=== PATIENT | male | born 1950 | race Caucasian/White ===

== ENCOUNTER 2021-10-17 12:18 | Inpatient (IN) | payer MEDICARE, OTHER ==
[~2021-10-17] VITALS: Ht 177.8 cm; Wt 70.8 kg
--- NOTE | 2021-10-17 12:35 | NUR ---
IV LINE ESTABLISHED BLOOD DRAWN AND SENT TO LAB.
--- NOTE | 2021-10-17 12:48 | NUR ---
MOVE SHEET SUBMITTED AND CALLED FOR TELE BED.
[2021-10-17] MEDS ORDERED: methylPREDNISolone SOD SUCC 125 MG/2ML VIAL ONE ×2 (12:50→22:44)
[2021-10-17 12:55] LABS: BASOPHILS # (AUTO) 0.1 K/uL (0.0-0.2); BASOPHILS % (AUTO) 0.4 % (0.0-2.0); HEMATOCRIT 38 % (39-51); HEMOGLOBIN 11.9 g/dL (13.5-17.5); LYMPHOCYTES # (AUTO) 2.3 K/uL (0.8-4.8); LYMPHOCYTES % (AUTO) 7.4 % (20.0-44.0); MEAN CORPUSCULAR HGB CONC 31 g/dl (31.0-36.0); MEAN CORPUSCULAR VOLUME 84 fL (80-96); MONOCYTES # (AUTO) 1.7 K/uL (0.1-1.30); MONOCYTES % (AUTO) 5.5 % (2.0-12.0); NEUTROPHILS # (AUTO) 26.5 K/uL (1.8-8.9); NEUTROPHILS % (AUTO) 86.7 % (43.0-81.0); PLATELET COUNT (AUTO) 186 K/uL (150-450); RED BLOOD CELL COUNT(AUTO) 4.53 MIL/uL (4.5-6.0)
[2021-10-17] MEDS ORDERED: DEXAMETHASONE SOD PHOSPHATE 6 MG in IV D5W 50 ML IV ONE (13:00)
[2021-10-17] MEDS ORDERED: methylPREDNISolone SOD SUCC 125 MG/2ML VIAL IV ONE (13:00)
[2021-10-17] MEDS ORDERED: PIPERACILLIN /TAZOBACTAM 3.375 G in IV D5W 50 ML IV ONE (13:00)
[2021-10-17 13:01] LABS: WHITE BLOOD COUNT (AUTO) 30.6 K/uL (4.3-11.0)
[2021-10-17] MEDS ORDERED: ACETAMINOPHEN 650 MG/SUPP.RECT RC ONE ×2 (13:21→13:30)
[2021-10-17 13:24] LABS: BILIRUBIN,URINE NEGATIVE (NEGATIVE); COLOR,URINE YELLOW (YELLOW); LEUKOCYTE ESTERASE ,URINE LARGE (NEGATIVE); NITRITE, URINE NEGATIVE (NEGATIVE); PROTEIN,URINE 100 mg/dl (NEGATIVE); UGLUCOSE NEGATIVE (NEGATIVE); UROBILINOGEN,URINE 0.2 EU/dL (0.2)
[2021-10-17] MEDS ORDERED: IV NS 0.9% 1,000 ML BAG IV ONE (13:30)
[2021-10-17 13:34] LABS: BAND % (MANUAL) 2 % (0.0-5.0); LYMPHOCYTES % (MANUAL) 10 % (16-48); MONOCYTES % (MANUAL) 4 % (0-11.0); MYELOCYTES % 2 % (0-0); NEUTROPHILS % (MANUAL) 82 (42-76)
[2021-10-17 13:36] LABS: CALCIUM, SERUM 9.2 mg/dL (8.5-10.1); CARBON DIOXIDE 33 mmol/L (21-32); CHLORIDE 114 mmol/L (98-107); CREATININE 1.2 mg/dL (0.6-1.3); GLUCOSE 177 mg/dL (74-106); SODIUM SERUM 155 mmol/L (136-145); UREA NITROGEN, BLOOD 55 mg/dL (7-18)
[2021-10-17 13:49] LABS: ALANINE AMINOTRANSFERASE 60 U/L (12-78); ALKALINE PHOSPHATASE 185 U/L (46-116); ASPARTATE AMINOTRANSFERASE 38 U/L (15-37); BILIRUBIN,DIRECT 0.1 mg/dL (0.0-0.2); BILIRUBIN,TOTAL 0.4 mg/dL (0.2-1.0); TOTAL PROTEIN, SERUM 7.7 g/dL (6.4-8.2)
[2021-10-17 13:56] LABS: BACTERIA,URINE Many /HPF (None Seen); RBC,URINE TOO NUMEROUS TO COUN /HPF (0-2); SQUAMOUS EPITHELIAL CELL,UR Moderate /HPF (None Seen); WBC,URINE 21-50 /HPF (0-3)
--- NOTE | 2021-10-17 14:05 | NUR ---
[facility] CALLED STRAINER MILL OPERATOR PAGED.
[2021-10-17] MEDS ORDERED: ONDANSETRON HCL/PF 4 MG/2 ML VIAL IVP PRN (19:30)
[2021-10-17] MEDS ORDERED: Z GUARD REMEDY 4 OZ OINT TP PRN (19:30)
[2021-10-17] MEDS: IPRATROPIUM NEB FS 0.5 MG/2.5 ML AMPUL.NEB NEB SCH ×2 (19:30→23:30)
[2021-10-17] MEDS ORDERED: CEFEPIME 2 GM in IV D5W 100 ML IV SCH (19:30)
[2021-10-17] MEDS ORDERED: ENOXAPARIN SODIUM 40 MG/0.4 ML DISP.SYRIN SQ SCH (19:30)
[2021-10-17] MEDS ORDERED: ACETAMINOPHEN 325 MG TABLET PO PRN (19:30)
[2021-10-17] MEDS ORDERED: MORPHINE SULFATE INJ 2 MG/ML DISP.SYRIN IV PRN (19:30)
[2021-10-17] MEDS ORDERED: IV D5W 1,000 ML IV PRN (19:30)
[2021-10-17] MEDS: ALBUTEROL FS 2.5 MG/3 ML VIAL.NEB NEB SCH ×2 (19:30→23:30)
[2021-10-17] MEDS ORDERED: ALBUTEROL FS 2.5 MG/0.5 ML VIAL.NEB ONE ×3 (19:41→22:56)
[2021-10-17] MEDS ORDERED: IPRATROPIUM NEB FS 0.5 MG/2.5 ML AMPUL.NEB ONE ×3 (19:41→22:56)
[2021-10-17] MEDS ORDERED: ENOXAPARIN SODIUM 40 MG/0.4 ML DISP.SYRIN SQ ONE (19:42)
[2021-10-17] MEDS ORDERED: CEFEPIME 1 GM VIAL ONE (19:42)
[2021-10-17] MEDS ORDERED: PROPOFOL 100 ML ONE (20:14)
[2021-10-17] MEDS ORDERED: ETOMIDATE 2 MG/ML VIAL IV ONE (20:30)
[2021-10-17] MEDS ORDERED: SUCCINYLCHOLINE CHLORIDE 20 MG/ML VIAL IV ONE (20:30)
--- NOTE | 2021-10-17 20:34 | NUR ---
PT GOT INTUBATED AT 2033.
--- NOTE | 2021-10-17 20:36 | NUR ---
DR. SHERON GIMENEZ AND RT AT PT'S BEDSIDE DR. GIMENEZ VERBAL ORDERS FOR: ETOMINDATE 20MG 2034 SUCCINATED 100MG 2034 VSS: ETT 8.0. 23 AT THE LIP VS 140/87 SPO2 100% HR 94 RR 17
[2021-10-17] MEDS: PROPOFOL 100 ML IV PRN ×4 (20:45→21:00)
--- NOTE | 2021-10-17 20:45 | NUR ---
PT TOLERATING VENT SETTINGS WELL AT 97%: AC 18 TV 500 FIO2 80% PEEP 0.0
[2021-10-17 20:46] LABS: ABG BASE EXCESS 4.6 mmol/L; ABG PCO2 47.7 mmHg (35.0-45.0); ABG PH 7.416 (7.350-7.450); ABG PO2 95.7 mmHg (75.0-100.0); COHb 0.3 % (0.5-1.5); MetHb 0.2 % (0.0-1.5); SITE, ABG Right Radial; VENT MODE, BG NON REBREATHER
[2021-10-17] MEDS: methylPREDNISolone SOD SUCC 125 MG/2ML VIAL IV SCH (21:00)
--- NOTE | 2021-10-17 21:39 | NUR ---
DR SHERON GIMENEZ AT BED SIDE FOR CENTRAL LINE INSERTION
--- NOTE | 2021-10-17 21:40 | NUR ---
R EJ TRIPLE LUMEN #18G S/L; PATENT AND INTACT
[2021-10-18] VITALS (58 sets, daily range): BP systolic 86–129; BP diastolic 41–82
[2021-10-18] MEDS ORDERED: PROPOFOL 100 ML ONE (02:09)
[2021-10-18 02:29] LABS: ABG BASE EXCESS 6.9 mmol/L; ABG PCO2 45.1 mmHg (35.0-45.0); ABG PH 7.462 (7.350-7.450); ABG PO2 108.9 mmHg (75.0-100.0); COHb 0.3 % (0.5-1.5); MetHb 0.1 % (0.0-1.5); O2Hb 97.7 % (94.0-97.0); SITE, ABG Right Radial; VENT MODE, BG AC 18 500 100% +0
[2021-10-18] MEDS ORDERED: ALBUTEROL FS 2.5 MG/0.5 ML VIAL.NEB ONE (03:34)
[2021-10-18] MEDS ORDERED: IPRATROPIUM NEB FS 0.5 MG/2.5 ML AMPUL.NEB ONE (03:35)
[2021-10-18] MEDS: ALBUTEROL FS 2.5 MG/3 ML VIAL.NEB NEB SCH ×6 (03:48→23:30)
[2021-10-18] MEDS: IPRATROPIUM NEB FS 0.5 MG/2.5 ML AMPUL.NEB NEB SCH ×6 (03:48→23:30)
--- NOTE | 2021-10-18 04:28 | NUR ---
PT TOLERATING VENT SETTINGS, PROPROFOL @ 20MCG/KG/ML , D5W @100ML/HR WELL. VSS.
[2021-10-18 05:13] LABS: BASOPHILS % (AUTO) 0.1 % (0.0-2.0); HEMATOCRIT 36 % (39-51); HEMOGLOBIN 11.1 g/dL (13.5-17.5); LYMPHOCYTES # (AUTO) 1.4 K/uL (0.8-4.8); MEAN CORPUSCULAR HGB CONC 31 g/dl (31.0-36.0); MEAN CORPUSCULAR VOLUME 85 fL (80-96); MONOCYTES # (AUTO) 0.7 K/uL (0.1-1.30); MONOCYTES % (AUTO) 3.4 % (2.0-12.0); NEUTROPHILS # (AUTO) 18.5 K/uL (1.8-8.9); NEUTROPHILS % (AUTO) 89.5 % (43.0-81.0); PLATELET COUNT (AUTO) 201 K/uL (150-450); RED BLOOD CELL COUNT(AUTO) 4.22 MIL/uL (4.5-6.0); WHITE BLOOD COUNT (AUTO) 20.7 K/uL (4.3-11.0)
[2021-10-18 05:40] LABS: ALANINE AMINOTRANSFERASE 46 U/L (12-78); ALKALINE PHOSPHATASE 157 U/L (46-116); ASPARTATE AMINOTRANSFERASE 17 U/L (15-37); BILIRUBIN,TOTAL 0.4 mg/dL (0.2-1.0); CALCIUM, SERUM 8.5 mg/dL (8.5-10.1); CARBON DIOXIDE 31 mmol/L (21-32); CHLORIDE 114 mmol/L (98-107); CREATININE 1.3 mg/dL (0.6-1.3); GLUCOSE 245 mg/dL (74-106); IRON, SERUM 47 ug/dl (50-175); MAGNESIUM 3.5 mg/dL (1.8-2.4); PHOSPHORUS 4.7 mg/dL (2.5-4.9); POTASSIUM 4.4 mmol/L (3.5-5.1); SODIUM SERUM 155 mmol/L (136-145); TOTAL IRON BINDING CAPACITY 235 ug/dl (250-450); TOTAL PROTEIN, SERUM 7.5 g/dL (6.4-8.2); UREA NITROGEN, BLOOD 53 mg/dL (7-18)
--- NOTE | 2021-10-18 05:43 | NUR ---
PT ASSIGNED TO ICU 261; PER RN SUP TRANSFER PT AFTER CHANGE OF SHIFT.
[2021-10-18 05:56] LABS: CHOLESTEROL 85 mg/dL (<200); HDL CHOLESTEROL 12 mg/dL (40-60); LDL 44 mg/dL (0-99); THYROID STIMULATING HORMONE 0.182 uIU/mL (0.358-3.74); TRIGLYCERIDES 262 mg/dL (30-150)
[2021-10-18] MEDS ORDERED: methylPREDNISolone SOD SUCC 125 MG/2ML VIAL ONE (06:05)
[2021-10-18] MEDS: methylPREDNISolone SOD SUCC 125 MG/2ML VIAL IV SCH ×3 (06:09→20:48)
--- NOTE | 2021-10-18 06:19 | NUR ---
REPORT GIVEN TO CARINE HOMICIDE DETECTIVE FOR SARA
--- NOTE | 2021-10-18 06:23 | NUR ---
URINE OUTPUT: 750ML DARK DIANNE VIA F/C
--- NOTE | 2021-10-18 06:56 | NUR ---
LAB RUNNING COVID ANTIGEN TEST; RESULT STILL PENDING
[2021-10-18] MEDS ORDERED: PANTOPRAZOLE 40 MG TABLET.DR PO SCH (07:30)
--- NOTE | 2021-10-18 07:50 | NUR ---
RN NOTES RECEIVED PT FROM ER , INTUBATED AND SEDATED, ON DIPRIVAN AT 20 MCG/KG/MIN, D5W AT 100CC/HR RUNNING , PT TOLERATING VENT SETTING WELL, ON TELE A.FIB HR IN 60'S, MUELLER DRAINING TO GRAVITY, GT AND NGT CLAMPED, R IJ TLC AND R AC IV SITES, CLEAN ,DRY AND INTACT, SR UP x3, CALL LIGHT WITHIN EASY REACH, BED LOCKED AND IN LOWEST POSITION, CONTINUE TO MONITOR .
[2021-10-18] MEDS ORDERED: ETOMIDATE 2 MG/ML VIAL IV ONE (08:24)
[2021-10-18] MEDS: CEFEPIME 2 GM in IV D5W 100 ML IV SCH ×2 (08:54→20:48)
[2021-10-18] MEDS ORDERED: ONDANSETRON HCL/PF 4 MG/2 ML VIAL IVP PRN (10:30)
[2021-10-18] MEDS ORDERED: MORPHINE SULFATE INJ 2 MG/ML DISP.SYRIN IV PRN (10:30)
[2021-10-18] MEDS: IV D5W 1,000 ML IV PRN ×2 (10:30→23:07)
[2021-10-18] MEDS ORDERED: Z GUARD REMEDY 4 OZ OINT TP PRN (10:30)
[2021-10-18] MEDS: VANCOMYCIN 1.25 GM in IV D5W 250 ML IV SCH (12:16)
[2021-10-18] MEDS: PROPOFOL 100 ML IV PRN ×2 (14:28→21:27)
--- NOTE | 2021-10-18 15:50 | NUR ---
RN NOTES DR GIMENEZ NOTIFIED REGARDING BLOOD CULTURE RESULTS ( GRAM STAIN POSITIVE COCCI IN CLUSTERS)
--- NOTE | 2021-10-18 18:00 | NUR ---
RN NOTES PT REMAINS INTUBATED AND SEDATED ON DIPRIVAN AT 20MCG/KG/MIN, D5W AT 100CC/HR ERVIN DAVENPORT DRANING TO GRAVITY, NO SIGNFICANT CHANGES NOTED ON THIS SHIFT , WILL ENDORSE TO LITHOPONE MILL WORKER NURSE FOR CONTINUITY OF CARE .
--- NOTE | 2021-10-18 19:25 | NUR ---
RN NOTE PT RECEIVED IN BED, SEDATED. PT IS TRACH/VENT WITH SETTINGS AT AC:18, TV:500, FIO2:60%. TOLERATING SETTINGS WELL WITH OXYGEN SATURATION >95%. PT ON GRID MAKER SHOWING A-FIB, A-FLUTTER, AND NSR. MUELLER CATH NOTED DRAINING YELLOW COLORED URINE. PT CURRENTLY NPO. IV ACCESS NOTED ON RIGHT IJ AND RIGHT AC. PROPOFOL RUNNING AT 20 MCG/KG/MIN. ALL SAFETY MEASURES IMPLEMENTED. BED ALARM ON. BED LOCKED AND IN LOWEST POSITION. HOB ELEVATED. SIDE RAILS UP. WILL CONTINUE TO MONITOR AND ASSESS FOR ANY CHANGES DURING SHIFT.
--- NOTE | 2021-10-18 19:51 | NUR ---
RT NOTE TX NOT GIVEN DUE TO PENDING PCR RESULTS. NO RESPIRATORY DISTRESS NOTED.
[2021-10-18] MEDS: ENOXAPARIN SODIUM 40 MG/0.4 ML DISP.SYRIN SQ SCH (20:47)
[2021-10-19] VITALS (75 sets, daily range): BP systolic 91–133; BP diastolic 51–90
[2021-10-19] MEDS: IPRATROPIUM NEB FS 0.5 MG/2.5 ML AMPUL.NEB NEB SCH ×6 (03:30→23:30)
[2021-10-19] MEDS: ALBUTEROL FS 2.5 MG/3 ML VIAL.NEB NEB SCH ×6 (03:30→23:30)
[2021-10-19 04:24] LABS: HEMATOCRIT 31 % (39-51); HEMOGLOBIN 9.7 g/dL (13.5-17.5); LYMPHOCYTES # (AUTO) 0.9 K/uL (0.8-4.8); LYMPHOCYTES % (AUTO) 5.1 % (20.0-44.0); MEAN CORPUSCULAR HGB CONC 31 g/dl (31.0-36.0); MEAN CORPUSCULAR VOLUME 84 fL (80-96); MONOCYTES # (AUTO) 0.5 K/uL (0.1-1.30); MONOCYTES % (AUTO) 2.6 % (2.0-12.0); NEUTROPHILS # (AUTO) 16.2 K/uL (1.8-8.9); NEUTROPHILS % (AUTO) 92.3 % (43.0-81.0); PLATELET COUNT (AUTO) 192 K/uL (150-450); RED BLOOD CELL COUNT(AUTO) 3.72 MIL/uL (4.5-6.0); WHITE BLOOD COUNT (AUTO) 17.5 K/uL (4.3-11.0)
[2021-10-19 04:43] LABS: CALCIUM, SERUM 8.3 mg/dL (8.5-10.1); CARBON DIOXIDE 32 mmol/L (21-32); CHLORIDE 109 mmol/L (98-107); GLUCOSE 253 mg/dL (74-106); PHOSPHORUS 4.3 mg/dL (2.5-4.9); POTASSIUM 3.8 mmol/L (3.5-5.1); SODIUM SERUM 146 mmol/L (136-145); UREA NITROGEN, BLOOD 55 mg/dL (7-18)
[2021-10-19] MEDS: methylPREDNISolone SOD SUCC 125 MG/2ML VIAL IV SCH ×3 (04:52→20:15)
[2021-10-19] MEDS: PROPOFOL 100 ML IV PRN ×2 (06:05→17:43)
--- NOTE | 2021-10-19 06:30 | NUR ---
RN NOTE NO CHANGES IN PT CONDITION DURING SHIFT. PT IS TRACH/VENT WITH SETTINGS AT AC:18, TV:500, FIO2 NOW AT 40%. TOLERATING SETTINGS WELL WITH OXYGEN SATURATION >95%. PT ON CREDIT CONTROL ADMINISTRATOR FLUCTUATING BETWEEN A-FIB, A-FLUTTER, NSR AND SB. PT CURRENTLY NPO. IV ACCESS NOTED ON RIGHT IJ AND RIGHT AC. PROPOFOL RUNNING AT 25 MCG/KG/MIN. ALL SAFETY MEASURES IMPLEMENTED. BED ALARM ON. BED LOCKED AND IN LOWEST POSITION. HOB ELEVATED. SIDE RAILS UP. WILL ENDORSE TO MORNING SHIFT RN FOR SARA.
--- NOTE | 2021-10-19 07:30 | NUR ---
CUPOLA TAPPER OPENING NOTES Patient received on vent with setting of ac 18, tv of 500 fi02 of 40 and peep of 0. Patient is sedated on propofol at 20 mcg and d5w at 100 cc/hour. Patient is npo and noted with g tube and ogtube. HOB kept elevated. Will continue to monitor. Stevens cath intact and hanging to gravity. Per report patient was leaking urine around stevens insertion site. Bed is in lowest and locked position.
--- NOTE | 2021-10-19 08:36 | NUR ---
Patient switched to SIMV mode, tolerating well. 02 of 94%
--- NOTE | 2021-10-19 08:50 | NUR ---
WOUND CARE CONSULT: REVIEWED CHART, NURSING DOCUMENTATION AND PHOTOS WHICH INDICATE SACRAL PRESSURE ULCER, PRESENT ON ADMISSION. DR LO NOTIFIED OF SURGICAL CONSULT. RECOMMENDATIONS MADE FOR SKIN PROTECTION. DISCUSSED WITH NURSING STAFF. PT IS CURRENTLY INTUBATED BUT MAY BE EXTUBATED SOON. MD IN AGREEMENT WITH PLAN OF CARE.
[2021-10-19] MEDS: VANCOMYCIN 1.25 GM in IV D5W 250 ML IV SCH (12:03)
[2021-10-19] MEDS: PANTOPRAZOLE 40 MG TABLET.DR PO SCH (12:03)
[2021-10-19] MEDS: CEFEPIME 2 GM in IV D5W 100 ML IV SCH ×2 (12:03→20:15)
[2021-10-19] MEDS: IV D5W 1,000 ML IV PRN ×2 (12:08→19:00)
[2021-10-19] MEDS: THERAHONEY GEL 1.5 OZ TUBE TP SCH (15:00)
[2021-10-19] MEDS ORDERED: GLUCERNA 1.2 1,000 ML BOTTLE NG PRN (16:30)
--- NOTE | 2021-10-19 17:15 | NUR ---
RT PATIENT PLACED BACK ON AC MODE FOR SOB. RN NOTIFIED Addendum: 10/19/21 at 1715 by KAYA DUONG RT Amended: Links added.
[2021-10-19] MEDS: GLUCERNA 1.2 1,000 ML BOTTLE NG PRN (17:44)
--- NOTE | 2021-10-19 19:05 | NUR ---
CIRCUS TRAIN SUPERVISOR CLOSING NOTES Patient on vent with setting of ac 18, tv of 500 fi02 of 40 and peep of 5. Patient is sedated on propofol at 15 mcg and d5w at 100 cc/hour. Patient is npo and noted with g tube with glucerna running at 20 cc/hour and ogtube clamped. HOB kept elevated. Will continue to monitor. Kowalski cath intact and hanging to gravity with out put of 300 cc. Bed is in lowest and locked position.
--- NOTE | 2021-10-19 19:20 | NUR ---
RECEIVED PATIENT IN BED, SEDATED PATIENT IS TRACH/VENT, TOLERATING CURRENT SETTINGS WELL. NO SOB OR ANY ACUTE DISTRESS NOTED AT THE TIME. ON HOT PLATE PLYWOOD PRESS OPERATOR CURRENTLY SHOWING SINUS ALBERTO 50'S-60'S. MUELLER CATH NOTED DRAINING YELLOW COLORED URINE. G-TUBE INTACT RUNNING GLUCERNA AT 20 CC/HR, RESIDUAL NOTED AT 0CC. IV ACCESS NOTED ON RIGHTIJ 3L CATH AND RAC#20 IV FLUSHED, PATENT, AND INTACT WITH NO SIGNS OF INFILTRATION. HAVE BILATERAL WRIST SOFT RESTRAINTS FOR SELF EXTUBATION PRECAUTION ALL SAFETY MEASURES IMPLEMENTED. BED ALARM ON. BED LOCKED AND IN LOWEST POSITION. HOB ELEVATED. SIDE RAILS UP. WILL CONTINUE TO MONITOR PATIENT ACCORDINGLY.
[2021-10-19] MEDS ORDERED: DEXTROSE 50%-WATER 50 ML DISP.SYRIN IV PRN (19:30)
--- NOTE | 2021-10-19 20:02 | NUR ---
RT NOTE TX NOT GIVEN DUE TO PENDING PCR RESULTS. NO RESPIRATORY DISTRESS NOTED. RN CARINE NOTIFIED.
[2021-10-19] MEDS: ENOXAPARIN SODIUM 40 MG/0.4 ML DISP.SYRIN SQ SCH (20:15)
[2021-10-19] MEDS: BLOOD SUGAR DIAGNOSTIC 1 EACH STRIP IN SCH (23:13)
[2021-10-19] MEDS: INSULIN REGULAR, HUMAN 100 UNIT/ML 3 ML VIAL SQ PRN (23:15)
[2021-10-20] VITALS (35 sets, daily range): BP systolic 102–122; BP diastolic 47–84
[2021-10-20] MEDS: PROPOFOL 100 ML IV PRN (02:34)
[2021-10-20] MEDS: ALBUTEROL FS 2.5 MG/3 ML VIAL.NEB NEB SCH ×7 (03:30→23:22)
[2021-10-20] MEDS: IPRATROPIUM NEB FS 0.5 MG/2.5 ML AMPUL.NEB NEB SCH ×7 (03:30→23:22)
[2021-10-20 04:06] LABS: ABG BASE EXCESS 4.7 mmol/L; ABG OXYGEN SATURATION 95.2 % (92.0-98.5); ABG PCO2 42.7 mmHg (35.0-45.0); ABG PH 7.452 (7.350-7.450); ABG PO2 77.8 mmHg (75.0-100.0); COHb 0.3 % (0.5-1.5); MetHb 0.2 % (0.0-1.5); O2Hb 94.7 % (94.0-97.0); SITE, ABG Right Radial
[2021-10-20 04:06] LABS: ABG BASE EXCESS 3.1 mmol/L; ABG OXYGEN SATURATION 93.2 % (92.0-98.5); ABG PCO2 40.4 mmHg (35.0-45.0); ABG PH 7.448 (7.350-7.450); ABG PO2 68.2 mmHg (75.0-100.0); AaDO2 170.5 mmHg; COHb 0.3 % (0.5-1.5); O2Hb 92.9 % (94.0-97.0); SITE, ABG Right Radial
[2021-10-20 05:01] LABS: BASOPHILS % (AUTO) 0.2 % (0.0-2.0); HEMATOCRIT 31 % (39-51); HEMOGLOBIN 10.1 g/dL (13.5-17.5); LYMPHOCYTES # (AUTO) 0.6 K/uL (0.8-4.8); LYMPHOCYTES % (AUTO) 3.8 % (20.0-44.0); MEAN CORPUSCULAR HGB CONC 32 g/dl (31.0-36.0); MEAN CORPUSCULAR VOLUME 83 fL (80-96); MONOCYTES # (AUTO) 0.3 K/uL (0.1-1.30); NEUTROPHILS # (AUTO) 15.5 K/uL (1.8-8.9); PLATELET COUNT (AUTO) 206 K/uL (150-450); RED BLOOD CELL COUNT(AUTO) 3.79 MIL/uL (4.5-6.0); WHITE BLOOD COUNT (AUTO) 16.4 K/uL (4.3-11.0)
[2021-10-20 05:04] LABS: CALCIUM, SERUM 8.4 mg/dL (8.5-10.1); CARBON DIOXIDE 29 mmol/L (21-32); CHLORIDE 105 mmol/L (98-107); CREATININE 0.9 mg/dL (0.6-1.3); GLUCOSE 207 mg/dL (74-106); MAGNESIUM 2.8 mg/dL (1.8-2.4); PHOSPHORUS 4.1 mg/dL (2.5-4.9); POTASSIUM 3.6 mmol/L (3.5-5.1); SODIUM SERUM 141 mmol/L (136-145); UREA NITROGEN, BLOOD 50 mg/dL (7-18)
[2021-10-20] MEDS ORDERED: SENN-18 PO (05:14)
[2021-10-20] MEDS ORDERED: RISP3TAB61 GT (05:14)
[2021-10-20] MEDS ORDERED: AMIO200T5 GT (05:14)
[2021-10-20] MEDS ORDERED: CALC1TAB30 GT (05:14)
[2021-10-20] MEDS ORDERED: APIX5TAB GT (05:14)
[2021-10-20] MEDS ORDERED: DOCU100T2 GT (05:14)
[2021-10-20] MEDS ORDERED: NA P133E RC (05:14)
[2021-10-20] MEDS ORDERED: ASCO500T10 GT (05:14)
[2021-10-20] MEDS ORDERED: IPRA12.9 INH (05:14)
[2021-10-20] MEDS ORDERED: POLY17PO4 GT (05:14)
[2021-10-20] MEDS ORDERED: MULT-754 GT (05:14)
[2021-10-20] MEDS ORDERED: INSU100V42 (05:14)
[2021-10-20] MEDS ORDERED: ATOR10TA GT (05:14)
[2021-10-20] MEDS ORDERED: ALBU6.7H9 INH (05:14)
[2021-10-20] MEDS ORDERED: TRAM50TA2 PO (05:14)
[2021-10-20] MEDS ORDERED: MAGN400T8 GT (05:14)
[2021-10-20] MEDS: BLOOD SUGAR DIAGNOSTIC 1 EACH STRIP IN SCH ×4 (05:34→23:21)
[2021-10-20] MEDS: methylPREDNISolone SOD SUCC 125 MG/2ML VIAL IV SCH ×3 (05:34→21:00)
[2021-10-20] MEDS: INSULIN REGULAR, HUMAN 100 UNIT/ML 3 ML VIAL SQ PRN ×4 (05:35→23:23)
--- NOTE | 2021-10-20 06:43 | NUR ---
PT ON BED STILL ORALLY INTUBATED AND SEDATED ON VENT SETTING ORDERED FIO2 40% PEEP 0 SPO2 96-98% NO SOB NOTED,SINUS ALBERTO ON MONITOR NO SIGNIFICANT CHANGES ON CONDITION NOTED ALL NEEDS MET, WOUND TREATMENT WAS DONE STILL ON BILATERAL WRIST SOFT RESTRAINT FOR SELF EXTUBATION PRECAUTION, BED ON LOWEST POSITION AND LOCKED SIDE RAILS UP X2 WILL CONT TO MONITOR
[2021-10-20] MEDS: IV D5W 1,000 ML IV PRN (06:52)
[2021-10-20] MEDS: PANTOPRAZOLE 40 MG TABLET.DR PO SCH (07:38)
--- NOTE | 2021-10-20 08:40 | NUR ---
RN NOTES MD ORDER TO TITRATE PROPOFEL FROM 20 DECREASE BY 5 EVERY 5 MIN AND TO MONITOR THE (MAP) GOAL IS TO MAINTAIN (MAP) AT 65 AND ABOVE, DECREASED TO 15 AND MAP IS AT 83 AT THIS TIME, WILL CONTINUE TO DECREASE AND MONITOR MAP AND B/P CLOSELY DURING TITRATION TIMES.
--- NOTE | 2021-10-20 08:43 | NUR ---
RN NOTES DECREASED PROPOFEL BY MINUS 5 NOW AT 10 , MAP IS BEING MAINTAINED AT 83 AT THIS TIME, B/P 107/ 62, RR 20, PULSE 65, OXYGEN AT 95%, RESTRAINTS ARE APPLIED AND INTACT, SKIN IS CHECKED NO S/S OF IRRITATION NO REDNESS NOTED, BED LOW WHEELS LOCKED CALL LIGHT IN REACH, MONITORING CLOSELY DURING TITRATION OF THE PROPOFEL LEVELS AT THIS TIME.
--- NOTE | 2021-10-20 08:45 | NUR ---
ICU/RN BERTIN STOP ORDERED.SEDATION VACATION PROVIDED.PT PLACED AT SIMV MODE.CONTINUE MONITORING.
--- NOTE | 2021-10-20 08:58 | NUR ---
RN NOTES DECREASED PROPOFEL BY 5 FROM 10 NOW 5, VS TAKEN B/P 98/61 , RR - 18, OXYGEN 93%, MAP = 78, PULSE 63, WILL CONTINUE TO MONITOR, G-TUBE INTACT, ALL IV SITES CLEAN PATENT INTACT NO INFILTRATION NOTED AND NO IRRITATION NOTED AT SITES.
--- NOTE | 2021-10-20 09:08 | NUR ---
RN NOTES PT PROPOFEL TITRATED DOWN TO ZERO AMOUNT MAP IS AT 78, VS - B/P 98/61, RR 18, OXYGEN 92%, PULSE AT 66, RESTRAINTS INTACT, G-TUBE IN TACT PATENT, IV J FLUSHING WELL PATENT INTACT, WILL CONTINUE TO MONITOR PT CLOSELY AT THIS TIME. BED LOW WHEELS LOCKED CALL LIGHT IN REACH.
--- NOTE | 2021-10-20 09:15 | NUR ---
pt. is awake but unable to follow commands placed on weaning trial per dr. domingo with parameters below as order: CPAP 5 PS 14 FIO2 40% Addendum: 10/20/21 at 0922 by YADIRA WEBER RT Amended: Links added.
[2021-10-20] MEDS: THERAHONEY GEL 1.5 OZ TUBE TP SCH (09:43)
[2021-10-20] MEDS: MEROPENEM 1 G in IV NS 0.9% 100 ML IV SCH ×2 (10:20→21:00)
--- NOTE | 2021-10-20 10:29 | NUR ---
ICU/RN TRIGLYCERIDE LEVEL IS 262 ON 10/18/21. DR DUNN AWARE.WILL REPEAT LEVEL ON 10/21/21.
[2021-10-20 10:54] LABS: ABG BASE EXCESS 3.5 mmol/L; ABG PCO2 40.8 mmHg (35.0-45.0); ABG PH 7.451 (7.350-7.450); ABG PO2 85.2 mmHg (75.0-100.0); AaDO2 153.1 mmHg; COHb 0.3 % (0.5-1.5); MetHb 0.1 % (0.0-1.5); O2Hb 95.6 % (94.0-97.0); SITE, ABG Right Radial; VENT MODE, BG PS 14
[2021-10-20] MEDS: VANCOMYCIN 1.25 GM in IV D5W 250 ML IV SCH (11:16)
[2021-10-20] MEDS: IV LR 1000 ML 1,000 ML IV SCH (15:10)
--- NOTE | 2021-10-20 19:15 | NUR ---
RECEIVED PATIENT IN BED, WITH EYES OPEN, ABLE TO FOLLOW SIMPLE COMMAND SUCH SQUISHING HANDS PATIENT IS TRACH/VENT, TOLERATING CURRENT SETTINGS WELL. NO SOB OR ANY ACUTE DISTRESS NOTED AT THE TIME. ON WEIGHT CALLER CURRENTLY SHOWING SB WITH HR OF 50-60 BPM. MUELLER CATH NOTED DRAINING YELLOW COLORED URINE. G-TUBE INTACT with ongoing GLUCERNA AT 40 CC/HR, RESIDUAL NOTED AT 5CC. RIJ 3L LINE ACCESS NOTED AND RAC#20FLUSHED, PATENT, AND INTACT WITH NO SIGNS OF INFILTRATION.WITH ONGOING LR @ 100ML/HR .HAVE BILATERAL WRIST SOFT RESTRAINS FOR SELF EXTUBATION PRECAUTION ALL SAFETY MEASURES IMPLEMENTED. BED ALARM ON. BED LOCKED AND IN LOWEST POSITION. HOB ELEVATED. SIDE RAILS UP. WILL CONTINUE TO MONITOR PATIENT ACCORDINGLY.
--- NOTE | 2021-10-20 19:16 | NUR ---
RN NOTES PATIENT TOLERATING BEING TITRATED OFF OF PROPOFEL MEDICATION AT THIS TIME, THE MAP HAS BEEN MAINTAINED AT 65 OR HIGHER DURING AM SHIFT, B/P READINGS STABLE AND WITHIN BASE LINE RANGE, PT MADE COMFORTABLE REPOSITIONED, F/C CARE PROVIDED DRAINED AND CLEANED, NO OTHER SIGNIFICANT CHANGES NOTED DURING SHIFT OTHER THAN MEDICATION CHANGE, WRIST RESTRAINTS INTACT SKIN CHECKED NO IRRITATION NOTED, BED LOW WHEELS LOCKED CALL LIGHT IN REACH.
[2021-10-20] MEDS: ENOXAPARIN SODIUM 40 MG/0.4 ML DISP.SYRIN SQ SCH (21:00)
[2021-10-20] MEDS: IV NS 0.9% 250 ML IV PRN (21:17)
[2021-10-21] VITALS (31 sets, daily range): BP systolic 91–131; BP diastolic 45–81
[2021-10-21] MEDS: IV LR 1000 ML 1,000 ML IV SCH ×3 (02:10→22:31)
[2021-10-21] MEDS: IPRATROPIUM NEB FS 0.5 MG/2.5 ML AMPUL.NEB NEB SCH ×6 (03:30→23:30)
[2021-10-21] MEDS: ALBUTEROL FS 2.5 MG/3 ML VIAL.NEB NEB SCH ×6 (03:30→23:30)
[2021-10-21] MEDS: methylPREDNISolone SOD SUCC 125 MG/2ML VIAL IV SCH ×2 (04:14→20:44)
[2021-10-21 04:25] LABS: HEMATOCRIT 32 % (39-51); HEMOGLOBIN 10.2 g/dL (13.5-17.5); LYMPHOCYTES # (AUTO) 0.4 K/uL (0.8-4.8); LYMPHOCYTES % (AUTO) 2.1 % (20.0-44.0); MEAN CORPUSCULAR HGB CONC 32 g/dl (31.0-36.0); MEAN CORPUSCULAR VOLUME 83 fL (80-96); MONOCYTES # (AUTO) 0.3 K/uL (0.1-1.30); MONOCYTES % (AUTO) 1.7 % (2.0-12.0); NEUTROPHILS # (AUTO) 19.9 K/uL (1.8-8.9); NEUTROPHILS % (AUTO) 96.2 % (43.0-81.0); PLATELET COUNT (AUTO) 229 K/uL (150-450); WHITE BLOOD COUNT (AUTO) 20.7 K/uL (4.3-11.0)
[2021-10-21 04:53] LABS: CALCIUM, SERUM 7.7 mg/dL (8.5-10.1); CARBON DIOXIDE 30 mmol/L (21-32); CHLORIDE 104 mmol/L (98-107); CREATININE 0.8 mg/dL (0.6-1.3); GLUCOSE 226 mg/dL (74-106); MAGNESIUM 2.2 mg/dL (1.8-2.4); PHOSPHORUS 3.9 mg/dL (2.5-4.9); POTASSIUM 3.8 mmol/L (3.5-5.1); SODIUM SERUM 139 mmol/L (136-145); UREA NITROGEN, BLOOD 39 mg/dL (7-18)
[2021-10-21] MEDS ORDERED: VANCOMYCIN 1 GM in IV D5W 250 ML IV SCH (05:00)
[2021-10-21 05:08] LABS: TRIGLYCERIDES 208 mg/dL (30-150)
[2021-10-21] MEDS: MEROPENEM 1 G in IV NS 0.9% 100 ML IV SCH ×3 (05:24→20:42)
[2021-10-21] MEDS: BLOOD SUGAR DIAGNOSTIC 1 EACH STRIP IN SCH ×4 (05:36→23:40)
[2021-10-21] MEDS: INSULIN REGULAR, HUMAN 100 UNIT/ML 3 ML VIAL SQ PRN ×3 (05:39→23:41)
--- NOTE | 2021-10-21 06:52 | NUR ---
PT ON BED STILL ORALLY INTUBATED SLEEPING EASY TO WAKE UP ON VENT SETTING ORDERED CPAP FIO2 40% PEEP 0 SPO2 96-98% NO SOB NOTED,SINUS ALBERTO ON MONITOR NO SIGNIFICANT CHANGES ON CONDITION NOTED ALL NEEDS MET, WOUND TREATMENT WAS DONE STILL ON BILATERAL WRIST SOFT RESTRAINT FOR SELF EXTUBATION PRECAUTION, BED ON LOWEST POSITION AND LOCKED SIDE RAILS UP X2 WILL CONT TO MONITOR
[2021-10-21] MEDS: PANTOPRAZOLE 40 MG TABLET.DR PO SCH (09:16)
[2021-10-21] MEDS: THERAHONEY GEL 1.5 OZ TUBE TP SCH (09:17)
[2021-10-21] MEDS: GLUCERNA 1.2 1,000 ML BOTTLE NG PRN (12:56)
[2021-10-21] MEDS: VANCOMYCIN 1 GM in IV D5W 250 ML IV SCH (17:00)
--- NOTE | 2021-10-21 19:00 | NUR ---
RN CLOSING NOTES PT GRUNTS WHEN I TOUCH ABDOMEN. NODS THAT THERE IS PAIN. PT STATES IT STARTED TODAY. AUSCULTATED ALL SIDES ACTIVE BOWELS. TYLENOL GIVEN AT 1900. IF PAIN PERSIST PLEASE NOTIFY PROVIDER. SCANT BOWEL MOVEMENT. RIJ 100CC LR. PER LAB PT (+) GRAM COCCI.
[2021-10-21] MEDS: ACETAMINOPHEN 325 MG TABLET PO PRN (19:07)
[2021-10-21] MEDS: ENOXAPARIN SODIUM 40 MG/0.4 ML DISP.SYRIN SQ SCH (20:45)
[2021-10-22] VITALS (28 sets, daily range): BP systolic 91–148; BP diastolic 59–86
[2021-10-22] MEDS: IPRATROPIUM NEB FS 0.5 MG/2.5 ML AMPUL.NEB NEB SCH ×6 (03:30→23:29)
[2021-10-22] MEDS: ALBUTEROL FS 2.5 MG/3 ML VIAL.NEB NEB SCH ×6 (03:30→23:29)
[2021-10-22 04:29] LABS: HEMATOCRIT 33 % (39-51); HEMOGLOBIN 10.6 g/dL (13.5-17.5); LYMPHOCYTES # (AUTO) 0.5 K/uL (0.8-4.8); LYMPHOCYTES % (AUTO) 2.5 % (20.0-44.0); MEAN CORPUSCULAR HGB CONC 32 g/dl (31.0-36.0); MEAN CORPUSCULAR VOLUME 82 fL (80-96); MONOCYTES # (AUTO) 0.2 K/uL (0.1-1.30); MONOCYTES % (AUTO) 1.2 % (2.0-12.0); NEUTROPHILS # (AUTO) 19.6 K/uL (1.8-8.9); NEUTROPHILS % (AUTO) 96.3 % (43.0-81.0); PLATELET COUNT (AUTO) 257 K/uL (150-450); RED BLOOD CELL COUNT(AUTO) 3.96 MIL/uL (4.5-6.0); WHITE BLOOD COUNT (AUTO) 20.3 K/uL (4.3-11.0)
[2021-10-22 04:43] LABS: CALCIUM, SERUM 7.6 mg/dL (8.5-10.1); CARBON DIOXIDE 30 mmol/L (21-32); CHLORIDE 106 mmol/L (98-107); CREATININE 0.7 mg/dL (0.6-1.3); GLUCOSE 209 mg/dL (74-106); PHOSPHORUS 3.1 mg/dL (2.5-4.9); POTASSIUM 3.6 mmol/L (3.5-5.1); SODIUM SERUM 142 mmol/L (136-145); UREA NITROGEN, BLOOD 31 mg/dL (7-18)
[2021-10-22] MEDS: VANCOMYCIN 1 GM in IV D5W 250 ML IV SCH ×2 (04:47→16:40)
[2021-10-22] MEDS: MEROPENEM 1 G in IV NS 0.9% 100 ML IV SCH ×3 (04:47→20:40)
[2021-10-22] MEDS: IV NS 0.9% 250 ML IV PRN (05:27)
[2021-10-22] MEDS: IV LR 1000 ML 1,000 ML IV SCH ×2 (05:27→15:55)
[2021-10-22] MEDS: GLUCERNA 1.2 1,000 ML BOTTLE NG PRN (05:28)
[2021-10-22] MEDS: BLOOD SUGAR DIAGNOSTIC 1 EACH STRIP IN SCH ×4 (06:05→23:31)
[2021-10-22] MEDS: INSULIN REGULAR, HUMAN 100 UNIT/ML 3 ML VIAL SQ PRN ×3 (06:06→18:19)
--- NOTE | 2021-10-22 07:33 | NUR ---
RN OPENING NOTE RECEIVED PATIENT IN BED, OPENS EYES TO NAME. ON CPAP WITH ETT 04/26 TV 500 FIO2 40% ND PEEP 5. MANGLE ROLL OPERATOR READING A FIB /[address] WITH NO RESIDUAL RUNNING GLUCERNA 20MLS/HR. IV ACCESS NOTED ON RAC 20g RUNNING LR AT 100MLS/HR. RESTRAINTS IN PLACED RENEWED AT 2100. SAFETY MEASURES IN PLACE. BED LOCKED IN THE LOWEST POSITION 2 SIDE RAILS UP , CALL LIGHT WITHIN REACH BED ALARM ACTIVATED.
[2021-10-22] MEDS ORDERED: DC PROPOFOL WHEN EXTUBATED XX PRN (08:00)
[2021-10-22] MEDS: PANTOPRAZOLE 40 MG TABLET.DR PO SCH (08:04)
[2021-10-22] MEDS: methylPREDNISolone SOD SUCC 125 MG/2ML VIAL IV SCH ×2 (08:04→20:40)
[2021-10-22] MEDS: THERAHONEY GEL 1.5 OZ TUBE TP SCH (08:30)
--- NOTE | 2021-10-22 08:30 | NUR ---
RN NOTE PER DR. DUNN, REMOVE RIGHT JUGULAR ACCESS ND INITIATE A PERIPHERAL LINE. MIDLINE ORDERED.
--- NOTE | 2021-10-22 10:00 | NUR ---
pt extubated placed on low flow oxygen. zero distress at this time.
--- NOTE | 2021-10-22 10:12 | NUR ---
RN NOTE PATIENT EXPRESSED ABDOMINAL PAIN, NOTED TO HAVE SCANT BOWEL MOVEMENT, BOWEL SOUNDS PRESENT ON ALL [address] SEGUNDO, RECEIVED ORDER FOR DOCUSATE SODIUM 100MG/10ML GT Q PM AND KUB. ORDERS PLACED.
--- NOTE | 2021-10-22 11:10 | NUR ---
RN NOTE PATIENT EXTUBATED 1000, NON COMBATIVE. REMOVED RESTRAINTS
--- NOTE | 2021-10-22 11:11 | NUR ---
RN NOTE RIGHT INTERNAL JUGULAR ACCESS REMOVED, HELD PRESSURE FOR 1MIN NO BLEEDING, PLACED DRESSING.
--- NOTE | 2021-10-22 11:18 | NUR ---
RN NOTE FLUSHED PATIENT GTUBE 250ML FREE WATER
--- NOTE | 2021-10-22 17:06 | NUR ---
RN NOTE RECEIVED CALL FROM PHARMACY, VANCOMYCIN DOSAGE WILL BE ADJUSTED FROM 1GM TO 1.25GM ON 10/23 AT 0500. WILL ENDORSE TO NIGHT NURSE.
--- NOTE | 2021-10-22 18:39 | NUR ---
RN CLOSING NOTE RECEIVED PATIENT IN BED, A/O X 2-3. CURRENTLY ON SIMPLE FACE MASK 6LPM WITH O2 SAT OF 98% . G TUBE IN PLACE WITH NO RESIDUAL RUNNING GLUCERNA 20MLS/HR NO RESIDUAL. IV ACCESS NOTED ON RAC 20g RUNNING LR AT 100MLS/HR. MAXIMILIANO MIDLINE IN PLACED. SAFETY MEASURES IN PLACE. BED LOCKED IN THE LOWEST POSITION 2 SIDE RAILS UP , CALL LIGHT WITHIN REACH BED ALARM ACTIVATED. WILL ENDORSE TO NIGHT NURSE FOR SARA.
--- NOTE | 2021-10-22 20:15 | NUR ---
ICU/INSTRUMENT MECHANIC WEAPONS SYSTEM RT SWITCHED THE SIMPLE MASK TO N/C WITH SATURATION AT 96-94%. WILL CONTINUE TO MONITOR THIS PT.
--- NOTE | 2021-10-22 20:35 | NUR ---
ICU/FIELD SALES TRAINER PT WAS REPOSITIONED FOR COMFORT AND CARE, HOWEVER WHILE PT WAS BEING REPOSITIONED PT BEGAN TO COUGH WITH SATURATION FALLING TO MID 80'S. PT WAS DEEP SUCTIONED BY RT AND THE N/C WAS SWITCHED BACK TO SIMPLE MASK. SATURATION IS NOW LOW 90'S
[2021-10-22] MEDS: ENOXAPARIN SODIUM 40 MG/0.4 ML DISP.SYRIN SQ SCH (20:40)
[2021-10-22] MEDS: DOCUSATE SODIUM LIQ 100 MG/10 ML UDC NG SCH (22:53)
--- NOTE | 2021-10-22 23:52 | NUR ---
ICU/FURNITURE STAINER PT WAS GIVEN BREATHING TREATMENT, THEN DEEP SUCTIONED. PT HAS A VERY STRONG COUGH UNABLE TO COUGH OUT WHAT'S IN THE LUNGS. PT DOESN'T APPEAR TO UNDERSTAND COUGH AND BRING OUT TO HELP SATURATION COME UP. PLUS PT HOLDS BREATH WHEN SUCTIONED.
[2021-10-23] VITALS (23 sets, daily range): BP systolic 91–129; BP diastolic 55–77
[2021-10-23] MEDS: ACETAMINOPHEN 325 MG TABLET PO PRN ×2 (01:09→19:12)
--- NOTE | 2021-10-23 01:09 | NUR ---
ICU/PET SITTING PT COMPLAINED OF PAIN, GAVE TYLENOL FOR THIS. WILL MONITOR THIS PT'S PAIN.
[2021-10-23] MEDS: IPRATROPIUM NEB FS 0.5 MG/2.5 ML AMPUL.NEB NEB SCH ×6 (03:10→23:30)
[2021-10-23] MEDS: ALBUTEROL FS 2.5 MG/3 ML VIAL.NEB NEB SCH ×6 (03:11→23:30)
[2021-10-23] MEDS ORDERED: FUROSEMIDE 20 MG/2 ML VIAL IV ONE (04:00)
[2021-10-23] MEDS: MEROPENEM 1 G in IV NS 0.9% 100 ML IV SCH ×3 (04:19→21:48)
[2021-10-23] MEDS: IV LR 1000 ML 1,000 ML IV SCH (04:19)
[2021-10-23] MEDS: VANCOMYCIN 1.25 GM in IV D5W 250 ML IV SCH ×3 (04:19→20:28)
[2021-10-23] MEDS: IV NS 0.9% 250 ML IV PRN (04:20)
[2021-10-23] MEDS: GLUCERNA 1.2 1,000 ML BOTTLE NG PRN (04:20)
[2021-10-23] MEDS ORDERED: MEROPENEM 1 G VIAL IV ONE (04:23)
--- NOTE | 2021-10-23 04:50 | NUR ---
ICU/INDUSTRIAL TRAINER PT SOUNDED CONGESTED, NOTIFED THE DIESEL PILE DRIVER OPERATOR MD WHO THEN ORDERED LASIX 20MG IVP X1 NOW. CHARGE NURSE MADE AWARE OF ORDER AND THEN CARRIED IT OUT. WILL CONTINUE TO MONITOR THIS PT SATURATION AND BLOOD PRESSURE.
[2021-10-23 04:53] LABS: HEMATOCRIT 32 % (39-51); HEMOGLOBIN 10.3 g/dL (13.5-17.5); LYMPHOCYTES # (AUTO) 0.4 K/uL (0.8-4.8); LYMPHOCYTES % (AUTO) 2.2 % (20.0-44.0); MEAN CORPUSCULAR HGB CONC 32 g/dl (31.0-36.0); MEAN CORPUSCULAR VOLUME 83 fL (80-96); MONOCYTES # (AUTO) 0.3 K/uL (0.1-1.30); MONOCYTES % (AUTO) 1.9 % (2.0-12.0); NEUTROPHILS # (AUTO) 17.1 K/uL (1.8-8.9); NEUTROPHILS % (AUTO) 95.9 % (43.0-81.0); PLATELET COUNT (AUTO) 286 K/uL (150-450); RED BLOOD CELL COUNT(AUTO) 3.86 MIL/uL (4.5-6.0); WHITE BLOOD COUNT (AUTO) 17.8 K/uL (4.3-11.0)
[2021-10-23 05:16] LABS: CALCIUM, SERUM 7.8 mg/dL (8.5-10.1); CREATININE 0.8 mg/dL (0.6-1.3); POTASSIUM 3.4 mmol/L (3.5-5.1)
[2021-10-23] MEDS: INSULIN REGULAR, HUMAN 100 UNIT/ML 3 ML VIAL SQ PRN ×4 (05:23→23:59)
[2021-10-23] MEDS: BLOOD SUGAR DIAGNOSTIC 1 EACH STRIP IN SCH ×4 (05:24→23:57)
[2021-10-23] MEDS: MAGNESIUM HYDROXIDE 30 ML UDC PO PRN (06:39)
--- NOTE | 2021-10-23 06:41 | NUR ---
ICU/TILE INSTALLER NO BM FOR 2 WEEKS, GAVE MOM FOR A BM VIA G/TUBE.
--- NOTE | 2021-10-23 07:15 | NUR ---
RN OPENING NOTES RECEIVED PT IN BED, A/O X 1-2. ON SIMPLE FACE MASK @6L WITH O2 SAT OF 99%. NO SOB OR ANY S/S OF ACUTE RESPIRATORY DISTRESS NOTED. GTUBE IN PLACE, POSITIVE PLACEMENT CHECKED. NO RESIDUAL. RUNNING GLUCERNA @20MLS/HR. IV ACCESS ON R AC #20 AND MAXIMILIANO MIDLINE BOTH INTACT, PATENT AND FLUSHED. RUNNING LR @100MLS/HR. MUELLER CATH IN PLACE DRAINING YELLOW COLORED URINE. SAFETY MEASURES IN PLACE. BED LOCKED AND IN LOWEST POSITION WITH SIDE RAILS UP X2. CALL LIGHT WITHIN REACH. BED ALARM ON. WILL CONTINUE TO MONITOR.
[2021-10-23] MEDS: PANTOPRAZOLE 40 MG TABLET.DR PO SCH (08:17)
[2021-10-23] MEDS: methylPREDNISolone SOD SUCC 125 MG/2ML VIAL IV SCH ×2 (08:33→20:28)
[2021-10-23] MEDS: THERAHONEY GEL 1.5 OZ TUBE TP SCH (08:34)
[2021-10-23] MEDS ORDERED: POTASSIUM CHLORIDE 20 MEQ POWDER PACKET GT ONE (09:00)
[2021-10-23] MEDS: IV LR 1000 ML 1,000 ML IV PRN ×2 (13:25→18:30)
[2021-10-23 14:08] LABS: ABG BASE EXCESS 3.3 mmol/L; ABG OXYGEN SATURATION 94.9 % (92.0-98.5); ABG PCO2 39.2 mmHg (35.0-45.0); ABG PO2 76.2 mmHg (75.0-100.0); AaDO2 127.8 mmHg; COHb 0.3 % (0.5-1.5); O2Hb 94.6 % (94.0-97.0); SITE, ABG Right Radial; VENT MODE, BG CA 35%
--- NOTE | 2021-10-23 18:54 | NUR ---
RN NOTES NO SIGNIFICANT CHANGES THROUGHOUT THE SHIFT. ON 15L NON REBREATHER. NO SOB OR S/S OF DISTRESS. DENIES PAIN AT THIS TIME. ALL DUE MEDS GIVEN. NEEDS ATTENDED. KEPT CLEAN AND COMFORTABLE. SAFETY MEASURES IMPLEMENTED. WILL ENDORSE TO NIGHT RN FOR SARA.
--- NOTE | 2021-10-23 19:20 | NUR ---
RN OPENING NOTES RECEIVED PATIENT ON BED, A/O X 1-2, SIMPLE QUESTION, RESPIRATORY EVEN AND UNLABORED NO SOB NOTED, NOT IN DISTRESS. REMAIN AFEBRILE. ON NRB @ 15LPM SATING AT 94%. IV ACCESS ON RIGHT UPPER ARM MID LINE AND RAC #20 IN PLACED PATENT AND FLUSHED WITH NS, RUNNING WITH LR @ 100ML/HR. PATIENT NOTED WITH G TUBE, INTACT, VERIFY PLACEMENT BY AUSCULTATION, FLUSHED WITH WATER, NO RESIDUAL NOTED UPON ASPIRATION, RUNNING WITH GLUCERNA 1.2 @ 30 ML/HR. HEAD OF BED KEPT ELEVATED. PATIENT ON MUELLER CATHETER INTACT, IN PLACED AND DRAINING WELL BY GRAVITY. ALL SAFETY MEASURE PROVIDED, BED IN LOWEST POSITION, LOCKED AND BED ALARM ARMED. CONTINUE TO MONITOR.
--- NOTE | 2021-10-23 19:23 | NUR ---
PT COMPLAINT OF BACK PAIN, 03/13, INFORMED ONCALL HOSPITALIST EMPERATRIZ BANERJEE SHOE STAMPER WITH ORDER FOR NORCO Q6H PRN NTED AND CARRIED OUT
[2021-10-23] MEDS: ENOXAPARIN SODIUM 40 MG/0.4 ML DISP.SYRIN SQ SCH (20:27)
[2021-10-23] MEDS: DOCUSATE SODIUM LIQ 100 MG/10 ML UDC NG SCH (22:26)
[2021-10-24] VITALS (36 sets, daily range): BP systolic 43–118; BP diastolic 28–73
[2021-10-24] MEDS: IPRATROPIUM NEB FS 0.5 MG/2.5 ML AMPUL.NEB NEB SCH ×6 (03:35→23:42)
[2021-10-24] MEDS: ALBUTEROL FS 2.5 MG/3 ML VIAL.NEB NEB SCH ×6 (03:35→23:42)
[2021-10-24] MEDS: MEROPENEM 1 G in IV NS 0.9% 100 ML IV SCH ×3 (04:58→20:46)
[2021-10-24] MEDS: IV LR 1000 ML 1,000 ML IV PRN ×2 (05:05→18:54)
[2021-10-24 05:30] LABS: CALCIUM, SERUM 7.8 mg/dL (8.5-10.1); CREATININE 0.8 mg/dL (0.6-1.3); POTASSIUM 4.1 mmol/L (3.5-5.1)
[2021-10-24] MEDS: INSULIN REGULAR, HUMAN 100 UNIT/ML 3 ML VIAL SQ PRN ×4 (06:18→23:41)
[2021-10-24] MEDS: BLOOD SUGAR DIAGNOSTIC 1 EACH STRIP IN SCH ×4 (06:42→23:40)
--- NOTE | 2021-10-24 07:05 | NUR ---
RN CLOSING NOTES PATIENT REMAIN STABLE THROUGH OUT THE SHIFT, RESPIRATORY EVEN AND UNLABORED NO SOB NOTED, NOT IN DISTRESS. REMAIN AFEBRILE. ON NRB @ 15LPM SATING AT 97%. RUNNING WITH LR @ 100ML/HR. HEAD OF BED KEPT ELEVATED. PATIENT ON MUELLER CATHETER INTACT, IN PLACED AND DRAINING WELL BY GRAVITY. ALL DUE MEDS GIVEN ORDERED. ALL SAFETY MEASURE PROVIDED, BED IN LOWEST POSITION, LOCKED AND BED ALARM ARMED.
--- NOTE | 2021-10-24 08:00 | NUR ---
RN NOTES RECEIVED PATIENT AWAKE A/OX1, NO ACUTE RESPIRATORY DISTRESS. ON BEDSIDE MONITOR SHOWS ATRIAL FIBRILLATION HR-61, CHECKED RESIDUAL NONE, KEEP HOB ELEVATED FOR ASPIRATION PRECAUTION, RUNNING GLUCERNA 1.2 @ 20ML.HR. IV ACCESS ON MAXIMILIANO MIDLINE INFUSING LR@100ML INTACT. SUCTION, MOUTH CARE DONE. ASSIST TURN AND REPOSITION Q 2 HR. CONTINUED MONITORING.
[2021-10-24] MEDS: VANCOMYCIN 1.25 GM in IV D5W 250 ML IV SCH (09:13)
[2021-10-24] MEDS: THERAHONEY GEL 1.5 OZ TUBE TP SCH (09:14)
[2021-10-24] MEDS: PANTOPRAZOLE 40 MG TABLET.DR PO SCH (09:25)
[2021-10-24] MEDS: HYDROCODONE/APAP 10/325MG TABLET GT PRN ×2 (09:25→18:55)
[2021-10-24] MEDS: methylPREDNISolone SOD SUCC 125 MG/2ML VIAL IV SCH ×2 (09:25→20:46)
--- NOTE | 2021-10-24 09:25 | NUR ---
rn notes administered narco 10/328 mg via GT for upper epigastric area pain 12/12 per patient request, bp -108/59, p-62. assist turn nd reposition. due medication administered,, get to order Dr Kan transfer patient to the tele unit. order taken and carried out.
--- NOTE | 2021-10-24 09:47 | NUR ---
rn notes per chest x-ray result patent not transferring tele unit, per Dr Mcclain order.
[2021-10-24] MEDS: ACETYLCYSTEINE 10% SOLN 400 MG/4 ML VIAL NEB SCH ×3 (10:00→23:42)
[2021-10-24] MEDS: GLUCERNA 1.2 1,000 ML BOTTLE NG PRN (13:24)
--- NOTE | 2021-10-24 13:24 | NUR ---
rn notes BS- 161 mg/dl, coverage given infusing Merrem 33.33ml/hr, needs attended and anticipated.
--- NOTE | 2021-10-24 18:55 | NUR ---
RN NOTES ADMINISTERED NARCO PER PATIENT REQUEST FOR GENERALIZED PAIN 02/11. BS-166 MG/DL OVERAGE GIVEN, INFUSING LR @100ML ON LEFT MIDLINE. PATIENT STABLE ON NC 4L, NO ACUTE RESPIRATORY DISTRESS. KEEP HOB ELEVATED FOR ASPIRATION PRECAUTION. FOLET DRAINING VIUA GRAVITY, GTF INTACT. ENDORSED ONCOMING NURSE FOLLOW SARA.
--- NOTE | 2021-10-24 19:38 | NUR ---
RN NOTE PATIENT IN BED, HEAD OF BED ELEVATED. ALERT AND ORIENTED X1, PERIODS OF FORGETFULLNESS. ON O2 4L VIA NASAL CANNULA, O2 SAT 97%. NO S/S OF RESPIRATORY DISTRESS. WITH G-TUBE GLUCERNA 1.2 @ 20ML/HR, NO RESIDUAL NOTED. MUELLER CATH PATENT AND INTACT, DRAINING YELLOW URINE. IV ACCESS ON MAXIMILIANO MIDLINE AND RAC #20 PATENT AND INTACT, INFUSING LR @ 100ML/HR. NO S/S OF INFILTRATION. BED LOCKED AND IN LOWEST POSITION. CALL LIGHT WITHIN REACH. ALL NEEDS ANTICIPATED.
[2021-10-24 20:08] LABS: ABG BASE EXCESS 3.3 mmol/L; ABG PCO2 36.2 mmHg (35.0-45.0); ABG PH 7.486 (7.350-7.450); ABG PO2 69.6 mmHg (75.0-100.0); COHb 0.1 % (0.5-1.5); O2Hb 93.9 % (94.0-97.0); SITE, ABG Left Radial; VENT MODE, BG nasal cannula
[2021-10-24] MEDS: ENOXAPARIN SODIUM 40 MG/0.4 ML DISP.SYRIN SQ SCH (20:54)
[2021-10-24] MEDS: DOCUSATE SODIUM LIQ 100 MG/10 ML UDC NG SCH (21:32)
[2021-10-25] VITALS (38 sets, daily range): BP systolic 98–135; BP diastolic 55–75
[2021-10-25] MEDS: ALBUTEROL FS 2.5 MG/3 ML VIAL.NEB NEB SCH ×7 (03:30→23:45)
[2021-10-25] MEDS: IPRATROPIUM NEB FS 0.5 MG/2.5 ML AMPUL.NEB NEB SCH ×7 (03:30→23:45)
[2021-10-25] MEDS: MEROPENEM 1 G in IV NS 0.9% 100 ML IV SCH ×3 (04:04→21:30)
[2021-10-25] MEDS: IV LR 1000 ML 1,000 ML IV PRN (05:23)
[2021-10-25] MEDS: BLOOD SUGAR DIAGNOSTIC 1 EACH STRIP IN SCH ×4 (05:36→23:21)
[2021-10-25] MEDS: INSULIN REGULAR, HUMAN 100 UNIT/ML 3 ML VIAL SQ PRN ×4 (05:41→23:21)
--- NOTE | 2021-10-25 06:49 | NUR ---
RN NOTE PATIENT RESTING IN BED. ON O2 SWITCHED TO SIMPLE MASK OVERNIGHT DUE TO SATURATION 88% AND PATIENT MOUTH BREATHING. NO S/S OF RESPIRATORY DISTRESS. G-TUBE GLUCERNA 1.2 @ 40ML/HR, NO RESIDUAL NOTED. MUELLER CATH OUTPUT 1100CC. IV ACCESS ON MAXIMILIANO MIDLINE AND RAC #20 PATENT AND INTACT, INFUSING LR @ 100ML/HR. KEPT CLEAN AND DRY. TURNED AND REPOSITIONED. BED LOCKED AND IN LOWEST POSITION. CALL LIGHT WITHIN REACH. WILL ENDORSE TO AM SHIFT.
[2021-10-25] MEDS: ACETYLCYSTEINE 10% SOLN 400 MG/4 ML VIAL NEB SCH ×3 (07:45→23:45)
--- NOTE | 2021-10-25 08:00 | NUR ---
RN NOTES RECEIVED PATIENT ON MASK 8L, PATIENT CONFUSED, TAKE TIMES PATIENT RESPONDING BACK. RT WITH THE PATIENT GIVING BREATHING TREATMENT, O2-88% TO 91% AT THIS TIME ON BEDSIDE MONITOR. RESIDUAL IS 20ML RUNNING GLUCERNA 40ML. DUE MEDICATION ADMINISTERED, PATIENT REFUSING PAIN. KEEP HOB ELEVATED FOR ASPIRATION PRECAUTION. WILL FOLLOW UP.
--- NOTE | 2021-10-25 08:03 | NUR ---
pt. received on simple mask @ 8 lpm o2 flow with 95% spo2 Addendum: 10/25/21 at 0804 by YADIRA WEBER RT Amended: Links added.
[2021-10-25] MEDS: PANTOPRAZOLE 40 MG TABLET.DR PO SCH (08:20)
[2021-10-25] MEDS: VANCOMYCIN 1 GM in IV D5W 250 ML IV SCH ×2 (08:21→20:12)
[2021-10-25] MEDS: methylPREDNISolone SOD SUCC 125 MG/2ML VIAL IV SCH (08:21)
[2021-10-25] MEDS: THERAHONEY GEL 1.5 OZ TUBE TP SCH (08:21)
[2021-10-25 08:42] LABS: BASOPHILS # (AUTO) 0.1 K/uL (0.0-0.2); BASOPHILS % (AUTO) 0.4 % (0.0-2.0); HEMATOCRIT 33 % (39-51); HEMOGLOBIN 10.4 g/dL (13.5-17.5); LYMPHOCYTES # (AUTO) 0.7 K/uL (0.8-4.8); LYMPHOCYTES % (AUTO) 2.9 % (20.0-44.0); MEAN CORPUSCULAR HGB CONC 31 g/dl (31.0-36.0); MEAN CORPUSCULAR VOLUME 84 fL (80-96); MONOCYTES # (AUTO) 1.4 K/uL (0.1-1.30); MONOCYTES % (AUTO) 5.8 % (2.0-12.0); NEUTROPHILS # (AUTO) 22.8 K/uL (1.8-8.9); NEUTROPHILS % (AUTO) 90.9 % (43.0-81.0); PLATELET COUNT (AUTO) 347 K/uL (150-450); WHITE BLOOD COUNT (AUTO) 25.1 K/uL (4.3-11.0)
[2021-10-25 10:24] LABS: CALCIUM, SERUM 8.5 mg/dL (8.5-10.1); CREATININE 0.9 mg/dL (0.6-1.3); MAGNESIUM 1.7 mg/dL (1.8-2.4); PHOSPHORUS 3.4 mg/dL (2.5-4.9); POTASSIUM 4.1 mmol/L (3.5-5.1)
[2021-10-25] MEDS: Magnesium 1GM/D5W 100ML PREMIX 100 ML IV SCH ×2 (12:48→14:06)
--- NOTE | 2021-10-25 13:00 | NUR ---
RN NOTES BS-141 MG/DL COVERAGE GIVEN, INFUSING Mg @100ML, GET NEW ORDER VIA CLINICAL FELLOW TO INCREASE FEEDING THE GOAL IS INCREASE 65ML, ORDER TAKEN AND CARRIED OUT.
[2021-10-25] MEDS: GLUCERNA 1.2 1,000 ML BOTTLE NG PRN (13:23)
[2021-10-25] MEDS: IV NS 0.9% 250 ML IV PRN (16:59)
[2021-10-25] MEDS: HYDROCODONE/APAP 10/325MG TABLET GT PRN (17:02)
--- NOTE | 2021-10-25 17:02 | NUR ---
RN NOTES ADMINISTERED NARCO 10/325 MG VIA GT PER PATIENT REQUEST FOR GENERALIZED PAIN 02/11, [id number] COVERAGE GIVEN, ASSIST TURN AND REPOSTION Q2HR
--- NOTE | 2021-10-25 18:30 | NUR ---
rn notes medication were administered for pain effective, pm care done, patient resting. no acute respiratory distress, bs-169mg/dl, coverage given, assist turn and reposition q2hr. endorsed oncoming nursed follow plan of care.
--- NOTE | 2021-10-25 19:57 | NUR ---
RN NOTE PATIENT IN BED RESTING. AWAKE, ALERT, AND ORIENTED X1. ON O2 8 LPM VIA SIMPLE MASK. O2 SAT WNL. WITH G-TUBE PATENT AND INTACT, ON GLUCERNA 1.2 @ 45ML/HR. NO RESIDUAL NOTED. HEAD OF BED ELEVATED. MUELLER CATH DRAINING URINE VIA GRAVITY. BED LOCKED AND IN LOWEST POSITION. CALL LIGHT WITHIN REACH. ALL NEEDS ANTICIPATED.
[2021-10-25] MEDS: ENOXAPARIN SODIUM 40 MG/0.4 ML DISP.SYRIN SQ SCH (20:14)
[2021-10-25] MEDS: DOCUSATE SODIUM LIQ 100 MG/10 ML UDC NG SCH (21:39)
[2021-10-26] VITALS (37 sets, daily range): BP systolic 65–129; BP diastolic 46–91
[2021-10-26] MEDS: MAGNESIUM HYDROXIDE 30 ML UDC PO PRN (00:28)
[2021-10-26] MEDS: IPRATROPIUM NEB FS 0.5 MG/2.5 ML AMPUL.NEB NEB SCH ×6 (03:35→23:18)
[2021-10-26] MEDS: ALBUTEROL FS 2.5 MG/3 ML VIAL.NEB NEB SCH ×6 (03:36→23:18)
[2021-10-26 03:43] LABS: BASOPHILS # (AUTO) 0.1 K/uL (0.0-0.2); BASOPHILS % (AUTO) 0.3 % (0.0-2.0); HEMATOCRIT 30 % (39-51); HEMOGLOBIN 9.5 g/dL (13.5-17.5); LYMPHOCYTES % (AUTO) 10.5 % (20.0-44.0); MEAN CORPUSCULAR HGB CONC 32 g/dl (31.0-36.0); MEAN CORPUSCULAR VOLUME 83 fL (80-96); MONOCYTES # (AUTO) 1.4 K/uL (0.1-1.30); MONOCYTES % (AUTO) 7.5 % (2.0-12.0); NEUTROPHILS # (AUTO) 15.3 K/uL (1.8-8.9); NEUTROPHILS % (AUTO) 81.7 % (43.0-81.0); PLATELET COUNT (AUTO) 312 K/uL (150-450); RED BLOOD CELL COUNT(AUTO) 3.56 MIL/uL (4.5-6.0); WHITE BLOOD COUNT (AUTO) 18.7 K/uL (4.3-11.0)
[2021-10-26] MEDS: MEROPENEM 1 G in IV NS 0.9% 100 ML IV SCH ×3 (04:08→20:46)
[2021-10-26 04:21] LABS: CALCIUM, SERUM 7.6 mg/dL (8.5-10.1); CARBON DIOXIDE 29 mmol/L (21-32); CHLORIDE 105 mmol/L (98-107); CREATININE 0.5 mg/dL (0.6-1.3); GLUCOSE 101 mg/dL (74-106); MAGNESIUM 2.3 mg/dL (1.8-2.4); POTASSIUM 3.4 mmol/L (3.5-5.1); SODIUM SERUM 137 mmol/L (136-145); UREA NITROGEN, BLOOD 19 mg/dL (7-18)
[2021-10-26] MEDS: BLOOD SUGAR DIAGNOSTIC 1 EACH STRIP IN SCH ×3 (05:10→17:32)
[2021-10-26] MEDS: INSULIN REGULAR, HUMAN 100 UNIT/ML 3 ML VIAL SQ PRN ×3 (05:10→17:32)
--- NOTE | 2021-10-26 07:00 | NUR ---
RN NOTE PATIENT IN BED RESTING. ON O2 8 LPM VIA SIMPLE MASK. O2 SAT WNL. WITH G-TUBE PATENT AND INTACT, ON GLUCERNA 1.2 @ 45ML/HR. NO RESIDUAL NOTED. HEAD OF BED ELEVATED. MUELLER CATH OUTPUT 630CC YELLOW URINE. TURNED AND REPOSITIONED. BED LOCKED AND IN LOWEST POSITION. CALL LIGHT WITHIN REACH. ENDORSED TO AM SHIFT.
--- NOTE | 2021-10-26 07:05 | NUR ---
RN NOTE RECIVED PT ON BED, AWAKE, ALERT, AND ORIENTED X1. ON O2 8 LPM VIA SIMPLE MASK. O2 SAT WNL. WITH G-TUBE PATENT AND INTACT, ON GLUCERNA 1.2 @ 45ML/HR. NO RESIDUAL NOTED. HEAD OF BED ELEVATED. MUELLER CATH DRAINING URINE VIA GRAVITY. BED LOCKED AND IN LOWEST POSITION. SR UP x3, BED LOCKED AND IN LOWEST POSITION, CALL LIGHT WITHIN REACH. CONTINUE TO MONITOR.
[2021-10-26] MEDS: ACETYLCYSTEINE 10% SOLN 400 MG/4 ML VIAL NEB SCH ×3 (07:42→23:18)
[2021-10-26] MEDS: PANTOPRAZOLE 40 MG TABLET.DR PO SCH (08:10)
[2021-10-26] MEDS: methylPREDNISolone SOD SUCC 125 MG/2ML VIAL IV SCH (08:11)
[2021-10-26] MEDS: THERAHONEY GEL 1.5 OZ TUBE TP SCH (08:12)
[2021-10-26 08:20] LABS: BASOPHILS # (AUTO) 0.1 K/uL (0.0-0.2); BASOPHILS % (AUTO) 0.7 % (0.0-2.0); EOSINOPHILS % (AUTO) 0.2 % (0.0-6.0); HEMATOCRIT 34 % (39-51); HEMOGLOBIN 10.8 g/dL (13.5-17.5); LYMPHOCYTES # (AUTO) 2.5 K/uL (0.8-4.8); LYMPHOCYTES % (AUTO) 14.5 % (20.0-44.0); MEAN CORPUSCULAR HGB CONC 31 g/dl (31.0-36.0); MEAN CORPUSCULAR VOLUME 84 fL (80-96); MONOCYTES # (AUTO) 1.5 K/uL (0.1-1.30); NEUTROPHILS % (AUTO) 75.6 % (43.0-81.0); PLATELET COUNT (AUTO) 349 K/uL (150-450); RED BLOOD CELL COUNT(AUTO) 4.09 MIL/uL (4.5-6.0); WHITE BLOOD COUNT (AUTO) 17.1 K/uL (4.3-11.0)
[2021-10-26] MEDS ORDERED: POTASSIUM CHLORIDE 20 MEQ TAB.PRT.SR PO SCH (09:30)
[2021-10-26] MEDS ORDERED: POTASSIUM CHLORIDE 20 MEQ POWDER PACKET GT ONE (10:00)
[2021-10-26] MEDS: VANCOMYCIN 1 GM in IV D5W 250 ML IV SCH ×2 (10:48→21:47)
[2021-10-26] MEDS: GLUCERNA 1.2 1,000 ML BOTTLE NG PRN (13:40)
--- NOTE | 2021-10-26 14:00 | NUR ---
RN NOTES PT UNABLE TO COUGH UP SECRETION , NT SUCTIONING DONE, LARGE AMOUNT OF THICK SECRETION NOTED, HOB ELEVATED, CONTINUE TO MONITOR ,
--- NOTE | 2021-10-26 18:00 | NUR ---
RN NOTES PT REMAINS ON 6L O2 N/C , NT SUCTIONING DONE PRN , PT IS UNBALE TO CLEAR HIS AIR WAY , WILL ENDORSE TO PROSTHODONTIST NURSE FOR CONTINUITY OF CARE .
--- NOTE | 2021-10-26 20:37 | NUR ---
manager icu.initial assessment. received the pt rest in bed. awake, alert, follow commands. lunchroom monitor showing nsr.oxygen 6l via nasal cannula. sat 98%. no acute distress noted. iv rt upper arm mid line. tko running. fc patent. urine draining. hob elevated gt feeding tolerated well. will continue to monitor vitals.
[2021-10-26] MEDS: ENOXAPARIN SODIUM 40 MG/0.4 ML DISP.SYRIN SQ SCH (20:47)
[2021-10-26] MEDS: DOCUSATE SODIUM LIQ 100 MG/10 ML UDC NG SCH (21:58)
[2021-10-27] VITALS (29 sets, daily range): BP systolic 100–133; BP diastolic 43–93
--- NOTE | 2021-10-27 00:15 | NUR ---
Pt placed on simple mask 6L due to SpO2 desaturation to 86% on nasal cannula 6L due to pt mouth breathing when asleep.
[2021-10-27] MEDS: IV NS 0.9% 250 ML IV PRN (00:38)
[2021-10-27] MEDS: BLOOD SUGAR DIAGNOSTIC 1 EACH STRIP IN SCH ×4 (00:44→17:29)
[2021-10-27] MEDS: ALBUTEROL FS 2.5 MG/3 ML VIAL.NEB NEB SCH ×6 (03:45→23:25)
[2021-10-27] MEDS: IPRATROPIUM NEB FS 0.5 MG/2.5 ML AMPUL.NEB NEB SCH ×6 (03:45→23:25)
[2021-10-27 04:38] LABS: CALCIUM, SERUM 7.8 mg/dL (8.5-10.1); CARBON DIOXIDE 29 mmol/L (21-32); CHLORIDE 103 mmol/L (98-107); GLUCOSE 147 mg/dL (74-106); POTASSIUM 4.1 mmol/L (3.5-5.1); SODIUM SERUM 136 mmol/L (136-145); UREA NITROGEN, BLOOD 23 mg/dL (7-18)
[2021-10-27] MEDS: MEROPENEM 1 G in IV NS 0.9% 100 ML IV SCH ×3 (04:43→21:44)
--- NOTE | 2021-10-27 06:09 | NUR ---
TOXICS PROGRAM OFFICER. AM CARE GIVEN. REMAINING SAME OXYGEN SIMPLE MASK 6L TOLERATED WELL. SAT 97%. NO ACUTE DISTRESS NOTED. MEDICARE COMPLIANCE AUDITOR SHOWING NSR, IVF TKO RUNNING. HOB ELEVATED. GT FEEDING TOLERATED WELL. FC PATENT, URINE DRAINING, TURN AND REPOSITION Q2H. WILL CONTINUE TO MONITOR VITALS.
[2021-10-27] MEDS: PANTOPRAZOLE 40 MG TABLET.DR PO SCH (08:31)
[2021-10-27] MEDS: methylPREDNISolone SOD SUCC 125 MG/2ML VIAL IV SCH (08:32)
[2021-10-27] MEDS: VANCOMYCIN 1 GM in IV D5W 250 ML IV SCH ×2 (08:32→20:16)
[2021-10-27] MEDS: THERAHONEY GEL 1.5 OZ TUBE TP SCH (08:33)
[2021-10-27] MEDS: ACETYLCYSTEINE 10% SOLN 400 MG/4 ML VIAL NEB SCH ×3 (09:04→23:25)
[2021-10-27] MEDS: ENOXAPARIN SODIUM 40 MG/0.4 ML DISP.SYRIN SQ SCH (20:16)
[2021-10-27] MEDS: DOCUSATE SODIUM LIQ 100 MG/10 ML UDC NG SCH (21:47)
[2021-10-28] VITALS (36 sets, daily range): BP systolic 100–129; BP diastolic 55–78
[2021-10-28] MEDS: BLOOD SUGAR DIAGNOSTIC 1 EACH STRIP IN SCH ×4 (00:39→17:48)
[2021-10-28] MEDS: IPRATROPIUM NEB FS 0.5 MG/2.5 ML AMPUL.NEB NEB SCH ×6 (04:22→23:38)
[2021-10-28 04:23] LABS: BASOPHILS % (AUTO) 0.2 % (0.0-2.0); HEMATOCRIT 33 % (39-51); HEMOGLOBIN 10.5 g/dL (13.5-17.5); LYMPHOCYTES # (AUTO) 1.8 K/uL (0.8-4.8); LYMPHOCYTES % (AUTO) 16.2 % (20.0-44.0); MEAN CORPUSCULAR HGB CONC 32 g/dl (31.0-36.0); MEAN CORPUSCULAR VOLUME 84 fL (80-96); MONOCYTES # (AUTO) 1.2 K/uL (0.1-1.30); MONOCYTES % (AUTO) 10.9 % (2.0-12.0); NEUTROPHILS # (AUTO) 7.9 K/uL (1.8-8.9); NEUTROPHILS % (AUTO) 71.7 % (43.0-81.0); PLATELET COUNT (AUTO) 313 K/uL (150-450); RED BLOOD CELL COUNT(AUTO) 3.94 MIL/uL (4.5-6.0)
[2021-10-28] MEDS: ALBUTEROL FS 2.5 MG/3 ML VIAL.NEB NEB SCH ×6 (04:23→23:38)
[2021-10-28 04:39] LABS: CARBON DIOXIDE 32 mmol/L (21-32); CHLORIDE 104 mmol/L (98-107); CREATININE 0.6 mg/dL (0.6-1.3); GLUCOSE 95 mg/dL (74-106); POTASSIUM 3.8 mmol/L (3.5-5.1); SODIUM SERUM 141 mmol/L (136-145); UREA NITROGEN, BLOOD 12 mg/dL (7-18)
[2021-10-28] MEDS: MEROPENEM 1 G in IV NS 0.9% 100 ML IV SCH ×3 (05:57→21:23)
--- NOTE | 2021-10-28 07:05 | NUR ---
RN NOTE RECEIVED PT ON BED, AWAKE, ALERT, AND ORIENTED X1. ON O2 8 LPM VIA SIMPLE MASK. O2 SAT WNL. PT IS UNABLE TO CLEAR HIS OWN AIRWAY, CONTINUE NT SUCTIONING NEEDED, G-TUBE PATENT AND INTACT, ON GLUCERNA 1.2 @ 65ML/HR. NO RESIDUAL NOTED. HEAD OF BED ELEVATED. MUELLER CATH DRAINING URINE VIA GRAVITY. BED LOCKED AND IN LOWEST POSITION. SR UP x3, BED LOCKED AND IN LOWEST POSITION, CALL LIGHT WITHIN EASY REACH. CONTINUE TO MONITOR.
[2021-10-28] MEDS: ACETYLCYSTEINE 10% SOLN 400 MG/4 ML VIAL NEB SCH ×4 (07:46→23:38)
[2021-10-28] MEDS: methylPREDNISolone SOD SUCC 125 MG/2ML VIAL IV SCH (08:27)
[2021-10-28] MEDS: PANTOPRAZOLE 40 MG TABLET.DR PO SCH (08:27)
[2021-10-28] MEDS: THERAHONEY GEL 1.5 OZ TUBE TP SCH (08:28)
[2021-10-28] MEDS: VANCOMYCIN 1 GM in IV D5W 250 ML IV SCH ×2 (08:31→20:01)
--- NOTE | 2021-10-28 11:00 | NUR ---
RN NOTES NT SUCTIONING DONE, MODERATED AMOUNT OF THICK SECRETION NOTED, PT UNABLE TO CLEAR HIS AIRWAY .
[2021-10-28] MEDS: INSULIN REGULAR, HUMAN 100 UNIT/ML 3 ML VIAL SQ PRN ×2 (11:22→17:48)
[2021-10-28] MEDS: GLUCERNA 1.2 1,000 ML BOTTLE NG PRN (11:26)
--- NOTE | 2021-10-28 14:00 | NUR ---
RN NOTES CALL MAKE TO ,SHEA ROUSE ( PT'S FRIEND) REGARDING BRONCHOSCOPY CONSENT . SHEA STATED THAT HE DOES NOT MAKE MEDICAL DECISION FOR PT. HE STATED THAT HE WILL CONTACT PT'S SISTER THAT LIVES IN [place] AND WILL GIVE US PHONE CONSENT IF PT'S SISTER AGREES TO HAVE BRONCHOSCOPY DONE.
--- NOTE | 2021-10-28 18:16 | NUR ---
RN NOTES PT REMAINS ON 8 L FACE MASK , NT SUCTIONING DONE PRN , PT IS UNABLE TO CLEAR HIS AIR WAY , WILL ENDORSE TO PASSENGER CONDUCTOR NURSE FOR CONTINUITY OF CARE .
[2021-10-28] MEDS: ENOXAPARIN SODIUM 40 MG/0.4 ML DISP.SYRIN SQ SCH (20:01)
[2021-10-28] MEDS: DOCUSATE SODIUM LIQ 100 MG/10 ML UDC NG SCH (21:30)
[2021-10-29] VITALS (29 sets, daily range): BP systolic 94–125; BP diastolic 46–84
--- NOTE | 2021-10-29 | NUR ---
ICU/RN: PT NPO FOR PROCEDURE.
[2021-10-29] MEDS: BLOOD SUGAR DIAGNOSTIC 1 EACH STRIP IN SCH ×4 (00:10→18:02)
[2021-10-29] MEDS: ALBUTEROL FS 2.5 MG/3 ML VIAL.NEB NEB SCH ×5 (03:19→20:08)
[2021-10-29] MEDS: IPRATROPIUM NEB FS 0.5 MG/2.5 ML AMPUL.NEB NEB SCH ×5 (03:19→20:08)
[2021-10-29 04:17] LABS: BASOPHILS % (AUTO) 0.3 % (0.0-2.0); EOSINOPHILS % (AUTO) 0.5 % (0.0-6.0); HEMATOCRIT 33 % (39-51); HEMOGLOBIN 10.3 g/dL (13.5-17.5); LYMPHOCYTES # (AUTO) 1.8 K/uL (0.8-4.8); LYMPHOCYTES % (AUTO) 14.7 % (20.0-44.0); MEAN CORPUSCULAR HGB CONC 31 g/dl (31.0-36.0); MEAN CORPUSCULAR VOLUME 85 fL (80-96); MONOCYTES # (AUTO) 1.5 K/uL (0.1-1.30); MONOCYTES % (AUTO) 12.2 % (2.0-12.0); NEUTROPHILS # (AUTO) 8.7 K/uL (1.8-8.9); NEUTROPHILS % (AUTO) 72.3 % (43.0-81.0); PLATELET COUNT (AUTO) 288 K/uL (150-450); RED BLOOD CELL COUNT(AUTO) 3.86 MIL/uL (4.5-6.0); WHITE BLOOD COUNT (AUTO) 12.1 K/uL (4.3-11.0)
[2021-10-29 04:29] LABS: CALCIUM, SERUM 7.9 mg/dL (8.5-10.1); CARBON DIOXIDE 35 mmol/L (21-32); CHLORIDE 101 mmol/L (98-107); CREATININE 0.6 mg/dL (0.6-1.3); GLUCOSE 91 mg/dL (74-106); POTASSIUM 3.5 mmol/L (3.5-5.1); SODIUM SERUM 137 mmol/L (136-145); UREA NITROGEN, BLOOD 17 mg/dL (7-18)
[2021-10-29] MEDS: MEROPENEM 1 G in IV NS 0.9% 100 ML IV SCH ×3 (05:40→20:00)
--- NOTE | 2021-10-29 07:30 | NUR ---
RN MORNING NOTE PT OBSERVED IN BED WITH HOB SEMI FOWLERS. PT IS ON 8L O2 VIA SIMPLE MASK SAT 97% TOLERATING WELL WITH NO SIGNS OF DISTRESS OR LABORED BREATHING. PT IS A/OX1. GT IS IN PLACE WITH POSITIVE PLACEMENT AND NPO AT THIS TIME FOR POSSIBLE BRONCH. FC IS IN PLACE DRAINING URINE BY GRAVITY. IV ACESS R UA MIDLINE. BED IS LOCKED IN LOWEST POSITION X2 GUARD RAILS AND ALL HOSPITAL SAFETY MEASURES ARE IN PLACE. WILL CONTINUE TO MONITOR THIS SHIFT.
[2021-10-29] MEDS: PANTOPRAZOLE 40 MG TABLET.DR PO SCH (07:48)
[2021-10-29] MEDS: ACETYLCYSTEINE 10% SOLN 400 MG/4 ML VIAL NEB SCH ×2 (07:55→15:43)
[2021-10-29] MEDS: methylPREDNISolone SOD SUCC 125 MG/2ML VIAL IV SCH (09:25)
[2021-10-29] MEDS: ACETAMINOPHEN 325 MG TABLET PO PRN (09:25)
[2021-10-29] MEDS: THERAHONEY GEL 1.5 OZ TUBE TP SCH (09:26)
--- NOTE | 2021-10-29 09:43 | NUR ---
RN NOTE REPORT GIVEN TO BIENVENIDO MAN.
[2021-10-29] MEDS: VANCOMYCIN 0.75 GM in IV D5W 250 ML IV SCH ×2 (10:21→23:24)
[2021-10-29] MEDS: GLUCERNA 1.2 1,000 ML BOTTLE NG PRN (10:37)
[2021-10-29] MEDS: INSULIN REGULAR, HUMAN 100 UNIT/ML 3 ML VIAL SQ PRN ×2 (12:27→18:03)
--- NOTE | 2021-10-29 19:03 | NUR ---
RN NOTES NO SIGNIFICANT CHANGES DURING THE SHIFT. NO SOB OR ANY S/S OF DISTRESS. ALL DUE MEDS GIVEN. NEEDS ATTENDED. KEPT CLEAN AND COMFORTABLE. SAFETY MEASURES IN PLACE. WILL ENDORSE TO NIGHT RN FOR SARA.
--- NOTE | 2021-10-29 20:00 | NUR ---
ICU NOTES Received patient awake verbally responsive follows simple commands.No acute distress with O2 8L Simple Mask O2 saturation 100%.SR 70's.Normotensive. GT feeding in progress with HOB elevated. Small residual noted.FC to gravity.Turned and repositioned to comfort .off loading pressure points. Continue monitoring.
[2021-10-29] MEDS: ENOXAPARIN SODIUM 40 MG/0.4 ML DISP.SYRIN SQ SCH (20:01)
[2021-10-29] MEDS: DOCUSATE SODIUM LIQ 100 MG/10 ML UDC NG SCH (21:25)
[2021-10-30] VITALS (30 sets, daily range): BP systolic 93–123; BP diastolic 50–69
[2021-10-30] MEDS: BLOOD SUGAR DIAGNOSTIC 1 EACH STRIP IN SCH ×5 (00:01→23:36)
[2021-10-30] MEDS: ALBUTEROL FS 2.5 MG/3 ML VIAL.NEB NEB SCH ×7 (00:02→23:43)
[2021-10-30] MEDS: IPRATROPIUM NEB FS 0.5 MG/2.5 ML AMPUL.NEB NEB SCH ×7 (00:02→23:43)
[2021-10-30] MEDS: ACETYLCYSTEINE 10% SOLN 400 MG/4 ML VIAL NEB SCH ×4 (00:02→23:43)
[2021-10-30] MEDS: IV NS 0.9% 250 ML IV PRN (04:03)
[2021-10-30 04:51] LABS: BASOPHILS # (AUTO) 0.1 K/uL (0.0-0.2); BASOPHILS % (AUTO) 0.6 % (0.0-2.0); EOSINOPHILS % (AUTO) 0.5 % (0.0-6.0); HEMATOCRIT 31 % (39-51); LYMPHOCYTES # (AUTO) 1.7 K/uL (0.8-4.8); LYMPHOCYTES % (AUTO) 13.6 % (20.0-44.0); MEAN CORPUSCULAR HGB CONC 32 g/dl (31.0-36.0); MEAN CORPUSCULAR VOLUME 84 fL (80-96); MONOCYTES # (AUTO) 1.5 K/uL (0.1-1.30); MONOCYTES % (AUTO) 11.7 % (2.0-12.0); NEUTROPHILS # (AUTO) 9.5 K/uL (1.8-8.9); NEUTROPHILS % (AUTO) 73.6 % (43.0-81.0); PLATELET COUNT (AUTO) 275 K/uL (150-450); RED BLOOD CELL COUNT(AUTO) 3.71 MIL/uL (4.5-6.0); WHITE BLOOD COUNT (AUTO) 12.8 K/uL (4.3-11.0)
[2021-10-30 04:54] LABS: CALCIUM, SERUM 7.8 mg/dL (8.5-10.1); CARBON DIOXIDE 34 mmol/L (21-32); CHLORIDE 102 mmol/L (98-107); CREATININE 0.5 mg/dL (0.6-1.3); GLUCOSE 108 mg/dL (74-106); MAGNESIUM 2.2 mg/dL (1.8-2.4); PHOSPHORUS 2.9 mg/dL (2.5-4.9); SODIUM SERUM 137 mmol/L (136-145); UREA NITROGEN, BLOOD 18 mg/dL (7-18)
[2021-10-30] MEDS: MEROPENEM 1 G in IV NS 0.9% 100 ML IV SCH ×3 (05:02→20:22)
[2021-10-30] MEDS: INSULIN REGULAR, HUMAN 100 UNIT/ML 3 ML VIAL SQ PRN ×4 (05:49→23:36)
[2021-10-30] MEDS: GLUCERNA 1.2 1,000 ML BOTTLE NG PRN ×2 (05:54→23:29)
--- NOTE | 2021-10-30 06:36 | NUR ---
ICU NOTES Patient resting in no acute distress.Vital signs remain stable.Denies pain or any discomfort. SR 70's.Tolerating GT feeding.Adequate urine output.No BM noted.Turned and repositioned q2 hrs.AM care done.Kept safe and comfortable.Blood sugar monitored covered wit S/S.No significant change noted during the shift.
--- NOTE | 2021-10-30 07:15 | NUR ---
RN OPENING NOTES RECEIVED PT IN BED. ON 8L O2 VIA SIMPLE MASK. NO SOB OR ANY S/S OF DISTRESS NOTED. O2 SAT @97%. GT CHECKED FOR POSITIVE PLACEMENT. NO RESIDUAL. GLUCERNA @65ML/HR. MUELLER CATH IN PLACE DRAINING URINE BY GRAVITY. IV ACCESS ON MAXIMILIANO MIDLINE INTACT, PATENT AND FLUSHED. SAFETY MEASURES IN PLACE. BED LOCKED AND IN LOWEST POSITION WITH SIDE RAILS UP X2. WILL CONTINUE TO MONITOR.
[2021-10-30] MEDS: PANTOPRAZOLE 40 MG TABLET.DR PO SCH (07:43)
[2021-10-30] MEDS: MAGNESIUM HYDROXIDE 30 ML UDC PO PRN (08:31)
[2021-10-30] MEDS: THERAHONEY GEL 1.5 OZ TUBE TP SCH (08:31)
[2021-10-30] MEDS: methylPREDNISolone SOD SUCC 125 MG/2ML VIAL IV SCH (08:31)
[2021-10-30] MEDS: ACETAMINOPHEN 325 MG TABLET PO PRN (08:43)
[2021-10-30] MEDS: VANCOMYCIN 0.75 GM in IV D5W 250 ML IV SCH ×2 (10:00→21:47)
[2021-10-30] MEDS: ENOXAPARIN SODIUM 40 MG/0.4 ML DISP.SYRIN SQ SCH (20:22)
[2021-10-30] MEDS: DOCUSATE SODIUM LIQ 100 MG/10 ML UDC NG SCH (21:47)
--- NOTE | 2021-10-30 21:47 | NUR ---
SCHEDULED VANCO NOT GIVEN DUE TO VANCO TROUGH LEVEL OF 25 CHARGE NURSE MADE AWARE
[2021-10-31] VITALS (40 sets, daily range): BP systolic 99–132; BP diastolic 49–75
[2021-10-31] MEDS: IPRATROPIUM NEB FS 0.5 MG/2.5 ML AMPUL.NEB NEB SCH ×6 (03:02→23:08)
[2021-10-31] MEDS: ALBUTEROL FS 2.5 MG/3 ML VIAL.NEB NEB SCH ×6 (03:02→23:08)
[2021-10-31] MEDS: MEROPENEM 1 G in IV NS 0.9% 100 ML IV SCH ×3 (04:12→21:21)
[2021-10-31 05:10] LABS: BASOPHILS % (AUTO) 0.3 % (0.0-2.0); EOSINOPHILS % (AUTO) 0.6 % (0.0-6.0); HEMATOCRIT 29 % (39-51); HEMOGLOBIN 9.5 g/dL (13.5-17.5); LYMPHOCYTES # (AUTO) 2.4 K/uL (0.8-4.8); LYMPHOCYTES % (AUTO) 18.5 % (20.0-44.0); MEAN CORPUSCULAR HGB CONC 32 g/dl (31.0-36.0); MEAN CORPUSCULAR VOLUME 84 fL (80-96); MONOCYTES # (AUTO) 1.6 K/uL (0.1-1.30); MONOCYTES % (AUTO) 12.9 % (2.0-12.0); NEUTROPHILS # (AUTO) 8.6 K/uL (1.8-8.9); NEUTROPHILS % (AUTO) 67.7 % (43.0-81.0); PLATELET COUNT (AUTO) 244 K/uL (150-450); RED BLOOD CELL COUNT(AUTO) 3.47 MIL/uL (4.5-6.0); WHITE BLOOD COUNT (AUTO) 12.7 K/uL (4.3-11.0)
[2021-10-31 05:14] LABS: CALCIUM, SERUM 7.7 mg/dL (8.5-10.1); CARBON DIOXIDE 32 mmol/L (21-32); CHLORIDE 103 mmol/L (98-107); CREATININE 0.5 mg/dL (0.6-1.3); GLUCOSE 105 mg/dL (74-106); MAGNESIUM 2.2 mg/dL (1.8-2.4); PHOSPHORUS 2.6 mg/dL (2.5-4.9); SODIUM SERUM 138 mmol/L (136-145); UREA NITROGEN, BLOOD 17 mg/dL (7-18)
[2021-10-31] MEDS: BLOOD SUGAR DIAGNOSTIC 1 EACH STRIP IN SCH ×4 (06:24→23:58)
[2021-10-31] MEDS: INSULIN REGULAR, HUMAN 100 UNIT/ML 3 ML VIAL SQ PRN ×4 (06:25→23:58)
--- NOTE | 2021-10-31 06:26 | NUR ---
PT ON BED ASLEEP EASY TO WAKE UP ON SIMPLE MASK 8L SPO2 97-98% NO RESPIRATORY DISTRESS NOTED, VANESSA MONITOR READS SINUS RHYTHM 80'S NO SIGNIFICANT CHANGES ON CONDITION NOTED, ALL NEEDS ATTENDED, WOUND TREATMENT DONE, BED ON LOWEST POSITION AND LOCKED SIDERAILS UP X2 CALL LIGHT WITHIN REACH WILL CONT TO MONITOR
[2021-10-31] MEDS: PANTOPRAZOLE 40 MG TABLET.DR PO SCH (08:05)
[2021-10-31] MEDS: methylPREDNISolone SOD SUCC 125 MG/2ML VIAL IV SCH (08:06)
[2021-10-31] MEDS: THERAHONEY GEL 1.5 OZ TUBE TP SCH (08:31)
[2021-10-31] MEDS: ACETYLCYSTEINE 10% SOLN 400 MG/4 ML VIAL NEB SCH ×3 (08:47→23:08)
[2021-10-31] MEDS: VANCOMYCIN 0.75 GM in IV D5W 250 ML IV SCH ×2 (09:31→12:46)
--- NOTE | 2021-10-31 09:32 | NUR ---
RN NOTES VANCO TROUGH PN 10/30 IS 25. HELD VANCO DOSE NOTIFIED PHARMACY.
--- NOTE | 2021-10-31 12:43 | NUR ---
RN NOTES HOLDING MERREM IV TO START 1300 VANCO. WILL CONTINUE MERREM IV POST VANCO.
--- NOTE | 2021-10-31 19:15 | NUR ---
RECEIVED PT ON BED, AWAKE, ALERT, AND ORIENTED X2. ON O2 8 LPM VIA SIMPLE MASK. O2 SAT WNL. PRODUCTIVE COUGH NOTED IS UNABLE TO CLEAR HIS OWN AIRWAY, CONTINUE NT SUCTIONING NEEDED, TELE MONITOR READS SINUS RHYTHM 70'S G-TUBE PATENT AND INTACT, ON GLUCERNA 1.2 @ 65ML/HR. NO RESIDUAL NOTED.MAXIMILIANO ML ON PLACE PATENT AND FLUSHED HEAD OF BED ELEVATED. MUELLER CATH DRAINING URINE VIA GRAVITY. BED LOCKED AND IN LOWEST POSITION. SR UP x3, BED LOCKED AND IN LOWEST POSITION, CALL LIGHT WITHIN EASY REACH. WILL CONTINUE TO MONITOR.
--- NOTE | 2021-10-31 19:19 | NUR ---
RN CLOSING NOTES PT IS RESTING IN BED, A/O X 1-2. NO S/S OF DISTRESS OR C/O PAIN AT THIS TIME. PT ON 8L SIMPLE MASK AND SATING BETWEEN 95-100%. IV ACCESS AT MAXIMILIANO MIDLINE, FLUSHING WELL AND PATENT. ALL SAFETY MEASURES IN PLACE, BED IN LOWEST LOCKED POSITION, SR UP X3, CALL LIGHT WITHIN REACH. WILL ENDORSE TO POST CLOSER NURSE FOR SARA.
[2021-10-31] MEDS: ENOXAPARIN SODIUM 40 MG/0.4 ML DISP.SYRIN SQ SCH (21:21)
[2021-10-31] MEDS: DOCUSATE SODIUM LIQ 100 MG/10 ML UDC NG SCH (21:21)
[2021-11-01] VITALS (44 sets, daily range): BP systolic 93–125; BP diastolic 47–79
[2021-11-01] MEDS: ALBUTEROL FS 2.5 MG/3 ML VIAL.NEB NEB SCH ×6 (03:25→23:34)
[2021-11-01] MEDS: IPRATROPIUM NEB FS 0.5 MG/2.5 ML AMPUL.NEB NEB SCH ×6 (03:25→23:34)
[2021-11-01] MEDS: IV NS 0.9% 250 ML IV PRN (04:08)
[2021-11-01] MEDS: MEROPENEM 1 G in IV NS 0.9% 100 ML IV SCH ×2 (04:33→12:01)
[2021-11-01 04:55] LABS: BASOPHILS # (AUTO) 0.2 K/uL (0.0-0.2); BASOPHILS % (AUTO) 1.3 % (0.0-2.0); EOSINOPHILS % (AUTO) 0.5 % (0.0-6.0); HEMATOCRIT 30 % (39-51); HEMOGLOBIN 9.7 g/dL (13.5-17.5); LYMPHOCYTES # (AUTO) 2.2 K/uL (0.8-4.8); LYMPHOCYTES % (AUTO) 18.1 % (20.0-44.0); MEAN CORPUSCULAR HGB CONC 32 g/dl (31.0-36.0); MEAN CORPUSCULAR VOLUME 84 fL (80-96); MONOCYTES # (AUTO) 1.5 K/uL (0.1-1.30); MONOCYTES % (AUTO) 12.3 % (2.0-12.0); NEUTROPHILS # (AUTO) 8.3 K/uL (1.8-8.9); NEUTROPHILS % (AUTO) 67.8 % (43.0-81.0); PLATELET COUNT (AUTO) 239 K/uL (150-450); WHITE BLOOD COUNT (AUTO) 12.3 K/uL (4.3-11.0)
[2021-11-01 05:24] LABS: CALCIUM, SERUM 7.9 mg/dL (8.5-10.1); CARBON DIOXIDE 33 mmol/L (21-32); CHLORIDE 100 mmol/L (98-107); CREATININE 0.5 mg/dL (0.6-1.3); GLUCOSE 106 mg/dL (74-106); MAGNESIUM 2.2 mg/dL (1.8-2.4); PHOSPHORUS 2.9 mg/dL (2.5-4.9); POTASSIUM 3.8 mmol/L (3.5-5.1); SODIUM SERUM 135 mmol/L (136-145); UREA NITROGEN, BLOOD 17 mg/dL (7-18)
[2021-11-01] MEDS: INSULIN REGULAR, HUMAN 100 UNIT/ML 3 ML VIAL SQ PRN ×4 (05:49→23:59)
[2021-11-01] MEDS: BLOOD SUGAR DIAGNOSTIC 1 EACH STRIP IN SCH ×4 (05:49→23:58)
[2021-11-01] MEDS: VANCOMYCIN 0.75 GM in IV D5W 250 ML IV SCH (06:41)
--- NOTE | 2021-11-01 07:24 | NUR ---
PT ON BED ASLEEP EASY TO WAKE UP ON SIMPLE MASK 8L SPO2 97-98% NO RESPIRATORY DISTRESS NOTED, VANESSA MONITOR READS SINUS RHYTHM 70'S NO SIGNIFICANT CHANGES ON CONDITION NOTED, ALL NEEDS ATTENDED, WOUND TREATMENT DONE, BED ON LOWEST POSITION AND LOCKED SIDE RAILS UP X2 CALL LIGHT WITHIN REACH WILL CONT TO MONITOR
--- NOTE | 2021-11-01 08:00 | NUR ---
RN NOTES RECEIVED PATIENT IN THE BED ON SIMPLE MASK 8L ON BEDSIDE MONITOR SHOWS O2-98%, HR-90, PATIENT A/O X1/2, NO ACUTE RESPIRATORY DISTRESS, VS STABLE, RECHECKED RESIDUAL IS 0, RUNNING GLUCERNA @65 ML/HR, DUE MEDICATION ADMINISTERED VIA GT FLASHED WITH 120 HO2, MAXIMILIANO MIDLINE INTACT INFUSING TKO. KEEP HOB ELEVATED FOR ASPIRATION PRECAUTION, ASSIST TURN AND REPOSTION. RT WITH THE PATIENT FOR BREATHING TREATMENT. CALL LIGHT WITHIN TO REACH, WILL FOLLOW UP.
[2021-11-01] MEDS: PANTOPRAZOLE 40 MG TABLET.DR PO SCH (08:03)
[2021-11-01] MEDS: methylPREDNISolone SOD SUCC 125 MG/2ML VIAL IV SCH (08:03)
[2021-11-01] MEDS: THERAHONEY GEL 1.5 OZ TUBE TP SCH (08:04)
[2021-11-01] MEDS: ACETYLCYSTEINE 10% SOLN 400 MG/4 ML VIAL NEB SCH ×3 (08:21→23:34)
[2021-11-01] MEDS: GLUCERNA 1.2 1,000 ML BOTTLE NG PRN (12:10)
[2021-11-01] MEDS: MAG HYDROX/AL HYDROX/SIMETH 30 ML UDC PO PRN (13:24)
--- NOTE | 2021-11-01 13:24 | NUR ---
RN NOTES ADMINISTERED MAALOX 15 ML VIA GT FOR STOMACHACHE PER PATIENT REQUEST.
[2021-11-01] MEDS ORDERED: IV LR 1000 ML 1,000 ML IV ONE (16:30)
--- NOTE | 2021-11-01 16:46 | NUR ---
rn notes bs-177mg/dl coverage given, infusing LR @75 ml/hr will monitoring.
--- NOTE | 2021-11-01 19:30 | NUR ---
RN NOTE PATIENT ALERT AND ORIENTED X1-2, ABLE TO MAKE SIMPLE NEEDS KNOWN. ON SIMPLE MASK @ 8LPM. O2 SAT WNL. NO S/S OF RESPIRATORY DISTRESS. DENIES ANY PAIN AT THIS TIME. WITH G-TUBE, PATENT AND INTACT, NO RESIDUAL NOTED. MUELLER CATH DRAINING URINE VIA GRAVITY. IV ACCESS ON MAXIMILIANO MIDLINE INFUSING LR @ 75ML/HR NO INFILTRATION NOTED. BED LOCKED AND IN LOWEST POSITION. CALL LIGHT WITHIN REACH. ALL NEEDS ANTICIPATED.
[2021-11-01] MEDS: ENOXAPARIN SODIUM 40 MG/0.4 ML DISP.SYRIN SQ SCH (21:24)
[2021-11-01] MEDS: DOCUSATE SODIUM LIQ 100 MG/10 ML UDC NG SCH (21:24)
[2021-11-02] VITALS (28 sets, daily range): BP systolic 97–126; BP diastolic 53–73
[2021-11-02] MEDS: ACETAMINOPHEN 325 MG TABLET PO PRN ×2 (01:16→11:01)
--- NOTE | 2021-11-02 01:16 | NUR ---
RN NOTE PATIENT COMPLAINED OF MILD PAIN ON LEFT FOOT AND REQUESTED FOR TYLENOL. ADMINISTERED TYLENOL ORDERED AT THIS TIME.
[2021-11-02] MEDS: ALBUTEROL FS 2.5 MG/3 ML VIAL.NEB NEB SCH ×6 (03:58→23:19)
[2021-11-02] MEDS: IPRATROPIUM NEB FS 0.5 MG/2.5 ML AMPUL.NEB NEB SCH ×6 (03:58→23:19)
[2021-11-02 04:47] LABS: BASOPHILS % (AUTO) 0.2 % (0.0-2.0); EOSINOPHILS % (AUTO) 0.2 % (0.0-6.0); HEMATOCRIT 30 % (39-51); HEMOGLOBIN 9.5 g/dL (13.5-17.5); LYMPHOCYTES % (AUTO) 17.4 % (20.0-44.0); MEAN CORPUSCULAR HGB CONC 32 g/dl (31.0-36.0); MEAN CORPUSCULAR VOLUME 84 fL (80-96); MONOCYTES # (AUTO) 1.2 K/uL (0.1-1.30); NEUTROPHILS # (AUTO) 8.4 K/uL (1.8-8.9); NEUTROPHILS % (AUTO) 72.2 % (43.0-81.0); PLATELET COUNT (AUTO) 233 K/uL (150-450); RED BLOOD CELL COUNT(AUTO) 3.57 MIL/uL (4.5-6.0); WHITE BLOOD COUNT (AUTO) 11.6 K/uL (4.3-11.0)
[2021-11-02 05:08] LABS: CARBON DIOXIDE 35 mmol/L (21-32); CHLORIDE 102 mmol/L (98-107); CREATININE 0.4 mg/dL (0.6-1.3); GLUCOSE 107 mg/dL (74-106); MAGNESIUM 2.3 mg/dL (1.8-2.4); PHOSPHORUS 2.5 mg/dL (2.5-4.9); POTASSIUM 3.6 mmol/L (3.5-5.1); SODIUM SERUM 136 mmol/L (136-145); UREA NITROGEN, BLOOD 17 mg/dL (7-18)
[2021-11-02] MEDS: BLOOD SUGAR DIAGNOSTIC 1 EACH STRIP IN SCH ×3 (05:34→18:04)
[2021-11-02] MEDS: INSULIN REGULAR, HUMAN 100 UNIT/ML 3 ML VIAL SQ PRN ×2 (05:35→18:03)
[2021-11-02] MEDS: ACETYLCYSTEINE 10% SOLN 400 MG/4 ML VIAL NEB SCH ×3 (07:08→23:19)
--- NOTE | 2021-11-02 07:33 | NUR ---
RN NOTE PATIENT ALERT AND ORIENTED X1-2, ON O2 6L VIA NASAL CANNULA, O2 SAT WNL. NO SOB NOTED. MUELLER CATH DRAINING URINE 1100 OUTPUT. IV ACCESS ON MAXIMILIANO MIDLINE PATENT AND INTACT. BED LOCKED AND IN LOWEST POSITION. CALL LIGHT WITHIN REACH. ENDORSE TO AM SHIFT.
[2021-11-02] MEDS: PANTOPRAZOLE 40 MG TABLET.DR PO SCH (09:06)
[2021-11-02] MEDS: methylPREDNISolone SOD SUCC 125 MG/2ML VIAL IV SCH (09:06)
[2021-11-02] MEDS: THERAHONEY GEL 1.5 OZ TUBE TP SCH (09:07)
[2021-11-02 10:04] LABS: ABG BASE EXCESS 5.9 mmol/L; ABG OXYGEN SATURATION 95.3 % (92.0-98.5); ABG PO2 74.9 mmHg (75.0-100.0); AaDO2 199.3 mmHg; COHb 0.3 % (0.5-1.5); MetHb 0.4 % (0.0-1.5); O2Hb 94.6 % (94.0-97.0); SITE, ABG Right Radial; VENT MODE, BG 6LPM SIMPLE MASK
[2021-11-02] MEDS ORDERED: IV LR 1000 ML 1,000 ML IV ONE (14:30)
[2021-11-02] MEDS: ENOXAPARIN SODIUM 40 MG/0.4 ML DISP.SYRIN SQ SCH (21:01)
[2021-11-02] MEDS: DOCUSATE SODIUM LIQ 100 MG/10 ML UDC NG SCH (22:00)
--- NOTE | 2021-11-02 23:16 | NUR ---
agricultural lender colac not given. pt has loose stool
--- NOTE | 2021-11-02 23:46 | NUR ---
auricular detoxification specialistoncology research rn the pt to tele room 110. pt is stable. oxygen 6l via simple mask.sat 98%. no acute distress noted, conveyor monitor showing nsr.
--- NOTE | 2021-11-02 23:50 | NUR ---
RN NOTE PATIENT TRANSFERRED TO ROOM 110. ALERT AND ORIENTED X1-2. ON SIMPLE MASK @ 8LPM, NO S/S OF RESPIRATORY DISTRESS. G-TUBE RUNNING GLUCERNA @ 65ML/HR, NO RESIDUAL NOTED. MAXIMILIANO MIDLINE PATENT AND INTACT. BED LOCKED AND IN LOWEST POSITION. CALL LIGHT WITHIN REACH. ALL NEEDS ANTICIPATED.
[2021-11-03] VITALS: BP 101/51
[2021-11-03] MEDS: BLOOD SUGAR DIAGNOSTIC 1 EACH STRIP IN SCH ×4 (01:02→18:00)
[2021-11-03] MEDS: INSULIN REGULAR, HUMAN 100 UNIT/ML 3 ML VIAL SQ PRN ×3 (01:03→19:10)
[2021-11-03 04:00] VITALS: BP 102/61
[2021-11-03] MEDS: ALBUTEROL FS 2.5 MG/3 ML VIAL.NEB NEB SCH ×6 (04:07→23:40)
[2021-11-03] MEDS: IPRATROPIUM NEB FS 0.5 MG/2.5 ML AMPUL.NEB NEB SCH ×6 (04:07→23:40)
[2021-11-03] MEDS: GLUCERNA 1.2 1,000 ML BOTTLE NG PRN ×2 (04:55→19:02)
[2021-11-03] MEDS: ACETAMINOPHEN 325 MG TABLET PO PRN (04:58)
--- NOTE | 2021-11-03 07:05 | NUR ---
RN NOTE PATIENT RESTING IN BED. ON O2 6L VIA NASAL CANNULA. NO S/S OF RESPIRATORY DISTRESS. G-TUBE RUNNING GLUCERNA @ 65ML/HR, NO RESIDUAL NOTED. MAXIMILIANO MIDLINE PATENT AND INTACT. KEPT CLEAN AND DRY. TURNED AND REPOSITIONED Q2 HRS AND NEEDED. BED LOCKED AND IN LOWEST POSITION. CALL LIGHT WITHIN REACH. WILL ENDORSE TO AM SHIFT.
[2021-11-03 07:35] LABS: CALCIUM, SERUM 8.1 mg/dL (8.5-10.1); CARBON DIOXIDE 31 mmol/L (21-32); CHLORIDE 102 mmol/L (98-107); CREATININE 0.5 mg/dL (0.6-1.3); GLUCOSE 111 mg/dL (74-106); POTASSIUM 3.6 mmol/L (3.5-5.1); SODIUM SERUM 137 mmol/L (136-145); UREA NITROGEN, BLOOD 19 mg/dL (7-18)
--- NOTE | 2021-11-03 07:35 | NUR ---
RN OPENING NOTE RECEIVE REPORT FROM SOFTWARE INTEGRATOR NURSE. PATIENT IN STABLE CONDITION AND RESTING COMFORTABLY. WILL FOLLOW UP AM LABS AND DOCTORS ORDERS. PROPER ISOLATION IN PLACE. BED ON LOWEST POSITION WITH HOB ELEVATED AND 3 SIDE RAIL UP. CALL LIGHT WITHIN REACH. WILL CONTINUE TO MONITOR.
[2021-11-03] MEDS: ACETYLCYSTEINE 10% SOLN 400 MG/4 ML VIAL NEB SCH ×3 (07:42→23:40)
[2021-11-03 08:00] VITALS: BP 103/61
[2021-11-03 08:22] LABS: BASOPHILS % (AUTO) 0.2 % (0.0-2.0); EOSINOPHILS % (AUTO) 0.6 % (0.0-6.0); HEMATOCRIT 31 % (39-51); HEMOGLOBIN 9.8 g/dL (13.5-17.5); LYMPHOCYTES # (AUTO) 1.9 K/uL (0.8-4.8); LYMPHOCYTES % (AUTO) 14.7 % (20.0-44.0); MEAN CORPUSCULAR HGB CONC 32 g/dl (31.0-36.0); MEAN CORPUSCULAR VOLUME 84 fL (80-96); MONOCYTES % (AUTO) 7.5 % (2.0-12.0); PLATELET COUNT (AUTO) 213 K/uL (150-450); RED BLOOD CELL COUNT(AUTO) 3.68 MIL/uL (4.5-6.0)
[2021-11-03] MEDS: PANTOPRAZOLE 40 MG TABLET.DR PO SCH (09:20)
[2021-11-03] MEDS: methylPREDNISolone SOD SUCC 125 MG/2ML VIAL IV SCH (09:21)
[2021-11-03] MEDS: THERAHONEY GEL 1.5 OZ TUBE TP SCH (09:21)
[2021-11-03] MEDS ORDERED: TRAMADOL HCL 50 MG TABLET GT PRN (10:30)
[2021-11-03 12:00] VITALS: BP 103/61
[2021-11-03 16:00] VITALS: BP 105/69
[2021-11-03] MEDS: APIXABAN 5 MG TABLET GT SCH (16:26)
[2021-11-03] MEDS: AMIODARONE HCL 200 MG TABLET GT SCH (16:28)
[2021-11-03] MEDS: IV NS 0.9% 250 ML IV PRN (18:57)
[2021-11-03 20:00] VITALS: BP 106/64
--- NOTE | 2021-11-03 20:10 | NUR ---
RN CLOSING NOTE PATIENT REMAIN IN STABLE CONDITION WITH NO SIGN OF DISTRESS. CONTINUE TO RECEIVE G-TUBE FEEDING WITH GLUCERNA. TOLERATE WELL. ALL MEDS WAS GIVEN. PATIENT WAS TURN AND REPOSITION PER PROTOCOL. PATIENT IS RESTING COMFORTABLY. REPORT WAS GIVEN TO VALIDATION SCIENTIST NURSE.
[2021-11-03] MEDS: DOCUSATE SODIUM LIQ 100 MG/10 ML UDC NG SCH (22:16)
[2021-11-04] VITALS: BP 115/67
[2021-11-04] MEDS: BLOOD SUGAR DIAGNOSTIC 1 EACH STRIP IN SCH ×4 (00:28→17:19)
[2021-11-04] MEDS: INSULIN REGULAR, HUMAN 100 UNIT/ML 3 ML VIAL SQ PRN ×2 (00:31→05:52)
[2021-11-04] MEDS: ALBUTEROL FS 2.5 MG/3 ML VIAL.NEB NEB SCH ×6 (03:43→23:33)
[2021-11-04] MEDS: IPRATROPIUM NEB FS 0.5 MG/2.5 ML AMPUL.NEB NEB SCH ×6 (03:44→23:33)
[2021-11-04 04:00] VITALS: BP 117/66
[2021-11-04] MEDS: HYDROCODONE/APAP 10/325MG TABLET GT PRN ×2 (06:00→12:12)
[2021-11-04 07:09] LABS: BASOPHILS # (AUTO) 0.1 K/uL (0.0-0.2); BASOPHILS % (AUTO) 0.5 % (0.0-2.0); EOSINOPHILS % (AUTO) 0.5 % (0.0-6.0); HEMATOCRIT 31 % (39-51); HEMOGLOBIN 9.9 g/dL (13.5-17.5); LYMPHOCYTES % (AUTO) 14.6 % (20.0-44.0); MEAN CORPUSCULAR HGB CONC 32 g/dl (31.0-36.0); MEAN CORPUSCULAR VOLUME 84 fL (80-96); MONOCYTES # (AUTO) 0.9 K/uL (0.1-1.30); MONOCYTES % (AUTO) 6.4 % (2.0-12.0); NEUTROPHILS # (AUTO) 10.9 K/uL (1.8-8.9); PLATELET COUNT (AUTO) 207 K/uL (150-450); RED BLOOD CELL COUNT(AUTO) 3.68 MIL/uL (4.5-6.0); WHITE BLOOD COUNT (AUTO) 13.9 K/uL (4.3-11.0)
--- NOTE | 2021-11-04 07:34 | NUR ---
RN NOTE RESTING IN BED. A/OX1-2, ANSWERS YES NO QUESTIONS, STATES NAME AND . ON 6L NASAL CANNULA WITH HUMIFIED AIR. NO RESPIRTORY DISTRESS. PRN NORCO GIVEN FOR PAIN IN ABDOMEN. FACIAL GRIMACING WHEN PALPATING. NO BM TODAY. MUELLER CATHETER DRIAING TO GRAVITY URINE IS YELLOW, OUTPUT 600. GTUBE, NO RESIDUAL , RUNNING FEEDING GLUCERNA @65ML. FREE WATER FLUSH 250, SINUS RHYTHM ON THE MONITOR. MAXIMILIANO PATENT AND SLAINE LOCKED. SAFETY ALARM IN PLACE.
[2021-11-04 07:42] LABS: CALCIUM, SERUM 8.4 mg/dL (8.5-10.1); CARBON DIOXIDE 32 mmol/L (21-32); CHLORIDE 102 mmol/L (98-107); CREATININE 0.5 mg/dL (0.6-1.3); GLUCOSE 110 mg/dL (74-106); POTASSIUM 3.8 mmol/L (3.5-5.1); SODIUM SERUM 138 mmol/L (136-145); UREA NITROGEN, BLOOD 24 mg/dL (7-18)
[2021-11-04] MEDS: ACETYLCYSTEINE 10% SOLN 400 MG/4 ML VIAL NEB SCH ×3 (07:54→23:33)
[2021-11-04 08:00] VITALS: BP 122/72
[2021-11-04] MEDS: PANTOPRAZOLE 40 MG TABLET.DR PO SCH (08:13)
[2021-11-04] MEDS: AMIODARONE HCL 200 MG TABLET GT SCH ×2 (09:23→17:22)
[2021-11-04] MEDS: risperiDONE LIQUID 1 MG/ML ML GT SCH (09:23)
[2021-11-04] MEDS: THERAHONEY GEL 1.5 OZ TUBE TP SCH (09:24)
[2021-11-04] MEDS: APIXABAN 5 MG TABLET GT SCH ×2 (09:24→17:23)
--- NOTE | 2021-11-04 09:30 | NUR ---
RN NOTES DUE MEDS GIVEN
[2021-11-04 12:00] VITALS: BP 113/60
[2021-11-04] MEDS ORDERED: SIMETHICONE SUSP 40 MG/0.6 ML BOTTLE GT PRN (12:00)
[2021-11-04] MEDS: MAG HYDROX/AL HYDROX/SIMETH 30 ML UDC PO PRN (12:11)
[2021-11-04] MEDS: GLUCERNA 1.2 1,000 ML BOTTLE NG PRN (12:13)
[2021-11-04 16:00] VITALS: BP 112/60
--- NOTE | 2021-11-04 19:19 | NUR ---
REPAIR OPERATOR CLOSING NOTE: PATIENT ASLEEP, WAKES UP ON NAME AND TOUCH. ON 6L 02 VIA NC HUMIDIFIED AIR; SATURATING @ >95% SP02. NOT IN ANY DISTRESS, RESPIRATION UNLABORED. SR ON MONITOR WITH HR AT 80s,90s NO SIGNS OF PAIN OR DISCOMFORT, MAXIMILIANO MIDLINE FLUSHES WELL, SITE CLEAR, CDI DRESSING. WITH G TUBE, CHECKED FOR PLACEMENT, TUBE FEEDING AT 65ML, WELL TOLERATED. O RESIDUAL. SAFETY MEASURES IMPLEMENTED, BED IN LOWEST POSITION, LOCKED, SIDE RAILS UP, CALL LIGHT WITHIN REACH. PATIENT KEPT CLEAN AND COMFORTABLE. TURNED AND REPOSITIONED Q 2 HOURS. ALL NEEDS MET AT THIS TIME. WILL ENDORSE TO NEXT SHIFT FOR SARA.
[2021-11-04 20:00] VITALS: BP 115/63
--- NOTE | 2021-11-04 20:00 | NUR ---
RN NOTE RECEIVED PTS IN BED AWAKE . A/OX1-2, . ON 6L NASAL CANNULA WITH HUMIFIED AIR. NO SOB NO RESPIRTORY DISTRESS. NOTED NO C/O OF PAIN AT THISTIME MUELLER CATHETER DRIAING TO GRAVITY URINE IS YELLOW, OUTPUT GTUBE, FEEDING GLUCERNA @65ML.TOLERATING WELL FREE WATER FLUSH 250, GIVEN ORDERED ALL DUE MEDS GIVEN NO ASE NOTED ,BED IN LOCKED POSITION SAFETY ALARM INPLACED WILL CONTINUE TO MONITOR PTS.
[2021-11-04] MEDS: DOCUSATE SODIUM LIQ 100 MG/10 ML UDC NG SCH (21:47)
[2021-11-05] VITALS: BP 132/88
[2021-11-05] MEDS: INSULIN REGULAR, HUMAN 100 UNIT/ML 3 ML VIAL SQ PRN ×2 (00:42→06:44)
[2021-11-05] MEDS: BLOOD SUGAR DIAGNOSTIC 1 EACH STRIP IN SCH ×4 (00:47→17:45)
--- NOTE | 2021-11-05 00:55 | NUR ---
radiotelephone technical operator notes blood sugar at 0000hrs is 113 no coverage given per sliding scale will check blood sugar again in am
[2021-11-05] MEDS: IPRATROPIUM NEB FS 0.5 MG/2.5 ML AMPUL.NEB NEB SCH ×5 (03:53→20:22)
[2021-11-05] MEDS: ALBUTEROL FS 2.5 MG/3 ML VIAL.NEB NEB SCH ×5 (03:54→20:22)
[2021-11-05 04:00] VITALS: BP 114/61
[2021-11-05] MEDS: GLUCERNA 1.2 1,000 ML BOTTLE NG PRN (06:36)
--- NOTE | 2021-11-05 07:29 | NUR ---
tele closing rn notes endorse to rn azalia for continuity of care, pts stable no acacia the whole shift,blood sugar at 6am is 120 no insulin coverage given per sliding scale.
--- NOTE | 2021-11-05 07:30 | NUR ---
CONSULTING HR PROFESSIONAL AM NOTE PT IN BED, A/OX1-2, ANSWERS YES NO QUESTIONS, FOLLOWS SIMPLE COMMAND. ON 6L NASAL CANNULA WITH HUMIFIED AIR. O2 SAT AT 97%. NO RESPIRATORY DISTRESS. SR ON HR 72. DENIES PAIN, NO GRIMACINGS. MAXIMILIANO MIDLINE FLUSHES WELL. SITE CLEAR. GTF ONGOING AT 65 ML/HR, CHECKED FOR PLACEMENT, O RESIDUAL. FREE WATER FLUSH 250 ML Q 4 HOURS. SEE NURSING FLOWSHEET FOR SKIN ISSUES. MUELLER CATH IN PLACE. TURN AND REPOSITION Q 2 HOURS. AM CARE AND WOUND TREATMENT IN A WHILE. SAFETY MEASURES IN PLACE. BED LOW/LOCKED. CALL LIGHT WITHIN REACH. WILL CONT TO MONITOR.
[2021-11-05] MEDS: ACETYLCYSTEINE 10% SOLN 400 MG/4 ML VIAL NEB SCH ×2 (07:44→14:40)
[2021-11-05 08:00] VITALS: BP 126/63
[2021-11-05] MEDS: PANTOPRAZOLE 40 MG TABLET.DR PO SCH (08:14)
[2021-11-05] MEDS: AMIODARONE HCL 200 MG TABLET GT SCH ×2 (08:15→17:44)
[2021-11-05] MEDS: risperiDONE LIQUID 1 MG/ML ML GT SCH (08:16)
[2021-11-05] MEDS: APIXABAN 5 MG TABLET GT SCH ×2 (08:16→17:45)
[2021-11-05] MEDS: THERAHONEY GEL 1.5 OZ TUBE TP SCH (08:26)
--- NOTE | 2021-11-05 09:30 | NUR ---
RN NOTES DUE MEDS GIVEN
[2021-11-05 12:00] VITALS: BP 120/74
[2021-11-05 16:00] VITALS: BP 116/70
--- NOTE | 2021-11-05 19:00 | NUR ---
MANAGING JEWELER CLOSING NOTE: PATIENT ASLEEP, WAKES UP ON NAME AND TOUCH. ON 6L 02 VIA NC HUMIDIFIED AIR; SATURATING @ >95% SP02. NOT IN ANY DISTRESS, RESPIRATION UNLABORED. SR ON MONITOR WITH HR AT 80s,90s NO SIGNS OF PAIN OR DISCOMFORT, MAXIMILIANO MIDLINE FLUSHES WELL, SITE CLEAR, CDI DRESSING. WITH G TUBE, CHECKED FOR PLACEMENT, TUBE FEEDING AT 65ML, WELL TOLERATED. O RESIDUAL. MUELLER CATH IN PLACE, URINE OUTPUT 400 ML. SAFETY MEASURES IMPLEMENTED, BED IN LOWEST POSITION, LOCKED, SIDE RAILS UP, CALL LIGHT WITHIN REACH. PATIENT KEPT CLEAN AND COMFORTABLE. TURNED AND REPOSITIONED Q 2 HOURS. ALL NEEDS MET AT THIS TIME. WILL ENDORSE TO NEXT SHIFT FOR SARA.
[2021-11-05 20:00] VITALS: BP 122/72
[2021-11-05] MEDS: DOCUSATE SODIUM LIQ 100 MG/10 ML UDC NG SCH (23:04)
[2021-11-06] VITALS: BP 113/68
[2021-11-06] MEDS: IPRATROPIUM NEB FS 0.5 MG/2.5 ML AMPUL.NEB NEB SCH ×7 (00:01→23:10)
[2021-11-06] MEDS: ALBUTEROL FS 2.5 MG/3 ML VIAL.NEB NEB SCH ×7 (00:01→23:10)
[2021-11-06] MEDS: ACETYLCYSTEINE 10% SOLN 400 MG/4 ML VIAL NEB SCH ×4 (00:01→23:10)
[2021-11-06] MEDS: BLOOD SUGAR DIAGNOSTIC 1 EACH STRIP IN SCH ×4 (00:05→17:44)
[2021-11-06 04:00] VITALS: BP 115/54
--- NOTE | 2021-11-06 04:30 | NUR ---
RN notes Eyes closed,, in bed resting comfortably. No distress noted. Breathing even and unlabored. On 6lpm via nasal cannula tolerating well. Alert to self, noted with slight eye contact. Unble to verbally communicate needs or follows command. No physical manifestation of pain or discomfort. No significant change of condition. Kept clean and dry. Will endorse to next shift for continuity of care.
[2021-11-06] MEDS: INSULIN REGULAR, HUMAN 100 UNIT/ML 3 ML VIAL SQ PRN ×3 (06:35→17:50)
[2021-11-06 07:12] LABS: BASOPHILS % (AUTO) 0.3 % (0.0-2.0); EOSINOPHILS % (AUTO) 1.9 % (0.0-6.0); HEMATOCRIT 35 % (39-51); HEMOGLOBIN 11.3 g/dL (13.5-17.5); LYMPHOCYTES # (AUTO) 1.5 K/uL (0.8-4.8); LYMPHOCYTES % (AUTO) 14.5 % (20.0-44.0); MEAN CORPUSCULAR HGB CONC 32 g/dl (31.0-36.0); MEAN CORPUSCULAR VOLUME 83 fL (80-96); MONOCYTES # (AUTO) 0.6 K/uL (0.1-1.30); MONOCYTES % (AUTO) 5.8 % (2.0-12.0); NEUTROPHILS # (AUTO) 7.8 K/uL (1.8-8.9); NEUTROPHILS % (AUTO) 77.5 % (43.0-81.0); PLATELET COUNT (AUTO) 189 K/uL (150-450); RED BLOOD CELL COUNT(AUTO) 4.22 MIL/uL (4.5-6.0)
--- NOTE | 2021-11-06 07:31 | NUR ---
PRODUCTION ZONE LEADER OPENING NOTES RECEIVED PATIENT ASLEEP, NOT IN ANY FORM OF ACUTE DISTRESS NOTED, ON N 6L 02 VIA NC HUMIDIFIED AIR; SATURATING WELL. RESPIRATION UNLABORED. ST ON MONITOR WITH PVC'S WITH HR AT 100-110. NO SIGNS OF PAIN OR DISCOMFORT, MAXIMILIANO MIDLINE FLUSHES WELL, SITE CLEAR, CDI DRESSING. WITH- G TUBE, CHECKED FOR PLACEMENT, TUBE FEEDING OF GLUCERNA AT 65ML/HR, WELL TOLERATED. NO RESIDUAL. SAFETY MEASURES IN PLACE: BED IN LOWEST POSITION, LOCKED, SIDE RAILS UP, CALL LIGHT WITHIN REACH. WILL CONTINUE TO MONITOR ACCORDINGLY.
[2021-11-06] MEDS: PANTOPRAZOLE 40 MG TABLET.DR PO SCH (07:52)
[2021-11-06 08:00] VITALS: BP 96/59
[2021-11-06] MEDS: THERAHONEY GEL 1.5 OZ TUBE TP SCH (08:02)
[2021-11-06] MEDS: ACETAMINOPHEN 325 MG TABLET PO PRN (08:06)
[2021-11-06] MEDS: risperiDONE LIQUID 1 MG/ML ML GT SCH (08:06)
[2021-11-06] MEDS: AMIODARONE HCL 200 MG TABLET GT SCH ×2 (08:07→16:07)
[2021-11-06] MEDS: APIXABAN 5 MG TABLET GT SCH ×2 (08:08→16:07)
[2021-11-06 08:15] LABS: CALCIUM, SERUM 8.9 mg/dL (8.5-10.1); CREATININE 0.6 mg/dL (0.6-1.3)
[2021-11-06 12:00] VITALS: BP 99/60
[2021-11-06 16:00] VITALS: BP 104/55
--- NOTE | 2021-11-06 18:36 | NUR ---
COMPUTER AIDED DESIGN TECHNICIAN CLOSING NOTES PATIENT IN BED, ASLEEP, NOT IN ANY FORM OF ACUTE DISTRESS NOTED, ON N 6L 02 VIA NC HUMIDIFIED AIR; SATURATING WELL. RESPIRATION UNLABORED. SR-ST ON MONITOR WITH PVC'S WITH HR AT 95-105. NO SIGNS OF PAIN OR DISCOMFORT, MAXIMILIANO MIDLINE FLUSHES WELL, SITE CLEAR, CDI DRESSING. WITH- G TUBE, CHECKED FOR PLACEMENT, ONGOING TUBE FEEDING OF GLUCERNA AT 65ML/HR, WELL TOLERATED. NO RESIDUAL. SAFETY MEASURES IN PLACE: BED IN LOWEST POSITION, LOCKED, SIDE RAILS UP, CALL LIGHT WITHIN REACH. KEPT CLEAN AND DRY. WOUND CARE TX DONE ORDERED. ALL NEEDS ATTENDED AND MET. DUE MEDS GIVEN ORDERED. WILL ENDORSE TO ONCOMING SHIFT FOR SARA.
[2021-11-06 20:00] VITALS: BP 114/74
[2021-11-06] MEDS: DOCUSATE SODIUM LIQ 100 MG/10 ML UDC NG SCH (21:13)
[2021-11-07] VITALS: BP 101/57
--- NOTE | 2021-11-07 | NUR ---
RN NOTES BS 130 MG/DL 2 UNITS OF REGULAR INSULIN GIVEN PER SLIDING SCALE
[2021-11-07] MEDS: ACETAMINOPHEN 325 MG TABLET PO PRN ×3 (00:31→17:15)
[2021-11-07] MEDS: GLUCERNA 1.2 1,000 ML BOTTLE NG PRN ×2 (00:31→17:24)
[2021-11-07] MEDS: BLOOD SUGAR DIAGNOSTIC 1 EACH STRIP IN SCH ×4 (00:57→17:13)
[2021-11-07] MEDS: INSULIN REGULAR, HUMAN 100 UNIT/ML 3 ML VIAL SQ PRN ×4 (00:59→17:14)
[2021-11-07] MEDS: MAG HYDROX/AL HYDROX/SIMETH 30 ML UDC PO PRN (01:00)
[2021-11-07] MEDS: IPRATROPIUM NEB FS 0.5 MG/2.5 ML AMPUL.NEB NEB SCH ×6 (02:55→23:08)
[2021-11-07] MEDS: ALBUTEROL FS 2.5 MG/3 ML VIAL.NEB NEB SCH ×6 (02:55→23:08)
[2021-11-07 04:00] VITALS: BP 107/65
--- NOTE | 2021-11-07 05:18 | NUR ---
RN NOTES BS 150 MG/DL 2 UNITES OF REGULAR INSULIN GIVEN PER SLIDING SCALE
[2021-11-07 06:08] LABS: BASOPHILS # (AUTO) 0.1 K/uL (0.0-0.2); BASOPHILS % (AUTO) 0.7 % (0.0-2.0); EOSINOPHILS % (AUTO) 0.8 % (0.0-6.0); HEMATOCRIT 34 % (39-51); LYMPHOCYTES % (AUTO) 12.1 % (20.0-44.0); MEAN CORPUSCULAR HGB CONC 32 g/dl (31.0-36.0); MEAN CORPUSCULAR VOLUME 83 fL (80-96); MONOCYTES # (AUTO) 0.9 K/uL (0.1-1.30); MONOCYTES % (AUTO) 5.5 % (2.0-12.0); NEUTROPHILS # (AUTO) 13.3 K/uL (1.8-8.9); NEUTROPHILS % (AUTO) 80.9 % (43.0-81.0); PLATELET COUNT (AUTO) 157 K/uL (150-450); RED BLOOD CELL COUNT(AUTO) 4.11 MIL/uL (4.5-6.0); WHITE BLOOD COUNT (AUTO) 16.5 K/uL (4.3-11.0)
--- NOTE | 2021-11-07 07:33 | NUR ---
DRIVER HELPER OPENING NOTE Patient in bed, asleep. A/O x 1. On O2 at 6 LPM with humidifier via NC, breathing evenly and unlabored. No SOB or s/s of distress noted. IV access on MAXIMILIANO midline SL, intact and patent. Kowalski catheter in place draining to a yellow colored urine. G-tube in place running Glucerna 1.2 at 65 ml/hr. On tele monitoring showing SR, HR on the 90's. Safety measures in place: bed in low, locked position; siderails up x 2; call light within reach. Will continue to monitor.
[2021-11-07 07:41] LABS: CREATININE 0.7 mg/dL (0.6-1.3)
[2021-11-07 08:00] VITALS: BP 110/62
[2021-11-07] MEDS: PANTOPRAZOLE 40 MG TABLET.DR PO SCH (08:04)
[2021-11-07] MEDS: AMIODARONE HCL 200 MG TABLET GT SCH ×2 (08:05→16:20)
[2021-11-07] MEDS: risperiDONE LIQUID 1 MG/ML ML GT SCH (08:05)
[2021-11-07] MEDS: THERAHONEY GEL 1.5 OZ TUBE TP SCH (08:06)
[2021-11-07] MEDS: APIXABAN 5 MG TABLET GT SCH ×2 (08:08→16:21)
[2021-11-07] MEDS: ACETYLCYSTEINE 10% SOLN 400 MG/4 ML VIAL NEB SCH ×3 (08:49→23:08)
[2021-11-07] MEDS: HYDROCODONE/APAP 10/325MG TABLET GT PRN ×2 (11:51→21:14)
[2021-11-07 12:04] VITALS: BP 113/52
[2021-11-07 16:00] VITALS: BP 106/62
--- NOTE | 2021-11-07 19:05 | NUR ---
CORPORATE TRAVEL COORDINATOR CLOSING NOTE Patient in bed, asleep. A/O x 1. On O2 at 6 LPM with humidifier via NC, breathing evenly and unlabored. No SOB or s/s of distress noted. IV access on MAXIMILIANO midline SL, intact and patent. Kowalski catheter in place draining to a yellow colored urine wiht an output of 400 cc. G-tube in place running Glucerna 1.2 at 65 ml/hr. On tele monitoring showing Sinus tachycardia, HR 102. Patient kept clean and dry. Wound care done, as ordered. Due meds given. Safety measures maintained: bed in low, locked position; siderails up x 2; call light within reach. Will endorse to manufacturing supervisor 2nd shift nurse for SARA.
--- NOTE | 2021-11-07 19:40 | NUR ---
RN OPENING NOTE RECEIVED CARE OF PATIENT FROM AM NURSE WHILE PATIENT IN BED, A/O X1, OPENS EYES, ABLE TO MOUTH SOME WORDS, NO SIGNS OF DISCOMFORT NOTED. PATIENT ON O2 VIA NC WITH HUMIDIFIER RUNNING AT 6L/MIN, PATIENT BREATHING EVENLY AND UNLABORED, NO SOB NOTED, O2 SAT 96%. IV ACCESS ON MAXIMILIANO MIDLINE, PATENT AND FLUSHING WELL. PATIENT NOTED WITH MUELLER CATHETER DRAINING YELLOW COLORED URINE, NO COMPLICATIONS NOTED. PATIENT WITH GTUBE RUNNING GLUCERNA AT 65ML/HR, NO RESIDUAL NOTED. TELE MONITOR READING NSR WITH HR OF 91. NO SIGNIFICANT FINDINGS UPON INITIAL NURSING ASSESSMENTS. SAFETY MEASURES IN PLACE, BED AT LOWEST POSITION WITH WHEELS LOCKED IN PLACE, SIDE RAILS UP X2, CALL LIGHT WITHIN REACH. WILL CONTINUE TO MONITOR PATIENT.
[2021-11-07 20:00] VITALS: BP 95/57
[2021-11-07] MEDS: DOCUSATE SODIUM LIQ 100 MG/10 ML UDC NG SCH (21:12)
[2021-11-08] VITALS: BP 100/59
[2021-11-08] MEDS: BLOOD SUGAR DIAGNOSTIC 1 EACH STRIP IN SCH ×4 (00:56→17:57)
[2021-11-08 04:00] VITALS: BP 99/50
[2021-11-08] MEDS: ALBUTEROL FS 2.5 MG/3 ML VIAL.NEB NEB SCH ×6 (04:10→23:51)
[2021-11-08] MEDS: IPRATROPIUM NEB FS 0.5 MG/2.5 ML AMPUL.NEB NEB SCH ×6 (04:11→23:50)
--- NOTE | 2021-11-08 05:38 | NUR ---
RN NOTE PATIENT'S GTUBE WAS FOUND TO BE DISLODGED. PATIENT IN NO IMMEDIATE DISTRESS, NO BLEEDING AROUND STOMA. NELI SAL ARTIFICIAL BREEDING TECHNICIAN MADE AWARE. ORDER TO DISCONTINUE TUBE FEEDING AND KEEP PATIENT NPO, D5NS @50CC/HR WILL BE INITIATED. WILL ENDORSE TO AM NURSE.
[2021-11-08] MEDS ORDERED: IV D5/ 0.9% NACL 1,000 ML IV PRN (06:00)
[2021-11-08 06:51] LABS: BASOPHILS # (AUTO) 0.1 K/uL (0.0-0.2); BASOPHILS % (AUTO) 0.9 % (0.0-2.0); EOSINOPHILS % (AUTO) 1.9 % (0.0-6.0); HEMATOCRIT 32 % (39-51); HEMOGLOBIN 10.3 g/dL (13.5-17.5); LYMPHOCYTES # (AUTO) 1.5 K/uL (0.8-4.8); MEAN CORPUSCULAR HGB CONC 32 g/dl (31.0-36.0); MEAN CORPUSCULAR VOLUME 83 fL (80-96); MONOCYTES # (AUTO) 1.2 K/uL (0.1-1.30); NEUTROPHILS # (AUTO) 11.4 K/uL (1.8-8.9); NEUTROPHILS % (AUTO) 79.2 % (43.0-81.0); PLATELET COUNT (AUTO) 146 K/uL (150-450); RED BLOOD CELL COUNT(AUTO) 3.85 MIL/uL (4.5-6.0); WHITE BLOOD COUNT (AUTO) 14.4 K/uL (4.3-11.0)
[2021-11-08 07:27] LABS: CALCIUM, SERUM 8.7 mg/dL (8.5-10.1); CREATININE 0.6 mg/dL (0.6-1.3); POTASSIUM 4.2 mmol/L (3.5-5.1)
[2021-11-08] MEDS: PANTOPRAZOLE 40 MG TABLET.DR PO SCH (07:30)
--- NOTE | 2021-11-08 07:30 | NUR ---
RN OPENING NOTES RECEIVED PATIENT IN BED, A/O X1, OPENS EYES. NO SIGNS OF DISCOMFORT NOTED. PATIENT ON O2 VIA NC WITH HUMIDIFIER RUNNING AT 6L/MIN, BREATHING EVEN AND UNLABORED, NO SOB OR ANY ACUTE DISTRESS NOTED, O2 SAT 96%. ON TELE MONITOR READING NSR WITH HR OF 96. IV ACCESS ON MAXIMILIANO MIDLINE, PATENT AND FLUSHING WELL, INFUSING D5NS @ 50 CC/HR. PATIENT NOTED WITH MUELLER CATHETER DRAINING YELLOW COLORED URINE. GT NOTED DISLODGED, MUELLER CATH IN PLACE TO KEEP SITE OPEN. SCANT BLOOD NOTED ON DRESSING. NO ACTIVE BLEEDING ON SITE NOTED. ALL SAFETY MEASURES IN PLACE, BED AT LOWEST POSITION WITH WHEELS LOCKED IN PLACE, SIDE RAILS UP X2, CALL LIGHT WITHIN REACH. WILL CONTINUE TO MONITOR PATIENT ACCORDINGLY.
[2021-11-08 08:00] VITALS: BP 101/53
[2021-11-08] MEDS: ACETYLCYSTEINE 10% SOLN 400 MG/4 ML VIAL NEB SCH ×3 (08:03→23:51)
[2021-11-08] MEDS: APIXABAN 5 MG TABLET GT SCH ×2 (09:00→17:00)
[2021-11-08] MEDS: AMIODARONE HCL 200 MG TABLET GT SCH ×2 (09:00→17:00)
[2021-11-08] MEDS: risperiDONE LIQUID 1 MG/ML ML GT SCH (09:00)
[2021-11-08] MEDS: THERAHONEY GEL 1.5 OZ TUBE TP SCH (09:32)
--- NOTE | 2021-11-08 09:41 | NUR ---
RN NOTES HELD ALL GT MEDS, GT DISLODGED, DR. SEGUNDO MADE AWARE.
--- NOTE | 2021-11-08 10:00 | NUR ---
RN NOTES UNABLE TO FLUSH WITH 250CC FREE WATER, GT DISLODGED.
[2021-11-08 12:00] VITALS: BP 100/59
[2021-11-08 16:00] VITALS: BP 97/66
--- NOTE | 2021-11-08 17:43 | NUR ---
RN NOTES PATIENT REMAINS WITH GT DISLODGED, PER DR. AGUILAR HE WILL COME TO RE-INSERT GTUBE ON PATIENT TOMORROW. HELD ALL DUE MEDS. WILL CONTINUE TO MONITOR PATIENT.
--- NOTE | 2021-11-08 18:31 | NUR ---
RN CLOSING NOTES PATIENT REMAINS IN STABLE CONDITION THROUGHOUT SHIFT. PATIENT IN BED,AWAKE, A/O X1 PATIENT ON O2 VIA NC WITH HUMIDIFIER RUNNING AT 6L/MIN, BREATHING EVEN AND UNLABORED, NO SOB OR ANY ACUTE DISTRESS NOTED, O2 SAT 97%. WOUND CARE RENDERED ORDERED, TOLERATED WELL. ALL NEEDS ATTENDED. PATIENT NOTED WITH MUELLER CATHETER DRAINING YELLOW COLORED URINE. PATIENT REMAINS NPO, GT REMAINS DISLODGED, MUELLER CATH IN PLACE TO KEEP SITE OPEN. ALL SAFETY MEASURES IN PLACE, BED AT LOWEST POSITION AND LOCKED IN PLACE, SIDE RAILS UP X2, CALL LIGHT WITHIN REACH. WILL ENDORSE TO ONCOMING NURSE FOR CONTINUITY OF CARE.
--- NOTE | 2021-11-08 19:15 | NUR ---
RN OPENING NOTES RECEIVED REPORT AT PATIENT'S BEDSIDE. PATIENT IN NAD AND STABLE AT THIS TIME. RESPONSIVE TO NAME AND VOICE COMMAND. ALERT AND ORIENTED TO PERSON. PATIENT ON O2 VIA NC WITH HUMIDIFIER RUNNING AT 6L/MIN, BREATHING EVEN AND UNLABORED, SPO2 97%. DRESSING TO WOUND CDI. PATIENT NOTED WITH MUELLER CATHETER DRAINING YELLOW COLORED URINE. PATIENT REMAINS NPO, GT REMAINS DISLODGED, MUELLER CATH IN PLACE TO KEEP SITE OPEN. IV ACCESS TO MAXIMILIANO MIDLINE INFUSING NS @ TKO. NO S/SX INFILTRATION, ERYTHEMA. DRESSING TO SITE CDI. ALL SAFETY MEASURES IN PLACE, BED IN LOW/LOCKED POSITION, SIDE RAILS UP X2, HOB ELEVATED TO SEMI-FRANK'S POSITION, CALL LIGHT WITHIN REACH.
[2021-11-08 20:00] VITALS: BP 111/64
[2021-11-08] MEDS: DOCUSATE SODIUM LIQ 100 MG/10 ML UDC NG SCH (21:32)
[2021-11-09] VITALS: BP 102/59
[2021-11-09] MEDS: INSULIN REGULAR, HUMAN 100 UNIT/ML 3 ML VIAL SQ PRN ×2 (00:58→05:00)
[2021-11-09] MEDS: BLOOD SUGAR DIAGNOSTIC 1 EACH STRIP IN SCH ×3 (00:58→11:59)
[2021-11-09] MEDS ORDERED: IV NS 0.9% 1,000 ML IV PRN (02:00)
[2021-11-09] MEDS: ALBUTEROL FS 2.5 MG/3 ML VIAL.NEB NEB SCH ×5 (03:30→14:55)
[2021-11-09] MEDS: IPRATROPIUM NEB FS 0.5 MG/2.5 ML AMPUL.NEB NEB SCH ×5 (03:30→14:55)
[2021-11-09 04:00] VITALS: BP 112/62
--- NOTE | 2021-11-09 06:41 | NUR ---
RN CLOSING NOTES PATIENT LYING IN BED, EYES CLOSED, RR EVEN AND UNLABORED, SNORING. PATIENT IS EASILY AROUSED BY VOCAL STIMULI. ALERT AND ORIENTED TO PERSON. FOLLOWS COMMANDS. PATIENT IN NAD AND STABLE AT THIS TIME. PATIENT ON O2 VIA NC WITH HUMIDIFIER RUNNING AT 6L/MIN, BREATHING EVEN AND UNLABORED, SPO2 96%. DRESSING TO SACRAL WOUND CDI. PATIENT NOTED WITH MUELLER CATHETER DRAINING YELLOW COLORED URINE. PATIENT REMAINS NPO, GT REMAINS DISLODGED, MUELLER CATH IN PLACE TO KEEP SITE OPEN. IV ACCESS TO MAXIMILIANO MIDLINE INFUSING NS @ 50ML/HR. NO S/SX INFILTRATION, ERYTHEMA. DRESSING TO SITE CDI. ALL SAFETY MEASURES IN PLACE, BED IN LOW/LOCKED POSITION, SIDE RAILS UP X2, HOB ELEVATED TO SEMI-FRANK'S POSITION, CALL LIGHT WITHIN REACH.
[2021-11-09 06:42] LABS: BASOPHILS % (AUTO) 0.3 % (0.0-2.0); EOSINOPHILS % (AUTO) 2.6 % (0.0-6.0); HEMATOCRIT 31 % (39-51); HEMOGLOBIN 9.9 g/dL (13.5-17.5); LYMPHOCYTES % (AUTO) 19.3 % (20.0-44.0); MEAN CORPUSCULAR HGB CONC 32 g/dl (31.0-36.0); MEAN CORPUSCULAR VOLUME 84 fL (80-96); MONOCYTES % (AUTO) 9.6 % (2.0-12.0); NEUTROPHILS # (AUTO) 6.9 K/uL (1.8-8.9); NEUTROPHILS % (AUTO) 68.2 % (43.0-81.0); PLATELET COUNT (AUTO) 166 K/uL (150-450); WHITE BLOOD COUNT (AUTO) 10.1 K/uL (4.3-11.0)
[2021-11-09] MEDS: PANTOPRAZOLE 40 MG TABLET.DR PO SCH (06:46)
[2021-11-09 07:15] LABS: CALCIUM, SERUM 8.4 mg/dL (8.5-10.1); CREATININE 0.6 mg/dL (0.6-1.3); POTASSIUM 3.4 mmol/L (3.5-5.1)
--- NOTE | 2021-11-09 07:30 | NUR ---
RN OPENING NOTE PATIENT IN BED SLEEPING. A/0X1 PER SEAT COVERER. FOLLOWS COMMANDS. NO S/SX OF DISTRESS OR SOB. PATIENT ON O2 VIA NC WITH HUMIDIFIER RUNNING AT 6L/MIN, BREATHING EVEN AND UNLABORED, SPO2 96%. PATIENT NOTED WITH MUELLER CATHETER DRAINING YELLOW COLORED URINE. PATIENT REMAINS NPO, GT REMAINS DISLODGED, MUELLER CATH IN PLACE TO KEEP SITE OPEN. IV ACCESS TO MAXIMILIANO MIDLINE INFUSING NS @ 50ML/HR. NO S/SX INFILTRATION, ERYTHEMA. DRESSING TO SITE CDI. ALL SAFETY MEASURES IN PLACE, BED IN LOW/LOCKED POSITION, SIDE RAILS UP X2, HOB ELEVATED TO SEMI-FRANK'S POSITION, CALL LIGHT WITHIN REACH. WILL CONTINUE TO MONITOR.
[2021-11-09] MEDS: ACETYLCYSTEINE 10% SOLN 400 MG/4 ML VIAL NEB SCH ×2 (07:39→14:55)
[2021-11-09 08:00] VITALS: BP 121/67
[2021-11-09] MEDS: THERAHONEY GEL 1.5 OZ TUBE TP SCH (09:01)
[2021-11-09] MEDS ORDERED: ACET1OOV6 NEB (10:01)
--- NOTE | 2021-11-09 10:28 | NUR ---
SOFTWARE QUALITY ASSURANCE ENGINEER NOTE DR AGUILAR AT BEDSIDE, NEW G TUBE PLACED ,KUB WITH GASTROGRAPHY ORDERED WILL F\U
[2021-11-09] MEDS ORDERED: DIATR MEGLU/DIATRIZOATE SODIUM 30 ML BOTTLE (GASTROGRAPHIN) ONE (10:30)
[2021-11-09] MEDS: risperiDONE LIQUID 1 MG/ML ML GT SCH (11:16)
[2021-11-09] MEDS: AMIODARONE HCL 200 MG TABLET GT SCH (11:16)
[2021-11-09] MEDS: POTASSIUM CL. PREMIX PERIPHER. 50 ML IV SCH ×2 (11:17→12:24)
[2021-11-09] MEDS: APIXABAN 5 MG TABLET GT SCH (11:17)
[2021-11-09 12:00] VITALS: BP 107/62
[2021-11-09] MEDS ORDERED: PIPERACILLIN /TAZOBACTAM 3.375 G in IV D5W 50 ML IV SCH (12:00)
--- NOTE | 2021-11-09 15:15 | NUR ---
PER DIEM CLERK NOTE PATIENT STABLE UPON DISCHARGE. A/0X1. FOLLOWS COMMANDS. NO S/SX OF DISTRESS OR SOB. PATIENT ON O2 VIA NC WITH HUMIDIFIER RUNNING AT 3L/MIN, BREATHING EVEN AND UNLABORED, SPO2 97%. PATIENT NOTED WITH MUELLER CATHETER DRAINING YELLOW COLORED URINE. PATIENT HAS INTACT AND PATENT GTUBE RUNNING GLUCERNA 1.2 @65ML/HR. MAXIMILIANO MIDLINE REMAINED IN PLACE FOR SNF. NO S/SX INFILTRATION, ERYTHEMA. PATIENT OK TO BE DISCHARGED TO [facility] PER MD ORDER. REPORT GIVEN TO [facility] COORDINATOR AT [facility]. PATIENT TRANSPORTED VIA AMBULANCE AND ACCOMPANIED BY TWO EMT'S. PATIENT REMAINED STABLE THROUGHOUT DISCHARGE.
== END 2021-11-09 15:35 | DRG 870 ==
LOC: ER 12:20 → TRANSITION 10-18 02:37 → ICU 10-18 05:36 → TELE1 11-02 23:43
PROVIDERS: ADMIT Nurse Practitioner Acute Care; ATTEND Nurse Practitioner Acute Care
PROC: 5A1955Z Respiratory Ventilation, Greater than 96 Consecutive Hours (ICD-10-PCS; principal; 2021-10-17)
PROC: 0BH18EZ Insertion of Endotracheal Airway into Trachea, Via Natural or Artificial Opening Endoscopic (ICD-10-PCS; 2021-10-17)
PROC: 02HV33Z Insertion of Infusion Device into Superior Vena Cava, Percutaneous Approach (ICD-10-PCS; 2021-10-17)
PROC: B548ZZA Ultrasonography of Superior Vena Cava, Guidance (ICD-10-PCS; 2021-10-17)
PROC: 05HB33Z Insertion of Infusion Device into Right Basilic Vein, Percutaneous Approach (ICD-10-PCS; 2021-10-22)
DX: A41.01 Sepsis due to Methicillin susceptible Staphylococcus aureus (principal); L89.153 Pressure ulcer of sacral region, stage 3; J96.01 Acute respiratory failure with hypoxia; G93.41 Metabolic encephalopathy; N17.0 Acute kidney failure with tubular necrosis; J18.9 Pneumonia, unspecified organism; N39.0 Urinary tract infection, site not specified; J44.1 Chronic obstructive pulmonary disease with (acute) exacerbation; J44.0 Chronic obstructive pulmonary disease with (acute) lower respiratory infection; E87.0 Hyperosmolality and hypernatremia; E44.0 Moderate protein-calorie malnutrition; D68.59 Other primary thrombophilia; K94.23 Gastrostomy malfunction; D50.0 Iron deficiency anemia secondary to blood loss (chronic); R74.01 Elevation of levels of liver transaminase levels; E86.0 Dehydration; R13.10 Dysphagia, unspecified; R00.1 Bradycardia, unspecified; Z90.81 Acquired absence of spleen; N20.0 Calculus of kidney; I48.91 Unspecified atrial fibrillation; B95.2 Enterococcus as the cause of diseases classified elsewhere; B96.4 Proteus (mirabilis) (morganii) as the cause of diseases classified elsewhere; Z20.822 Contact with and (suspected) exposure to COVID-19; Y83.8 Other surgical procedures as the cause of abnormal reaction of the patient, or of later complication, without mention of misadventure at the time of the procedure; Y92.230 Patient room in hospital as the place of occurrence of the external cause
CPT/HCPCS: 31720; 36415; 36600; 71045-TC; 74018; 80048-TC; 80053-TC; 80061-TC; 80076-TC; 80202-TC; 81001; 82803-TC; 82962-TC; 83540-TC; 83605-TC; 83735-TC; 83880; 84100-TC; 84443-TC; 84478-TC; 84484-TC; 85025-TC; 85730-TC; 87040-TC; 87070-TC; 87081-TC; 87086-TC; 87186-TC; 92526; 92611-TC; 93307-TC; 94003-TC; 94640-TC; 94668-TC; 94760-TC; 94799-TC; A4624; A6253; A6403; G0378; J0330; J0692; J1100; J1650; J1815; J1940; J2185; J2405; J2543; J2930; J3370; J3475; J3480; J3490; J7030; J7042; J7050; J7060; J7070; J7120; Q9963; U0003

== ENCOUNTER 2021-11-18 06:40 | Inpatient (IN) | payer MEDICARE, OTHER ==
[2021-11-18] VITALS (29 sets, daily range): BP systolic 86–143; BP diastolic 21–102
[~2021-11-18] VITALS: Ht 177.8 cm; Wt 66.2 kg
[~2021-11-18 06:40] MED LIST: ACET1OOV6 NEB; ALBU6.7H9 INH; AMIO200T5 GT; APIX5TAB GT; ASCO500T10 GT; ATOR10TA GT; CALC1TAB30 GT; DOCU100T2 GT; INSU100V42 SQ; IPRA12.9 INH; MAGN400T8 GT; MULT-754 GT; NA P133E RC; POLY17PO4 GT; RISP3TAB61 GT; SENN-18 GT; TRAM50TA2 GT
[2021-11-18] MEDS ORDERED: ACETAMINOPHEN 650 MG/SUPP.RECT RC ONE (06:46)
--- NOTE | 2021-11-18 06:52 | NUR ---
NAWAF FROM [facility] TO ER BED 5. AWAKE ALERT BUT CONFUSED. BROUGHT IN FOR SHORTNESS OF BREATHING W/ HYPOXIA NOTED O2 SAT @ 81% ON RA. FEVER OF 101.9 NOTED RECTALLY AND TACHYCARDIC AT 114. PT ALSO NOTED WITH DARK URINE AND WITH MUELLER CATH USE. WAS AT [facility] BEDSIDE FOR EVAL. ORDERS RECEIVED, NOTED AND CARRIED OUT. PT HAVE A PICC LINE ON HIS MAXIMILIANO. PT PLACED ON VIA NONREBREATHER.
--- NOTE | 2021-11-18 06:53 | NUR ---
ADMINISTERED TYLENOL SUPPOSITORY 650MG VERBAL ORDER. URINE COLLECTED AND SENT TO LAB. F/C INSERTED GIZZARD PEELER; DRAINING BROWN URINE. MAXIMILIANO PICCLINE #18G; PATENT AND INTACT. GTUBE INTACT.
[2021-11-18] MEDS ORDERED: VANCOMYCIN 1 GM VIAL ONE (06:59)
--- NOTE | 2021-11-18 06:59 | NUR ---
RT AT PT'S BEDSIDE FOR ABG
[2021-11-18] MEDS ORDERED: VANCOMYCIN 1 GM in IV D5W 250 ML IV ONE (07:00)
[2021-11-18] MEDS ORDERED: CEFEPIME 1 GM in IV D5W 50 ML IV ONE (07:00)
[2021-11-18] MEDS ORDERED: IV LR 1000 ML 1,000 ML BAG IV ONE (07:00)
[2021-11-18] MEDS ORDERED: CEFEPIME 1 GM VIAL ONE (07:01)
[2021-11-18 07:13] LABS: ABG BASE EXCESS 5.4 mmol/L; ABG PCO2 44.7 mmHg (35.0-45.0); ABG PH 7.447 (7.350-7.450); ABG PO2 98.7 mmHg (75.0-100.0); COHb 0.3 % (0.5-1.5); MetHb 0.3 % (0.0-1.5); O2Hb 96.5 % (94.0-97.0); SITE, ABG Left Radial; VENT MODE, BG NRB 15 LPM 100%
--- NOTE | 2021-11-18 07:16 | NUR ---
COVID ANTIGEN SWAB COLLECTED AND SENT TO LAB
[2021-11-18 07:18] LABS: BASOPHILS # (AUTO) 0.1 K/uL (0.0-0.2); BASOPHILS % (AUTO) 0.3 % (0.0-2.0); EOSINOPHILS % (AUTO) 0.5 % (0.0-6.0); HEMATOCRIT 39 % (39-51); HEMOGLOBIN 11.7 g/dL (13.5-17.5); LYMPHOCYTES # (AUTO) 3.5 K/uL (0.8-4.8); MEAN CORPUSCULAR HGB CONC 30 g/dl (31.0-36.0); MEAN CORPUSCULAR VOLUME 86 fL (80-96); MONOCYTES # (AUTO) 1.3 K/uL (0.1-1.30); MONOCYTES % (AUTO) 7.3 % (2.0-12.0); NEUTROPHILS # (AUTO) 12.6 K/uL (1.8-8.9); NEUTROPHILS % (AUTO) 71.9 % (43.0-81.0); PLATELET COUNT (AUTO) 330 K/uL (150-450); RED BLOOD CELL COUNT(AUTO) 4.54 MIL/uL (4.5-6.0); WHITE BLOOD COUNT (AUTO) 17.5 K/uL (4.3-11.0)
--- NOTE | 2021-11-18 07:20 | NUR ---
NEWS AGENT AT BEDSIDE
--- NOTE | 2021-11-18 07:33 | NUR ---
ENDORSED SARA TO ELIAS STU RN. PT TOLERATING NRB 15LPM AT 98%.
--- NOTE | 2021-11-18 07:35 | NUR ---
RECEIVED REPORT FROM BIENVENIDO MARTINS FOR SARA. PT IS AAOX0, ON NON RB AT 15 LPM, V/S STABLE, KEPT RESTED AND COMFORTABLE. WILL CONTINUE TO MONITOR.
[2021-11-18 07:44] LABS: CALCIUM, SERUM 8.6 mg/dL (8.5-10.1); CARBON DIOXIDE 35 mmol/L (21-32); CHLORIDE 120 mmol/L (98-107); GLUCOSE 188 mg/dL (74-106); POTASSIUM 3.5 mmol/L (3.5-5.1); UREA NITROGEN, BLOOD 31 mg/dL (7-18)
[2021-11-18 07:56] LABS: SODIUM SERUM 161 mmol/L (136-145)
[2021-11-18 07:57] LABS: ALANINE AMINOTRANSFERASE 35 U/L (12-78); ALBUMIN 2.3 g/dL (3.4-5.0); ALKALINE PHOSPHATASE 114 U/L (46-116); ASPARTATE AMINOTRANSFERASE 28 U/L (15-37); BILIRUBIN,DIRECT 0.1 mg/dL (0.0-0.2); BILIRUBIN,TOTAL 0.2 mg/dL (0.2-1.0); TOTAL PROTEIN, SERUM 7.2 g/dL (6.4-8.2)
[2021-11-18] MEDS ORDERED: POLY17PO4 GT (08:03)
[2021-11-18] MEDS ORDERED: BALS5OIN TP (08:03)
[2021-11-18] MEDS ORDERED: ACET-868 GT (08:03)
[2021-11-18] MEDS ORDERED: BISA10SU11 RC (08:03)
[2021-11-18] MEDS ORDERED: ZINC50TA69 GT (08:03)
[2021-11-18] MEDS ORDERED: FAMO20TA8 GT (08:03)
[2021-11-18] MEDS ORDERED: AMIN30LI2 GT (08:03)
[2021-11-18] MEDS ORDERED: MAGN400O6 GT (08:03)
[2021-11-18] MEDS ORDERED: ERGO500093 GT (08:03)
[2021-11-18] MEDS ORDERED: RISP0.2515 GT (08:03)
[2021-11-18] MEDS ORDERED: MULT-447 GT (08:03)
[2021-11-18] MEDS ORDERED: ACET-2605 GT (08:03)
[2021-11-18] MEDS ORDERED: LACT-96 GT (08:03)
[2021-11-18 08:07] LABS: BILIRUBIN,URINE SMALL (NEGATIVE); COLOR,URINE BROWN (YELLOW); LEUKOCYTE ESTERASE ,URINE LARGE (NEGATIVE); NITRITE, URINE POSITIVE (NEGATIVE); PROTEIN,URINE 100 mg/dl (NEGATIVE); UGLUCOSE NEGATIVE (NEGATIVE)
[2021-11-18 08:15] LABS: PH,URINE >9.0 (5.0-8.0)
--- NOTE | 2021-11-18 08:25 | NUR ---
[facility] CALLED PROCUREMENT SERVICES MANAGER PAGED.
--- NOTE | 2021-11-18 08:43 | NUR ---
REPORT GIVEN TO BIENVENIDO VALLEJO FOR SARA.
--- NOTE | 2021-11-18 09:00 | NUR ---
RN NOTES RECEIVED PT FROM ER IN ROOM 255, PT IS DRAWZY, DOES NOT FOLLOW COMMAND , KNOWS HIS NAME, ON NONREBREATHER MASK, O2 SAT IN LOW 90'S , T=100.0 AXILLARY, PT HAS REDUCTIVE COUGH , DEEP ORAL AND NT SUCTIONING DONE, PT HAS THICK YELLOWISH SECRETION , ON TELE A.FIB , HR IN 100'S, MUELLER DRAINING TO GRAVITY, R UPPER ARM MIDLINE SITE CLEAN, DRY AND INTACT, MIDLINE DRESSING CHANGED, SACRAL WOUND NOTED , WOUND CONSULT ORDERED, SR UP x3 CALL LIGHT WITHIN EASY REACH, BED LOCKED AND IN LOWEST POSITION, CONTINUE TO MONITOR.
[2021-11-18 09:06] LABS: RBC,URINE TOO NUMEROUS TO COUN /HPF (0-2)
[2021-11-18 09:08] LABS: BACTERIA,URINE Few /HPF (None Seen); SQUAMOUS EPITHELIAL CELL,UR None Seen /HPF (None Seen); TRIPLE PHOSPHATE CRYSTAL,UR Many /HPF (None Seen)
[2021-11-18] MEDS ORDERED: ONDANSETRON HCL/PF 4 MG/2 ML VIAL IVP PRN (09:30)
[2021-11-18] MEDS ORDERED: Z GUARD REMEDY 4 OZ OINT TP PRN (09:30)
[2021-11-18] MEDS: ENOXAPARIN SODIUM 40 MG/0.4 ML DISP.SYRIN SQ SCH (09:50)
[2021-11-18] MEDS: IV 1/2NS 1000 ML 1,000 ML IV PRN (09:51)
[2021-11-18] MEDS ORDERED: ACETYLCYSTEINE 10% SOLN 400 MG/4 ML VIAL NEB SCH (10:00)
[2021-11-18] MEDS ORDERED: ALBUTEROL HALF STRENGTH 1.25 MG/3 ML VIAL.NEB NEB SCH ×2 (10:00→11:00)
[2021-11-18] MEDS: IPRATROPIUM NEB FS 0.5 MG/2.5 ML AMPUL.NEB NEB SCH ×4 (11:26→23:25)
[2021-11-18] MEDS: ACETYLCYSTEINE 10% SOLN 400 MG/4 ML VIAL NEB SCH ×3 (11:27→23:25)
[2021-11-18] MEDS ORDERED: PIPERACILLIN /TAZOBACTAM 4.5 G in IV D5W 50 ML IV SCH (12:00)
--- NOTE | 2021-11-18 13:00 | NUR ---
RN NOTES LEFT A MESSAGE FOR SNF REGARDING IMMUNIZATION STATUS , NO RETURN CALL YET .
[2021-11-18] MEDS: ACETAMINOPHEN 325 MG TABLET PO PRN (14:06)
[2021-11-18] MEDS ORDERED: VANCOMYCIN POST DIALYSIS 500MG IV PRN ×2 (14:30)
[2021-11-18] MEDS: ALBUTEROL HALF STRENGTH 1.25 MG/3 ML VIAL.NEB NEB SCH ×3 (15:20→23:25)
--- NOTE | 2021-11-18 18:26 | NUR ---
RN NOTES T=98.6 AXILLARY , O2 SAT WNL ON NONREBREATHING MASK , WILL ENDORSE TO FOLDING MACHINE SETTER NURSE FOR CONTINUITY OF CARE .
--- NOTE | 2021-11-18 20:11 | NUR ---
RN NOTE RECEIVED PT ON NONREBREATHER, SATING 100%. NOW CHANGED TO SIMPLE MASK AT 8L BY RT. PT TOLERATING. PT ON NPO, WITH GT INTACT AND PATENT. PT WITH MAXIMILIANO PICC 1/2 NS RUNNING AT 75ML/HR NO SIGNS OF INFILTRATION NOTED. MUELLER IN PLACE DRAINING DARK YELLOW CLOUDY URINE. WILL CONTINUE TO MONITOR.
--- NOTE | 2021-11-18 20:35 | NUR ---
RN NOTE MRSA SWAB DONE. CALLED LAB FOR [employer]
[2021-11-18] MEDS ORDERED: PIPERACILLIN /TAZOBACTAM 2.25 G in IV D5W 50 ML IV SCH (21:00)
[2021-11-18] MEDS ORDERED: MEROPENEM 1 G in IV NS 0.9% 100 ML IV SCH ×4 (22:00)
[2021-11-18] MEDS ORDERED: MEROPENEM 1 G VIAL IV ONE (22:38)
[2021-11-18] MEDS: LINEZOLID 600 MG TABLET PO SCH (22:42)
[2021-11-19] VITALS (48 sets, daily range): BP systolic 91–124; BP diastolic 31–102
[2021-11-19] MEDS: IV 1/2NS 1000 ML 1,000 ML IV PRN ×2 (01:08→18:46)
[2021-11-19] MEDS: IPRATROPIUM NEB FS 0.5 MG/2.5 ML AMPUL.NEB NEB SCH ×6 (03:22→23:28)
[2021-11-19] MEDS: ALBUTEROL HALF STRENGTH 1.25 MG/3 ML VIAL.NEB NEB SCH ×6 (03:23→23:28)
--- NOTE | 2021-11-19 04:10 | NUR ---
RN NOTE O2 SAT AT 88-89% O2 TITRATED TO 10L VIA SIMPLE MASK. NO SIGNS OF DISTRESS. O2 SAT NOW AT 94 % ON 10L. WILL CONTINUE TO MONITOR.
[2021-11-19 04:33] LABS: BASOPHILS # (AUTO) 0.1 K/uL (0.0-0.2); BASOPHILS % (AUTO) 0.4 % (0.0-2.0); EOSINOPHILS % (AUTO) 0.4 % (0.0-6.0); HEMATOCRIT 33 % (39-51); HEMOGLOBIN 10.1 g/dL (13.5-17.5); LYMPHOCYTES # (AUTO) 3.4 K/uL (0.8-4.8); LYMPHOCYTES % (AUTO) 17.9 % (20.0-44.0); MEAN CORPUSCULAR HGB CONC 30 g/dl (31.0-36.0); MEAN CORPUSCULAR VOLUME 86 fL (80-96); MONOCYTES # (AUTO) 1.2 K/uL (0.1-1.30); MONOCYTES % (AUTO) 6.4 % (2.0-12.0); NEUTROPHILS # (AUTO) 14.4 K/uL (1.8-8.9); NEUTROPHILS % (AUTO) 74.9 % (43.0-81.0); PLATELET COUNT (AUTO) 267 K/uL (150-450); RED BLOOD CELL COUNT(AUTO) 3.87 MIL/uL (4.5-6.0); WHITE BLOOD COUNT (AUTO) 19.2 K/uL (4.3-11.0)
--- NOTE | 2021-11-19 06:52 | NUR ---
RN NOTE PT CONTINUE ON 10L O2 VIA SIMPLE MASK. NO S/SX OF DISTRESS. O2 SAT AT 95%. PT REMAIN LETHARGIC WITH EPISODE OF ALERTNESS, CAN FOLLOW SOME COMMANDS. PT REMAIN NPO. NO S/SX OF HYPO/HYPERGLYCEMIA. FSBS 105. CONTINUE ON IVFLUIDS 1/2 NS AT 75ML/HR, INFUSING WELL. MUELLER DRAINING DIANNE URINE. AFEBRILE. WOUND TX DONE, TURNED AND REPOSITIONED. AWAITING FOR WOUND CONSULT. WILL ENDORSE TO NEXT SHIFT NURSE FOR SARA
--- NOTE | 2021-11-19 07:03 | NUR ---
WOUND CARE CONSULT: REVIEWED CHART, NURSING DOCUMENTATION AND PHOTOS WHICH INDICATE SOME REDNESS AT G TUBE SITE, SACRAL STAGE 4 PRESSURE ULCER AND RT HIP DEEP TISSUE INJURY, ALL PRESENT ON ADMISSION. RECOMMENDATIONS MADE FOR SKIN PROTECTION. DISCUSSED WITH NURSING STAFF. FIRST STEP LOW AIRLOSS MATTRESS IS ON ORDER. SURGICAL CONSULT TO BE MADE TO DR LO THIS AMSimon NOLASCO IN AGREEMENT WITH PLAN OF CARE.
[2021-11-19] MEDS: MEROPENEM 1 G in IV NS 0.9% 100 ML IV SCH ×3 (07:46→20:00)
[2021-11-19] MEDS: ACETYLCYSTEINE 10% SOLN 400 MG/4 ML VIAL NEB SCH ×3 (07:46→23:28)
[2021-11-19 07:53] LABS: CARBON DIOXIDE 32 mmol/L (21-32)
[2021-11-19 07:54] LABS: CHLORIDE 118 mmol/L (98-107); POTASSIUM 3.9 mmol/L (3.5-5.1)
[2021-11-19 07:55] LABS: ALKALINE PHOSPHATASE 84 U/L (46-116); BILIRUBIN,TOTAL 0.4 mg/dL (0.2-1.0); CALCIUM, SERUM 8.2 mg/dL (8.5-10.1); GLUCOSE 126 mg/dL (74-106); PHOSPHORUS 3.8 mg/dL (2.5-4.9); UREA NITROGEN, BLOOD 34 mg/dL (7-18)
[2021-11-19 07:56] LABS: ALANINE AMINOTRANSFERASE 25 U/L (12-78); ALBUMIN 1.8 g/dL (3.4-5.0); ASPARTATE AMINOTRANSFERASE 22 U/L (15-37); MAGNESIUM 2.9 mg/dL (1.8-2.4); TOTAL PROTEIN, SERUM 6.3 g/dL (6.4-8.2)
[2021-11-19 07:57] LABS: SODIUM SERUM 161 mmol/L (136-145)
--- NOTE | 2021-11-19 08:00 | NUR ---
RN NOTES RECEIVED PATIENT ON SIMPLE MASK 10L,O2-98% ON BEDSIDE MONITOR. PATIENT AWAKE, AFIB HR-91. PATIENT GETTING BREATHING TREATMENT FROM RT. NO ACUTE RESPIRATORY DISTRESS. PATIENT NPO, DUE MEDICATION ADMINISTERED VIA GT INTACT, POOR OUTPUT FROM MUELLER . ASSIST TURN AND REPOSTION Q 2 HR, WILL FOLLOW UP.
[2021-11-19] MEDS: LINEZOLID 600 MG TABLET PO SCH ×2 (09:49→20:30)
[2021-11-19] MEDS: ENOXAPARIN SODIUM 40 MG/0.4 ML DISP.SYRIN SQ SCH (09:50)
[2021-11-19 10:36] LABS: CHOLESTEROL 94 mg/dL (<200); HDL CHOLESTEROL 29 mg/dL (40-60); LDL 41 mg/dL (0-99); TRIGLYCERIDES 130 mg/dL (30-150)
[2021-11-19] MEDS: ACETAMINOPHEN 325 MG TABLET PO PRN (13:40)
--- NOTE | 2021-11-19 13:40 | NUR ---
rn notes administered Tylenol 650mg via GT for pain 01/11per patient request, flashed 300ml of free water per order q4 hr will follow up.
--- NOTE | 2021-11-19 14:10 | NUR ---
rn notes patient desaturating at this time 68% to 82%, notified Dr Kan, and get TO order stat ABG, and HF ,order taken and carried out, RT aware of it and with the patient. will monitoring.
--- NOTE | 2021-11-19 16:30 | NUR ---
rn notes patient hypoxic at this time o2-64%, ABG result sanded to the Dr Narda whyte, get TO order BIPAP order taken and carried out. RT with the patient.
--- NOTE | 2021-11-19 16:40 | NUR ---
RN NOTES O2 SAT IN HIGH 60'S, ABG DONE, DR DUNN NOTIFED REGARDING ABG RESULTS . ORDER RECEIVED TO PLACE PT ON BIPAP. CONTINUE TO MONITOR.
[2021-11-19] MEDS ORDERED: PROPOFOL 100 ML IV PRN (17:00)
[2021-11-19 17:36] LABS: ABG BASE EXCESS 9.8 mmol/L; ABG OXYGEN SATURATION 63.8 % (92.0-98.5); ABG PH 7.469 (7.350-7.450); COHb 0.3 % (0.5-1.5); MetHb 0.2 % (0.0-1.5); O2Hb 63.5 % (94.0-97.0); SITE, ABG Left Brachial; VENT MODE, BG HHF + NRB 100%
[2021-11-19 18:02] LABS: CREATININE 0.8 mg/dL (0.6-1.3); POTASSIUM 3.2 mmol/L (3.5-5.1)
--- NOTE | 2021-11-19 18:30 | NUR ---
rn notes PATIENT ON BIPAP AT THIS TIME O2-90% , FIO2 -IS 100%. GET ORDER TO START JEVITY 1.2 @20ML/HR GOAL IS 65ML, WITH STRICT ASPIRATION PRECAUTION . CALLED AND LEFT MASSAGE DIETARY FOR BRING FEEDING UP. MUELLER DRAINING LIGHT YELLOW OUTPUT. ASSIST TURN AND REPOSTION Q 2 HR. ENDORSED ONCOMING NURSE SARA.
[2021-11-19 20:04] LABS: ABG BASE EXCESS 5.5 mmol/L; ABG PCO2 50.2 mmHg (35.0-45.0); ABG PO2 154.7 mmHg (75.0-100.0); AaDO2 508.1 mmHg; COHb 0.1 % (0.5-1.5); MetHb 0.2 % (0.0-1.5); O2Hb 98.7 % (94.0-97.0); SITE, ABG Right Radial
[2021-11-19] MEDS: DAKINS QUARTER STRENGTH (0.125%) 480 ML BOTTLE TOP SCH (23:00)
[2021-11-20] VITALS (34 sets, daily range): BP systolic 90–122; BP diastolic 39–84
[2021-11-20] MEDS: ALBUTEROL HALF STRENGTH 1.25 MG/3 ML VIAL.NEB NEB SCH ×6 (03:37→20:02)
[2021-11-20] MEDS: IPRATROPIUM NEB FS 0.5 MG/2.5 ML AMPUL.NEB NEB SCH ×6 (03:37→20:02)
--- NOTE | 2021-11-20 03:43 | NUR ---
EPAP CHANGED TO 8, FIO2 TO 50%. RN NOTIFIED. O2 SAT 100%.
[2021-11-20] MEDS: MEROPENEM 1 G in IV NS 0.9% 100 ML IV SCH ×3 (03:55→20:00)
--- NOTE | 2021-11-20 05:46 | NUR ---
fiO2 titrated to 45%, O2 sat 100%.
--- NOTE | 2021-11-20 07:30 | NUR ---
RN OPENING NOTE PT OBSERVED IN BED WITH HOB SEMI FOWLERS. PT IS ON BIPAP WITH ALL PRESCRIBED SETTINGS AT THIS TIME TOLERATING WELL WITH NO SIGNS OF DISTRESS OR LABORED BREATHING SAT 98%. PT REPORTED TO BE LETHARGIC AND ABLE TO NOD HEAD TO ANSWER SIMPLE QUESTIONS YES AND NO. GTUBE IS IN PLACE WITH POSITIVE PLACEMENT. FC IS IN PLACE DRAINING URINE BY GRAVITY. IV ACCESS R UA ML INFUSING WITH 1/2 NS @75ML/HR. BED IS LOCKED IN LOWEST POSITION X2 GUARD RAILS UP AND ALL HOSPITAL SAFETY PRECAUTIONS ARE IN PLACE. WILL CONTINUE TO MONITOR THIS SHIFT.
[2021-11-20] MEDS: ACETYLCYSTEINE 10% SOLN 400 MG/4 ML VIAL NEB SCH ×3 (07:35→16:08)
[2021-11-20] MEDS: IV 1/2NS 1000 ML 1,000 ML IV PRN ×2 (08:45→22:25)
[2021-11-20] MEDS: LINEZOLID 600 MG TABLET PO SCH ×2 (08:55→20:00)
[2021-11-20] MEDS: JEVITY 1.2 CAL 1,000 ML BOTTLE GT PRN (08:55)
[2021-11-20] MEDS: DAKINS QUARTER STRENGTH (0.125%) 480 ML BOTTLE TOP SCH (08:56)
[2021-11-20] MEDS: ACETAMINOPHEN 325 MG TABLET PO PRN (09:49)
[2021-11-20 10:20] LABS: BASOPHILS # (AUTO) 0.1 K/uL (0.0-0.2); BASOPHILS % (AUTO) 0.6 % (0.0-2.0); EOSINOPHILS % (AUTO) 0.6 % (0.0-6.0); HEMATOCRIT 28 % (39-51); HEMOGLOBIN 8.8 g/dL (13.5-17.5); LYMPHOCYTES # (AUTO) 2.8 K/uL (0.8-4.8); LYMPHOCYTES % (AUTO) 20.8 % (20.0-44.0); MEAN CORPUSCULAR HGB CONC 31 g/dl (31.0-36.0); MEAN CORPUSCULAR VOLUME 85 fL (80-96); MONOCYTES # (AUTO) 0.8 K/uL (0.1-1.30); MONOCYTES % (AUTO) 5.7 % (2.0-12.0); NEUTROPHILS # (AUTO) 9.7 K/uL (1.8-8.9); NEUTROPHILS % (AUTO) 72.3 % (43.0-81.0); PLATELET COUNT (AUTO) 249 K/uL (150-450); RED BLOOD CELL COUNT(AUTO) 3.31 MIL/uL (4.5-6.0); WHITE BLOOD COUNT (AUTO) 13.4 K/uL (4.3-11.0)
[2021-11-20] MEDS: ENOXAPARIN SODIUM 40 MG/0.4 ML DISP.SYRIN SQ SCH (10:29)
[2021-11-20 10:35] LABS: CALCIUM, SERUM 7.7 mg/dL (8.5-10.1); CREATININE 0.7 mg/dL (0.6-1.3); POTASSIUM 3.2 mmol/L (3.5-5.1)
[2021-11-20] MEDS ORDERED: POTASSIUM CHLORIDE 20 MEQ POWDER PACKET GT ONE (13:00)
[2021-11-20] MEDS ORDERED: IV NS 0.9% 250 ML IV PRN (14:00)
--- NOTE | 2021-11-20 19:43 | NUR ---
RN CLOSING NOTE PT IS IN BED WITH HOB SEMI FOWLERS. PT IS ON BIPAP WITH ALL PRESCRIBED SETTINGS AT THIS TIME TOLERATING WELL WITH NO SIGNS OF DISTRESS OR LABORED BREATHING SAT 96%. PT CONTINUES TO BE LETHARGIC AND ABLE TO NOD HEAD TO ANSWER SIMPLE QUESTIONS YES AND NO. GTUBE IS IN PLACE WITH POSITIVE PLACEMENT INFUSING WITH JEVITY 1.2 @30ML/HR >[address] FC IS IN PLACE DRAINING URINE BY GRAVITY. IV ACCESS R UA ML INFUSING WITH 1/2 NS @75ML/HR. BED IS LOCKED IN LOWEST POSITION X2 GUARD RAILS UP AND ALL HOSPITAL SAFETY PRECAUTIONS ARE IN PLACE. WILL ENDORSE TO GEAR TOOTH LAPPING MACHINE OPERATOR NURSE FOR SARA.
[2021-11-21] VITALS (24 sets, daily range): BP systolic 103–140; BP diastolic 49–98
[2021-11-21] MEDS: ACETYLCYSTEINE 10% SOLN 400 MG/4 ML VIAL NEB SCH ×4 (00:07→23:07)
[2021-11-21] MEDS: IPRATROPIUM NEB FS 0.5 MG/2.5 ML AMPUL.NEB NEB SCH ×7 (00:07→23:07)
[2021-11-21] MEDS: ALBUTEROL HALF STRENGTH 1.25 MG/3 ML VIAL.NEB NEB SCH ×7 (00:07→23:07)
[2021-11-21] MEDS: ACETAMINOPHEN 325 MG TABLET PO PRN (03:35)
[2021-11-21] MEDS: MEROPENEM 1 G in IV NS 0.9% 100 ML IV SCH ×3 (04:00→20:00)
--- NOTE | 2021-11-21 07:30 | NUR ---
RN NOTES PT FOUND SEMI FOWLERS DISPLAYING NO S/S OF DISTRESS, FLACC = 0 AND BIPAP FORMING GOOD SEAL, NO RESPIRATORY DISTRESS NOTED. R UA MIDLINE IS PATIENT AND INTACT. MUELLER CATH BELOW PATIENT DRAINING BY GRAVITY. 15 ML RESIDUAL MEASURED PEG. VSS, RN WILL MONITOR AND TREAT THROUGHOUT SHIFT. SAFETY MEASURES IN PLACE, BED LOCKED AND IN LOWEST POSITION, SIDE RAILS UPX2, CALL LIGHT WITHIN REACH, BED ALARM ARMED.
[2021-11-21] MEDS: LINEZOLID 600 MG TABLET PO SCH ×2 (09:01→20:09)
[2021-11-21] MEDS: ENOXAPARIN SODIUM 40 MG/0.4 ML DISP.SYRIN SQ SCH (09:02)
[2021-11-21] MEDS: DAKINS QUARTER STRENGTH (0.125%) 480 ML BOTTLE TOP SCH (09:02)
[2021-11-21] MEDS: JEVITY 1.2 CAL 1,000 ML BOTTLE GT PRN (09:06)
[2021-11-21 09:42] LABS: ALBUMIN 1.6 g/dL (3.4-5.0); BILIRUBIN,TOTAL 0.2 mg/dL (0.2-1.0); CALCIUM, SERUM 7.2 mg/dL (8.5-10.1); CREATININE 0.6 mg/dL (0.6-1.3); POTASSIUM 3.5 mmol/L (3.5-5.1); TOTAL PROTEIN, SERUM 5.6 g/dL (6.4-8.2)
[2021-11-21] MEDS ORDERED: MICAFUNGIN SODIUM 100 MG in IV NS 0.9% 100 ML IV SCH (10:00)
[2021-11-21] MEDS: MICAFUNGIN SODIUM 100 MG in IV NS 0.9% 100 ML IV SCH (10:15)
[2021-11-21 10:49] LABS: ABG BASE EXCESS 5.9 mmol/L; ABG OXYGEN SATURATION 94.3 % (92.0-98.5); ABG PCO2 42.1 mmHg (35.0-45.0); ABG PH 7.472 (7.350-7.450); ABG PO2 70.5 mmHg (75.0-100.0); AaDO2 93.9 mmHg; COHb 0.3 % (0.5-1.5); MetHb 0.2 % (0.0-1.5); O2Hb 93.8 % (94.0-97.0); SITE, ABG Right Radial; VENT MODE, BG VENTI MASK 30%
[2021-11-21] MEDS: IV 1/2NS 1000 ML 1,000 ML IV PRN (13:56)
--- NOTE | 2021-11-21 19:00 | NUR ---
RN NOTES PT FOUND SUPINE DISPLAYING NO S/S OF DISTRESS, FLACC = 0 AND BREATHING IS EVEN AND UNLABORED ON VENTURI MASK 6L 30%. TUBE FEEDING TURNED OFF BECAUSE PT REQUESTED SPECIFICALLY TO LAY SUPINE, COPY SUPERVISOR RN INFORMED OF THIS CHANGE. R UA MIDLINE IS PATIENT AND INTACT. MUELLER CATH BELOW PATIENT DRAINING BY GRAVITY. SBAR AND REPORT GIVEN TO COPY SUPERVISOR RN, ALL QUESTIONS ANSWERED. SAFETY MEASURES IN PLACE, BED LOCKED AND IN LOWEST POSITION, SIDE RAILS UPX2, CALL LIGHT WITHIN REACH, BED ALARM ARMED. PT ENDORSED IN STABLE CONDITION FOR SARA.
[2021-11-22] VITALS (20 sets, daily range): BP systolic 94–145; BP diastolic 52–80
[2021-11-22] MEDS: IPRATROPIUM NEB FS 0.5 MG/2.5 ML AMPUL.NEB NEB SCH ×6 (03:30→23:34)
[2021-11-22] MEDS: ALBUTEROL HALF STRENGTH 1.25 MG/3 ML VIAL.NEB NEB SCH ×6 (03:30→23:34)
[2021-11-22] MEDS: MEROPENEM 1 G in IV NS 0.9% 100 ML IV SCH ×3 (04:00→20:59)
--- NOTE | 2021-11-22 07:30 | NUR ---
RN NOTES PT FOUND SEMI FOWLERS DISPLAYING NO S/S OF DISTRESS, FLACC = 0 AND BREATHING IS EVEN AND UNLABORED. R UA MIDLINE IS PATIENT AND INTACT. MUELLER CATH BELOW PATIENT DRAINING BY GRAVITY. 15 ML RESIDUAL MEASURED PEG. VSS, RN WILL MONITOR AND TREAT THROUGHOUT SHIFT. SAFETY MEASURES IN PLACE, BED LOCKED AND IN LOWEST POSITION, SIDE RAILS UPX2, CALL LIGHT WITHIN REACH, BED ALARM ARMED.
[2021-11-22] MEDS: ACETYLCYSTEINE 10% SOLN 400 MG/4 ML VIAL NEB SCH ×3 (07:41→23:34)
--- NOTE | 2021-11-22 07:45 | NUR ---
PT. IS AWAKE AND FOLLOW COMMANDS CHANGED OXYGEN SET UP FROM VENTI MASK TO NASAL CANNULA @ 2 LPM O2 FLOW. VITAL SIGNS: SPO2 98% RR 16 - 18 BPM HR 63BPM NO INCREASE WORK OF BREATHING NOTED. Addendum: 11/22/21 at 0747 by YADIRA WEBER RT Amended: Links added.
[2021-11-22] MEDS: JEVITY 1.2 CAL 1,000 ML BOTTLE GT PRN (09:20)
[2021-11-22] MEDS: LINEZOLID 600 MG TABLET PO SCH ×2 (09:20→20:59)
[2021-11-22] MEDS: ENOXAPARIN SODIUM 40 MG/0.4 ML DISP.SYRIN SQ SCH (09:21)
[2021-11-22] MEDS: MICAFUNGIN SODIUM 100 MG in IV NS 0.9% 100 ML IV SCH (09:21)
[2021-11-22] MEDS: DAKINS QUARTER STRENGTH (0.125%) 480 ML BOTTLE TOP SCH (09:21)
[2021-11-22] MEDS: IV 1/2NS 1000 ML 1,000 ML IV PRN (09:27)
[2021-11-22] MEDS: ACETAMINOPHEN 325 MG TABLET PO PRN (09:46)
[2021-11-22 12:45] LABS: BASOPHILS # (AUTO) 0.1 K/uL (0.0-0.2); BASOPHILS % (AUTO) 0.6 % (0.0-2.0); EOSINOPHILS % (AUTO) 0.8 % (0.0-6.0); HEMATOCRIT 31 % (39-51); HEMOGLOBIN 9.7 g/dL (13.5-17.5); LYMPHOCYTES # (AUTO) 5.1 K/uL (0.8-4.8); MEAN CORPUSCULAR HGB CONC 31 g/dl (31.0-36.0); MEAN CORPUSCULAR VOLUME 83 fL (80-96); MONOCYTES # (AUTO) 0.9 K/uL (0.1-1.30); MONOCYTES % (AUTO) 7.5 % (2.0-12.0); NEUTROPHILS # (AUTO) 5.7 K/uL (1.8-8.9); NEUTROPHILS % (AUTO) 48.1 % (43.0-81.0); PLATELET COUNT (AUTO) 277 K/uL (150-450); RED BLOOD CELL COUNT(AUTO) 3.79 MIL/uL (4.5-6.0); WHITE BLOOD COUNT (AUTO) 11.8 K/uL (4.3-11.0)
--- NOTE | 2021-11-22 18:10 | NUR ---
TRANSFER NOTE RN GAVE BED SIDE REPORT TO BIENVENIDO HANLEY, ALL QUESTIONS ANSWERED. PT TRANSPORTED VIA HOSPITAL BED ON PORTABLE BEDSIDE MONITOR AND PORTABLE O2 NC 2L. PT ENDORSED NO PAIN AND IS BREATHING EVEN AND UNLABORED. BELONGINGS REVIEWED AND RX BROUGHT. VS WERE STABLE THROUGHOUT TRANSPORT NO COMPLICATIONS. PT ENDORSED IN STABLE CONDITION FOR SARA.
--- NOTE | 2021-11-22 19:15 | NUR ---
received in bed HOB elevated d/t aspiration precautions GT feeding on going stevens noted IV infusing right upper arm eyes open
--- NOTE | 2021-11-22 22:19 | NUR ---
RECEIVED REPORT AT APPROXIMATELY 2200 FROM BIENVENIDO ROMERO. PT STABLE. WILL CONTINUE TO MONITOR.
[2021-11-22] MEDS ORDERED: SILVER NITRATE APPLICATOR 1 EA BOX TP SCH (22:30)
[2021-11-22] MEDS ORDERED: LIDOCAINE 1%-EPI 1:100,000 50 ML VIAL IJ ONE (22:30)
[2021-11-23] VITALS: BP 99/55
[2021-11-23] MEDS: IV 1/2NS 1000 ML 1,000 ML IV PRN ×2 (00:08→16:35)
[2021-11-23 04:00] VITALS: BP 125/66
[2021-11-23] MEDS: IPRATROPIUM NEB FS 0.5 MG/2.5 ML AMPUL.NEB NEB SCH ×6 (04:26→23:18)
[2021-11-23] MEDS: ALBUTEROL HALF STRENGTH 1.25 MG/3 ML VIAL.NEB NEB SCH ×6 (04:26→23:18)
[2021-11-23] MEDS: JEVITY 1.2 CAL 1,000 ML BOTTLE GT PRN (04:53)
[2021-11-23] MEDS: MEROPENEM 1 G in IV NS 0.9% 100 ML IV SCH ×3 (05:04→21:01)
--- NOTE | 2021-11-23 06:52 | NUR ---
RN CLOSING NOTES PT IN BED, ASLEEP, AWAKENS TO VERBAL STIMULI. AOx3-4 WITH PERIODS OF CONFUSION. ON 2LPM VIA NASAL CANNULA AND TOLERATING WELL. NO SOB NOTED. NO S/SX OF RESPIRATORY DISTRESS NOTED. IV ACCESS IN RFA #22 RUNNING NS @ 75 ML/HR. ALL NEEDS MET. PT KEPT CLEAN AND DRY. SAFETY PRECAUTIONS IN PLACE: BED IN LOWEST, LOCKED POSITION, SIDERAILS UPx2, AND BRAKES ON. TABLE AND CALL LIGHT WITHIN REACH. WILL ENDORSE TO ONCOMING SHIFT FOR SARA.
[2021-11-23 07:27] LABS: BASOPHILS % (AUTO) 0.2 % (0.0-2.0); EOSINOPHILS % (AUTO) 1.4 % (0.0-6.0); HEMATOCRIT 33 % (39-51); HEMOGLOBIN 10.2 g/dL (13.5-17.5); LYMPHOCYTES # (AUTO) 3.3 K/uL (0.8-4.8); LYMPHOCYTES % (AUTO) 32.6 % (20.0-44.0); MEAN CORPUSCULAR HGB CONC 31 g/dl (31.0-36.0); MEAN CORPUSCULAR VOLUME 84 fL (80-96); MONOCYTES # (AUTO) 0.9 K/uL (0.1-1.30); MONOCYTES % (AUTO) 8.5 % (2.0-12.0); NEUTROPHILS # (AUTO) 5.8 K/uL (1.8-8.9); NEUTROPHILS % (AUTO) 57.3 % (43.0-81.0); PLATELET COUNT (AUTO) 266 K/uL (150-450); WHITE BLOOD COUNT (AUTO) 10.2 K/uL (4.3-11.0)
[2021-11-23 07:35] LABS: CALCIUM, SERUM 8.3 mg/dL (8.5-10.1); CARBON DIOXIDE 27 mmol/L (21-32); CHLORIDE 109 mmol/L (98-107); CREATININE 0.5 mg/dL (0.6-1.3); GLUCOSE 122 mg/dL (74-106); SODIUM SERUM 145 mmol/L (136-145); UREA NITROGEN, BLOOD 9 mg/dL (7-18)
--- NOTE | 2021-11-23 07:50 | NUR ---
RN OPENING NOTE PATIENT IN BED RESTING AWAKE, A/OX3, NO S/S OF PAIN NOTED AT THIS TIME. ON 2L OXYGEN VIA NC, NO DISTRESS OR SHORTNESS OF BREATH NOTED. IV ACCESS MAXIMILIANO MIDLINE. PATIENT WITH EXTERNAL SUPERIOR COURT JUSTICE WITH CURRENT READING OF SR., NO CARDIAC DISTRESS NOTED. FALL AND SAFETY MEASURES IN PLACE, BED ALARM ON. BED IN LOW AND LOCK POSITION, CALL LIGHT AND TABLE WITHIN EASY REACH, SIDE RAILS UP X2. WILL CONTINUE TO MONITOR.
--- NOTE | 2021-11-23 07:50 | NUR ---
WOUND CARE CONSULT: PT SEEN FOR INTACT PURPLE/MAROON DISCOLORATION TO NASAL BRIDGE. PT IS NOW ON NASAL CANNULA. RECOMMENDATIONS MADE FOR SKIN PROTECTION AND DISCUSSED WITH NURSING STAFF [facility] CURRENTLY ON CASE. IN AGREEMENT WITH PLAN OF CARE. Addendum: 11/23/21 at 0751 by MARINA FARLEY WNDNU Amended: Links added. Addendum: 11/23/21 at 1029 by MARINA FARLEY WNDNU DISCUSSED ABOVE WITH RESPIRATORY THERAPIST.
[2021-11-23 08:00] VITALS: BP 109/62
[2021-11-23] MEDS: ACETYLCYSTEINE 10% SOLN 400 MG/4 ML VIAL NEB SCH ×3 (08:29→23:20)
[2021-11-23] MEDS: ENOXAPARIN SODIUM 40 MG/0.4 ML DISP.SYRIN SQ SCH (10:23)
[2021-11-23] MEDS: DAKINS QUARTER STRENGTH (0.125%) 480 ML BOTTLE TOP SCH (10:24)
[2021-11-23] MEDS: POTASSIUM CHLORIDE 20 MEQ POWDER PACKET GT SCH ×3 (10:24→13:51)
[2021-11-23] MEDS: LINEZOLID 600 MG TABLET PO SCH ×2 (10:24→21:01)
[2021-11-23] MEDS: MICAFUNGIN SODIUM 100 MG in IV NS 0.9% 100 ML IV SCH (10:34)
[2021-11-23 12:00] VITALS: BP 107/73
[2021-11-23] MEDS ORDERED: LIDOCAINE 1%-EPI 1:100,000 50 ML VIAL IJ ONE (12:00)
[2021-11-23] MEDS ORDERED: SILVER NITRATE APPLICATOR 1 EA BOX TP ONE (12:00)
[2021-11-23 15:49] LABS: EOSINOPHILS % (MANUAL) 2 % (0-4); LYMPHOCYTES % (MANUAL) 35 % (16-48); METAMYELOCYTES % 1 % (0-0); MONOCYTES % (MANUAL) 13 % (0-11.0); MYELOCYTES % 1 % (0-0); NEUTROPHILS % (MANUAL) 48 (42-76)
[2021-11-23 16:00] VITALS: BP 116/69
--- NOTE | 2021-11-23 18:58 | NUR ---
RN CLOSING NOTE PATIENT IN BED RESTING AWAKE, A/OX3, NO S/S OF PAIN NOTED AT THIS TIME. ON 2L OXYGEN VIA NC, NO DISTRESS OR SHORTNESS OF BREATH NOTED. IV ACCESS MAXIMILIANO MIDLINE, IV 1/2 NS @ 75ML/HR. PATIENT WITH EXTERNAL SAMPLE DYE MIXER WITH CURRENT READING OF SR. AND HR OF 84. NO CARDIAC DISTRESS NOTED. SCHEDULE MEDS ADMINISTERED. PATIENT WAS TURNED AND REPOSITIONED PER PROTOCOL. FALL AND SAFETY MEASURES IN PLACE, BED ALARM ON. BED IN LOW AND LOCK POSITION, CALL LIGHT AND TABLE WITHIN EASY REACH, SIDE RAILS UP X2. WILL ENDORSE TO IT SERVICE MANAGER..
--- NOTE | 2021-11-23 19:30 | NUR ---
TELE/RN OPENING NOTE RECEIVED PATIENT RESTING IN BED. AWAKE, ALERT AND ORIENTED X 3. ABLE TO MAKE NEEDS KNOWN. DENIES PAIN AT THIS TIME. CONTINUES ON O2 2L VIA NC WITH NO S/SX OF RESPIRATORY DISTRESS. IV ACCESS TO RIGHT UPPER ARM MIDLINE #18G INTACT AND PATENT. CONTINUES ON IVF 1/2 NS @ 75ML/HR. CONTINUES ON IV ABX. CONTINUES ON TF JEVITY 1.2 @ 65ML/HR. NO RESIDUAL NOTED AT THIS TIME. MUELLER CATHETER IN PLACE DRAINING CLEAR, YELLOW URINE TO GRAVITY. CONTINUES ON TELE MONITOR WITH CURRENT READING SR. CALL LIGHT WITHIN REACH. ASPIRATION, FALL AND SAFETY PRECAUTIONS MAINTAINED. WILL CONTINUE TO MONITOR.
[2021-11-23 20:00] VITALS: BP 121/68
[2021-11-23] MEDS: ACETAMINOPHEN 325 MG TABLET PO PRN (21:11)
--- NOTE | 2021-11-23 21:15 | NUR ---
TELE/RN NOTE PATIENT WITH C/O MILD PAIN TO LLE. REQUESTING TYLENOL. ADMINISTERED PRN TYLENOL VIA GT PER MD ORDER.
[2021-11-24] VITALS: BP 102/64
[2021-11-24 04:00] VITALS: BP 127/63
[2021-11-24] MEDS: ALBUTEROL HALF STRENGTH 1.25 MG/3 ML VIAL.NEB NEB SCH ×6 (04:07→23:57)
[2021-11-24] MEDS: IPRATROPIUM NEB FS 0.5 MG/2.5 ML AMPUL.NEB NEB SCH ×6 (04:07→23:57)
[2021-11-24] MEDS: MEROPENEM 1 G in IV NS 0.9% 100 ML IV SCH ×3 (05:13→21:24)
[2021-11-24] MEDS: JEVITY 1.2 CAL 1,000 ML BOTTLE GT PRN (06:13)
--- NOTE | 2021-11-24 06:35 | NUR ---
TELE/RN CLOSING NOTE PATIENT CURRENTLY SLEEPING IN BED. ALERT AND ORIENTED X 3. ABLE TO MAKE NEEDS KNOWN. DENIES PAIN AT THIS TIME. CONTINUES ON O2 2L VIA NC WITH NO S/SX OF RESPIRATORY DISTRESS. IV ACCESS TO RIGHT UPPER ARM MIDLINE #18G INTACT AND PATENT. CONTINUES ON IVF 1/2 NS @ 75ML/HR. CONTINUES ON IV ABX. CONTINUES ON TF JEVITY 1.2 @ 65ML/HR. NO RESIDUAL NOTED AT THIS TIME. MUELLER CATHETER IN PLACE DRAINING CLEAR, YELLOW URINE TO GRAVITY. CONTINUES ON TELE MONITOR WITH CURRENT READING SR WITH ARRHYTHMIA HR 75 . CALL LIGHT WITHIN REACH. ASPIRATION, FALL AND SAFETY PRECAUTIONS MAINTAINED. WILL ENDORSE PLAN OF CARE TO ONCOMING SHIFT.
[2021-11-24 07:08] LABS: CALCIUM, SERUM 8.4 mg/dL (8.5-10.1); CREATININE 0.6 mg/dL (0.6-1.3); POTASSIUM 3.7 mmol/L (3.5-5.1)
--- NOTE | 2021-11-24 07:46 | NUR ---
TELE/RN OPENING NOTE PATIENT CURRENTLY SLEEPING IN BED. NOS/SX OF PAIN AT THIS TIME. ON O2 2L VIA NC WITH NO S/SX OF RESPIRATORY DISTRESS. ON TELE MONITOR WITH CURRENT READING SR WITH ARRHYTHMIA HR 84. IV ACCESS TO RIGHT UPPER ARM MIDLINE #18G INTACT AND PATENT. ON IVF 1/2 NS @ 75ML/HR. G-TUBE IN PLACE WITH JEVITY 1.2 RUNNING @ 65ML/HR. MUELLER CATHETER IN PLACE DRAINING CLEAR, YELLOW URINE TO GRAVITY. CALL LIGHT WITHIN REACH. ASPIRATION, FALL AND SAFETY PRECAUTIONS MAINTAINED. WILL CONTINUE TO MONITOR PATIENT.
[2021-11-24] MEDS: ACETYLCYSTEINE 10% SOLN 400 MG/4 ML VIAL NEB SCH ×3 (08:06→23:57)
[2021-11-24] MEDS: LINEZOLID 600 MG TABLET PO SCH ×2 (08:10→21:43)
[2021-11-24] MEDS: DAKINS QUARTER STRENGTH (0.125%) 480 ML BOTTLE TOP SCH (08:12)
[2021-11-24 08:23] VITALS: BP 125/71
[2021-11-24] MEDS: MICAFUNGIN SODIUM 100 MG in IV NS 0.9% 100 ML IV SCH (09:18)
[2021-11-24] MEDS: ENOXAPARIN SODIUM 40 MG/0.4 ML DISP.SYRIN SQ SCH (10:22)
--- NOTE | 2021-11-24 10:48 | NUR ---
PULVERIZER TENDER NOTES PATIENT COMPLAINING OF HEADACHE AND LEG PAIN 4 OUT OF 10; REQUESTING PAIN MEDICATION. PRN TYLENOL 650 MG ADMINISTERED.
[2021-11-24] MEDS: ACETAMINOPHEN 325 MG TABLET PO PRN (10:49)
[2021-11-24 12:13] VITALS: BP 98/63
[2021-11-24 16:11] VITALS: BP 100/65
--- NOTE | 2021-11-24 18:42 | NUR ---
TELE/RN CLOSING NOTE PATIENT CURRENTLY IN BED, RESTING. NO S/SX OF PAIN AT THIS TIME. ON O2 2L VIA NC WITH NO S/SX OF RESPIRATORY DISTRESS. ON TELE MONITOR WITH CURRENT READING SR WITH ARRHYTHMIA HR 89. IV ACCESS TO RIGHT UPPER ARM MIDLINE #18G INTACT AND PATENT. ON IVF 1/ NS @ 75ML/HR. G-TUBE IN PLACE WITH JEVITY 1.2 RUNNING @ 65ML/HR. MUELLER CATHETER IN PLACE DRAINING CLEAR, YELLOW URINE TO GRAVITY. AL NEEDS ATTENDED DURING THE DAY. CALL LIGHT WITHIN REACH. ASPIRATION, FALL AND SAFETY PRECAUTIONS MAINTAINED. WILL ENDORSE TO SOCIAL MEDIA JOB TITLES NURSE FOR SARA.
[2021-11-24 20:00] VITALS: BP 97/66
[2021-11-24] MEDS: IV 1/2NS 1000 ML 1,000 ML IV PRN (21:25)
[2021-11-25] VITALS: BP 105/61
[2021-11-25] MEDS: JEVITY 1.2 CAL 1,000 ML BOTTLE GT PRN (00:46)
[2021-11-25 04:00] VITALS: BP 110/66
[2021-11-25] MEDS: IPRATROPIUM NEB FS 0.5 MG/2.5 ML AMPUL.NEB NEB SCH ×4 (04:47→16:16)
[2021-11-25] MEDS: ALBUTEROL HALF STRENGTH 1.25 MG/3 ML VIAL.NEB NEB SCH ×4 (04:47→16:16)
[2021-11-25] MEDS: MEROPENEM 1 G in IV NS 0.9% 100 ML IV SCH ×2 (05:51→13:05)
--- NOTE | 2021-11-25 07:30 | NUR ---
SAFETY COUNSELOR OPENING NOTES RECEIVED PATIENT ON BED RESTING AND A/OX2-3. ON O2 AT 2LPM VIA NASAL CANNULA TOLERATING WELL. NO SOB NOTED. NOT IN DISTRESS. WITH NO COMPLAINTS OF PAIN OR DISCOMFORT AT THIS TIME. WITH IV ACCESS AT RIGHT UPPER ARM MIDLINE G18 WITH 1/2NS AT 75ML/HR INFUSING WELL. ON TELE MONITOR CURRENTLY READING SINUS RHYTHM AT 80BPM WITH BBB. WITH MUELLER CATHETER IN PLACED DRAINING CLEAR AND YELLOW URINE. SAFETY MEASURES IN PLACED. CALL LIGHT WITHIN REACH. BED ON LOWEST LOCKED POSITION, SIDE RAILS UP X2. WILL CONTINUE TO MONITOR.
--- NOTE | 2021-11-25 07:43 | NUR ---
TICKETING AGENT CLOSING NOTE PATIENT SLEEPING IN BED, ALERT/ORIENTED X 2-3, PT ABLE TO MAKE NEEDS KNOWN. PT STABLE ON 2 LPM OF OXYGEN VIA NASAL CANNULA, NO S/S OF DISTRESS OR SOB NOTED, BREATHING EVEN AND UNLABORED. MAXIMILIANO MIDLINE INTACT AND INFUSING MERREM @ 33.33 ML/HR. PATIENT ON EXTERNAL ASSISTANT TO THE PRESIDENT READING SINUS RHYTHM, HR: 80. NO SIGNIFICANT CHANGES THROUGHOUT SHIFT, PT NEEDS MET, PATIENT TURNED Q2H AND WOUND CARE TREATMENT PERFORMED. MEDICATIONS GIVEN ORDERED. PATIENT ON GTUBE FEEDING RUNNING JEVITY 1.2 @ 65 ML/HR. FOLETY CATH IN PLACE DRAINING YELLOW URINE. SAFETY MEASURES IN PLACE: CALL LIGHT WITHIN REACH, SIDE RAILS UP X 3, BED LOCKED IN LOW POSITION, HOB ELEVATED, BED ALARM ON. ENDORSED TO DAY SHIFT NURSE FOR CONTINUITY OF CARE
[2021-11-25] MEDS: ACETYLCYSTEINE 10% SOLN 400 MG/4 ML VIAL NEB SCH ×2 (07:58→16:16)
[2021-11-25 08:00] VITALS: BP 105/63
[2021-11-25] MEDS: LINEZOLID 600 MG TABLET PO SCH (09:10)
[2021-11-25] MEDS: DAKINS QUARTER STRENGTH (0.125%) 480 ML BOTTLE TOP SCH (09:10)
[2021-11-25] MEDS: ENOXAPARIN SODIUM 40 MG/0.4 ML DISP.SYRIN SQ SCH (09:12)
[2021-11-25] MEDS: MICAFUNGIN SODIUM 100 MG in IV NS 0.9% 100 ML IV SCH (09:14)
[2021-11-25 16:00] VITALS: BP 103/65
--- NOTE | 2021-11-25 17:45 | NUR ---
MANAGEMENT ENGINEER NOTES PATIENT WAS SEEN BY LIGIA JESUS NP AND ORDERED PATIENT FOR DISCHARGE BACK TO [facility]. GIVEN REPORT TO BIENVENIDO KITCHEN. WITH IV LINE AT THE RIGHT UPPER ARM G18 MIDLINE FOR IV ANTIBIOTIC MEDS. WITH MUELLER CATHETER IN PLACED DRAINING CLEAR YELLOW URINE WITH AN OUTPUT OF 350ML. DISCHARGE INSTRUCTIONS AND MEDICATION INSTRUCTION GIVEN TO AMBULANCE PERSONNEL. WOUND CARE DONE. TAKEN PHOTOS OF PATIENT'S WOUND AT THE SACRUM , RIGHT HIP AND ON NOSE BRIDGE AND ATTACHED TO CHART. PATIENT WAS PICKED UP BY AMBULANCE PERSONNEL IN STABLE CONDITION. MD AND CHARGE NURSE ARE AWARE OF THE DISCHARGE.
== END 2021-11-25 17:45 | DRG 853 ==
LOC: ER 06:47 → ICU 08:46 → TELE 11-22 18:22
PROVIDERS: ADMIT Internal Medicine; ATTEND Nurse Practitioner Acute Care
PROC: 0KBP0ZZ Excision of Left Hip Muscle, Open Approach (ICD-10-PCS; principal; 2021-11-23)
PROC: 0KBN0ZZ Excision of Right Hip Muscle, Open Approach (ICD-10-PCS; 2021-11-23)
DX: A41.01 Sepsis due to Methicillin susceptible Staphylococcus aureus (principal); L89.154 Pressure ulcer of sacral region, stage 4; G93.41 Metabolic encephalopathy; J69.0 Pneumonitis due to inhalation of food and vomit; N18.6 End stage renal disease; J96.01 Acute respiratory failure with hypoxia; J96.21 Acute and chronic respiratory failure with hypoxia; E43 Unspecified severe protein-calorie malnutrition; I12.0 Hypertensive chronic kidney disease with stage 5 chronic kidney disease or end stage renal disease; N39.0 Urinary tract infection, site not specified; D68.59 Other primary thrombophilia; I48.20 Chronic atrial fibrillation, unspecified; J98.11 Atelectasis; E87.0 Hyperosmolality and hypernatremia; J44.0 Chronic obstructive pulmonary disease with (acute) lower respiratory infection; B49 Unspecified mycosis; B37.7 Candidal sepsis; Z99.2 Dependence on renal dialysis; E88.09 Other disorders of plasma-protein metabolism, not elsewhere classified; F03.90 Unspecified dementia, unspecified severity, without behavioral disturbance, psychotic disturbance, mood disturbance, and anxiety; F09 Unspecified mental disorder due to known physiological condition; I25.10 Atherosclerotic heart disease of native coronary artery without angina pectoris; I48.0 Paroxysmal atrial fibrillation; E78.5 Hyperlipidemia, unspecified; E86.0 Dehydration; F20.9 Schizophrenia, unspecified; Z79.4 Long term (current) use of insulin; Z87.891 Personal history of nicotine dependence; Z90.81 Acquired absence of spleen; J44.9 Chronic obstructive pulmonary disease, unspecified; Z20.822 Contact with and (suspected) exposure to COVID-19; R65.20 Severe sepsis without septic shock; M62.50 Muscle wasting and atrophy, not elsewhere classified, unspecified site; L89.216 Pressure-induced deep tissue damage of right hip; E11.22 Type 2 diabetes mellitus with diabetic chronic kidney disease; R13.10 Dysphagia, unspecified; Z93.1 Gastrostomy status; Z79.01 Long term (current) use of anticoagulants; Z86.19 Personal history of other infectious and parasitic diseases
CPT/HCPCS: 31720; 36415; 36600; 71045-TC; 80048-TC; 80053-TC; 80061-TC; 80076-TC; 80202-TC; 81001; 82803-TC; 83605-TC; 83735-TC; 83880; 84100-TC; 84484-TC; 85025-TC; 85730-TC; 87040-TC; 87081-TC; 87086-TC; 94660; 94760-TC; 94799-TC; A4217; A6253; A6403; G0378; J0692; J1650; J2185; J2248; J2543; J3370; J3490; J7030; J7050; J7060; J7120; U0003

== ENCOUNTER 2022-07-17 10:58 | Inpatient (IN) | payer MEDICARE, OTHER ==
[~2022-07-17] VITALS: Ht 170.2 cm; Wt 64.9 kg
[~2022-07-17 10:58] MED LIST changes: +ACET-2605 GT; +ACET-868 GT; -ACET1OOV6 NEB; +AMIN30LI2 GT; +BALS5OIN TP; +BISA10SU11 RC; +ERGO500093 GT; +FAMO20TA8 GT; +LACT-96 GT; +MAGN400O6 GT; +MULT-447 GT; -MULT-754 GT; +RISP0.2515 GT; -RISP3TAB61 GT; +ZINC50TA69 GT
--- NOTE | 2022-07-17 11:35 | NUR ---
CALLED [facility] [phone].
--- NOTE | 2022-07-17 11:40 | NUR ---
RT AT BEDSIDE W/ PT
--- NOTE | 2022-07-17 11:50 | NUR ---
TECH AT BEDSIDE FOR EKG
[2022-07-17 11:53] LABS: BASOPHILS # (AUTO) 0.1 K/uL (0.0-0.2); BASOPHILS % (AUTO) 0.5 % (0.0-2.0); EOSINOPHILS % (AUTO) 2.4 % (0.0-6.0); HEMATOCRIT 32 % (39-51); HEMOGLOBIN 9.9 g/dL (13.5-17.5); LYMPHOCYTES # (AUTO) 1.9 K/uL (0.8-4.8); MEAN CORPUSCULAR HGB CONC 31 g/dl (31.0-36.0); MEAN CORPUSCULAR VOLUME 74 fL (80-96); MONOCYTES # (AUTO) 1.7 K/uL (0.1-1.30); MONOCYTES % (AUTO) 9.8 % (2.0-12.0); NEUTROPHILS # (AUTO) 13.1 K/uL (1.8-8.9); NEUTROPHILS % (AUTO) 76.3 % (43.0-81.0); PLATELET COUNT (AUTO) 318 K/uL (150-450); RED BLOOD CELL COUNT(AUTO) 4.32 MIL/uL (4.5-6.0); WHITE BLOOD COUNT (AUTO) 17.2 K/uL (4.3-11.0)
[2022-07-17 12:06] LABS: CALCIUM, SERUM 8.6 mg/dL (8.5-10.1); CREATININE 0.9 mg/dL (0.6-1.3)
[2022-07-17 12:12] LABS: ALBUMIN 2.6 g/dL (3.4-5.0); BILIRUBIN,DIRECT 0.1 mg/dL (0.0-0.2); BILIRUBIN,TOTAL 0.2 mg/dL (0.2-1.0); TOTAL PROTEIN, SERUM 7.8 g/dL (6.4-8.2)
--- NOTE | 2022-07-17 12:19 | NUR ---
VENT SETTINGS: AC-14, FIO2-40%, TV-550, PEEP-5
--- NOTE | 2022-07-17 13:01 | NUR ---
RT RECD PT FROM [facility] WITH SUBCUTANEOUS EMPHYSEMA RESULTING FROM A MONTHLY TRACH CHANGED, RECEIVED WITH [facility] 7 VENTED WITH FOLLOWING SETTING AC 14 550 +5 40% , MD VENT CHANGED TO PEEP 0 WILL CONTINUE TO MONITOR Addendum: 07/17/22 at 1313 by KAYA DUONG RT Amended: Links added.
--- NOTE | 2022-07-17 13:05 | NUR ---
URINE SAMPLE COLLECTED AND SENT TO LAB
--- NOTE | 2022-07-17 13:38 | NUR ---
PT RETURNED FROM CT
[2022-07-17 13:39] LABS: BAND % (MANUAL) 9 % (0.0-5.0); BASOPHILS % (MANUAL) 0 % (0.0-2.0); EOSINOPHILS % (MANUAL) 1 % (0-4); LYMPHOCYTES % (MANUAL) 10 % (16-48); MONOCYTES % (MANUAL) 6 % (0-11.0); NEUTROPHILS % (MANUAL) 76 (42-76)
[2022-07-17] MEDS ORDERED: FERR300L GT (13:40)
[2022-07-17] MEDS ORDERED: HYDR-4209 GT (13:40)
[2022-07-17] MEDS ORDERED: TERA2CAP4 GT (13:40)
[2022-07-17] MEDS ORDERED: HYDR-4303 GT (13:40)
[2022-07-17] MEDS ORDERED: DIGO250T GT (13:40)
[2022-07-17] MEDS ORDERED: PANT40SU2 GT (13:40)
[2022-07-17] MEDS ORDERED: LACT100027 GT (13:40)
[2022-07-17] MEDS ORDERED: IPRA4AER IH ×2 (13:40)
[2022-07-17] MEDS ORDERED: CALC500T13 GT (13:40)
[2022-07-17] MEDS ORDERED: CHLO473M5 MM (13:40)
[2022-07-17] MEDS ORDERED: TOPI50TA GT (13:40)
--- NOTE | 2022-07-17 13:41 | NUR ---
COVID TEST COLLECTED AND SENT
[2022-07-17 13:46] LABS: BILIRUBIN,URINE NEGATIVE (NEGATIVE); COLOR,URINE YELLOW (YELLOW); LEUKOCYTE ESTERASE ,URINE 3+ (NEGATIVE); NITRITE, URINE POSITIVE (NEGATIVE); PROTEIN,URINE TRACE mg/dl (NEGATIVE); UGLUCOSE NEGATIVE (NEGATIVE); UROBILINOGEN,URINE 0.2 EU/dL (0.2)
[2022-07-17 13:49] LABS: BACTERIA,URINE Few /HPF (None Seen); SQUAMOUS EPITHELIAL CELL,UR Moderate /HPF (None Seen)
--- NOTE | 2022-07-17 13:49 | NUR ---
IV ESTABLISHED R AC 20G, CULTURES COLLECTED AT BEDSIDE.
--- NOTE | 2022-07-17 14:21 | NUR ---
LEFT HAND #20 Addendum: 07/17/22 at 1422 by SCOTT CORRECTION: RIGHT HAND #20
--- NOTE | 2022-07-17 14:53 | NUR ---
[facility] [phone] IZZY REQUESTING CLINICALS FAXED TO [phone]
--- NOTE | 2022-07-17 15:30 | NUR ---
FAXED CLINICALS TO [facility] SPOKE WITH BOB.
[2022-07-17] MEDS ORDERED: IV NS 0.9% 1,000 ML BAG IV ONE ×2 (16:30→17:00)
[2022-07-17] MEDS ORDERED: PIPERACILLIN /TAZOBACTAM 3.375 G in IV D5W 50 ML IV ONE (16:30)
--- NOTE | 2022-07-17 17:15 | NUR ---
CALLED [facility] [phone] ANGELINA REQUESTING CLINICALS FAXED TO: [phone]
--- NOTE | 2022-07-17 17:35 | NUR ---
DR GIMENEZ AT BEDSIDE.
--- NOTE | 2022-07-17 17:40 | NUR ---
PIGTAIL CATH AT RIGHT CHEST WALL INSERTED BY DR GIMENEZ AT BEDSIDE; CURRENTLY ATTACHED TO WALL SUCTION, SETTING CURRENTLY AT 20MMHG AT PER DR. GIMENEZ'S ORDER. NO BLEEDING NOTED ON INSERTION SITE, NO LEAK NOTED ON CHEST TUBE EQUIPMENT.
--- NOTE | 2022-07-17 17:48 | NUR ---
MAC CALLED PT BEING DECLINED DUE TO BED CAPACITY PER SIMONE.
--- NOTE | 2022-07-17 18:05 | NUR ---
LEFT WRIST #22 ESTABLISHED
--- NOTE | 2022-07-17 18:07 | NUR ---
MOVE SHEET SUBMITTED.
[2022-07-17] MEDS ORDERED: POLYETHYLENE GLYCOL 3350 17 GM POWD.PACK GT PRN (20:00)
[2022-07-17] MEDS: TERAZOSIN HCL 1 MG CAPSULE GT SCH (22:00)
[2022-07-18] VITALS (18 sets, daily range): BP systolic 104–136; BP diastolic 41–76
[2022-07-18] MEDS ORDERED: ONDANSETRON HCL/PF 4 MG/2 ML VIAL IVP PRN (00:30)
[2022-07-18] MEDS ORDERED: Z GUARD REMEDY 4 OZ OINT TP PRN (00:30)
[2022-07-18] MEDS ORDERED: VANCOMYCIN 1 GM in IV D5W 250ml IV ONE (01:00)
[2022-07-18] MEDS ORDERED: VANCOMYCIN 1 GM VIAL ONE (01:05)
[2022-07-18] MEDS ORDERED: PIPERACILLIN /TAZOBACTAM 3.375 G VIAL IV ONE ×2 (01:05→07:08)
[2022-07-18] MEDS: ZOSYN IVPB 3.375 G in IV D5W 50ml IV SCH ×2 (01:15→06:50)
--- NOTE | 2022-07-18 06:00 | NUR ---
RT NOTE PT RECEIVED TRACH'D VIA [facility] 7 TRACH TUBE. PT BROUGHT IN FROM [facility] FOR SUCUTANEOUS EMPHYSEMA FROM MONTHLY TRACH CHANGE. PT ON [facility] VENT W SETTINGS: AC 14, 550, 100%, +0. TRACH IS SECURE AND PATENT. NO RESP DISTRESS T/O SHIFT.
[2022-07-18 06:56] LABS: CALCIUM, SERUM 8.3 mg/dL (8.5-10.1); CREATININE 0.7 mg/dL (0.6-1.3); POTASSIUM 3.8 mmol/L (3.5-5.1)
--- NOTE | 2022-07-18 08:32 | NUR ---
LEFT WRIST #20 REINSERTED BY ISSUER RN.
[2022-07-18] MEDS: HYDROCODONE/APAP 5/325MG TABLET GT SCH (09:00)
--- NOTE | 2022-07-18 09:09 | NUR ---
DR DUNN AT BEDSIDE
--- NOTE | 2022-07-18 09:20 | NUR ---
PT REPORT GIVEN TO GENEVIEVE MACHINE ASSEMBLER FOR PULLER OVER
[2022-07-18 09:56] LABS: BASOPHILS # (AUTO) 0.1 K/uL (0.0-0.2); BASOPHILS % (AUTO) 0.4 % (0.0-2.0); EOSINOPHILS % (AUTO) 2.6 % (0.0-6.0); HEMATOCRIT 30 % (39-51); HEMOGLOBIN 9.2 g/dL (13.5-17.5); LYMPHOCYTES # (AUTO) 2.8 K/uL (0.8-4.8); LYMPHOCYTES % (AUTO) 18.4 % (20.0-44.0); MEAN CORPUSCULAR HGB CONC 30 g/dl (31.0-36.0); MEAN CORPUSCULAR VOLUME 75 fL (80-96); MONOCYTES # (AUTO) 1.6 K/uL (0.1-1.30); MONOCYTES % (AUTO) 10.7 % (2.0-12.0); NEUTROPHILS # (AUTO) 10.1 K/uL (1.8-8.9); NEUTROPHILS % (AUTO) 67.9 % (43.0-81.0); PLATELET COUNT (AUTO) 278 K/uL (150-450); RED BLOOD CELL COUNT(AUTO) 4.08 MIL/uL (4.5-6.0); WHITE BLOOD COUNT (AUTO) 14.9 K/uL (4.3-11.0)
--- NOTE | 2022-07-18 10:10 | NUR ---
RN NOTES RECEIVED PT FROM ER , TRACH/VENT DEPENDENT, TOLERAING VENT SETTING WELL, TRACH CARE DONE, O2 SAT WNL., ON TELE SR HR IN 60'S , RIGHT UPPER CHEST TUBE INTACT, ATTACHED TO WALL SUCTIONING, PEG TUBE INTACT, MUELLER DRAINING TO GRAVITY, SKIN WOUND PICTURES TAKEN AND PLACED IN THE CHART , WOUND CONSULT ORDERED, IV SITE CDI, LR AT 100C/HR RUNNING , SR UP x3 CALL LIGHT WARTHIN EASY REACH, BED LOCKED AND IN LOWEST POSITION, CONTINUE TO MONITOR.
--- NOTE | 2022-07-18 10:15 | NUR ---
PT TRANSFERRED TO 252 VIA [facility] ACLS PROTOCOL. RT AT BEDSIDE W/ PT. WARM HANDOFF GIVEN TO BIENVENIDO VALLEJO.
--- NOTE | 2022-07-18 11:00 | NUR ---
RN NOTES PT AT REST SLEEPING NARCO HELD AT THIS TIME
[2022-07-18] MEDS: DIGOXIN 0.25 MG TABLET GT SCH (11:21)
[2022-07-18] MEDS: PANTOPRAZOLE 40 MG/PACK PACK GT SCH (11:21)
[2022-07-18] MEDS: FERROUS SULFATE UDC 300 MG/5 ML UDC GT SCH (11:21)
[2022-07-18] MEDS: APIXABAN 5 MG TABLET GT SCH ×2 (11:22→16:43)
[2022-07-18] MEDS: AMIODARONE HCL 200 MG TABLET GT SCH ×2 (11:23→16:40)
[2022-07-18] MEDS ORDERED: PIPERACILLIN /TAZOBACTAM 3.375 G in IV D5W 50 ML IV SCH (12:00)
[2022-07-18] MEDS: PIPERACILLIN /TAZOBACTAM 3.375 G in IV D5W 100 ML IV SCH ×2 (12:09→20:20)
[2022-07-18] MEDS: IV LR 1000 ML 1,000 ML IV PRN ×2 (12:11→22:42)
--- NOTE | 2022-07-18 12:15 | NUR ---
WOUND CARE C ONSULT: PT RESTING AT THIS TIME. ADMISSION PHOTOS INDICATE MULTIPLE WOUNDS INCLUDING SACRAL, RT BUTTOCK AND BILATERAL HEEL PRESSURE ULCER, PRESENT ON ADMISSION. DR LO AND DR CASSIDY CALLED FOR SURGICAL AND DPM CONSULTS. RECOMMENDATIONS MADE FOR SKIN PROTECTION INCLUDING FIRST STEP LOW AIRLOSS MATTRESS. MD IN AGREEMENT WITH PLAN OF CARE.
[2022-07-18] MEDS: VANCOMYCIN HCL 0.75 GM in IV D5W 250 ML IV SCH (12:50)
[2022-07-18] MEDS: TOPIRAMATE 25 MG TABLET GT SCH (13:05)
[2022-07-18] MEDS ORDERED: JEVITY 1.2 CAL 1,000 ML BOTTLE GT PRN (15:00)
--- NOTE | 2022-07-18 17:29 | NUR ---
RN NOTES CHEST TUBE PLACED ON WATER SEAL PER DR GIMENEZ ORDER .
--- NOTE | 2022-07-18 18:00 | NUR ---
RN NOTES PT TRANSFERRED TO ROOM 109 KOLE STATUS, IN STABLE CONDITION PER MD ORDER , REPORT GIVEN TO MARC FARIA FOR CONTINUITY OF CARE .
--- NOTE | 2022-07-18 19:18 | NUR ---
Hand off report given to Suzan FARIA for continuation of care.
--- NOTE | 2022-07-18 19:40 | NUR ---
RN NOTES, Received patient from Wilmar FARIA for continuation of care, patient on calculating machine mechanic ventilator, tolerated settings well, no sob/acute distress noted, patient with right sided pig tail in place connected to water seal, no air leak noted, minimal drainage noted in the chamber, iv site patent and intact, LR infusing at 100ml/hr, patient tolerated well, Kowalski cath in place draining by gravity yellow urine, patency intact, bed locked an din lowest position, hob elevated at all times, will continue to monitor closely.
[2022-07-18] MEDS: TERAZOSIN HCL 1 MG CAPSULE GT SCH (22:21)
[2022-07-19] VITALS: BP 96/63
[2022-07-19] MEDS: VANCOMYCIN HCL 0.75 GM in IV D5W 250 ML IV SCH ×2 (01:49→13:05)
[2022-07-19 04:00] VITALS: BP 159/78
[2022-07-19] MEDS: PIPERACILLIN /TAZOBACTAM 3.375 G in IV D5W 100 ML IV SCH ×3 (04:36→21:25)
[2022-07-19 05:46] LABS: ABG BASE EXCESS -1.5 mmol/L; ABG OXYGEN SATURATION 94.6 % (92.0-98.5); ABG PCO2 49.8 mmHg (35.0-45.0); ABG PH 7.318 (7.350-7.450); ABG PO2 80.1 mmHg (75.0-100.0); AaDO2 147.8 mmHg; COHb 0.1 % (0.5-1.5); MetHb 0.2 % (0.0-1.5); O2Hb 94.3 % (94.0-97.0); SITE, ABG Right Radial
--- NOTE | 2022-07-19 06:25 | NUR ---
End oF Shift, patient in bed a/o to self, cont on power shovel mechanic ventilator, tolerated settings well, no sob/acute distress noted throughout the night, , patient with right sided pig tail in place connected to water seal, no air leak noted, no output noted noted in the chamber all night, continue on IVF/ATB as ordered, otherwise no significant change in condition during the night, bed locked and in lowest position, HOB elevated at all times, will endorse continuity of care to oncoming nurse.
--- NOTE | 2022-07-19 07:00 | NUR ---
RN NOTES RECEIVED PT ON BED, TRACH/VENT DEPENDENT, TOLERAING VENT SETTING WELL, TRACH CARE DONE, O2 SAT WNL., ON TELE SR HR IN 80'S , RIGHT UPPER CHEST TUBE INTACT, TO WATER SEAL , PEG TUBE INTACT, TF AT 35CC/HR RUNNING , MUELLER DRAINING TO GRAVITY, IV SITE CDI, LR AT 100C/HR RUNNING , SR UP x3 CALL LIGHT WARTHIN EASY REACH, BED LOCKED AND IN LOWEST POSITION, CONTINUE TO MONITOR.
[2022-07-19 07:41] LABS: CHOLESTEROL 121 mg/dL (<200); HDL CHOLESTEROL 36 mg/dL (40-60); LDL 67 mg/dL (0-99); TRIGLYCERIDES 139 mg/dL (30-150)
[2022-07-19 07:42] LABS: ALANINE AMINOTRANSFERASE 12 U/L (12-78); ALBUMIN 2.5 g/dL (3.4-5.0); ALKALINE PHOSPHATASE 77 U/L (46-116); ASPARTATE AMINOTRANSFERASE 10 U/L (15-37); BILIRUBIN,TOTAL 0.3 mg/dL (0.2-1.0); CALCIUM, SERUM 8.5 mg/dL (8.5-10.1); CARBON DIOXIDE 25 mmol/L (21-32); CHLORIDE 106 mmol/L (98-107); CREATININE 0.7 mg/dL (0.6-1.3); GLUCOSE 140 mg/dL (74-106); MAGNESIUM 2.2 mg/dL (1.8-2.4); PHOSPHORUS 2.8 mg/dL (2.5-4.9); POTASSIUM 3.6 mmol/L (3.5-5.1); SODIUM SERUM 139 mmol/L (136-145); TOTAL PROTEIN, SERUM 7.7 g/dL (6.4-8.2); UREA NITROGEN, BLOOD 10 mg/dL (7-18)
[2022-07-19 08:00] VITALS: BP 157/79
[2022-07-19] MEDS: FERROUS SULFATE UDC 300 MG/5 ML UDC GT SCH (08:19)
[2022-07-19] MEDS: PANTOPRAZOLE 40 MG/PACK PACK GT SCH (08:19)
[2022-07-19] MEDS: TOPIRAMATE 25 MG TABLET GT SCH (08:20)
[2022-07-19] MEDS: HYDROCODONE/APAP 5/325MG TABLET GT SCH (08:20)
[2022-07-19] MEDS: AMIODARONE HCL 200 MG TABLET GT SCH ×2 (08:21→16:31)
[2022-07-19] MEDS: APIXABAN 5 MG TABLET GT SCH ×2 (08:22→16:34)
[2022-07-19] MEDS: DIGOXIN 0.25 MG TABLET GT SCH (08:22)
[2022-07-19 08:50] LABS: BASOPHILS # (AUTO) 0.1 K/uL (0.0-0.2); BASOPHILS % (AUTO) 0.4 % (0.0-2.0); EOSINOPHILS % (AUTO) 1.4 % (0.0-6.0); HEMATOCRIT 31 % (39-51); HEMOGLOBIN 9.3 g/dL (13.5-17.5); LYMPHOCYTES % (AUTO) 11.1 % (20.0-44.0); MEAN CORPUSCULAR HGB CONC 30 g/dl (31.0-36.0); MEAN CORPUSCULAR VOLUME 75 fL (80-96); MONOCYTES # (AUTO) 1.3 K/uL (0.1-1.30); MONOCYTES % (AUTO) 7.6 % (2.0-12.0); NEUTROPHILS % (AUTO) 79.5 % (43.0-81.0); PLATELET COUNT (AUTO) 310 K/uL (150-450); RED BLOOD CELL COUNT(AUTO) 4.16 MIL/uL (4.5-6.0); WHITE BLOOD COUNT (AUTO) 17.7 K/uL (4.3-11.0)
--- NOTE | 2022-07-19 08:50 | NUR ---
RN NOTES CALL RECEIVED FROM RADIOLOGIST AND DR DUNN REGARDING CHEST X RAY RESULTS. CHEST TUBE PLACED BACK ON 20 CM WATER WALL SUCTIONING PER DR DUNN ORDER .
[2022-07-19] MEDS: IV LR 1000 ML 1,000 ML IV PRN ×2 (09:10→22:16)
[2022-07-19 12:00] VITALS: BP 144/74
--- NOTE | 2022-07-19 14:00 | NUR ---
RN NOTES UNABLE TO REACH PT'S FAMILY TO OBTAIN CONSENT , DR DUNN AND DR BOWERS NOTIFED.
--- NOTE | 2022-07-19 14:03 | NUR ---
UNABLE TO REACH FAMILY ,MD TO CONSENT .
[2022-07-19 16:00] VITALS: BP 147/67
[2022-07-19] MEDS ORDERED: JEVITY 1.2 CAL 1,000 ML BOTTLE GT PRN (16:00)
[2022-07-19] MEDS: PROSOURCE / PROSTAT (PYXIS) 30 ML UDC GT SCH (16:35)
--- NOTE | 2022-07-19 17:00 | NUR ---
RN NOTES SECOND RIGHT SIDED CHEST TUBE INSERTED BY RADIOLOGIST , VSS STABLE .CONTINUE TO MONITOR
--- NOTE | 2022-07-19 18:23 | NUR ---
RN NOTES TWO RIGHT SIDED CHEST TUBE ATTACHED TO WALL SUCTIONING PER DR DUNN ORDER , NO DRAINAGE NOTED ON THIS SHIFT . VSS STABLE , TOLERATING VENT SETTING WELL, O2 SAT WNL, TRACH CARE DONE NEEDED , TOLERAING TF WELL, WILL ENDORSE TO WHEEL BRAIDER NURSE FOR CONTINITUY OF CARE .
--- NOTE | 2022-07-19 19:40 | NUR ---
RN NOTES, Received patient from Tashia FARIA for continuation of care, patient on lawn mower mechanic ventilator, tolerated settings well, no sob/acute distress noted, patient with 2 right sided pig tail in place connected to suction, no drainage noted in the chamber, iv site patent and intact, LR infusing at 100ml/hr, patient tolerated well, Kowalski cath in place draining by gravity yellow urine, patency intact, bed locked an din lowest position, hob elevated at all times, will continue to monitor closely.
[2022-07-19 20:00] VITALS: BP 124/70
[2022-07-19] MEDS ORDERED: SILVER NITRATE APPLICATOR 1 EA BOX TP SCH (20:30)
[2022-07-19] MEDS: TERAZOSIN HCL 1 MG CAPSULE GT SCH (21:27)
[2022-07-19] MEDS: DAKINS QUARTER STRENGTH (0.125%) 480 ML BOTTLE TOP SCH (21:27)
[2022-07-20] VITALS: BP 120/65
[2022-07-20] MEDS: VANCOMYCIN 1 GM in IV D5W 250ml IV SCH ×2 (00:45→12:30)
[2022-07-20 04:00] VITALS: BP 112/76
[2022-07-20] MEDS: PIPERACILLIN /TAZOBACTAM 3.375 G in IV D5W 100 ML IV SCH ×3 (04:40→20:55)
--- NOTE | 2022-07-20 06:49 | NUR ---
RN NOTES, Patient in bed a/o to self, on conduit mechanic ventilator, tolerated settings well, no sob/acute distress noted, no distress noted during the night, continue with 2 right sided pig tail in place connected to suction in place, no drainage noted in the chamber during the night, iv site patent and intact, LR infusing at 100ml/hr, patient tolerated well, Kowalski cath in place draining by gravity yellow urine, patency intact, otherwise no significant change in condition during the night, bed locked an din lowest position, plan for sacral and hip debridement today, hob elevated at all times, will endorse continuity of care to oncoming nurse.
[2022-07-20 07:33] LABS: CALCIUM, SERUM 8.2 mg/dL (8.5-10.1); CARBON DIOXIDE 28 mmol/L (21-32); CHLORIDE 109 mmol/L (98-107); CREATININE 0.7 mg/dL (0.6-1.3); GLUCOSE 117 mg/dL (74-106); POTASSIUM 3.6 mmol/L (3.5-5.1); SODIUM SERUM 141 mmol/L (136-145); UREA NITROGEN, BLOOD 9 mg/dL (7-18)
[2022-07-20 08:00] VITALS: BP 114/63
[2022-07-20] MEDS: IV LR 1000 ML 1,000 ML IV PRN ×2 (09:37→17:26)
[2022-07-20] MEDS: FERROUS SULFATE UDC 300 MG/5 ML UDC GT SCH (10:20)
[2022-07-20] MEDS: PANTOPRAZOLE 40 MG/PACK PACK GT SCH (10:20)
[2022-07-20] MEDS: TOPIRAMATE 25 MG TABLET GT SCH (10:20)
[2022-07-20] MEDS: AMIODARONE HCL 200 MG TABLET GT SCH ×2 (10:22→17:28)
[2022-07-20] MEDS: DIGOXIN 0.25 MG TABLET GT SCH (10:22)
[2022-07-20] MEDS: HYDROCODONE/APAP 5/325MG TABLET GT SCH (10:24)
[2022-07-20] MEDS: APIXABAN 5 MG TABLET GT SCH ×2 (10:25→17:30)
[2022-07-20] MEDS: PROSOURCE / PROSTAT (PYXIS) 30 ML UDC GT SCH ×3 (10:26→17:29)
[2022-07-20] MEDS: DAKINS QUARTER STRENGTH (0.125%) 480 ML BOTTLE TOP SCH (10:27)
[2022-07-20] MEDS: JEVITY 1.2 CAL 1,000 ML BOTTLE GT PRN (11:02)
[2022-07-20 12:00] VITALS: BP 109/52
[2022-07-20 16:00] VITALS: BP 121/56
--- NOTE | 2022-07-20 19:08 | NUR ---
NO SIGNIFICANT CHANGES NOTED AT THIS TIME; PRN AND HOURLY ROUNDING DONE. ENDORSED TO RN-AHMET SERICULTURIST FOR CONTINUITY OF CARE.
[2022-07-20 20:00] VITALS: BP 123/68
[2022-07-20] MEDS: TERAZOSIN HCL 1 MG CAPSULE GT SCH (21:08)
[2022-07-21] VITALS: BP 127/71
[2022-07-21] MEDS: VANCOMYCIN 1 GM in IV D5W 250ml IV SCH ×2 (00:55→13:59)
[2022-07-21 04:00] VITALS: BP 112/59
[2022-07-21] MEDS: PIPERACILLIN /TAZOBACTAM 3.375 G in IV D5W 100 ML IV SCH ×3 (04:49→20:45)
[2022-07-21] MEDS: JEVITY 1.2 CAL 1,000 ML BOTTLE GT PRN (04:59)
[2022-07-21] MEDS: IV LR 1000 ML 1,000 ML IV PRN ×2 (05:14→15:15)
--- NOTE | 2022-07-21 06:28 | NUR ---
RN CLOSING NOTES: PT IN BED, OBTUNDED. ON TRACH TO [facility] VENT SETTING AND PT TOLERATED WELL. O2 SAT 98%. BREATHING EVEN AND UNLABORED. IV ACCESS ON LFA AND RT HAND INTACT AND PATENT. NO S/S OF INFILTRATIONS. RUNNING LR AT 100CC/HR. CONTINUE WITH 2 RIGHT SIDED PIG TAIL CONNECTED TO SUCTION. ONLY 10CC DRAINAGE NOTED. NO FACIAL GRIMACING NOTED. NO ACUTE DISTRESS. GTUBE FEEDING WELL TOLERATED. RUNNING JEVITY 1.2 AT 65CC/HR. MUELLER CATHETER IN PLACE. DRAINING BY GRAVITY. NOTED YELLOWISH/CLEAR URINE. NO SIGNIFICANT CHANGES DURING THIS SHIFT. ALL DUE MEDS GIVEN ORDERED. ALL SAFETY MEASURES IN PLACE. SIDE RAILS UP X3, BED IN LOWEST POSITION AND LOCKED. PLACE CALL LIGHT WITH IN REACH. WILL ENDORSE TO MORNING SHIFT NURSE.
[2022-07-21 07:48] LABS: CALCIUM, SERUM 8.1 mg/dL (8.5-10.1); CARBON DIOXIDE 24 mmol/L (21-32); CHLORIDE 107 mmol/L (98-107); CREATININE 0.9 mg/dL (0.6-1.3); GLUCOSE 132 mg/dL (74-106); POTASSIUM 3.5 mmol/L (3.5-5.1); SODIUM SERUM 141 mmol/L (136-145); UREA NITROGEN, BLOOD 14 mg/dL (7-18)
[2022-07-21 08:00] VITALS: BP 121/56
--- NOTE | 2022-07-21 08:00 | NUR ---
KOLE RN NOTE PT IN BED, OBTUNDED. ON TRACH TO [facility] VENT SETTING AND PT TOLERATED WELL. O2 SAT 99%. B. IV ACCESS ON LFA AND RT HAND INTACT AND PATENT. RUNNING LR AT 100CC/HR. CONTINUE WITH 2 RIGHT SIDED PIG TAIL CONNECTED TO SUCTION. ONLY 10CC DRAINAGE NOTED. NO FACIAL GRIMACING NOTED. NO ACUTE DISTRESS. GTUBE FEEDING WELL TOLERATED. RUNNING JEVITY 1.2 AT 65CC/HR. MUELLER CATHETER IN PLACE. DRAINING BY GRAVITY. NOTED YELLOWISH/CLEAR URINE. CHANGES DURING ON TELE MONITOR HR 66 Addendum: 07/21/22 at 1253 by SUNITA HOOD RN 0800 noted abdomen is distended and abdomen blister noted keep clean dry
[2022-07-21] MEDS: TOPIRAMATE 25 MG TABLET GT SCH (09:06)
[2022-07-21] MEDS: PANTOPRAZOLE 40 MG/PACK PACK GT SCH (09:06)
[2022-07-21] MEDS: AMIODARONE HCL 200 MG TABLET GT SCH ×2 (09:06→17:00)
[2022-07-21] MEDS: HYDROCODONE/APAP 5/325MG TABLET GT SCH (09:06)
[2022-07-21] MEDS: APIXABAN 5 MG TABLET GT SCH ×2 (09:07→17:00)
[2022-07-21] MEDS: PROSOURCE / PROSTAT (PYXIS) 30 ML UDC GT SCH ×3 (09:09→17:02)
[2022-07-21] MEDS: FERROUS SULFATE UDC 300 MG/5 ML UDC GT SCH (09:09)
[2022-07-21] MEDS: DIGOXIN 0.25 MG TABLET GT SCH (09:10)
[2022-07-21] MEDS: DAKINS QUARTER STRENGTH (0.125%) 480 ML BOTTLE TOP SCH (09:10)
--- NOTE | 2022-07-21 09:59 | NUR ---
KOLE RN NOTE MID LINE INSERTED ORDERED LT UPPER ARM , CHEST X RAY DONE
[2022-07-21 12:00] VITALS: BP 114/58
--- NOTE | 2022-07-21 12:30 | NUR ---
KOLE RN NOTE REPORTED TO DR BENEDICT THAT ABDOMEN IS DISTENDED AND WOUND CONSULT ORDERED FOR ABDOMINALE BLISTER
--- NOTE | 2022-07-21 12:55 | NUR ---
KOLE RN NOTE DR MCDANIEL PATTERNMAKER BENCH SURGEON AT BEDSIDE CHECKED CHEST TUBES AWARE THAT NOT DRAINAGE NOTED , STILL OK TO DO CHEST CT , FLUSHED BOTH CHEST TUBES AND UPPER CHEST TUBE SUCTION -30 OTHER THE SECOND STILL -20 WILL F\U ,SMALL AMT OF BUBBLING NOTED ON RT UPPER CHEST TUBE
--- NOTE | 2022-07-21 13:00 | NUR ---
cordell rn note dr red and dr domingo aware chest x ray result
--- NOTE | 2022-07-21 15:00 | NUR ---
KOLE RN NOTE ABLE TO REACH FAMILY TO GET CONSENT FOR WOUND DEBRIDEMENT, SPOKE WITH [facility] STATED THAT SPOKE WITH DR CARDOZO AND HE WILL SIGN TO TOMORROW CONSENT, WILL F\U
--- NOTE | 2022-07-21 15:47 | NUR ---
cordell n note called x3 to radiology about ct scan ,still unable to do still busy with er
[2022-07-21 16:00] VITALS: BP 123/54
--- NOTE | 2022-07-21 16:52 | NUR ---
cordell rn note taken to ct chest as ordered
--- NOTE | 2022-07-21 17:39 | NUR ---
KOLE RN NOTE CALLED TO RADIOLOGY NOTIFIED THAT KUB STILL NOT DONE STSTED THAT WILL CHECK IT OUT
--- NOTE | 2022-07-21 18:51 | NUR ---
KOLE RN NOTE PATIENT IN BED, ALL NEEDS ATTENDED, WITH TRACE TO VENT SETTING ORDERED, ON TELE MONITOR SB-SR ,WITH MUELLER CATH TO GRAVITY WITH YELLOW COLOR URINE NOTED, WITH G TUBE FEEDING ORDERED TOLERATED WELL, NO RESIDUAL NOTED, KEEP HOB ELEVATED AT ALL TIME, LT UPPER ARM MID LINE IN PLACE ON IVF ORDERED, RT HAND HL INTACT AND FLUSHED WELL TUBE,RT SIDE ONE CHEST TUBE TO SUCTION -[id number] AND RT LATERAL -20CM H20 WITH OCCASIONAL BUBBLING NOTED DRESSING INTACT ,BED IN LOWEST AND LOCKED POSITION , CONT WITH SOFT RESTRAIN STILL TRYING TO REMOVE ALL LINES NO DRAINGE NOTED FROM BOTH CHEST TUBES , WILL CONT TO MONITOR
--- NOTE | 2022-07-21 18:51 | NUR ---
KOLE RN NOTE KUB DONE ORDERED
[2022-07-21 20:00] VITALS: BP 128/70
--- NOTE | 2022-07-21 20:00 | NUR ---
KOLE RN OPENING NOTE RECEIVED PTS IN BED, WITH EYE OPEN , [facility] V[facility] SETTING WELL TOLERATED . O2 SAT 99%. ON TELE MONITOR ON SR ON THE MONITOR. IV ACCESS ON LFA AND RT HAND INTACT AND PATENT. RUNNING LR AT 100CC/HR. CONTINUE WITH 2 CHEST TUBE RIGHT SIDED PIG TAIL CONNECTED TO SUCTION. ONLY 10CC DRAINAGE NOTED.PER ENDORSE BY DAY SHIFT . NO FACIAL GRIMACING NOTED. NO ACUTE DISTRESS. GTUBE FEEDING WELL TOLERATED. RUNNING JEVITY 1.2 AT 65CC/HR. MUELLER CATHETER IN PLACE. DRAINING BY GRAVITY. NOTED YELLOWISH/CLEAR URINE.DUE MEDS GIVEN ORDERED NO ADVERSE SIDE EFFECT NOTED .WILL CONTINUE TO MONITOR PTS.
[2022-07-21] MEDS: TERAZOSIN HCL 1 MG CAPSULE GT SCH (21:03)
[2022-07-21] MEDS: ACETAMINOPHEN ES 500 MG TABLET GT PRN (23:07)
[2022-07-22] VITALS: BP 125/73
[2022-07-22] MEDS: VANCOMYCIN 1 GM in IV D5W 250ml IV SCH ×2 (02:00→12:25)
[2022-07-22] MEDS: JEVITY 1.2 CAL 1,000 ML BOTTLE GT PRN (02:40)
[2022-07-22] MEDS: IV LR 1000 ML 1,000 ML IV PRN ×2 (02:40→14:17)
[2022-07-22] MEDS: PIPERACILLIN /TAZOBACTAM 3.375 G in IV D5W 100 ML IV SCH ×3 (04:34→20:25)
[2022-07-22 06:00] VITALS: BP 118/54
--- NOTE | 2022-07-22 07:05 | NUR ---
RN NOTE RECEIVED PT ON BED, WITH EYE OPEN , ON TRACH TO [facility] VENT SETTING WELL TOLERATED . O2 SAT 99%. ON TELE MONITOR ON SB HR IN 50'S , IV ACCESS ON LFA AND RT HAND INTACT AND PATENT. PT HAS 2 CHEST TUBE RIGHT SIDED PIG TAIL CONNECTED TO SUCTION. NO FACIAL GRIMACING NOTED. NO ACUTE DISTRESS. G TUBE FEEDING WELL TOLERATED. RUNNING JEVITY 1.2 AT 65CC/HR. MUELLER CATHETER IN PLACE. DRAINING BY GRAVITY. NOTED YELLOWISH/CLEAR URINE. WILL CONTINUE TO MONITOR .
--- NOTE | 2022-07-22 07:19 | NUR ---
WOUND CARE CONSULT: RECEIVED CONSULT FOR ABDOMINAL BLISTER. PT PRESENTS WITH CHEST TUBE WITH DRY INTACT DRESSING/TRANSPARENT DRESSING TO RT CHEST WHICH EXTENDS TO ABDOMEN. NO DRAINAGE NOTED. PINK AREA NOTED UNDER TRANSPARENT DRESSING. WILL DISCUSS WITH SURGICAL TEAM CURRENTLY ON CASE. ALL SKIN PROTECTION MEASURES IN PLACE. MD IN AGREEMENT WITH PLAN OF CARE.
[2022-07-22 07:30] LABS: CALCIUM, SERUM 7.8 mg/dL (8.5-10.1); CARBON DIOXIDE 28 mmol/L (21-32); CHLORIDE 108 mmol/L (98-107); CREATININE 0.8 mg/dL (0.6-1.3); GLUCOSE 121 mg/dL (74-106); POTASSIUM 3.4 mmol/L (3.5-5.1); SODIUM SERUM 140 mmol/L (136-145); UREA NITROGEN, BLOOD 13 mg/dL (7-18)
--- NOTE | 2022-07-22 07:37 | NUR ---
KOLE RN NOTE PATIENT REMAIN IN BED, VENT SETTING ORDERED, ON TELE MONITOR -SR ,WITH MUELLER CATH TO GRAVITY WITH YELLOW COLOR URINE NOTED, WITH G TUBE FEEDING ORDERED TOLERATED WELL, NO RESIDUAL NOTED, KEEP HOB ELEVATED AT ALL TIME, LT UPPER ARM MID LINE IN PLACE ON IVF ORDERED, RT HAND HL INTACT AND FLUSHED WELL TUBE,RT SIDE ONE CHEST TUBE TO SUCTION -[id number] AND RT LATERAL -20CM H20 WITH OCCASIONAL BUBBLING NOTED DRESSING INTACT ,BED IN LOWEST AND LOCKED POSITION , CONT WITH SOFT RESTRAINT STILL TRYING TO REMOVE ALL LINES DRAINGE NOTED FROM CHEST TUBE #1 15ML CHEST TUBES #2 10 ML, WILL ENDORSE TO RN DAY SHIFT FOR CONTINUITY OF CARE .
[2022-07-22 08:00] VITALS: BP 127/63
[2022-07-22] MEDS: FERROUS SULFATE UDC 300 MG/5 ML UDC GT SCH (08:35)
[2022-07-22] MEDS: TOPIRAMATE 25 MG TABLET GT SCH (08:35)
[2022-07-22] MEDS: PANTOPRAZOLE 40 MG/PACK PACK GT SCH (08:35)
[2022-07-22] MEDS: DIGOXIN 0.25 MG TABLET GT SCH (08:36)
[2022-07-22] MEDS: HYDROCODONE/APAP 5/325MG TABLET GT SCH (08:36)
[2022-07-22] MEDS: APIXABAN 5 MG TABLET GT SCH ×2 (08:38→17:16)
[2022-07-22] MEDS: PROSOURCE / PROSTAT (PYXIS) 30 ML UDC GT SCH ×3 (08:39→17:15)
[2022-07-22] MEDS: AMIODARONE HCL 200 MG TABLET GT SCH ×2 (08:39→17:00)
[2022-07-22] MEDS: DAKINS QUARTER STRENGTH (0.125%) 480 ML BOTTLE TOP SCH (08:40)
--- NOTE | 2022-07-22 10:00 | NUR ---
RN NOTES CT FLUSHED #2 WITH [address] DUNN ORDER .
[2022-07-22 12:00] VITALS: BP 132/81
[2022-07-22] MEDS ORDERED: POTASSIUM CHLORIDE 20 MEQ POWDER PACKET PO ONE (12:00)
--- NOTE | 2022-07-22 15:00 | NUR ---
RN NOTES NO SIGNIFCANT CHANGES NOTED ON THIS SHIFT, REPORT GIVEN TO JOSE FARIA FOR CONTINUITY OF CARE .
--- NOTE | 2022-07-22 15:05 | NUR ---
rn note received report from Tashia FARIA for continuity of care
[2022-07-22 16:00] VITALS: BP 127/64
--- NOTE | 2022-07-22 19:34 | NUR ---
rn closing note pt in bed. pt on trach with mechanical ventilator settings tolerating well. 02 @100%. on tele monitor sinus bridgette. pt has iv access on left arm. iv intact, patent and flushing well. pt has 2 chest tube right sided pig tail connected to sunction.no signs of leakage, dressing intact at this time. no signs of pain or discomfort. gtube intact, patent. no residual volume noted. stevens catheter in place. yellow color draining to gravity. all safety measures in place. bed locked and in lowest position. side rails up x2. endorsed to manager night rn for continuity of care.
[2022-07-22 20:00] VITALS: BP 118/57
--- NOTE | 2022-07-22 20:00 | NUR ---
KOLE RN OPENING NOTE RECEIVED PTS IN BED, AWAKE WITH EYE OPEN , [facility] V[facility] WELL TOLERATED . O2 SAT 99%. ON TELE MONITOR ON SR ON THE MONITOR. IV ACCESS ON LFA AND RT HAND INTACT AND PATENT. RUNNING LR AT 100CC/HR. CONTINUE WITH 2 CHEST TUBE RIGHT SIDED PIG TAIL CONNECTED TO SUCTION. ONLY 10CC DRAINAGE NOTED.PER ENDORSE BY DAY SHIFT . NO FACIAL GRIMACING NOTED. NO ACUTE DISTRESS. GTUBE FEEDING WELL TOLERATED. RUNNING JEVITY 1.2 AT 65CC/HR. MUELLER CATHETER IN PLACE. DRAINING BY GRAVITY. NOTED YELLOWISH/CLEAR URINE.DUE MEDS GIVEN ORDERED NO ADVERSE SIDE EFFECT NOTED .WILL CONTINUE TO MONITOR PTS.
[2022-07-22] MEDS: ACETAMINOPHEN ES 500 MG TABLET GT PRN (20:46)
[2022-07-22] MEDS: TERAZOSIN HCL 1 MG CAPSULE GT SCH (21:09)
[2022-07-23] VITALS: BP 116/69
[2022-07-23] MEDS: VANCOMYCIN 1 GM in IV D5W 250ml IV SCH ×2 (00:38→12:46)
[2022-07-23] MEDS: JEVITY 1.2 CAL 1,000 ML BOTTLE GT PRN (00:44)
[2022-07-23 04:00] VITALS: BP 117/58
[2022-07-23] MEDS: IV LR 1000 ML 1,000 ML IV PRN ×2 (04:01→14:14)
[2022-07-23] MEDS: PIPERACILLIN /TAZOBACTAM 3.375 G in IV D5W 100 ML IV SCH ×3 (04:02→20:11)
--- NOTE | 2022-07-23 05:42 | NUR ---
KOLE RN NOTE PATIENT REMAIN IN BED, VENT SETTING ORDERED, ON TELE MONITOR -SR ,WITH MUELLER CATH TO GRAVITY WITH YELLOW COLOR URINE NOTED, WITH G TUBE FEEDING ORDERED TOLERATED WELL, NO RESIDUAL NOTED, KEEP HOB ELEVATED AT ALL TIME, LT UPPER ARM MID LINE IN PLACE ON IVF ORDERED, RT HAND HL INTACT AND FLUSHED WELL TUBE,RT SIDE ONE CHEST TUBE TO SUCTION -[id number] AND RT LATERAL -20CM H20 WITH OCCASIONAL BUBBLING NOTED DRESSING INTACT ,BED IN LOWEST AND LOCKED POSITION , CONT WITH SOFT RESTRAINT STILL TRYING TO REMOVE ALL LINES DRAINGE NOTED FROM CHEST TUBE #1 10 ML CHEST TUBES #2 0 ML, WILL ENDORSE TO RN DAY SHIFT FOR CONTINUITY OF CARE .
[2022-07-23 07:05] LABS: CALCIUM, SERUM 8.3 mg/dL (8.5-10.1); CREATININE 0.9 mg/dL (0.6-1.3)
--- NOTE | 2022-07-23 07:15 | NUR ---
RN OPENING NOTE RECEIVED PTS IN BED, AWAKE WITH EYE OPEN , ON TRACH TO [facility] VENT SETTING WELL TOLERATED . ON TELE MONITOR ON SR ON THE MONITOR. IV ACCESS ON LFA AND RT HAND INTACT AND PATENT. RUNNING LR AT 100CC/HR. CONTINUE WITH 2 CHEST TUBE RIGHT SIDED PIG TAIL CONNECTED TO SUCTION . NO FACIAL GRIMACING NOTED. NO ACUTE DISTRESS. GTUBE FEEDING WELL TOLERATED. RUNNING JEVITY 1.2 AT 65CC/HR. MUELLER CATHETER IN PLACE. DRAINING BY GRAVITY. NOTED YELLOWISH/CLEAR URINE. SAFETY MEASURES IN PLACE, CALL LIGHT WITHIN REACH, BED LOCKED IN THE LOWEST POSITION.
[2022-07-23 08:00] VITALS: BP 119/69
[2022-07-23 08:30] LABS: BASOPHILS % (AUTO) 0.5 % (0.0-2.0); EOSINOPHILS % (AUTO) 6.1 % (0.0-6.0); HEMATOCRIT 27 % (39-51); LYMPHOCYTES % (AUTO) 20.9 % (20.0-44.0); MEAN CORPUSCULAR HGB CONC 30 g/dl (31.0-36.0); MEAN CORPUSCULAR VOLUME 75 fL (80-96); MONOCYTES % (AUTO) 10.4 % (2.0-12.0); NEUTROPHILS % (AUTO) 62.1 % (43.0-81.0); PLATELET COUNT (AUTO) 306 K/uL (150-450); RED BLOOD CELL COUNT(AUTO) 3.56 MIL/uL (4.5-6.0); WHITE BLOOD COUNT (AUTO) 12.3 K/uL (4.3-11.0)
[2022-07-23 08:31] LABS: BASOPHILS # (AUTO) 0.1 K/uL (0.0-0.2); LYMPHOCYTES # (AUTO) 2.6 K/uL (0.8-4.8); MONOCYTES # (AUTO) 1.3 K/uL (0.1-1.30); NEUTROPHILS # (AUTO) 7.7 K/uL (1.8-8.9)
[2022-07-23] MEDS: PANTOPRAZOLE 40 MG/PACK PACK GT SCH (08:51)
[2022-07-23] MEDS: FERROUS SULFATE UDC 300 MG/5 ML UDC GT SCH (08:51)
[2022-07-23] MEDS: HYDROCODONE/APAP 5/325MG TABLET GT SCH (08:52)
[2022-07-23] MEDS: TOPIRAMATE 25 MG TABLET GT SCH (08:52)
[2022-07-23] MEDS: DAKINS QUARTER STRENGTH (0.125%) 480 ML BOTTLE TOP SCH (08:52)
[2022-07-23] MEDS: APIXABAN 5 MG TABLET GT SCH ×2 (08:53→16:19)
[2022-07-23] MEDS: PROSOURCE / PROSTAT (PYXIS) 30 ML UDC GT SCH ×3 (08:53→16:18)
[2022-07-23] MEDS: AMIODARONE HCL 200 MG TABLET GT SCH ×2 (08:54→16:20)
[2022-07-23] MEDS: DIGOXIN 0.25 MG TABLET GT SCH (08:54)
[2022-07-23 12:00] VITALS: BP 125/65
[2022-07-23 13:28] LABS: EOSINOPHILS % (MANUAL) 5 % (0-4); LYMPHOCYTES % (MANUAL) 19 % (16-48); MONOCYTES % (MANUAL) 4 % (0-11.0); NEUTROPHILS % (MANUAL) 72 (42-76)
[2022-07-23 16:00] VITALS: BP 128/75
--- NOTE | 2022-07-23 18:35 | NUR ---
RN CLOSING NOTE PATIENT REMAIN IN BED, VENT SETTING ORDERED, ON TELE MONITOR -SR ,WITH MUELLER CATH TO GRAVITY WITH YELLOW COLOR URINE NOTED, WITH G TUBE FEEDING ORDERED TOLERATED WELL, NO RESIDUAL NOTED, KEEP HOB ELEVATED AT ALL TIME, LT UPPER ARM MID LINE IN PLACE ON IVF ORDERED, RT HAND HL INTACT AND FLUSHED WELL TUBE,RT SIDE ONE CHEST TUBE TO SUCTION. BED IN LOWEST AND LOCKED POSITION , CONT WITH SOFT RESTRAINT STILL TRYING TO REMOVE ALL LINES . SAFETY MEASURE IN PLACE. WILL ENDORSE TO NIGHT NURSE FOR SARA.
[2022-07-23 20:00] VITALS: BP 135/64
--- NOTE | 2022-07-23 20:00 | NUR ---
KOLE RN OPENING NOTE RECEIVED PTS IN BED, AWAKE WITH EYE OPEN , [facility] . O2 SAT 99%. ON TELE MONITOR ON SR ON THE MONITOR. IV ACCESS ON LFA AND RT HAND INTACT AND PATENT. RUNNING LR AT 100CC/HR. CONTINUE WITH 2 CHEST TUBE RIGHT SIDED PIG TAIL CONNECTED TO SUCTION. ONLY 10CC DRAINAGE NOTED.PER ENDORSE BY DAY SHIFT . NO FACIAL GRIMACING NOTED. NO ACUTE DISTRESS. GTUBE FEEDING WELL TOLERATED. RUNNING JEVITY 1.2 AT 65CC/HR. MUELLER CATHETER IN PLACE. DRAINING BY GRAVITY. NOTED YELLOWISH/CLEAR URINE.DUE MEDS GIVEN ORDERED NO ADVERSE SIDE EFFECT NOTED .WILL CONTINUE TO MONITOR PTS.
[2022-07-23] MEDS: ACETAMINOPHEN ES 500 MG TABLET GT PRN (20:49)
[2022-07-23] MEDS: TERAZOSIN HCL 1 MG CAPSULE GT SCH (21:08)
[2022-07-24] VITALS: BP 126/62
[2022-07-24] MEDS: VANCOMYCIN 1 GM in IV D5W 250ml IV SCH ×2 (01:06→12:14)
[2022-07-24] MEDS: IV LR 1000 ML 1,000 ML IV PRN ×3 (01:12→21:25)
[2022-07-24] MEDS: JEVITY 1.2 CAL 1,000 ML BOTTLE GT PRN ×2 (03:59→21:25)
[2022-07-24 04:00] VITALS: BP 117/62
[2022-07-24] MEDS: PIPERACILLIN /TAZOBACTAM 3.375 G in IV D5W 100 ML IV SCH ×3 (04:12→21:25)
--- NOTE | 2022-07-24 06:48 | NUR ---
KOLE RN NOTE PATIENT REMAIN IN BED, VENT SETTING ORDERED, ON TELE MONITOR -SR WITH G TUBE FEEDING ORDERED TOLERATED WELL, NO RESIDUAL NOTED, KEEP HOB ELEVATED AT ALL TIME, LT UPPER ARM MID LINE IN PLACE ON IVF ORDERED,RT SIDE ONE CHEST TUBE TO SUCTION -[id number] AND RT LATERAL -20CM H20 WITH OCCASIONAL BUBBLING NOTED DRESSING INTACT ,BED IN LOWEST AND LOCKED POSITION , CONT WITH BILATERAL SOFT WRIST RESTRAINT . DRAINGE NOTED FROM CHEST TUBE #1 10 ML CHEST TUBES #2 0 ML, WILL ENDORSE TO RN DAY SHIFT FOR CONTINUITY OF CARE .
--- NOTE | 2022-07-24 07:31 | NUR ---
KOLE RN NOTE PATIENT IN BED,WITH TRACH TO VENT SETTING ORDERED, ON TELE MONITOR -SBHR 58 WITH G TUBE FEEDING ORDERED TOLERATED WELL, NO RESIDUAL NOTED, KEEP HOB ELEVATED AT ALL TIME, LT UPPER ARM MID LINE IN PLACE ON IVF ORDERED,RT SIDE ONE CHEST TUBE TO SUCTION -[id number] AND RT LATERAL -20CM H20 WITH NO BUBBLING NOTED AT THIS TIME, DRESSING INTACT ,BED IN LOWEST AND LOCKED POSITION , CONT TO MONITOR
[2022-07-24] MEDS: FERROUS SULFATE UDC 300 MG/5 ML UDC GT SCH (08:07)
[2022-07-24] MEDS: PANTOPRAZOLE 40 MG/PACK PACK GT SCH (08:07)
[2022-07-24] MEDS: TOPIRAMATE 25 MG TABLET GT SCH (08:07)
[2022-07-24] MEDS: APIXABAN 5 MG TABLET GT SCH ×2 (08:08→16:10)
[2022-07-24] MEDS: DIGOXIN 0.25 MG TABLET GT SCH (08:09)
[2022-07-24] MEDS: AMIODARONE HCL 200 MG TABLET GT SCH ×2 (08:09→16:10)
[2022-07-24] MEDS: PROSOURCE / PROSTAT (PYXIS) 30 ML UDC GT SCH ×3 (08:17→16:10)
[2022-07-24] MEDS: HYDROCODONE/APAP 5/325MG TABLET GT SCH (08:27)
[2022-07-24] MEDS: DAKINS QUARTER STRENGTH (0.125%) 480 ML BOTTLE TOP SCH (08:28)
[2022-07-24 08:32] LABS: CALCIUM, SERUM 8.1 mg/dL (8.5-10.1); CARBON DIOXIDE 23 mmol/L (21-32); CREATININE 0.9 mg/dL (0.6-1.3); GLUCOSE 110 mg/dL (74-106); POTASSIUM 3.8 mmol/L (3.5-5.1); SODIUM SERUM 142 mmol/L (136-145); UREA NITROGEN, BLOOD 14 mg/dL (7-18)
[2022-07-24 08:39] VITALS: BP 120/69
--- NOTE | 2022-07-24 09:08 | NUR ---
cordell r note spoke with dr maravilla notified that hr sb hr 55 held digoxin and amiodarone at this time also reported that on kub result stated do kub today, will f\u
[2022-07-24 12:00] VITALS: BP 118/66
--- NOTE | 2022-07-24 12:00 | NUR ---
KOLE RN note Noted soiled dressing over the superior chest drain(#1). Dressing was changed and anchored well. Also noted no bubbling and swinging over both chest drains will inform doctor for follow-up. Also noted urine on the beddings. Kowalski is in-situ, patency is confirmed. Noted hypospadias. Kowalski is draining well. Sheets are changed with position changed.
--- NOTE | 2022-07-24 12:30 | NUR ---
KOLE RN notes Informed Dr. Elizabeth Pollock about the absence of swinging and bubbling of both chest drains. Reported CXR results. He said to keep observation as they planned to remove the tubes tomorrow. Also he ordered to discontinue suction for both drains. Will follow up and keep monitoring.
--- NOTE | 2022-07-24 12:56 | NUR ---
KOLE RN notes Dr. Pollock called back and ordered discontinuing suction for both chest drains. Done as ordered. Both drains are kept under water seal. SpO2 100% and RR 18/min with FiO2 40%. Patient is not in distress. Will continue to monitor.
--- NOTE | 2022-07-24 14:27 | NUR ---
KOLE RN notes Patient still needs the restraint as he is still confused and disoriented. He tried to remove all lines. Will continue to monitor.
--- NOTE | 2022-07-24 15:28 | NUR ---
cordell rn note called to radiology about kub stated that still busy with er ,will do as soon they can .will f\u
[2022-07-24 16:00] VITALS: BP 105/58
--- NOTE | 2022-07-24 18:18 | NUR ---
KOLE RN NOTE PATIENT IN BED , ALL NEEDS ATTENDED WITH TRACH TO VENT SETTING ORDERED, RT SIDE CHEST 2 C PIGTAIL \CHEST TUBE TO WATER SEAL DRAINAGE, NO DRAINAGE NOTED , WITH TUBE FEEDING ODORED, KEEP HOB ELEVATED AT ALL TIMES, LT UPPER MID LINE IN PLCE AND FLUSHED WELL ON IVF ORDERED WILL CONT TO MONITOR CLOSELY
[2022-07-24 20:00] VITALS: BP_SYST 105; BP_SYST 134; BP_DIAS 58; BP_DIAS 69
[2022-07-24] MEDS: TERAZOSIN HCL 1 MG CAPSULE GT SCH (21:25)
[2022-07-24] MEDS: IV NS 0.9% 250 ML IV PRN (23:00)
[2022-07-25] VITALS: BP 133/74
[2022-07-25] MEDS: VANCOMYCIN 1 GM in IV D5W 250ml IV SCH ×2 (01:25→12:41)
[2022-07-25] MEDS: DAKINS QUARTER STRENGTH (0.125%) 480 ML BOTTLE TOP SCH (03:13)
[2022-07-25 04:00] VITALS: BP 128/77
[2022-07-25] MEDS: PIPERACILLIN /TAZOBACTAM 3.375 G in IV D5W 100 ML IV SCH ×3 (04:00→21:18)
--- NOTE | 2022-07-25 07:13 | NUR ---
KOLE RN notes Received patient in bed, resting and not in distress. Telemetry showed SR with HR 64/min. He is on 40% oxygen via mechanical ventilation, Spo2 100%, RR 20/min. no SOB noted. Skin and circulation is good with restraints use. Call mendoza is placed within reach. Bed is locked and placed in lowest position. All safety measures are implemented. Will continue to monitor.
[2022-07-25 08:00] VITALS: BP 122/68
[2022-07-25] MEDS: TOPIRAMATE 25 MG TABLET GT SCH (08:24)
[2022-07-25] MEDS: FERROUS SULFATE UDC 300 MG/5 ML UDC GT SCH (08:24)
[2022-07-25] MEDS: HYDROCODONE/APAP 5/325MG TABLET GT SCH (08:25)
[2022-07-25] MEDS: PANTOPRAZOLE 40 MG/PACK PACK GT SCH (08:26)
[2022-07-25] MEDS: APIXABAN 5 MG TABLET GT SCH ×2 (08:26→16:41)
[2022-07-25] MEDS: PROSOURCE / PROSTAT (PYXIS) 30 ML UDC GT SCH ×3 (08:27→16:39)
[2022-07-25] MEDS: AMIODARONE HCL 200 MG TABLET GT SCH ×2 (08:46→16:38)
[2022-07-25] MEDS: DIGOXIN 0.25 MG TABLET GT SCH (08:46)
[2022-07-25 09:17] LABS: CALCIUM, SERUM 7.7 mg/dL (8.5-10.1); CREATININE 0.9 mg/dL (0.6-1.3); POTASSIUM 3.8 mmol/L (3.5-5.1)
[2022-07-25] MEDS: IV LR 1000 ML 1,000 ML IV PRN (11:54)
[2022-07-25 12:00] VITALS: BP 105/59
--- NOTE | 2022-07-25 12:38 | NUR ---
Meghan RN notes Vancomycin trough level came back 21. Contacted pharmacy about the high trough level. Pharmacist Mr. Puentes said to withold the dose, done as ordered.
[2022-07-25 16:00] VITALS: BP 118/63
[2022-07-25] MEDS: JEVITY 1.2 CAL 1,000 ML BOTTLE GT PRN (18:16)
--- NOTE | 2022-07-25 18:35 | NUR ---
KOLE RN notes Patient is alert and resting in bed. Telemetry showed SR with HR 59-63/min. SpO2 95-100% with FiO2 0.5 via ventilator(PRVC mode). Suction done with moderate amount of white and thick sputum. Left UA mid-line is dry and intact, with LR running at 75mL/hr. Two chest drains are in-situ, with the upper one(#1) draining 10mL of reddish fluid. Both drains do not have swinging or bubbling. Dressing over abdomen, right hip and sacrum is changed. Call mendoza is placed within reach. Bed is locked and placed in lowest position. All safety measures are implemented. Will endorse PM nurse to continue care and monitoring.
--- NOTE | 2022-07-25 19:45 | NUR ---
KOLE RN OPENING NOTE RECEIVED PT IN BED, AWAKE, NONVERBAL. ON TRACH TO [facility] VENT SETTING WELL TOLERATED . O2 SAT 99%. ON TELE MONITOR ON SR ON THE MONITOR. IV ACCESS ON LFA RUNNING LR AT 100CC/HR. CONTINUE WITH 2 CHEST TUBE RIGHT SIDED PIG TAIL. NO FACIAL GRIMACING NOTED. NO ACUTE DISTRESS. GTUBE FEEDING WELL TOLERATED. RUNNING JEVITY 1.2 AT 65CC/HR. MUELLER CATHETER IN PLACE. DRAINING BY GRAVITY. NOTED YELLOWISH/CLEAR URINE. SAFETY MEASURES PROVIDES; BED IN LOWEST AND LOCKED POSITION, CALL LIGHT WITHIN REACH, WILL CONTINUE TO MONITOR PT THROUGHOUT THE SHIFT.
[2022-07-25 20:00] VITALS: BP 127/76
[2022-07-25] MEDS: VANCOMYCIN HCL 0.75 GM in IV D5W 250 ML IV SCH (20:19)
[2022-07-25] MEDS: TERAZOSIN HCL 1 MG CAPSULE GT SCH (21:19)
[2022-07-26] VITALS: BP 113/68
[2022-07-26] MEDS: IV LR 1000 ML 1,000 ML IV PRN ×2 (01:07→14:07)
[2022-07-26 04:00] VITALS: BP 121/63
[2022-07-26] MEDS: PIPERACILLIN /TAZOBACTAM 3.375 G in IV D5W 100 ML IV SCH ×3 (05:06→21:19)
--- NOTE | 2022-07-26 06:51 | NUR ---
KOLE RN CLOSING NOTE PT REMAINS IN BED SLEEPING BUT EASILY AROUSABLE TO TOUCH AND VOICE, NONVERBAL. [facility] V[facility] WELL TOLERATED. O2 SAT 99%. ON TELE MONITOR ON SB AT 58 ON THE MONITOR. IV ACCESS ON LFA RUNNING LR AT 100CC/HR. CONTINUE WITH 2 CHEST TUBE RIGHT SIDED PIG TAIL. NO FACIAL GRIMACING NOTED. NO ACUTE DISTRESS. GTUBE FEEDING WELL TOLERATED. RUNNING JEVITY 1.2 AT 65CC/HR. MUELLER CATHETER IN PLACE. DRAINING BY GRAVITY. NOTED YELLOWISH/CLEAR URINE.WITH B SOFT WRIST RESTRAINTS IN PLACED, SAFETY MEASURES PROVIDES; BED IN LOWEST AND LOCKED POSITION, CALL LIGHT WITHIN REACH, WILL ENDORSE TO THE AM SHIFT NURSE FOR CONTINUITY OF CARE.
[2022-07-26 07:31] LABS: CALCIUM, SERUM 7.8 mg/dL (8.5-10.1); CARBON DIOXIDE 26 mmol/L (21-32); CHLORIDE 110 mmol/L (98-107); CREATININE 0.8 mg/dL (0.6-1.3); GLUCOSE 111 mg/dL (74-106); POTASSIUM 3.8 mmol/L (3.5-5.1); SODIUM SERUM 142 mmol/L (136-145); UREA NITROGEN, BLOOD 16 mg/dL (7-18)
[2022-07-26 08:00] VITALS: BP 108/47
--- NOTE | 2022-07-26 08:24 | NUR ---
WOUND CARE CONSULT: RECEIVED ANOTHER CONSULT FOR ABDOMINAL AREA BLISTER. DEFER TO PLASTIC SURGERY TEAM CURRENTLY ON CASE. MSG LEFT FOR SURGICAL P.A.
[2022-07-26] MEDS: FERROUS SULFATE UDC 300 MG/5 ML UDC GT SCH (08:47)
[2022-07-26] MEDS: HYDROCODONE/APAP 5/325MG TABLET GT SCH (08:47)
[2022-07-26] MEDS: TOPIRAMATE 25 MG TABLET GT SCH (08:48)
[2022-07-26] MEDS: PANTOPRAZOLE 40 MG/PACK PACK GT SCH (08:48)
[2022-07-26] MEDS: VANCOMYCIN HCL 0.75 GM in IV D5W 250 ML IV SCH ×2 (08:49→20:16)
[2022-07-26] MEDS: AMIODARONE HCL 200 MG TABLET GT SCH ×2 (09:00→17:00)
[2022-07-26] MEDS: DIGOXIN 0.25 MG TABLET GT SCH (09:00)
--- NOTE | 2022-07-26 09:00 | NUR ---
RN NOTE AMIODARONE AND DIGOXIN HELD DUE TO LOW HEART RATE 52
--- NOTE | 2022-07-26 09:00 | NUR ---
RN NOTE VANCOMYCIN THROUGH LEVEL WAS 21 ON 07/25, FOR 07/26 0800 O'CLOCK PHARMACY NOTIFIED AND SHE SAID IT'S OKAY TO GIVE IT.
--- NOTE | 2022-07-26 09:00 | NUR ---
RN NOTE DR. GIMENEZ CALLED FROM ICU AND REQUESTED TO CLAMP THE CHEST TUBE AND GET THE CHEST X-RAY. ALL DOME AND THE CHEST X-RAY RESULT IS PENDING.
[2022-07-26] MEDS: APIXABAN 5 MG TABLET GT SCH ×2 (09:05→17:51)
[2022-07-26] MEDS: PROSOURCE / PROSTAT (PYXIS) 30 ML UDC GT SCH ×3 (09:07→17:46)
[2022-07-26] MEDS: DAKINS QUARTER STRENGTH (0.125%) 480 ML BOTTLE TOP SCH (09:07)
[2022-07-26] MEDS: JEVITY 1.2 CAL 1,000 ML BOTTLE GT PRN (11:31)
[2022-07-26 12:00] VITALS: BP 124/63
--- NOTE | 2022-07-26 13:00 | NUR ---
RN NOTE DR. DUNN NOTIFIED WITH THE CHEST X-RAY RESULT HE ORDERED TO KEEP THE CHEST TUBES CLAMPED AND HAVE THE REMOVAL GENE READY AT BED SIDE FOR TOMORROW.
[2022-07-26 16:00] VITALS: BP 124/63
--- NOTE | 2022-07-26 19:00 | NUR ---
RN CLOSING NOTE PT REMAINS IN BED SLEEPING BUT EASILY AROUSABLE TO TOUCH AND VOICE, NONVERBAL. [facility] WE[facility] TOLERATED. O2 SAT 100%. ON TELE MONITOR ON SB AT 56 ON THE MONITOR. IV ACCESS ON LFA RUNNING LR AT 100CC/HR. CHEST TUBE CLAMPED PER DR. DUNN ORDER WILL BE REMOVE TOMORROW MORNING. NO FACIAL GRIMACING NOTED. NO ACUTE DISTRESS. G TUBE FEEDING WELL TOLERATED. RUNNING JEVITY 1.2 AT 65CC/HR. MUELLER CATHETER IN PLACE. DRAINING BY GRAVITY. NOTED YELLOWISH/CLEAR URINE.WITH B SOFT WRIST RESTRAINTS IN PLACED, SAFETY MEASURES PROVIDES; BED IN LOWEST AND LOCKED POSITION, CALL LIGHT WITHIN REACH, WILL ENDORSE TO THE ACCESS SERVICES REPRESENTATIVE NURSE FOR SARA.
--- NOTE | 2022-07-26 19:15 | NUR ---
RN NOTE PT REMAINS IN BED AWAKE A/O TO SELF, CONT ON [facility] VENTILATOR TOLERATED SETTING WELL WITH 100% O2 SAT LEVEL, NO SOB/ACUTE DISTRESS NOTED, LARGE AMOUNT OF SECRETIONS ACCUMULATED, WILL SUCTION NEEDED, SINUS ALBERTO ON TELE MONITOR HR 50S, ARY MIDLINE PATENT AND INTACT, LR AT 100CC/HR INFUSING WELL, CHEST TUBE CLAMPED PER DR. DUNN WITH PLAN TO REMOVE IT TOMORROW MORNING, G TUBE FEEDING INFUSING WELL AND PT TOLERATED WELL, F/C IN PLACED PATENT AND INTACT, WITH CLEAR CLEAR YELLOW URINE, BILATERAL SOFT RESTRAINTS IN PLACED, NO ABNORMALITY NOTED AT SITE, NO CIRCULATION COMPROMISED, BED LOCKED AND LOWEST POSITION, CALL LIGHT WITHIN REACH, WILL CONT TO MONITOR CLOSELY.
[2022-07-26 20:00] VITALS: BP 125/75
[2022-07-26] MEDS: TERAZOSIN HCL 1 MG CAPSULE GT SCH (21:19)
[2022-07-27] VITALS: BP 103/55
[2022-07-27] MEDS: IV LR 1000 ML 1,000 ML IV PRN ×2 (02:32→16:31)
[2022-07-27 04:00] VITALS: BP 103/55
[2022-07-27] MEDS: PIPERACILLIN /TAZOBACTAM 3.375 G in IV D5W 100 ML IV SCH ×3 (04:25→20:59)
[2022-07-27] MEDS: JEVITY 1.2 CAL 1,000 ML BOTTLE GT PRN (05:30)
--- NOTE | 2022-07-27 05:42 | NUR ---
RT Pt recvd on current vent settings with portex 7 trach patent and secured. Suction done Q2 and PRN. SPO2 >92% maintained. No SOB or respiratory distress noted throughout shift. Trach care done. Vent plugged into red outlet with alarms on and audible. Spare trach and ambu bag at bedside.
--- NOTE | 2022-07-27 06:34 | NUR ---
RN NOTE PT REMAINS IN BED AWAKE A/O TO SELF, CONT ON [facility] VENTILATOR TOLERATED SETTING WELL WITH 100% O2 SAT LEVEL, NO SOB/ACUTE DISTRESS NOTED THROUGHOUT THE NIGHT, LARGE AMOUNT OF SECRETIONS ACCUMULATED, SUCTIONED NEEDED, SINUS ALBERTO ON TELE MONITOR HR 50S, ARY MIDLINE PATENT AND INTACT, LR AT 100CC/HR INFUSING WELL, 2 CHEST TUBE CLAMPED WITH PLAN TO REMOVE IT TODAY,OTHERWISE NO SIGNIFICANT CHANGE IN CONDITION DURING THE NIGHT, BILATERAL SOFT RESTRAINTS IN PLACED, NO ABNORMALITY NOTED AT SITE, NO CIRCULATION COMPROMISED, BED LOCKED AND LOWEST POSITION, CALL LIGHT WITHIN REACH, WILL ENDORSE CONTINUITY OF CARE TO ONCOMING NURSE.
--- NOTE | 2022-07-27 07:35 | NUR ---
RN notes RN notes Received patient in bed, resting without active complaint. Telemetry showed SB 53/min. Spo2 100% with FiO2 50% via ventilator. Left upper arm mid-line is dry and intact with LR running at 100mLl/hr. Call mendoza is placed within reach. Bed is locked and placed in the lowest position. All safety measures are implemented. Will continue care and monitoring.
[2022-07-27 08:00] VITALS: BP 102/64
[2022-07-27] MEDS: FERROUS SULFATE UDC 300 MG/5 ML UDC GT SCH (08:05)
[2022-07-27] MEDS: HYDROCODONE/APAP 5/325MG TABLET GT SCH (08:05)
[2022-07-27] MEDS: TOPIRAMATE 25 MG TABLET GT SCH (08:06)
[2022-07-27] MEDS: PROSOURCE / PROSTAT (PYXIS) 30 ML UDC GT SCH ×3 (08:06→16:39)
[2022-07-27] MEDS: VANCOMYCIN HCL 0.75 GM in IV D5W 250 ML IV SCH ×2 (08:06→20:04)
[2022-07-27] MEDS: APIXABAN 5 MG TABLET GT SCH ×2 (08:09→16:40)
[2022-07-27] MEDS: PANTOPRAZOLE 40 MG/PACK PACK GT SCH (08:10)
[2022-07-27] MEDS: DAKINS QUARTER STRENGTH (0.125%) 480 ML BOTTLE TOP SCH (08:10)
[2022-07-27] MEDS: AMIODARONE HCL 200 MG TABLET GT SCH ×2 (08:20→16:36)
[2022-07-27] MEDS: DIGOXIN 0.25 MG TABLET GT SCH (08:23)
--- NOTE | 2022-07-27 08:30 | NUR ---
RN notes Dr. Kan removed both chest drains and covered both sites with vaseline gauze and pressure dressing. For CXR after 1 hour and close oximetry monitoring.
[2022-07-27 08:32] LABS: CALCIUM, SERUM 8.2 mg/dL (8.5-10.1); CREATININE 0.9 mg/dL (0.6-1.3); POTASSIUM 3.8 mmol/L (3.5-5.1)
--- NOTE | 2022-07-27 09:38 | NUR ---
RN notes SpO2 100% with FiO2 40% via ventilator. Wounds are intact. Await CXR.
[2022-07-27 12:00] VITALS: BP 101/58
[2022-07-27] MEDS: IV NS 0.9% 250 ML IV PRN (14:55)
[2022-07-27 16:00] VITALS: BP 108/48
--- NOTE | 2022-07-27 18:30 | NUR ---
RN notes Patient is resting in bed without active complaint. Telemetry showed SB with HR 58/min. SpO2 100% with FiO2 40% via ventilator(PRVC mode). Left UA mid-line is dry and intact, with LR running at 100mL/hr. Old chest drain wounds are intact. Call mendoza is placed within reach. Bed is placed in the lowest position and locked. All safety measures are implemented. Will endorse PM RN to continue monitoring and care.
[2022-07-27 20:00] VITALS: BP 114/54
--- NOTE | 2022-07-27 20:00 | NUR ---
TD RN NOTE RECEIVED PTS IN BED AWAKE A/O TO SELF,V/S STABLE AFEBRILE . CONT ON [facility] VENTILATOR TOLERATED SETTING WELL WITH 100% O2 SAT LEVEL, NO SOB/ACUTE DISTRESS NOTED, WILL SUCTION NEEDED, SINUS ALBERTO ON TELE MONITOR HR 50S, ARY MIDLINE PATENT AND INTACT, LR AT 100CC/HR INFUSING WELL, NOTED DRESSING ON THE CHEST INTACT AND PATENT ,G- TUBE FEEDING JEVITY AT 65CC/HR INFUSING WELL AND PT TOLERATED WELL, F/C IN PLACED PATENT AND INTACT, WITH CLEAR CLEAR YELLOW URINE, BILATERAL SOFT RESTRAINTS IN PLACED, NO ABNORMALITY NOTED AT SITE, BED LOCKED AND LOWEST POSITION, CALL LIGHT WITHIN REACH, WILL CONT TO MONITOR..
[2022-07-27] MEDS: TERAZOSIN HCL 1 MG CAPSULE GT SCH (21:00)
[2022-07-27] MEDS: ACETAMINOPHEN ES 500 MG TABLET GT PRN (22:47)
[2022-07-28] VITALS: BP 100/58
[2022-07-28] MEDS: JEVITY 1.2 CAL 1,000 ML BOTTLE GT PRN (01:52)
[2022-07-28] MEDS: IV LR 1000 ML 1,000 ML IV PRN (01:52)
[2022-07-28 04:00] VITALS: BP 116/64
[2022-07-28] MEDS: PIPERACILLIN /TAZOBACTAM 3.375 G in IV D5W 100 ML IV SCH (04:02)
--- NOTE | 2022-07-28 06:50 | NUR ---
RN CLOSING NOTE PT REMAINS IN BED SLEEPING BUT EASILY AROUSABLE , NONVERBAL. ON [facility] VENT SETTING WELL TOLERATED. O2 SAT 100%. ON TELE MONITOR ON SB AT 56 ON THE MONITOR. IV ACCESS ON LFA RUNNING LR AT 100CC/HR. NO FACIAL GRIMACING NOTED. NO ACUTE DISTRESS. G TUBE FEEDING WELL TOLERATED. RUNNING JEVITY 1.2 AT 65CC/HR. MUELLER CATHETER IN PLACE. DRAINING BY GRAVITY. NOTED YELLOWISH/CLEAR URINE.WITH B SOFT WRIST RESTRAINTS IN PLACED, SAFETY MEASURES PROVIDES; BED IN LOWEST AND LOCKED POSITION, CALL LIGHT WITHIN REACH, WILL ENDORSE TO THE N DAY SHIFT NURSE FOR SARA.
--- NOTE | 2022-07-28 07:08 | NUR ---
RN NOTES RECEIVED PT ON BED , RESPONDS TO [facility]INF[facility] STIMULI, VENT/TRACH DEPENDENT , CONT ON [facility] VENTILATOR TOLERATED SETTING WELL WITH 100% O2 SAT LEVEL, NO SOB/ACUTE DISTRESS NOTED, WILL SUCTION NEEDED, SINUS ALBERTO ON TELE MONITOR HR 50'S, ARY MIDLINE PATENT AND INTACT, LR AT 100CC/HR INFUSING WELL, NOTED DRESSING ON THE CHEST INTACT AND PATENT ,G- TUBE FEEDING JEVITY AT 65CC/HR INFUSING WELL AND PT TOLERATED WELL, F/C IN PLACED PATENT AND INTACT, WITH CLEAR YELLOW URINE, BILATERAL SOFT RESTRAINTS IN PLACED FOR PATIENT SAFETY, BED LOCKED AND LOWEST POSITION, CALL LIGHT WITHIN REACH, WILL CONT TO MONITOR.
[2022-07-28 07:28] LABS: CALCIUM, SERUM 7.8 mg/dL (8.5-10.1); CREATININE 0.8 mg/dL (0.6-1.3); POTASSIUM 3.7 mmol/L (3.5-5.1)
[2022-07-28 08:00] VITALS: BP 141/68
[2022-07-28] MEDS: AMIODARONE HCL 200 MG TABLET GT SCH (08:12)
[2022-07-28] MEDS: VANCOMYCIN HCL 0.75 GM in IV D5W 250 ML IV SCH (08:12)
[2022-07-28] MEDS: DIGOXIN 0.25 MG TABLET GT SCH (08:13)
[2022-07-28] MEDS: FERROUS SULFATE UDC 300 MG/5 ML UDC GT SCH (08:13)
[2022-07-28] MEDS: APIXABAN 5 MG TABLET GT SCH (08:14)
[2022-07-28] MEDS: PANTOPRAZOLE 40 MG/PACK PACK GT SCH (08:15)
[2022-07-28] MEDS: TOPIRAMATE 25 MG TABLET GT SCH (08:15)
[2022-07-28] MEDS: PROSOURCE / PROSTAT (PYXIS) 30 ML UDC GT SCH (08:15)
[2022-07-28] MEDS: HYDROCODONE/APAP 5/325MG TABLET GT SCH (08:15)
[2022-07-28] MEDS: DAKINS QUARTER STRENGTH (0.125%) 480 ML BOTTLE TOP SCH (08:16)
--- NOTE | 2022-07-28 11:30 | NUR ---
RN NOTES REPORT GIVEN TO XIOMARA FARIA AT [facility].
[2022-07-28 12:00] VITALS: BP 122/69
--- NOTE | 2022-07-28 12:30 | NUR ---
RN NOTES PT DISCHARGED , LEFT THE FLOOR TO SNF ACCOMPANIED BY EMT PERSONAL IN STABLE CONDITION, REPORT GIVEN TO EMT PERSONEAL .
== END 2022-07-28 12:27 | DRG 853 ==
LOC: ER 11:02 → TRANSITION 07-18 00:14 → ICU 07-18 08:17 → TELE1 07-18 17:52 → TELE-TD 07-18 19:30
PROVIDERS: ADMIT Nurse Practitioner Acute Care; ATTEND Internal Medicine
PROC: 0W9930Z Drainage of Right Pleural Cavity with Drainage Device, Percutaneous Approach (ICD-10-PCS; 2022-07-17)
PROC: 5A1955Z Respiratory Ventilation, Greater than 96 Consecutive Hours (ICD-10-PCS; principal; 2022-07-18)
PROC: 05H633Z Insertion of Infusion Device into Left Subclavian Vein, Percutaneous Approach (ICD-10-PCS; 2022-07-21)
PROC: B547ZZA Ultrasonography of Left Subclavian Vein, Guidance (ICD-10-PCS; 2022-07-21)
PROC: 0JB70ZZ Excision of Back Subcutaneous Tissue and Fascia, Open Approach (ICD-10-PCS; 2022-07-22)
PROC: 0KBN0ZZ Excision of Right Hip Muscle, Open Approach (ICD-10-PCS; 2022-07-22)
DX: A41.9 Sepsis, unspecified organism (principal); G93.41 Metabolic encephalopathy; L89.154 Pressure ulcer of sacral region, stage 4; L89.214 Pressure ulcer of right hip, stage 4; J96.01 Acute respiratory failure with hypoxia; R53.2 Functional quadriplegia; T79.7XXA Traumatic subcutaneous emphysema, initial encounter; E87.1 Hypo-osmolality and hyponatremia; E87.20 Acidosis, unspecified; N39.0 Urinary tract infection, site not specified; Z99.11 Dependence on respirator [ventilator] status; D68.69 Other thrombophilia; J93.82 Other air leak; J93.9 Pneumothorax, unspecified; D50.9 Iron deficiency anemia, unspecified; E78.5 Hyperlipidemia, unspecified; F20.9 Schizophrenia, unspecified; E11.9 Type 2 diabetes mellitus without complications; G40.909 Epilepsy, unspecified, not intractable, without status epilepticus; I10 Essential (primary) hypertension; I48.91 Unspecified atrial fibrillation; I25.10 Atherosclerotic heart disease of native coronary artery without angina pectoris; Z68.22 Body mass index [BMI] 22.0-22.9, adult; Z93.0 Tracheostomy status; D53.9 Nutritional anemia, unspecified; D72.829 Elevated white blood cell count, unspecified; K21.9 Gastro-esophageal reflux disease without esophagitis; Z87.891 Personal history of nicotine dependence; Z93.1 Gastrostomy status; J44.9 Chronic obstructive pulmonary disease, unspecified; X58.XXXA Exposure to other specified factors, initial encounter; Y93.89 Activity, other specified; Y92.129 Unspecified place in nursing home as the place of occurrence of the external cause; N40.0 Benign prostatic hyperplasia without lower urinary tract symptoms; L89.626 Pressure-induced deep tissue damage of left heel; L89.616 Pressure-induced deep tissue damage of right heel; L89.159 Pressure ulcer of sacral region, unspecified stage; Z79.01 Long term (current) use of anticoagulants; Z83.3 Family history of diabetes mellitus
CPT/HCPCS: 31720; 36415; 36600; 70490-TC; 71045-TC; 71250-TC; 74018; 76380-TC; 80048-TC; 80053-TC; 80061-TC; 80076-TC; 80162-TC; 80202-TC; 81001; 82803-TC; 83605-TC; 83735-TC; 84100-TC; 84484-TC; 85025-TC; 85730-TC; 87040-TC; 87081-TC; 87086-TC; 94002-TC; 94003-TC; 94640-TC; 94760-TC; 94762-TC; 94799-TC; 99082-TC; A4623; A6253; A6403; A7526; C9803; G0378; J2405; J2543; J3370; J7030; J7050; J7060; J7120

== ENCOUNTER 2023-09-20 12:19 | Inpatient (IN) | payer MEDICARE, OTHER ==
[~2023-09-20] VITALS: Ht 167.6 cm; Wt 65.8 kg
[~2023-09-20 12:19] MED LIST changes: -ALBU6.7H9 INH; -ATOR10TA GT; -BALS5OIN TP; -CALC1TAB30 GT; +CALC500T13 GT; +CHLO473M5 MM; +DIGO250T GT; -DOCU100T2 GT; -ERGO500093 GT; -FAMO20TA8 GT; +FERR300L GT; +HYDR-4209 GT; +HYDR-4303 GT; -INSU100V42 SQ; -IPRA12.9 INH; +IPRA4AER IH; -LACT-96 GT; +LACT100027 GT; -MAGN400T8 GT; +PANT40SU2 GT; -RISP0.2515 GT; -SENN-18 GT; +TERA2CAP4 GT; +TOPI50TA GT; -TRAM50TA2 GT
[2023-09-20] MEDS ORDERED: PANTOPRAZOLE 40 MG VIAL IV ONE (12:30)
[2023-09-20] MEDS ORDERED: IV NS 0.9% 1,000 ML BAG IV ONE ×2 (12:30→13:30)
[2023-09-20] MEDS ORDERED: PANTOPRAZOLE 40 MG VIAL ONE (12:40)
[2023-09-20] MEDS ORDERED: ACETAMINOPHEN 650 MG/SUPP.RECT RC ONE ×2 (13:07→13:30)
[2023-09-20] MEDS ORDERED: ONDA4TAB5 GT (13:12)
[2023-09-20] MEDS ORDERED: CRAN425C6 GT (13:12)
[2023-09-20] MEDS ORDERED: PETR113O TP (13:12)
[2023-09-20] MEDS ORDERED: DOCU50LI GT (13:12)
[2023-09-20] MEDS ORDERED: KETO15CR2 TP (13:12)
[2023-09-20] MEDS ORDERED: LACT-209 GT (13:12)
[2023-09-20] MEDS ORDERED: QUET25TA GT (13:12)
[2023-09-20] MEDS ORDERED: VANCOMYCIN 1 GM in IV D5W 250 ML IV ONE (13:30)
[2023-09-20] MEDS ORDERED: CEFEPIME 1 GM in IV D5W 50 ML IV ONE (13:30)
[2023-09-20 13:46] LABS: HEMATOCRIT 38 % (39-51); HEMOGLOBIN 11.7 g/dL (13.5-17.5); LYMPHOCYTES # (AUTO) 0.4 K/uL (0.8-4.8); LYMPHOCYTES % (AUTO) 1.9 % (20.0-44.0); MEAN CORPUSCULAR HEMOGLOBIN 25 PG (26.0-33.0); MEAN CORPUSCULAR HGB CONC 31 g/dl (31.0-36.0); MEAN CORPUSCULAR VOLUME 79 fL (80-96); MONOCYTES # (AUTO) 0.8 K/uL (0.1-1.30); NEUTROPHILS % (AUTO) 94.1 % (43.0-81.0); PLATELET COUNT (AUTO) 238 K/uL (150-450); RED BLOOD CELL COUNT(AUTO) 4.77 MIL/uL (4.5-6.0); RED CELL DISTRIBUTION WIDTH 19.2 % (11.5-15.0); WHITE BLOOD COUNT (AUTO) 19.1 K/uL (4.3-11.0)
[2023-09-20 14:00] LABS: CALCIUM, SERUM 8.4 mg/dL (8.5-10.1); CREATININE 1.1 mg/dL (0.6-1.3); INR 1.03 (0.91-1.10); PARTIAL THROMBOPLASTIN TIME 38.4 SEC (24.3-34.3); POTASSIUM 3.3 mmol/L (3.5-5.1); PROTHROMBIN TIME 10.9 SECS (9.2-11.1)
[2023-09-20 14:06] LABS: ALBUMIN 2.7 g/dL (3.4-5.0); BILIRUBIN,DIRECT 0.2 mg/dL (0.0-0.2); BILIRUBIN,TOTAL 0.4 mg/dL (0.2-1.0); TOTAL PROTEIN, SERUM 8.2 g/dL (6.4-8.2)
[2023-09-20 14:54] LABS: LACTIC ACID 2.1 mmol/L (0.4-2.0)
[2023-09-20 16:30] LABS: APPEARANCE,URINE CLOUDY (CLEAR); BILIRUBIN,URINE 1+ (NEGATIVE); BLOOD, URINE 3+ Ery/uL (NEGATIVE); COLOR,URINE YELLOW (YELLOW); KETONES,URINE NEGATIVE (NEGATIVE); LEUKOCYTE ESTERASE ,URINE NEGATIVE (NEGATIVE); NITRITE, URINE NEGATIVE (NEGATIVE); PROTEIN,URINE 3+ mg/dl (NEGATIVE); UGLUCOSE NEGATIVE (NEGATIVE); UROBILINOGEN,URINE 0.2 EU/dL (0.2)
[2023-09-20] MEDS ORDERED: ONDANSETRON HCL/PF 4 MG/2 ML VIAL IVP PRN (17:00)
[2023-09-20] MEDS ORDERED: Z GUARD REMEDY 4 OZ OINT TP PRN (17:00)
[2023-09-20] MEDS ORDERED: ACETAMINOPHEN 650 MG/SUPP.RECT RC PRN (17:00)
[2023-09-20] MEDS ORDERED: MORPHINE SULFATE INJ 2 MG/ML DISP.SYRIN IV PRN (17:00)
[2023-09-20 18:20] LABS: WBC,URINE 0-2 /HPF (0-3)
[2023-09-20 18:21] LABS: ADD URINE CULTURE NO; BACTERIA,URINE None seen /HPF (None Seen); SQUAMOUS EPITHELIAL CELL,UR 0-2 /HPF (None Seen); YEAST,URINE None Seen /HPF (None Seen)
[2023-09-20 18:22] LABS: MUCUS,URINE Many /LPF (None Seen); SPERM,URINE None Seen /HPF (None Seen)
[2023-09-20] MEDS: IV D5/0.45 NACL 1,000 ML IV PRN (19:41)
[2023-09-20] MEDS: dexaMETHasone SOD PHOSPHATE 10 MG/ML VIAL IV SCH (19:54)
[2023-09-20 20:00] VITALS: BP 130/70; TEMP 99.4; O2SAT 99
[2023-09-21] VITALS (7 sets, daily range): BP systolic 107–139; BP diastolic 61–81; TEMP 97.7–99.5; O2SAT 99–100
[2023-09-21] MEDS: CEFEPIME 2 GM in IV D5W 100 ML IV SCH ×2 (01:12→12:56)
[2023-09-21] MEDS ORDERED: diphenhydrAMINE HCL 50 MG/ML VIAL IV ONE (02:30)
[2023-09-21] MEDS ORDERED: methylPREDNISolone SOD SUCC 125 MG/2ML VIAL IV ONE (02:30)
[2023-09-21] MEDS ORDERED: FAMOTIDINE/PF INJ 20 MG/2 ML VIAL IV ONE (02:30)
[2023-09-21] MEDS: VANCOMYCIN HCL 0.75 GM in IV D5W 250 ML IV SCH ×2 (03:00→14:10)
[2023-09-21 07:08] LABS: HEMATOCRIT 31 % (39-51); HEMOGLOBIN 9.6 g/dL (13.5-17.5); LYMPHOCYTES # (AUTO) 0.7 K/uL (0.8-4.8); LYMPHOCYTES % (AUTO) 2.2 % (20.0-44.0); MEAN CORPUSCULAR HEMOGLOBIN 25 PG (26.0-33.0); MEAN CORPUSCULAR HGB CONC 31 g/dl (31.0-36.0); MEAN CORPUSCULAR VOLUME 80 fL (80-96); MONOCYTES # (AUTO) 0.7 K/uL (0.1-1.30); MONOCYTES % (AUTO) 2.3 % (2.0-12.0); NEUTROPHILS # (AUTO) 28.5 K/uL (1.8-8.9); NEUTROPHILS % (AUTO) 95.5 % (43.0-81.0); PLATELET COUNT (AUTO) 206 K/uL (150-450); RED BLOOD CELL COUNT(AUTO) 3.88 MIL/uL (4.5-6.0); RED CELL DISTRIBUTION WIDTH 18.7 % (11.5-15.0); WHITE BLOOD COUNT (AUTO) 29.9 K/uL (4.3-11.0)
[2023-09-21 07:50] LABS: CALCIUM, SERUM 7.9 mg/dL (8.5-10.1); CREATININE 1.1 mg/dL (0.6-1.3); MAGNESIUM 1.9 mg/dL (1.8-2.4); PHOSPHORUS 1.7 mg/dL (2.5-4.9); POTASSIUM 3.7 mmol/L (3.5-5.1)
[2023-09-21] MEDS: PANTOPRAZOLE 40 MG VIAL IV SCH (08:43)
[2023-09-21] MEDS: dexaMETHasone SOD PHOSPHATE 10 MG/ML VIAL IV SCH (08:43)
[2023-09-21] MEDS ORDERED: Sodium Phosphate 15 MMOL in IV NS 0.9% 245 ML IV ONE (16:00)
[2023-09-21] MEDS: MEROPENEM 1 G in IV NS 0.9% 100 ML IV SCH (20:51)
[2023-09-22] VITALS: BP 95/66; TEMP 97.3; O2SAT 99
[2023-09-22] MEDS: VANCOMYCIN HCL 0.75 GM in IV D5W 250 ML IV SCH ×2 (02:35→13:03)
[2023-09-22 04:00] VITALS: BP 92/58; TEMP 97.3; O2SAT 99
[2023-09-22] MEDS: IV D5/0.45 NACL 1,000 ML IV PRN (06:36)
[2023-09-22 07:36] LABS: HEMATOCRIT 31 % (39-51); HEMOGLOBIN 9.4 g/dL (13.5-17.5); LYMPHOCYTES # (AUTO) 0.8 K/uL (0.8-4.8); LYMPHOCYTES % (AUTO) 2.9 % (20.0-44.0); MEAN CORPUSCULAR HEMOGLOBIN 25 PG (26.0-33.0); MEAN CORPUSCULAR HGB CONC 31 g/dl (31.0-36.0); MEAN CORPUSCULAR VOLUME 80 fL (80-96); MONOCYTES # (AUTO) 1.3 K/uL (0.1-1.30); MONOCYTES % (AUTO) 5.1 % (2.0-12.0); NEUTROPHILS # (AUTO) 24.2 K/uL (1.8-8.9); PLATELET COUNT (AUTO) 196 K/uL (150-450); RED BLOOD CELL COUNT(AUTO) 3.84 MIL/uL (4.5-6.0); RED CELL DISTRIBUTION WIDTH 19.3 % (11.5-15.0); WHITE BLOOD COUNT (AUTO) 26.3 K/uL (4.3-11.0)
[2023-09-22 08:00] VITALS: BP 96/62; TEMP 97.9; O2SAT 99
[2023-09-22 08:17] LABS: BILIRUBIN,TOTAL 0.2 mg/dL (0.2-1.0); CREATININE 0.8 mg/dL (0.6-1.3); MAGNESIUM 2.4 mg/dL (1.8-2.4); PHOSPHORUS 1.9 mg/dL (2.5-4.9); POTASSIUM 3.6 mmol/L (3.5-5.1); TOTAL PROTEIN, SERUM 6.8 g/dL (6.4-8.2)
[2023-09-22] MEDS: PANTOPRAZOLE 40 MG VIAL IV SCH (09:33)
[2023-09-22] MEDS: dexaMETHasone SOD PHOSPHATE 10 MG/ML VIAL IV SCH (09:34)
[2023-09-22] MEDS: MEROPENEM 1 G in IV NS 0.9% 100 ML IV SCH ×2 (09:34→21:21)
[2023-09-22 12:00] VITALS: BP 111/59; TEMP 98.6; O2SAT 99
[2023-09-22 16:00] VITALS: BP 114/66; TEMP 98.2; O2SAT 99
[2023-09-22] MEDS ORDERED: Sodium Phosphate 15 MMOL in IV NS 0.9% 245 ML IV ONE (16:00)
[2023-09-22 20:00] VITALS: BP 109/61; TEMP 98.2; O2SAT 99
[2023-09-23] VITALS (7 sets, daily range): BP systolic 98–134; BP diastolic 59–92; TEMP 97.6–98.4; O2SAT 97–100
[2023-09-23] MEDS: VANCOMYCIN HCL 0.75 GM in IV D5W 250 ML IV SCH ×2 (02:49→14:59)
[2023-09-23 07:56] LABS: HEMATOCRIT 29 % (39-51); HEMOGLOBIN 9.2 g/dL (13.5-17.5); LYMPHOCYTES # (AUTO) 1.2 K/uL (0.8-4.8); LYMPHOCYTES % (AUTO) 5.8 % (20.0-44.0); MEAN CORPUSCULAR HEMOGLOBIN 25 PG (26.0-33.0); MEAN CORPUSCULAR HGB CONC 31 g/dl (31.0-36.0); MEAN CORPUSCULAR VOLUME 79 fL (80-96); MONOCYTES # (AUTO) 1.5 K/uL (0.1-1.30); MONOCYTES % (AUTO) 7.6 % (2.0-12.0); NEUTROPHILS # (AUTO) 17.3 K/uL (1.8-8.9); NEUTROPHILS % (AUTO) 86.6 % (43.0-81.0); PLATELET COUNT (AUTO) 214 K/uL (150-450)
[2023-09-23 08:55] LABS: BILIRUBIN,TOTAL 0.3 mg/dL (0.2-1.0); CALCIUM, SERUM 7.9 mg/dL (8.5-10.1); CREATININE 0.8 mg/dL (0.6-1.3); MAGNESIUM 2.4 mg/dL (1.8-2.4); PHOSPHORUS 1.7 mg/dL (2.5-4.9); POTASSIUM 3.3 mmol/L (3.5-5.1); TOTAL PROTEIN, SERUM 6.6 g/dL (6.4-8.2)
[2023-09-23] MEDS: MEROPENEM 1 G in IV NS 0.9% 100 ML IV SCH ×2 (09:32→20:24)
[2023-09-23] MEDS: PANTOPRAZOLE 40 MG VIAL IV SCH (09:32)
[2023-09-23] MEDS: dexaMETHasone SOD PHOSPHATE 10 MG/ML VIAL IV SCH (09:32)
[2023-09-23] MEDS: POTASSIUM CL. PREMIX PERIPHER. 50 ML IV SCH ×2 (12:55→14:20)
[2023-09-23] MEDS ORDERED: DIATR MEGLU/DIATRIZOATE SODIUM 120 ML BOTTLE (GASTROGRAPHIN) ONE (14:17)
[2023-09-23] MEDS ORDERED: Sodium Phosphate 15 MMOL in IV NS 0.9% 245 ML IV ONE (16:00)
[2023-09-24] VITALS: BP 132/64; TEMP 98.3; O2SAT 96
[2023-09-24] MEDS: VANCOMYCIN HCL 0.75 GM in IV D5W 250 ML IV SCH ×2 (01:11→14:00)
[2023-09-24 04:00] VITALS: BP 126/63; TEMP 98.8; O2SAT 98
[2023-09-24] MEDS: IV D5/0.45 NACL 1,000 ML IV PRN ×2 (06:18→14:18)
[2023-09-24 07:59] LABS: BASOPHILS % (AUTO) 0.1 % (0.0-2.0); HEMATOCRIT 29 % (39-51); LYMPHOCYTES # (AUTO) 1.5 K/uL (0.8-4.8); LYMPHOCYTES % (AUTO) 10.6 % (20.0-44.0); MEAN CORPUSCULAR HEMOGLOBIN 25 PG (26.0-33.0); MEAN CORPUSCULAR HGB CONC 32 g/dl (31.0-36.0); MEAN CORPUSCULAR VOLUME 79 fL (80-96); MONOCYTES # (AUTO) 1.6 K/uL (0.1-1.30); MONOCYTES % (AUTO) 11.3 % (2.0-12.0); NEUTROPHILS # (AUTO) 11.2 K/uL (1.8-8.9); PLATELET COUNT (AUTO) 211 K/uL (150-450); RED BLOOD CELL COUNT(AUTO) 3.65 MIL/uL (4.5-6.0); RED CELL DISTRIBUTION WIDTH 19.2 % (11.5-15.0); WHITE BLOOD COUNT (AUTO) 14.3 K/uL (4.3-11.0)
[2023-09-24 08:00] VITALS: BP 139/73; TEMP 97.9; O2SAT 100
[2023-09-24 08:19] LABS: ALANINE AMINOTRANSFERASE 30 U/L (12-78); ALKALINE PHOSPHATASE 66 U/L (46-116); ASPARTATE AMINOTRANSFERASE 18 U/L (15-37); BILIRUBIN,TOTAL 0.3 mg/dL (0.2-1.0); CALCIUM, SERUM 7.8 mg/dL (8.5-10.1); CARBON DIOXIDE 27 mmol/L (21-32); CHLORIDE 111 mmol/L (98-107); CREATININE 0.8 mg/dL (0.6-1.3); GLUCOSE 111 mg/dL (74-106); MAGNESIUM 2.3 mg/dL (1.8-2.4); PHOSPHORUS 1.5 mg/dL (2.5-4.9); POTASSIUM 3.2 mmol/L (3.5-5.1); SODIUM SERUM 140 mmol/L (136-145); TOTAL PROTEIN, SERUM 6.5 g/dL (6.4-8.2); UREA NITROGEN, BLOOD 21 mg/dL (7-18)
[2023-09-24] MEDS: dexaMETHasone SOD PHOSPHATE 10 MG/ML VIAL IV SCH (10:27)
[2023-09-24] MEDS: PANTOPRAZOLE 40 MG VIAL IV SCH (10:27)
[2023-09-24] MEDS: POTASSIUM CL. PREMIX PERIPHER. 50 ML IV SCH ×4 (10:32→14:47)
[2023-09-24] MEDS: IV NS 0.9% 250 ML IV PRN (10:51)
[2023-09-24] MEDS ORDERED: Sodium Phosphate 15 MMOL in IV NS 0.9% 245 ML IV SCH (11:00)
[2023-09-24 12:00] VITALS: BP 130/74; TEMP 97.9; O2SAT 100
[2023-09-24] MEDS: MEROPENEM 1 G in IV NS 0.9% 100 ML IV SCH ×2 (12:51→21:14)
[2023-09-24] MEDS ORDERED: JEVITY 1.2 CAL 1,000 ML BOTTLE GT PRN (15:00)
[2023-09-24 16:00] VITALS: BP 145/69; TEMP 98.1; O2SAT 100
[2023-09-24] MEDS: PROSOURCE / PROSTAT (PYXIS) 30 ML UDC GT SCH (16:13)
[2023-09-24 20:00] VITALS: BP 135/61; TEMP 98; O2SAT 100
[2023-09-25] VITALS: BP 149/81; TEMP 98.2; O2SAT 100
[2023-09-25] MEDS: VANCOMYCIN HCL 0.75 GM in IV D5W 250 ML IV SCH ×2 (01:25→15:27)
[2023-09-25] MEDS: IV D5/0.45 NACL 1,000 ML IV PRN ×2 (01:41→15:31)
[2023-09-25 04:00] VITALS: BP 150/74; TEMP 97.9; O2SAT 97
[2023-09-25] MEDS: MEROPENEM 1 G in IV NS 0.9% 100 ML IV SCH ×3 (04:17→20:44)
[2023-09-25 07:10] LABS: HEMATOCRIT 30 % (39-51); HEMOGLOBIN 9.5 g/dL (13.5-17.5); LYMPHOCYTES # (AUTO) 1.6 K/uL (0.8-4.8); LYMPHOCYTES % (AUTO) 13.3 % (20.0-44.0); MEAN CORPUSCULAR HEMOGLOBIN 24 PG (26.0-33.0); MEAN CORPUSCULAR HGB CONC 31 g/dl (31.0-36.0); MEAN CORPUSCULAR VOLUME 78 fL (80-96); MONOCYTES # (AUTO) 1.7 K/uL (0.1-1.30); MONOCYTES % (AUTO) 13.8 % (2.0-12.0); NEUTROPHILS % (AUTO) 72.9 % (43.0-81.0); PLATELET COUNT (AUTO) 241 K/uL (150-450); RED BLOOD CELL COUNT(AUTO) 3.87 MIL/uL (4.5-6.0); RED CELL DISTRIBUTION WIDTH 19.3 % (11.5-15.0); WHITE BLOOD COUNT (AUTO) 12.4 K/uL (4.3-11.0)
[2023-09-25 07:39] LABS: BILIRUBIN,TOTAL 0.3 mg/dL (0.2-1.0); CALCIUM, SERUM 7.6 mg/dL (8.5-10.1); CREATININE 0.8 mg/dL (0.6-1.3); MAGNESIUM 2.1 mg/dL (1.8-2.4); PHOSPHORUS 1.7 mg/dL (2.5-4.9); POTASSIUM 3.2 mmol/L (3.5-5.1); TOTAL PROTEIN, SERUM 6.3 g/dL (6.4-8.2)
[2023-09-25 08:00] VITALS: BP 143/94; TEMP 98.2; O2SAT 100
[2023-09-25] MEDS: PROSOURCE / PROSTAT (PYXIS) 30 ML UDC GT SCH ×3 (08:29→16:16)
[2023-09-25] MEDS: dexaMETHasone SOD PHOSPHATE 10 MG/ML VIAL IV SCH (08:29)
[2023-09-25] MEDS: PANTOPRAZOLE 40 MG/PACK PACK GT SCH (08:29)
[2023-09-25] MEDS ORDERED: DIATR MEGLU/DIATRIZOATE SODIUM 30 ML BOTTLE (GASTROGRAPHIN) ONE (09:25)
[2023-09-25] MEDS ORDERED: POTASSIUM CHLORIDE 20 MEQ POWDER PACKET GT ONE (10:00)
[2023-09-25 12:00] VITALS: BP 126/92; TEMP 98.1; O2SAT 98
[2023-09-25] MEDS ORDERED: NEUTRA PHOS 1 POWD.PACKET PO ONE (12:00)
[2023-09-25 16:00] VITALS: BP 134/67; TEMP 98.6; O2SAT 98
[2023-09-25 20:00] VITALS: BP 132/78; TEMP 98.8; O2SAT 94
[2023-09-26] VITALS: BP 132/73; TEMP 98.4; O2SAT 96
[2023-09-26] MEDS: VANCOMYCIN HCL 0.75 GM in IV D5W 250 ML IV SCH ×2 (01:15→14:25)
[2023-09-26] MEDS: JEVITY 1.2 CAL 1,000 ML BOTTLE GT PRN ×2 (01:17→21:06)
[2023-09-26 04:00] VITALS: BP 128/83; TEMP 98.2; O2SAT 97
[2023-09-26] MEDS: MEROPENEM 1 G in IV NS 0.9% 100 ML IV SCH ×3 (04:49→21:06)
[2023-09-26] MEDS: IV D5/0.45 NACL 1,000 ML IV PRN ×2 (06:32→18:44)
[2023-09-26 07:28] LABS: BASOPHILS % (AUTO) 0.1 % (0.0-2.0); EOSINOPHILS % (AUTO) 0.2 % (0.0-6.0); HEMATOCRIT 32 % (39-51); HEMOGLOBIN 10.2 g/dL (13.5-17.5); LYMPHOCYTES # (AUTO) 2.2 K/uL (0.8-4.8); LYMPHOCYTES % (AUTO) 11.1 % (20.0-44.0); MEAN CORPUSCULAR HEMOGLOBIN 25 PG (26.0-33.0); MEAN CORPUSCULAR HGB CONC 32 g/dl (31.0-36.0); MEAN CORPUSCULAR VOLUME 79 fL (80-96); MONOCYTES # (AUTO) 2.4 K/uL (0.1-1.30); MONOCYTES % (AUTO) 11.9 % (2.0-12.0); NEUTROPHILS # (AUTO) 15.4 K/uL (1.8-8.9); NEUTROPHILS % (AUTO) 76.7 % (43.0-81.0); PLATELET COUNT (AUTO) 259 K/uL (150-450); RED BLOOD CELL COUNT(AUTO) 4.12 MIL/uL (4.5-6.0); RED CELL DISTRIBUTION WIDTH 18.7 % (11.5-15.0); WHITE BLOOD COUNT (AUTO) 20.1 K/uL (4.3-11.0)
[2023-09-26 07:38] LABS: BILIRUBIN,TOTAL 0.3 mg/dL (0.2-1.0); CALCIUM, SERUM 7.7 mg/dL (8.5-10.1); CREATININE 0.7 mg/dL (0.6-1.3); MAGNESIUM 2.1 mg/dL (1.8-2.4); PHOSPHORUS 1.8 mg/dL (2.5-4.9); POTASSIUM 3.2 mmol/L (3.5-5.1); TOTAL PROTEIN, SERUM 6.3 g/dL (6.4-8.2)
[2023-09-26 08:00] VITALS: BP 138/90; TEMP 98.8; O2SAT 96
[2023-09-26] MEDS: PANTOPRAZOLE 40 MG/PACK PACK GT SCH (08:23)
[2023-09-26] MEDS: PROSOURCE / PROSTAT (PYXIS) 30 ML UDC GT SCH ×3 (08:23→16:40)
[2023-09-26] MEDS: dexaMETHasone SOD PHOSPHATE 10 MG/ML VIAL IV SCH (08:24)
[2023-09-26] MEDS: POTASSIUM CHLORIDE 20 MEQ POWDER PACKET NG SCH (10:43)
[2023-09-26 12:00] VITALS: BP 125/82; TEMP 98.4; O2SAT 97
[2023-09-26 16:00] VITALS: BP 125/82; TEMP 98.4; O2SAT 97
[2023-09-26] MEDS ORDERED: NEUTRA PHOS 1 POWD.PACKET NG ONE (16:00)
[2023-09-26 20:00] VITALS: BP 124/73; TEMP 98.1; O2SAT 100
[2023-09-27] VITALS: BP 137/87; TEMP 98.2; O2SAT 100
[2023-09-27] MEDS: VANCOMYCIN HCL 0.75 GM in IV D5W 250 ML IV SCH ×2 (01:56→13:01)
[2023-09-27 04:00] VITALS: BP 133/70; TEMP 97.9; O2SAT 99
[2023-09-27] MEDS: MEROPENEM 1 G in IV NS 0.9% 100 ML IV SCH ×3 (04:48→20:11)
[2023-09-27 07:12] LABS: EOSINOPHILS % (AUTO) 0.2 % (0.0-6.0); HEMATOCRIT 32 % (39-51); HEMOGLOBIN 10.3 g/dL (13.5-17.5); LYMPHOCYTES # (AUTO) 1.6 K/uL (0.8-4.8); LYMPHOCYTES % (AUTO) 12.1 % (20.0-44.0); MEAN CORPUSCULAR HEMOGLOBIN 25 PG (26.0-33.0); MEAN CORPUSCULAR HGB CONC 32 g/dl (31.0-36.0); MEAN CORPUSCULAR VOLUME 79 fL (80-96); MONOCYTES # (AUTO) 2.1 K/uL (0.1-1.30); MONOCYTES % (AUTO) 15.7 % (2.0-12.0); NEUTROPHILS # (AUTO) 9.7 K/uL (1.8-8.9); PLATELET COUNT (AUTO) 256 K/uL (150-450); RED BLOOD CELL COUNT(AUTO) 4.08 MIL/uL (4.5-6.0); RED CELL DISTRIBUTION WIDTH 18.6 % (11.5-15.0); WHITE BLOOD COUNT (AUTO) 13.4 K/uL (4.3-11.0)
[2023-09-27 07:25] LABS: CREATININE 0.6 mg/dL (0.6-1.3); MAGNESIUM 2.2 mg/dL (1.8-2.4); PHOSPHORUS 2.2 mg/dL (2.5-4.9); POTASSIUM 3.5 mmol/L (3.5-5.1)
[2023-09-27 08:00] VITALS: BP 129/83; TEMP 97.5; O2SAT 100
[2023-09-27] MEDS: PANTOPRAZOLE 40 MG/PACK PACK GT SCH (08:40)
[2023-09-27] MEDS: PROSOURCE / PROSTAT (PYXIS) 30 ML UDC GT SCH ×3 (08:40→16:21)
[2023-09-27] MEDS: dexaMETHasone SOD PHOSPHATE 10 MG/ML VIAL IV SCH (08:40)
[2023-09-27] MEDS: IV D5/0.45 NACL 1,000 ML IV PRN ×2 (09:11→22:23)
[2023-09-27 09:32] LABS: ANISOCYTOSIS 1+; BASOPHILS % (MANUAL) 0 % (0.0-2.0); EOSINOPHILS % (MANUAL) 2 % (0-4); HYPOCHROMASIA 1+; LYMPHOCYTES % (MANUAL) 14 % (16-48); MONOCYTES % (MANUAL) 16 % (0-11.0); NEUTROPHILS % (MANUAL) 67 (42-76); PLATELET ESTIMATE ADEQUATE; TARGET CELLS 1+
[2023-09-27 12:00] VITALS: BP 146/80; TEMP 97.5; O2SAT 100
[2023-09-27] MEDS: JEVITY 1.2 CAL 1,000 ML BOTTLE GT PRN (13:01)
[2023-09-27 16:00] VITALS: BP 133/61; TEMP 97.5; O2SAT 100
[2023-09-27] MEDS ORDERED: NEUTRA PHOS 1 POWD.PACKET NG ONE (16:00)
[2023-09-27 20:00] VITALS: BP 131/68; TEMP 97.5; O2SAT 100
[2023-09-28] VITALS: BP 131/66; TEMP 97.3; O2SAT 99
[2023-09-28] MEDS: VANCOMYCIN HCL 0.75 GM in IV D5W 250 ML IV SCH ×2 (01:03→13:43)
[2023-09-28 04:00] VITALS: BP 139/76; TEMP 97.5; O2SAT 100
[2023-09-28] MEDS: MEROPENEM 1 G in IV NS 0.9% 100 ML IV SCH ×3 (04:00→20:22)
[2023-09-28 07:29] LABS: CALCIUM, SERUM 6.3 mg/dL (8.5-10.1); CREATININE 0.6 mg/dL (0.6-1.3); POTASSIUM 3.5 mmol/L (3.5-5.1)
[2023-09-28 08:00] VITALS: BP 104/61; TEMP 97.4; O2SAT 98
[2023-09-28] MEDS: PROSOURCE / PROSTAT (PYXIS) 30 ML UDC GT SCH ×3 (08:07→17:46)
[2023-09-28] MEDS: PANTOPRAZOLE 40 MG/PACK PACK GT SCH (09:14)
[2023-09-28] MEDS: dexaMETHasone SOD PHOSPHATE 10 MG/ML VIAL IV SCH (09:14)
[2023-09-28 11:18] LABS: BASOPHILS % (AUTO) 0.1 % (0.0-2.0); EOSINOPHILS % (AUTO) 0.3 % (0.0-6.0); HEMATOCRIT 34 % (39-51); HEMOGLOBIN 10.8 g/dL (13.5-17.5); LYMPHOCYTES # (AUTO) 1.5 K/uL (0.8-4.8); LYMPHOCYTES % (AUTO) 14.2 % (20.0-44.0); MEAN CORPUSCULAR HEMOGLOBIN 26 PG (26.0-33.0); MEAN CORPUSCULAR HGB CONC 32 g/dl (31.0-36.0); MEAN CORPUSCULAR VOLUME 80 fL (80-96); MONOCYTES # (AUTO) 1.2 K/uL (0.1-1.30); MONOCYTES % (AUTO) 11.2 % (2.0-12.0); NEUTROPHILS % (AUTO) 74.2 % (43.0-81.0); PLATELET COUNT (AUTO) 266 K/uL (150-450); RED CELL DISTRIBUTION WIDTH 19.3 % (11.5-15.0); WHITE BLOOD COUNT (AUTO) 10.8 K/uL (4.3-11.0)
[2023-09-28 12:00] VITALS: BP 140/71; TEMP 97.9; O2SAT 100
[2023-09-28] MEDS: IV D5/0.45 NACL 1,000 ML IV PRN (13:07)
[2023-09-28 16:00] VITALS: BP 126/72; TEMP 97.8; O2SAT 98
[2023-09-28 20:00] VITALS: BP 129/71; TEMP 98.4; O2SAT 100
[2023-09-29] VITALS: BP 127/65; TEMP 99.1; O2SAT 100
[2023-09-29] MEDS: VANCOMYCIN HCL 0.75 GM in IV D5W 250 ML IV SCH ×2 (01:49→13:52)
[2023-09-29 04:00] VITALS: BP 135/63; TEMP 98.6; O2SAT 100
[2023-09-29] MEDS: MEROPENEM 1 G in IV NS 0.9% 100 ML IV SCH ×3 (04:37→22:00)
[2023-09-29] MEDS: JEVITY 1.2 CAL 1,000 ML BOTTLE GT PRN (05:56)
[2023-09-29 07:23] LABS: BASOPHILS % (AUTO) 0.1 % (0.0-2.0); EOSINOPHILS % (AUTO) 0.1 % (0.0-6.0); HEMATOCRIT 33 % (39-51); HEMOGLOBIN 10.4 g/dL (13.5-17.5); LYMPHOCYTES # (AUTO) 1.6 K/uL (0.8-4.8); LYMPHOCYTES % (AUTO) 13.9 % (20.0-44.0); MEAN CORPUSCULAR HEMOGLOBIN 25 PG (26.0-33.0); MEAN CORPUSCULAR HGB CONC 32 g/dl (31.0-36.0); MEAN CORPUSCULAR VOLUME 79 fL (80-96); MONOCYTES # (AUTO) 1.2 K/uL (0.1-1.30); NEUTROPHILS # (AUTO) 8.8 K/uL (1.8-8.9); NEUTROPHILS % (AUTO) 75.9 % (43.0-81.0); PLATELET COUNT (AUTO) 270 K/uL (150-450); RED BLOOD CELL COUNT(AUTO) 4.18 MIL/uL (4.5-6.0); RED CELL DISTRIBUTION WIDTH 18.5 % (11.5-15.0); WHITE BLOOD COUNT (AUTO) 11.6 K/uL (4.3-11.0)
[2023-09-29 08:00] VITALS: BP 123/68; TEMP 97.9; O2SAT 100
[2023-09-29] MEDS: PROSOURCE / PROSTAT (PYXIS) 30 ML UDC GT SCH ×3 (08:00→16:57)
[2023-09-29 08:20] LABS: CARBON DIOXIDE 29 mmol/L (21-32); CHLORIDE 104 mmol/L (98-107); CREATININE 0.6 mg/dL (0.6-1.3); GLUCOSE 97 mg/dL (74-106); MAGNESIUM 2.3 mg/dL (1.8-2.4); PHOSPHORUS 2.2 mg/dL (2.5-4.9); POTASSIUM 4.1 mmol/L (3.5-5.1); SODIUM SERUM 135 mmol/L (136-145); UREA NITROGEN, BLOOD 19 mg/dL (7-18)
[2023-09-29] MEDS: dexaMETHasone SOD PHOSPHATE 10 MG/ML VIAL IV SCH (10:07)
[2023-09-29] MEDS: PANTOPRAZOLE 40 MG/PACK PACK GT SCH (10:08)
[2023-09-29] MEDS: METOCLOPRAMIDE HCL 10 MG/2 ML VIAL IV SCH ×2 (11:28→22:00)
[2023-09-29 12:00] VITALS: BP 127/59; TEMP 97.9; O2SAT 99
[2023-09-29 16:00] VITALS: BP 129/59; TEMP 98.6; O2SAT 97
[2023-09-29] MEDS ORDERED: NEUTRA PHOS 1 POWD.PACKET GT ONE (16:00)
[2023-09-29 20:00] VITALS: BP 141/81; TEMP 98.5; O2SAT 99
[2023-09-30] VITALS: BP 136/76; TEMP 98.5; O2SAT 98
[2023-09-30] MEDS: VANCOMYCIN HCL 0.75 GM in IV D5W 250 ML IV SCH ×2 (02:59→13:01)
[2023-09-30 04:00] VITALS: BP 140/80; TEMP 98.6; O2SAT 99
[2023-09-30] MEDS: MEROPENEM 1 G in IV NS 0.9% 100 ML IV SCH ×3 (05:08→20:56)
[2023-09-30 06:56] LABS: HEMATOCRIT 34 % (39-51); HEMOGLOBIN 10.6 g/dL (13.5-17.5); LYMPHOCYTES # (AUTO) 1.5 K/uL (0.8-4.8); LYMPHOCYTES % (AUTO) 9.9 % (20.0-44.0); MEAN CORPUSCULAR HEMOGLOBIN 25 PG (26.0-33.0); MEAN CORPUSCULAR HGB CONC 31 g/dl (31.0-36.0); MEAN CORPUSCULAR VOLUME 79 fL (80-96); MONOCYTES # (AUTO) 1.1 K/uL (0.1-1.30); MONOCYTES % (AUTO) 7.2 % (2.0-12.0); NEUTROPHILS # (AUTO) 12.4 K/uL (1.8-8.9); NEUTROPHILS % (AUTO) 82.9 % (43.0-81.0); PLATELET COUNT (AUTO) 315 K/uL (150-450); RED BLOOD CELL COUNT(AUTO) 4.29 MIL/uL (4.5-6.0); RED CELL DISTRIBUTION WIDTH 18.8 % (11.5-15.0)
[2023-09-30 07:07] LABS: CREATININE 0.6 mg/dL (0.6-1.3); MAGNESIUM 2.3 mg/dL (1.8-2.4); PHOSPHORUS 2.8 mg/dL (2.5-4.9); POTASSIUM 4.1 mmol/L (3.5-5.1)
[2023-09-30 07:45] LABS: CALCIUM, SERUM 8.2 mg/dL (8.5-10.1)
[2023-09-30 08:00] VITALS: BP 132/67; TEMP 97.9; O2SAT 97
[2023-09-30] MEDS: PROSOURCE / PROSTAT (PYXIS) 30 ML UDC GT SCH ×3 (08:37→16:47)
[2023-09-30] MEDS: JEVITY 1.2 CAL 1,000 ML BOTTLE GT PRN (09:24)
[2023-09-30] MEDS: dexaMETHasone SOD PHOSPHATE 10 MG/ML VIAL IV SCH (09:24)
[2023-09-30] MEDS: METOCLOPRAMIDE HCL 10 MG/2 ML VIAL IV SCH ×2 (09:24→20:56)
[2023-09-30] MEDS: PANTOPRAZOLE 40 MG/PACK PACK GT SCH (09:24)
[2023-09-30 12:00] VITALS: BP 124/66; TEMP 98.1; O2SAT 95
[2023-09-30] MEDS: IV D5/0.45 NACL 1,000 ML IV PRN (12:54)
[2023-09-30 16:00] VITALS: BP 128/75; TEMP 98.1; O2SAT 96
[2023-09-30] MEDS: AMIODARONE HCL 200 MG TABLET GT SCH (17:39)
[2023-09-30] MEDS: APIXABAN 5 MG TABLET GT SCH (17:40)
[2023-09-30] MEDS ORDERED: Medication Not On Formulary EA (Ipratropium/Albuterol Sulfate (Combivent Respimat 20-100 IH SCH (18:00)
[2023-09-30] MEDS: ALBUTEROL FS 2.5 MG/3 ML VIAL.NEB NEB SCH (19:30)
[2023-09-30] MEDS: IPRATROPIUM NEB FS 0.5 MG/2.5 ML AMPUL.NEB NEB SCH (19:30)
[2023-09-30 20:00] VITALS: BP 111/72; TEMP 98.9; O2SAT 97
[2023-09-30] MEDS: CHLORHEXIDINE GLUCONATE 15 ML UDC MM SCH (20:57)
[2023-09-30] MEDS: TERAZOSIN HCL 1 MG CAPSULE PO SCH (20:57)
[2023-10-01] VITALS: BP_SYST 117; BP_SYST 120; BP_DIAS 60; BP_DIAS 63; TEMP 98.2; TEMP 98.4; O2SAT 99
[2023-10-01] MEDS: IPRATROPIUM NEB FS 0.5 MG/2.5 ML AMPUL.NEB NEB SCH ×4 (01:30→19:30)
[2023-10-01] MEDS: ALBUTEROL FS 2.5 MG/3 ML VIAL.NEB NEB SCH ×4 (01:30→19:30)
[2023-10-01] MEDS: VANCOMYCIN HCL 0.75 GM in IV D5W 250 ML IV SCH (01:55)
[2023-10-01 04:00] VITALS: BP 110/60; TEMP 98.2; O2SAT 99
[2023-10-01] MEDS: MEROPENEM 1 G in IV NS 0.9% 100 ML IV SCH ×3 (05:14→21:53)
[2023-10-01] MEDS: IV D5/0.45 NACL 1,000 ML IV PRN ×2 (05:24→18:18)
[2023-10-01 07:40] LABS: CALCIUM, SERUM 8.2 mg/dL (8.5-10.1); CREATININE 0.7 mg/dL (0.6-1.3); POTASSIUM 3.6 mmol/L (3.5-5.1)
[2023-10-01 08:00] VITALS: BP 122/73; TEMP 98.1; O2SAT 98
[2023-10-01] MEDS: AMIODARONE HCL 200 MG TABLET GT SCH ×2 (09:00→16:21)
[2023-10-01] MEDS: CHLORHEXIDINE GLUCONATE 15 ML UDC MM SCH ×2 (09:42→21:52)
[2023-10-01] MEDS: TOPIRAMATE 25 MG TABLET PO SCH (09:42)
[2023-10-01] MEDS: METOCLOPRAMIDE HCL 10 MG/2 ML VIAL IV SCH ×2 (09:42→21:53)
[2023-10-01] MEDS: DOCUSATE SODIUM LIQ 100 MG/10 ML UDC GT SCH (09:42)
[2023-10-01] MEDS: FERROUS SULFATE UDC 300 MG/5 ML UDC GT SCH (09:42)
[2023-10-01] MEDS: PANTOPRAZOLE 40 MG/PACK PACK GT SCH (09:42)
[2023-10-01] MEDS: PROSOURCE / PROSTAT (PYXIS) 30 ML UDC GT SCH ×3 (09:42→16:25)
[2023-10-01] MEDS: MULTIVITAMINS,THERAGRAN 1 UDTAB TABLET GT SCH (09:43)
[2023-10-01] MEDS: APIXABAN 5 MG TABLET GT SCH ×2 (09:46→16:26)
[2023-10-01 12:00] VITALS: BP 142/70; TEMP 98.3; O2SAT 99
[2023-10-01] MEDS: JEVITY 1.2 CAL 1,000 ML BOTTLE GT PRN (12:36)
[2023-10-01 16:00] VITALS: BP 120/71; TEMP 98.2; O2SAT 99
[2023-10-01 20:00] VITALS: BP 117/70; TEMP 98.6; O2SAT 99
[2023-10-01] MEDS: TERAZOSIN HCL 1 MG CAPSULE PO SCH (21:57)
[2023-10-02] VITALS: BP 117/63; TEMP 98.4; O2SAT 99
[2023-10-02] MEDS: IPRATROPIUM NEB FS 0.5 MG/2.5 ML AMPUL.NEB NEB SCH ×4 (01:26→20:05)
[2023-10-02] MEDS: ALBUTEROL FS 2.5 MG/3 ML VIAL.NEB NEB SCH ×4 (01:26→20:05)
[2023-10-02 04:00] VITALS: BP 112/71; TEMP 98.1; O2SAT 99
[2023-10-02] MEDS: MEROPENEM 1 G in IV NS 0.9% 100 ML IV SCH ×2 (04:31→12:13)
[2023-10-02] MEDS: IV D5/0.45 NACL 1,000 ML IV PRN (07:51)
[2023-10-02] MEDS: IV NS 0.9% 250 ML IV PRN (07:51)
[2023-10-02 08:00] VITALS: BP 140/74; TEMP 97.5; O2SAT 93
[2023-10-02] MEDS: PROSOURCE / PROSTAT (PYXIS) 30 ML UDC GT SCH ×3 (09:06→16:58)
[2023-10-02] MEDS: PANTOPRAZOLE 40 MG/PACK PACK GT SCH (09:06)
[2023-10-02] MEDS: CHLORHEXIDINE GLUCONATE 15 ML UDC MM SCH ×2 (09:06→21:12)
[2023-10-02] MEDS: MULTIVITAMINS,THERAGRAN 1 UDTAB TABLET GT SCH (09:07)
[2023-10-02] MEDS: DOCUSATE SODIUM LIQ 100 MG/10 ML UDC GT SCH (09:07)
[2023-10-02] MEDS: METOCLOPRAMIDE HCL 10 MG/2 ML VIAL IV SCH ×2 (09:07→21:12)
[2023-10-02] MEDS: TOPIRAMATE 25 MG TABLET PO SCH (09:07)
[2023-10-02] MEDS: FERROUS SULFATE UDC 300 MG/5 ML UDC GT SCH (09:07)
[2023-10-02] MEDS: AMIODARONE HCL 200 MG TABLET GT SCH ×2 (09:08→16:57)
[2023-10-02] MEDS: APIXABAN 5 MG TABLET GT SCH ×2 (09:09→16:57)
[2023-10-02 11:48] LABS: BASOPHILS # (AUTO) 0.1 K/uL (0.0-0.2); BASOPHILS % (AUTO) 0.5 % (0.0-2.0); EOSINOPHILS # (AUTO) 0.1 K/uL (0.0-0.7); EOSINOPHILS % (AUTO) 0.7 % (0.0-6.0); HEMATOCRIT 34 % (39-51); HEMOGLOBIN 10.5 g/dL (13.5-17.5); LYMPHOCYTES # (AUTO) 1.5 K/uL (0.8-4.8); LYMPHOCYTES % (AUTO) 8.7 % (20.0-44.0); MEAN CORPUSCULAR HEMOGLOBIN 25 PG (26.0-33.0); MEAN CORPUSCULAR HGB CONC 31 g/dl (31.0-36.0); MEAN CORPUSCULAR VOLUME 79 fL (80-96); MONOCYTES # (AUTO) 2.2 K/uL (0.1-1.30); MONOCYTES % (AUTO) 12.5 % (2.0-12.0); NEUTROPHILS # (AUTO) 13.6 K/uL (1.8-8.9); NEUTROPHILS % (AUTO) 77.6 % (43.0-81.0); PLATELET COUNT (AUTO) 297 K/uL (150-450); RED BLOOD CELL COUNT(AUTO) 4.23 MIL/uL (4.5-6.0); RED CELL DISTRIBUTION WIDTH 18.9 % (11.5-15.0); WHITE BLOOD COUNT (AUTO) 17.5 K/uL (4.3-11.0)
[2023-10-02 12:00] VITALS: BP 111/66; TEMP 99.3; O2SAT 97
[2023-10-02] MEDS: JEVITY 1.2 CAL 1,000 ML BOTTLE GT PRN (12:21)
[2023-10-02 16:00] VITALS: BP 120/73; TEMP 98.9; O2SAT 100
[2023-10-02 20:00] VITALS: BP 135/84; TEMP 99; O2SAT 100
[2023-10-02] MEDS: LINEZOLID 600 MG TABLET PO SCH (21:10)
[2023-10-02] MEDS: TERAZOSIN HCL 1 MG CAPSULE PO SCH (21:12)
[2023-10-03] VITALS: BP 108/69; TEMP 99; O2SAT 99
[2023-10-03] MEDS: IPRATROPIUM NEB FS 0.5 MG/2.5 ML AMPUL.NEB NEB SCH ×4 (02:21→20:24)
[2023-10-03] MEDS: ALBUTEROL FS 2.5 MG/3 ML VIAL.NEB NEB SCH ×4 (02:22→20:24)
[2023-10-03 04:00] VITALS: BP 116/70; TEMP 98.1; O2SAT 94
[2023-10-03 08:00] VITALS: BP 129/70; TEMP 98.7; O2SAT 100
[2023-10-03] MEDS: MULTIVITAMINS,THERAGRAN 1 UDTAB TABLET GT SCH (09:08)
[2023-10-03] MEDS: LINEZOLID 600 MG TABLET PO SCH ×2 (09:08→21:26)
[2023-10-03] MEDS: CHLORHEXIDINE GLUCONATE 15 ML UDC MM SCH ×2 (09:08→21:26)
[2023-10-03] MEDS: TOPIRAMATE 25 MG TABLET PO SCH (09:08)
[2023-10-03] MEDS: DOCUSATE SODIUM LIQ 100 MG/10 ML UDC GT SCH (09:08)
[2023-10-03] MEDS: FERROUS SULFATE UDC 300 MG/5 ML UDC GT SCH (09:08)
[2023-10-03] MEDS: METOCLOPRAMIDE HCL 10 MG/2 ML VIAL IV SCH ×2 (09:09→21:27)
[2023-10-03] MEDS: PANTOPRAZOLE 40 MG/PACK PACK GT SCH (09:09)
[2023-10-03] MEDS: AMIODARONE HCL 200 MG TABLET GT SCH ×2 (09:09→17:08)
[2023-10-03] MEDS: APIXABAN 5 MG TABLET GT SCH ×2 (09:10→17:06)
[2023-10-03] MEDS: PROSOURCE / PROSTAT (PYXIS) 30 ML UDC GT SCH ×3 (09:10→17:08)
[2023-10-03 12:00] VITALS: BP 122/70; TEMP 97.7; O2SAT 100
[2023-10-03 16:00] VITALS: BP 128/68; TEMP 97.4; O2SAT 98
[2023-10-03 19:39] LABS: BASOPHILS % (AUTO) 0.3 % (0.0-2.0); EOSINOPHILS # (AUTO) 0.2 K/uL (0.0-0.7); HEMATOCRIT 31 % (39-51); HEMOGLOBIN 9.6 g/dL (13.5-17.5); LYMPHOCYTES # (AUTO) 1.9 K/uL (0.8-4.8); LYMPHOCYTES % (AUTO) 11.7 % (20.0-44.0); MEAN CORPUSCULAR HEMOGLOBIN 25 PG (26.0-33.0); MEAN CORPUSCULAR HGB CONC 31 g/dl (31.0-36.0); MEAN CORPUSCULAR VOLUME 80 fL (80-96); MONOCYTES # (AUTO) 2.2 K/uL (0.1-1.30); MONOCYTES % (AUTO) 13.4 % (2.0-12.0); NEUTROPHILS # (AUTO) 11.8 K/uL (1.8-8.9); NEUTROPHILS % (AUTO) 73.6 % (43.0-81.0); PLATELET COUNT (AUTO) 266 K/uL (150-450); RED CELL DISTRIBUTION WIDTH 18.9 % (11.5-15.0)
[2023-10-03 20:00] VITALS: BP 108/69; TEMP 98.4; O2SAT 97
[2023-10-03] MEDS: TERAZOSIN HCL 1 MG CAPSULE PO SCH (21:49)
[2023-10-04] VITALS: BP 106/69; TEMP 98.2; O2SAT 100
[2023-10-04] MEDS: JEVITY 1.2 CAL 1,000 ML BOTTLE GT PRN (01:51)
[2023-10-04] MEDS: ALBUTEROL FS 2.5 MG/3 ML VIAL.NEB NEB SCH ×3 (02:30→13:15)
[2023-10-04] MEDS: IPRATROPIUM NEB FS 0.5 MG/2.5 ML AMPUL.NEB NEB SCH ×3 (02:30→13:15)
[2023-10-04 04:00] VITALS: BP 108/59; TEMP 98.4; O2SAT 97
[2023-10-04 07:14] LABS: BASOPHILS % (AUTO) 0.2 % (0.0-2.0); EOSINOPHILS # (AUTO) 0.2 K/uL (0.0-0.7); EOSINOPHILS % (AUTO) 1.6 % (0.0-6.0); HEMATOCRIT 30 % (39-51); HEMOGLOBIN 9.2 g/dL (13.5-17.5); LYMPHOCYTES # (AUTO) 1.8 K/uL (0.8-4.8); LYMPHOCYTES % (AUTO) 12.8 % (20.0-44.0); MEAN CORPUSCULAR HEMOGLOBIN 25 PG (26.0-33.0); MEAN CORPUSCULAR HGB CONC 31 g/dl (31.0-36.0); MEAN CORPUSCULAR VOLUME 81 fL (80-96); MONOCYTES # (AUTO) 2.2 K/uL (0.1-1.30); NEUTROPHILS # (AUTO) 9.7 K/uL (1.8-8.9); NEUTROPHILS % (AUTO) 69.4 % (43.0-81.0); PLATELET COUNT (AUTO) 250 K/uL (150-450); RED CELL DISTRIBUTION WIDTH 18.6 % (11.5-15.0); WHITE BLOOD COUNT (AUTO) 13.9 K/uL (4.3-11.0)
[2023-10-04 07:41] LABS: CALCIUM, SERUM 8.2 mg/dL (8.5-10.1); CREATININE 0.6 mg/dL (0.6-1.3); MAGNESIUM 2.2 mg/dL (1.8-2.4); PHOSPHORUS 2.4 mg/dL (2.5-4.9); POTASSIUM 3.7 mmol/L (3.5-5.1)
[2023-10-04 08:00] VITALS: BP 101/59; TEMP 98.4; O2SAT 99
[2023-10-04] MEDS: DOCUSATE SODIUM LIQ 100 MG/10 ML UDC GT SCH (09:23)
[2023-10-04] MEDS: CHLORHEXIDINE GLUCONATE 15 ML UDC MM SCH (09:23)
[2023-10-04] MEDS: METOCLOPRAMIDE HCL 10 MG/2 ML VIAL IV SCH (09:23)
[2023-10-04] MEDS: FERROUS SULFATE UDC 300 MG/5 ML UDC GT SCH (09:23)
[2023-10-04] MEDS: PANTOPRAZOLE 40 MG/PACK PACK GT SCH (09:25)
[2023-10-04] MEDS: MULTIVITAMINS,THERAGRAN 1 UDTAB TABLET GT SCH (09:25)
[2023-10-04] MEDS: TOPIRAMATE 25 MG TABLET PO SCH (09:25)
[2023-10-04] MEDS: AMIODARONE HCL 200 MG TABLET GT SCH (09:25)
[2023-10-04] MEDS: LINEZOLID 600 MG TABLET PO SCH (09:26)
[2023-10-04] MEDS: APIXABAN 5 MG TABLET GT SCH (09:26)
[2023-10-04] MEDS: PROSOURCE / PROSTAT (PYXIS) 30 ML UDC GT SCH ×2 (09:27→12:16)
[2023-10-04 10:21] LABS: LYMPHOCYTES % (MANUAL) 9 % (16-48); MONOCYTES % (MANUAL) 6 % (0-11.0); NEUTROPHILS % (MANUAL) 85 (42-76)
[2023-10-04 10:22] LABS: ANISOCYTOSIS 1+; HYPOCHROMASIA 1+; PLATELET ESTIMATE ADEQUATE
[2023-10-04 12:00] VITALS: BP 104/65; TEMP 98.2; O2SAT 100
[2023-10-04] MEDS ORDERED: METO-295 PO ×2 (12:29→12:33)
[2023-10-04] MEDS ORDERED: LINE600T12 GT (12:29)
[2023-10-04] MEDS ORDERED: SIME80TA15 PO (12:33)
[2023-10-04] MEDS ORDERED: SIMETHICONE SUSP 40 MG/0.6 ML BOTTLE PO ONE (13:00)
[2023-10-04] MEDS ORDERED: NEUTRA PHOS 1 POWD.PACKET PO ONE (15:30)
[2023-10-04 16:00] VITALS: BP 111/73; TEMP 98.4; O2SAT 100
== END 2023-10-04 16:35 | DRG 870 ==
LOC: ER 12:21 → TELE1 17:53
PROVIDERS: ATTEND Nurse Practitioner Family
PROC: 5A1955Z Respiratory Ventilation, Greater than 96 Consecutive Hours (ICD-10-PCS; principal; 2023-09-20)
DX: A41.89 Other specified sepsis (principal); U07.1 COVID-19; J96.21 Acute and chronic respiratory failure with hypoxia; J95.851 Ventilator associated pneumonia; N39.0 Urinary tract infection, site not specified; Z16.21 Resistance to vancomycin; Z99.11 Dependence on respirator [ventilator] status; D68.69 Other thrombophilia; G93.49 Other encephalopathy; J44.0 Chronic obstructive pulmonary disease with (acute) lower respiratory infection; K56.600 Partial intestinal obstruction, unspecified as to cause; K56.7 Ileus, unspecified; B95.2 Enterococcus as the cause of diseases classified elsewhere; D64.9 Anemia, unspecified; E78.5 Hyperlipidemia, unspecified; E87.6 Hypokalemia; F20.9 Schizophrenia, unspecified; G40.909 Epilepsy, unspecified, not intractable, without status epilepticus; I25.10 Atherosclerotic heart disease of native coronary artery without angina pectoris; I48.91 Unspecified atrial fibrillation; K21.9 Gastro-esophageal reflux disease without esophagitis; Z79.01 Long term (current) use of anticoagulants; Z87.891 Personal history of nicotine dependence; Z93.0 Tracheostomy status; L90.5 Scar conditions and fibrosis of skin; L89.156 Pressure-induced deep tissue damage of sacral region; R65.20 Severe sepsis without septic shock; R13.10 Dysphagia, unspecified; N40.1 Benign prostatic hyperplasia with lower urinary tract symptoms; E27.8 Other specified disorders of adrenal gland; Z93.1 Gastrostomy status; N20.0 Calculus of kidney; N21.0 Calculus in bladder; Y83.3 Surgical operation with formation of external stoma as the cause of abnormal reaction of the patient, or of later complication, without mention of misadventure at the time of the procedure; Y92.129 Unspecified place in nursing home as the place of occurrence of the external cause; I10 Essential (primary) hypertension; E11.9 Type 2 diabetes mellitus without complications; Z82.49 Family history of ischemic heart disease and other diseases of the circulatory system; Z83.3 Family history of diabetes mellitus
CPT/HCPCS: 31720; 36410; 36415; 71045-TC; 71250-TC; 74018; 74250-TC; 80048-TC; 80053-TC; 80076-TC; 80202-TC; 81001; 83605-TC; 83690-TC; 83735-TC; 84100-TC; 84484-TC; 85025-TC; 85378-TC; 85730-TC; 86140-TC; 86850-TC; 87040-TC; 87081-TC; 87086-TC; 94003-TC; 94640-TC; 94760-TC; 94799-TC; 99082-TC; A4223; A6403; A7526; A9563; C9113; G0378; J0692; J1100; J1200; J2185; J2270; J2765; J2930; J3370; J3480; J3490; J7030; J7042; J7050; J7060; Q9963

== ENCOUNTER 2023-12-17 10:30 | Inpatient (IN) | payer MEDICARE, OTHER ==
[~2023-12-17] VITALS: Ht 170.2 cm; Wt 62.4 kg
[~2023-12-17 10:30] MED LIST changes: -ACET-2605 GT; -ASCO500T10 GT; -CALC500T13 GT; +CRAN425C6 GT; -DIGO250T GT; +DOCU50LI GT; -HYDR-4209 GT; -HYDR-4303 GT; +KETO15CR2 TP; +LACT-209 GT; -LACT100027 GT; +LINE600T12 GT; +METO-295 PO; +ONDA4TAB5 GT; -PANT40SU2 GT; +PETR113O TP; +QUET25TA GT; +SIME80TA15 PO; -ZINC50TA69 GT
[2023-12-17] MEDS ORDERED: ACETAMINOPHEN 650 MG/SUPP.RECT RC ONE (10:59)
[2023-12-17 11:14] LABS: BASOPHILS % (AUTO) 0.1 % (0.0-2.0); HEMATOCRIT 36 % (39-51); HEMOGLOBIN 11.5 g/dL (13.5-17.5); LYMPHOCYTES # (AUTO) 1.4 K/uL (0.8-4.8); LYMPHOCYTES % (AUTO) 5.8 % (20.0-44.0); MEAN CORPUSCULAR HEMOGLOBIN 25 PG (26.0-33.0); MEAN CORPUSCULAR HGB CONC 32 g/dl (31.0-36.0); MEAN CORPUSCULAR VOLUME 80 fL (80-96); MONOCYTES # (AUTO) 2.4 K/uL (0.1-1.30); MONOCYTES % (AUTO) 9.8 % (2.0-12.0); NEUTROPHILS # (AUTO) 20.3 K/uL (1.8-8.9); NEUTROPHILS % (AUTO) 84.3 % (43.0-81.0); PLATELET COUNT (AUTO) 241 K/uL (150-450); RED BLOOD CELL COUNT(AUTO) 4.54 MIL/uL (4.5-6.0); RED CELL DISTRIBUTION WIDTH 19.4 % (11.5-15.0); WHITE BLOOD COUNT (AUTO) 24.2 K/uL (4.3-11.0)
[2023-12-17] MEDS: PIPERACILLIN /TAZOBACTAM 3.375 G in IV D5W 50 ML IV ONE (11:17)
[2023-12-17] MEDS: IV NS 0.9% 1,000 ML BAG IV ONE ×2 (11:17→11:55)
[2023-12-17] MEDS: ACETAMINOPHEN 650 MG/SUPP.RECT RC ONE (11:17)
[2023-12-17] MEDS ORDERED: IPRA4AER IH (11:20)
[2023-12-17] MEDS ORDERED: SILV20CR13 TP (11:20)
[2023-12-17] MEDS ORDERED: ACET-2605 PO (11:20)
[2023-12-17] MEDS ORDERED: LATA2.5D15 EACHEYE (11:20)
[2023-12-17] MEDS ORDERED: ASCO-352 GT (11:20)
[2023-12-17] MEDS ORDERED: PIME30CR TP (11:20)
[2023-12-17] MEDS: VANCOMYCIN 1 GM in IV D5W 250 ML IV ONE (11:20)
[2023-12-17 11:26] LABS: CALCIUM, SERUM 9.2 mg/dL (8.5-10.1); CARBON DIOXIDE 29 mmol/L (21-32); CHLORIDE 103 mmol/L (98-107); GLUCOSE 143 mg/dL (74-106); POTASSIUM 3.9 mmol/L (3.5-5.1); SODIUM SERUM 140 mmol/L (136-145); UREA NITROGEN, BLOOD 24 mg/dL (7-18)
[2023-12-17 11:32] LABS: ALANINE AMINOTRANSFERASE 31 U/L (12-78); ALBUMIN 2.7 g/dL (3.4-5.0); ALKALINE PHOSPHATASE 128 U/L (46-116); ASPARTATE AMINOTRANSFERASE 17 U/L (15-37); BILIRUBIN,DIRECT 0.1 mg/dL (0.0-0.2); BILIRUBIN,TOTAL 0.3 mg/dL (0.2-1.0); TOTAL PROTEIN, SERUM 8.9 g/dL (6.4-8.2)
[2023-12-17 11:33] LABS: INR 1.04 (0.91-1.10); PARTIAL THROMBOPLASTIN TIME 35.9 SEC (24.3-34.3)
[2023-12-17 11:37] LABS: LACTIC ACID 2.5 mmol/L (0.4-2.0)
[2023-12-17 12:29] LABS: ANISOCYTOSIS 1+; LYMPHOCYTES % (MANUAL) 3 % (16-48); MONOCYTES % (MANUAL) 11 % (0-11.0); NEUTROPHILS % (MANUAL) 86 (42-76); PLATELET ESTIMATE ADEQUATE
[2023-12-17] MEDS ORDERED: HYDROCODONE/APAP 5/325MG TABLET PO PRN (12:30)
[2023-12-17] MEDS ORDERED: Z GUARD REMEDY 4 OZ OINT TP PRN (12:30)
[2023-12-17] MEDS: ENOXAPARIN SODIUM 40 MG/0.4 ML DISP.SYRIN SQ SCH (15:53)
[2023-12-17 16:00] VITALS: BP 127/68; TEMP 99.3; O2SAT 97
[2023-12-17] MEDS: ZOSYN IVPB 3.375 G in IV D5W 50ml IV SCH (17:37)
[2023-12-17] MEDS: BLOOD SUGAR DIAGNOSTIC 1 EACH STRIP IN SCH (17:41)
[2023-12-17] MEDS ORDERED: DILTIAZEM HCL IV 125 MG in IV NS 0.9% 100 ML IV PRN (18:00)
[2023-12-17] MEDS: DILTIAZEM HCL IV 125 MG in IV NS 0.9% 100 ML IV PRN (18:48)
[2023-12-17] MEDS: METOCLOPRAMIDE HCL 10 MG/2 ML VIAL IV SCH (18:57)
[2023-12-17] MEDS: IV 1/2NS 1000 ML 1,000 ML IV PRN (18:58)
[2023-12-17] MEDS: LACTULOSE 10 G/15 ML UDC (PYXIS) GT SCH (19:54)
[2023-12-17 20:00] VITALS: BP 100/83; TEMP 99.3; O2SAT 97
[2023-12-17] MEDS: VANCOMYCIN 1 GM in IV D5W 250ml IV SCH (23:06)
[2023-12-18] VITALS: BP 99/66; TEMP 102.1; O2SAT 95
[2023-12-18] MEDS: ACETAMINOPHEN 325 MG TABLET PO PRN (00:15)
[2023-12-18 04:00] VITALS: BP 110/71; TEMP 98.8; O2SAT 96
[2023-12-18 07:02] LABS: BASOPHILS % (AUTO) 0.1 % (0.0-2.0); HEMATOCRIT 31 % (39-51); HEMOGLOBIN 9.8 g/dL (13.5-17.5); LYMPHOCYTES # (AUTO) 0.8 K/uL (0.8-4.8); LYMPHOCYTES % (AUTO) 3.9 % (20.0-44.0); MEAN CORPUSCULAR HEMOGLOBIN 25 PG (26.0-33.0); MEAN CORPUSCULAR HGB CONC 32 g/dl (31.0-36.0); MEAN CORPUSCULAR VOLUME 80 fL (80-96); MONOCYTES # (AUTO) 2.2 K/uL (0.1-1.30); NEUTROPHILS # (AUTO) 17.4 K/uL (1.8-8.9); PLATELET COUNT (AUTO) 214 K/uL (150-450); RED BLOOD CELL COUNT(AUTO) 3.88 MIL/uL (4.5-6.0); RED CELL DISTRIBUTION WIDTH 19.2 % (11.5-15.0); WHITE BLOOD COUNT (AUTO) 20.5 K/uL (4.3-11.0)
[2023-12-18 07:35] LABS: CARBON DIOXIDE 26 mmol/L (21-32); CREATININE 1.3 mg/dL (0.6-1.3); GLUCOSE 161 mg/dL (74-106); MAGNESIUM 2.3 mg/dL (1.8-2.4); PHOSPHORUS 2.5 mg/dL (2.5-4.9); UREA NITROGEN, BLOOD 28 mg/dL (7-18)
[2023-12-18 08:00] VITALS: BP 100/62; TEMP 98.8; O2SAT 96
[2023-12-18 08:07] LABS: CHLORIDE 108 mmol/L (98-107); POTASSIUM 2.9 mmol/L (3.5-5.1); SODIUM SERUM 144 mmol/L (136-145)
[2023-12-18] MEDS: POTASSIUM CL. PREMIX PERIPHER. 50 ML IV SCH (10:11)
[2023-12-18] MEDS: IPRATROPIUM NEB FS 0.5 MG/2.5 ML AMPUL.NEB NEB SCH (10:32)
[2023-12-18] MEDS: ACETYLCYSTEINE 10% SOLN 400 MG/4 ML VIAL NEB SCH (10:32)
[2023-12-18 12:00] VITALS: BP 110/46; TEMP 98.6; O2SAT 96
[2023-12-18] MEDS: PIPERACILLIN /TAZOBACTAM 3.375 G in IV D5W 100 ML IV SCH (12:40)
[2023-12-18] MEDS ORDERED: DIATR MEGLU/DIATRIZOATE SODIUM 120 ML BOTTLE (GASTROGRAPHIN) ONE (14:26)
[2023-12-18 16:00] VITALS: BP 121/63; TEMP 98.1; O2SAT 97
[2023-12-18 16:09] LABS: APPEARANCE,URINE SLIGHTLY CLOUDY (CLEAR); BILIRUBIN,URINE NEGATIVE (NEGATIVE); BLOOD, URINE 2+ Ery/uL (NEGATIVE); COLOR,URINE YELLOW (YELLOW); KETONES,URINE NEGATIVE (NEGATIVE); LEUKOCYTE ESTERASE ,URINE 2+ (NEGATIVE); NITRITE, URINE POSITIVE (NEGATIVE); PROTEIN,URINE 1+ mg/dl (NEGATIVE); UGLUCOSE NEGATIVE (NEGATIVE); UROBILINOGEN,URINE 0.2 EU/dL (0.2)
[2023-12-18 17:04] LABS: ADD URINE CULTURE YES; BACTERIA,URINE 2+ /HPF (None Seen); RBC,URINE 21-50 /HPF (0-2); SQUAMOUS EPITHELIAL CELL,UR 0-2 /HPF (None Seen); WBC,URINE 21-50 /HPF (0-3)
[2023-12-18 20:00] VITALS: BP 101/60; TEMP 98.4; O2SAT 97
[2023-12-19] VITALS: BP 109/58; TEMP 98.4; O2SAT 97
[2023-12-19 04:00] VITALS: BP 112/59; TEMP 98.5; O2SAT 98
[2023-12-19 06:58] LABS: BASOPHILS # (AUTO) 0.1 K/uL (0.0-0.2); BASOPHILS % (AUTO) 0.3 % (0.0-2.0); EOSINOPHILS # (AUTO) 0.1 K/uL (0.0-0.7); EOSINOPHILS % (AUTO) 0.3 % (0.0-6.0); HEMATOCRIT 28 % (39-51); HEMOGLOBIN 8.6 g/dL (13.5-17.5); LYMPHOCYTES % (AUTO) 10.1 % (20.0-44.0); MEAN CORPUSCULAR HEMOGLOBIN 25 PG (26.0-33.0); MEAN CORPUSCULAR HGB CONC 31 g/dl (31.0-36.0); MEAN CORPUSCULAR VOLUME 81 fL (80-96); MONOCYTES # (AUTO) 2.4 K/uL (0.1-1.30); MONOCYTES % (AUTO) 12.1 % (2.0-12.0); NEUTROPHILS % (AUTO) 77.2 % (43.0-81.0); PLATELET COUNT (AUTO) 207 K/uL (150-450); RED BLOOD CELL COUNT(AUTO) 3.42 MIL/uL (4.5-6.0); RED CELL DISTRIBUTION WIDTH 19.4 % (11.5-15.0); WHITE BLOOD COUNT (AUTO) 19.4 K/uL (4.3-11.0)
[2023-12-19 08:00] VITALS: BP 108/61; TEMP 97.4; O2SAT 99
[2023-12-19 09:15] LABS: ALANINE AMINOTRANSFERASE 20 U/L (12-78); ALBUMIN 1.9 g/dL (3.4-5.0); ALKALINE PHOSPHATASE 87 U/L (46-116); ASPARTATE AMINOTRANSFERASE 25 U/L (15-37); BILIRUBIN,TOTAL 0.4 mg/dL (0.2-1.0); CALCIUM, SERUM 7.4 mg/dL (8.5-10.1); CARBON DIOXIDE 24 mmol/L (21-32); CHLORIDE 114 mmol/L (98-107); CREATININE 0.9 mg/dL (0.6-1.3); GLUCOSE 89 mg/dL (74-106); MAGNESIUM 2.2 mg/dL (1.8-2.4); PHOSPHORUS 2.2 mg/dL (2.5-4.9); POTASSIUM 3.2 mmol/L (3.5-5.1); SODIUM SERUM 147 mmol/L (136-145); TOTAL PROTEIN, SERUM 5.9 g/dL (6.4-8.2); UREA NITROGEN, BLOOD 22 mg/dL (7-18)
[2023-12-19] MEDS: GLUCERNA 1.2 1,000 ML BOTTLE NG PRN (11:16)
[2023-12-19 12:00] VITALS: BP 111/66; TEMP 96.8; O2SAT 100
[2023-12-19 16:00] VITALS: BP 112/60; TEMP 97; O2SAT 100
[2023-12-19] MEDS: NEUTRA PHOS 1 POWD.PACKET NG ONE (16:49)
[2023-12-19 20:00] VITALS: BP 119/63; TEMP 98.2; O2SAT 98
[2023-12-19 20:16] LABS: APPEARANCE,URINE CLEAR (CLEAR); BILIRUBIN,URINE NEGATIVE (NEGATIVE); BLOOD, URINE TRACE Ery/uL (NEGATIVE); COLOR,URINE YELLOW (YELLOW); KETONES,URINE NEGATIVE (NEGATIVE); LEUKOCYTE ESTERASE ,URINE NEGATIVE (NEGATIVE); NITRITE, URINE NEGATIVE (NEGATIVE); PROTEIN,URINE TRACE mg/dl (NEGATIVE); UGLUCOSE NEGATIVE (NEGATIVE); UROBILINOGEN,URINE 0.2 EU/dL (0.2)
[2023-12-19 20:25] LABS: CREATININE, URINE 48.2 MG/DL (30.0-125.0)
[2023-12-19 20:30] LABS: ADD URINE CULTURE NO; BACTERIA,URINE Few /HPF (None Seen); WBC,URINE NONE SEEN /HPF (0-3)
[2023-12-19 20:31] LABS: SQUAMOUS EPITHELIAL CELL,UR Rare /HPF (None Seen)
[2023-12-19] MEDS: MEROPENEM 500 MG in IV NS 0.9% 50 ML IV SCH (20:58)
[2023-12-19 21:26] LABS: EOSINOPHIL,URINE None Seen
[2023-12-19] MEDS: VANCOMYCIN 750 MG in IV D5W 250 ML IV SCH (23:25)
[2023-12-20] VITALS: BP 112/70; TEMP 99; O2SAT 98
[2023-12-20 04:00] VITALS: BP 110/68; TEMP 98.4; O2SAT 96
[2023-12-20 07:11] LABS: BASOPHILS % (AUTO) 0.3 % (0.0-2.0); EOSINOPHILS # (AUTO) 0.2 K/uL (0.0-0.7); EOSINOPHILS % (AUTO) 2.1 % (0.0-6.0); HEMATOCRIT 28 % (39-51); HEMOGLOBIN 8.6 g/dL (13.5-17.5); LYMPHOCYTES # (AUTO) 1.9 K/uL (0.8-4.8); LYMPHOCYTES % (AUTO) 16.1 % (20.0-44.0); MEAN CORPUSCULAR HEMOGLOBIN 25 PG (26.0-33.0); MEAN CORPUSCULAR HGB CONC 31 g/dl (31.0-36.0); MEAN CORPUSCULAR VOLUME 81 fL (80-96); MONOCYTES # (AUTO) 1.4 K/uL (0.1-1.30); MONOCYTES % (AUTO) 11.8 % (2.0-12.0); NEUTROPHILS % (AUTO) 69.7 % (43.0-81.0); PLATELET COUNT (AUTO) 240 K/uL (150-450); RED BLOOD CELL COUNT(AUTO) 3.47 MIL/uL (4.5-6.0); RED CELL DISTRIBUTION WIDTH 19.3 % (11.5-15.0); WHITE BLOOD COUNT (AUTO) 11.5 K/uL (4.3-11.0)
[2023-12-20 08:00] VITALS: BP 117/65; TEMP 98.6; O2SAT 100
[2023-12-20 08:42] LABS: CALCIUM, SERUM 8.7 mg/dL (8.5-10.1); CREATININE 0.8 mg/dL (0.6-1.3); MAGNESIUM 2.3 mg/dL (1.8-2.4); PHOSPHORUS 2.8 mg/dL (2.5-4.9)
[2023-12-20] MEDS: POTASSIUM CHLORIDE 20 MEQ POWDER PACKET GT ONE (10:58)
[2023-12-20 12:00] VITALS: BP 121/62; TEMP 98.7; O2SAT 100
[2023-12-20 16:00] VITALS: BP 117/63; TEMP 99.5; O2SAT 100
[2023-12-20] MEDS: MUPIROCIN OINT 2% 22 GM TUBE TP SCH (18:48)
[2023-12-20 20:00] VITALS: BP 126/62; TEMP 98.6; O2SAT 100
[2023-12-20] MEDS: MEROPENEM 1 G in IV NS 0.9% 100 ML IV SCH (21:05)
[2023-12-21] VITALS (7 sets, daily range): BP systolic 114–141; BP diastolic 63–96; TEMP 98–98.6; O2SAT 94–98
[2023-12-21 07:32] LABS: BASOPHILS % (AUTO) 0.3 % (0.0-2.0); EOSINOPHILS # (AUTO) 0.3 K/uL (0.0-0.7); EOSINOPHILS % (AUTO) 2.6 % (0.0-6.0); HEMATOCRIT 30 % (39-51); HEMOGLOBIN 9.2 g/dL (13.5-17.5); LYMPHOCYTES # (AUTO) 2.3 K/uL (0.8-4.8); LYMPHOCYTES % (AUTO) 18.6 % (20.0-44.0); MEAN CORPUSCULAR HEMOGLOBIN 25 PG (26.0-33.0); MEAN CORPUSCULAR HGB CONC 31 g/dl (31.0-36.0); MEAN CORPUSCULAR VOLUME 80 fL (80-96); MONOCYTES # (AUTO) 1.5 K/uL (0.1-1.30); MONOCYTES % (AUTO) 11.8 % (2.0-12.0); NEUTROPHILS # (AUTO) 8.3 K/uL (1.8-8.9); NEUTROPHILS % (AUTO) 66.7 % (43.0-81.0); PLATELET COUNT (AUTO) 254 K/uL (150-450); RED CELL DISTRIBUTION WIDTH 19.2 % (11.5-15.0); WHITE BLOOD COUNT (AUTO) 12.4 K/uL (4.3-11.0)
[2023-12-21 10:44] LABS: CALCIUM, SERUM 8.4 mg/dL (8.5-10.1); PHOSPHORUS 3.5 mg/dL (2.5-4.9); POTASSIUM 3.1 mmol/L (3.5-5.1)
[2023-12-21] MEDS ORDERED: HYDROCODONE/APAP 5/325MG TABLET GT PRN (14:37)
[2023-12-21] MEDS: POTASSIUM CHLORIDE 20 MEQ POWDER PACKET GT ONE (15:17)
[2023-12-21] MEDS: ONDANSETRON HCL/PF 4 MG/2 ML VIAL IVP PRN (21:28)
[2023-12-22] VITALS (9 sets, daily range): BP systolic 113–130; BP diastolic 61–70; TEMP 97.5–99; O2SAT 97–99
[2023-12-22 07:27] LABS: BASOPHILS % (AUTO) 0.2 % (0.0-2.0); EOSINOPHILS # (AUTO) 0.3 K/uL (0.0-0.7); EOSINOPHILS % (AUTO) 2.8 % (0.0-6.0); HEMATOCRIT 29 % (39-51); HEMOGLOBIN 8.9 g/dL (13.5-17.5); LYMPHOCYTES # (AUTO) 1.7 K/uL (0.8-4.8); LYMPHOCYTES % (AUTO) 14.9 % (20.0-44.0); MEAN CORPUSCULAR HEMOGLOBIN 25 PG (26.0-33.0); MEAN CORPUSCULAR HGB CONC 31 g/dl (31.0-36.0); MEAN CORPUSCULAR VOLUME 80 fL (80-96); MONOCYTES # (AUTO) 1.2 K/uL (0.1-1.30); MONOCYTES % (AUTO) 10.8 % (2.0-12.0); NEUTROPHILS # (AUTO) 8.2 K/uL (1.8-8.9); NEUTROPHILS % (AUTO) 71.3 % (43.0-81.0); PLATELET COUNT (AUTO) 269 K/uL (150-450); RED BLOOD CELL COUNT(AUTO) 3.55 MIL/uL (4.5-6.0); RED CELL DISTRIBUTION WIDTH 19.1 % (11.5-15.0); WHITE BLOOD COUNT (AUTO) 11.4 K/uL (4.3-11.0)
[2023-12-22 07:29] LABS: CALCIUM, SERUM 7.8 mg/dL (8.5-10.1); CARBON DIOXIDE 24 mmol/L (21-32); CHLORIDE 110 mmol/L (98-107); CREATININE 0.9 mg/dL (0.6-1.3); GLUCOSE 115 mg/dL (74-106); MAGNESIUM 2.2 mg/dL (1.8-2.4); PHOSPHORUS 2.9 mg/dL (2.5-4.9); POTASSIUM 3.7 mmol/L (3.5-5.1); SODIUM SERUM 144 mmol/L (136-145); UREA NITROGEN, BLOOD 15 mg/dL (7-18)
[2023-12-23] VITALS: BP 112/60; TEMP 97.9; O2SAT 97
[2023-12-23 04:00] VITALS: BP 134/66; TEMP 98.1; O2SAT 98
[2023-12-23] MEDS: ACETAMINOPHEN 650 MG/20.3 ML UDC GT PRN (04:59)
[2023-12-23 08:00] VITALS: BP 122/53; TEMP 97.5; O2SAT 99
[2023-12-23 09:41] LABS: CALCIUM, SERUM 8.4 mg/dL (8.5-10.1); CARBON DIOXIDE 28 mmol/L (21-32); CHLORIDE 110 mmol/L (98-107); CREATININE 0.9 mg/dL (0.6-1.3); GLUCOSE 83 mg/dL (74-106); SODIUM SERUM 142 mmol/L (136-145); UREA NITROGEN, BLOOD 17 mg/dL (7-18)
[2023-12-23 11:13] LABS: BASOPHILS # (AUTO) 0.1 K/uL (0.0-0.2); BASOPHILS % (AUTO) 0.6 % (0.0-2.0); EOSINOPHILS # (AUTO) 0.4 K/uL (0.0-0.7); EOSINOPHILS % (AUTO) 3.3 % (0.0-6.0); HEMATOCRIT 33 % (39-51); LYMPHOCYTES # (AUTO) 2.1 K/uL (0.8-4.8); MEAN CORPUSCULAR HEMOGLOBIN 25 PG (26.0-33.0); MEAN CORPUSCULAR HGB CONC 31 g/dl (31.0-36.0); MEAN CORPUSCULAR VOLUME 81 fL (80-96); MONOCYTES % (AUTO) 7.4 % (2.0-12.0); NEUTROPHILS # (AUTO) 9.4 K/uL (1.8-8.9); NEUTROPHILS % (AUTO) 72.7 % (43.0-81.0); PLATELET COUNT (AUTO) 335 K/uL (150-450); RED BLOOD CELL COUNT(AUTO) 4.04 MIL/uL (4.5-6.0); RED CELL DISTRIBUTION WIDTH 19.2 % (11.5-15.0)
[2023-12-23 11:39] LABS: IRON, SERUM 17 ug/dl (50-175); TOTAL IRON BINDING CAPACITY 227 ug/dl (250-450)
[2023-12-23 11:56] LABS: FERRITIN 70 ng/mL (8-388)
[2023-12-23 12:00] VITALS: BP 137/65; TEMP 96.9; O2SAT 99
[2023-12-23 16:00] VITALS: BP 117/69; TEMP 96.5; O2SAT 100
[2023-12-23 20:00] VITALS: BP 130/80; TEMP 97.8; O2SAT 99
[2023-12-24] VITALS: BP 126/72; TEMP 97.1; O2SAT 98
[2023-12-24 04:00] VITALS: BP 123/64; TEMP 98.7; O2SAT 98
[2023-12-24] MEDS ORDERED: CEFTAZIDIME 1 G VIAL ONE (04:50)
[2023-12-24] MEDS: CEFTAZIDIME 1 G in IV D5W 50 ML IV SCH (05:20)
[2023-12-24 08:00] VITALS: BP 123/64; TEMP 98.3; O2SAT 98
[2023-12-24 08:41] LABS: BASOPHILS % (AUTO) 0.2 % (0.0-2.0); EOSINOPHILS # (AUTO) 0.2 K/uL (0.0-0.7); HEMATOCRIT 31 % (39-51); HEMOGLOBIN 9.6 g/dL (13.5-17.5); LYMPHOCYTES # (AUTO) 1.7 K/uL (0.8-4.8); LYMPHOCYTES % (AUTO) 8.5 % (20.0-44.0); MEAN CORPUSCULAR HEMOGLOBIN 25 PG (26.0-33.0); MEAN CORPUSCULAR HGB CONC 31 g/dl (31.0-36.0); MEAN CORPUSCULAR VOLUME 80 fL (80-96); MONOCYTES # (AUTO) 1.4 K/uL (0.1-1.30); MONOCYTES % (AUTO) 6.8 % (2.0-12.0); NEUTROPHILS # (AUTO) 16.8 K/uL (1.8-8.9); NEUTROPHILS % (AUTO) 83.5 % (43.0-81.0); PLATELET COUNT (AUTO) 330 K/uL (150-450); RED BLOOD CELL COUNT(AUTO) 3.84 MIL/uL (4.5-6.0); RED CELL DISTRIBUTION WIDTH 18.8 % (11.5-15.0); WHITE BLOOD COUNT (AUTO) 20.1 K/uL (4.3-11.0)
[2023-12-24 09:09] LABS: CALCIUM, SERUM 8.7 mg/dL (8.5-10.1); CARBON DIOXIDE 29 mmol/L (21-32); CHLORIDE 106 mmol/L (98-107); CREATININE 0.8 mg/dL (0.6-1.3); GLUCOSE 125 mg/dL (74-106); MAGNESIUM 2.3 mg/dL (1.8-2.4); PHOSPHORUS 2.7 mg/dL (2.5-4.9); POTASSIUM 3.7 mmol/L (3.5-5.1); SODIUM SERUM 140 mmol/L (136-145); UREA NITROGEN, BLOOD 19 mg/dL (7-18)
[2023-12-24] MEDS: LINEZOLID 600 MG TABLET PO SCH (09:12)
[2023-12-24 11:30] LABS: ANISOCYTOSIS 1+; EOSINOPHILS % (MANUAL) 1 % (0-4); HYPOCHROMASIA 1+; LYMPHOCYTES % (MANUAL) 7 % (16-48); MONOCYTES % (MANUAL) 6 % (0-11.0); NEUTROPHILS % (MANUAL) 86 (42-76); PLATELET ESTIMATE ADEQUATE; SMUDGE CELLS FEW
[2023-12-24 11:31] LABS: STOMATOCYTES 1+
[2023-12-24 12:00] VITALS: BP_SYST 106; BP_SYST 121; BP_DIAS 64; BP_DIAS 83; TEMP 98.3; O2SAT 100; O2SAT 98
[2023-12-24 16:00] VITALS: BP 121/83; TEMP 98.3; O2SAT 100
[2023-12-24 20:00] VITALS: BP 108/59; TEMP 97.3; O2SAT 99
[2023-12-25] VITALS: BP 100/55; TEMP 97.7; O2SAT 97
[2023-12-25 04:00] VITALS: BP 97/62; TEMP 97.5; O2SAT 98
[2023-12-25 08:00] VITALS: BP 107/76; TEMP 98.6; O2SAT 98
[2023-12-25 09:17] LABS: CALCIUM, SERUM 8.3 mg/dL (8.5-10.1); CARBON DIOXIDE 27 mmol/L (21-32); CHLORIDE 105 mmol/L (98-107); CREATININE 0.8 mg/dL (0.6-1.3); GLUCOSE 93 mg/dL (74-106); MAGNESIUM 2.5 mg/dL (1.8-2.4); PHOSPHORUS 3.2 mg/dL (2.5-4.9); POTASSIUM 4.4 mmol/L (3.5-5.1); SODIUM SERUM 139 mmol/L (136-145); UREA NITROGEN, BLOOD 22 mg/dL (7-18)
[2023-12-25 11:28] LABS: BASOPHILS % (AUTO) 0.2 % (0.0-2.0); EOSINOPHILS # (AUTO) 0.3 K/uL (0.0-0.7); EOSINOPHILS % (AUTO) 2.6 % (0.0-6.0); HEMATOCRIT 29 % (39-51); HEMOGLOBIN 8.9 g/dL (13.5-17.5); LYMPHOCYTES # (AUTO) 2.3 K/uL (0.8-4.8); LYMPHOCYTES % (AUTO) 18.5 % (20.0-44.0); MEAN CORPUSCULAR HEMOGLOBIN 24 PG (26.0-33.0); MEAN CORPUSCULAR HGB CONC 31 g/dl (31.0-36.0); MEAN CORPUSCULAR VOLUME 80 fL (80-96); MONOCYTES # (AUTO) 1.3 K/uL (0.1-1.30); MONOCYTES % (AUTO) 10.1 % (2.0-12.0); NEUTROPHILS # (AUTO) 8.7 K/uL (1.8-8.9); NEUTROPHILS % (AUTO) 68.6 % (43.0-81.0); PLATELET COUNT (AUTO) 320 K/uL (150-450); RED BLOOD CELL COUNT(AUTO) 3.66 MIL/uL (4.5-6.0); WHITE BLOOD COUNT (AUTO) 12.6 K/uL (4.3-11.0)
[2023-12-25 12:00] VITALS: BP 114/54; TEMP 98.2; O2SAT 98
[2023-12-25 16:00] VITALS: BP 117/57; TEMP 99.3; O2SAT 98
[2023-12-25 20:00] VITALS: BP 115/63; TEMP 98.1; O2SAT 98
[2023-12-26] VITALS (7 sets, daily range): BP systolic 94–126; BP diastolic 45–68; TEMP 97.4–98.9; O2SAT 95–99
[2023-12-26 07:20] LABS: BASOPHILS % (AUTO) 0.2 % (0.0-2.0); EOSINOPHILS # (AUTO) 0.3 K/uL (0.0-0.7); EOSINOPHILS % (AUTO) 2.3 % (0.0-6.0); HEMATOCRIT 31 % (39-51); HEMOGLOBIN 9.9 g/dL (13.5-17.5); LYMPHOCYTES # (AUTO) 1.7 K/uL (0.8-4.8); LYMPHOCYTES % (AUTO) 12.7 % (20.0-44.0); MEAN CORPUSCULAR HEMOGLOBIN 25 PG (26.0-33.0); MEAN CORPUSCULAR HGB CONC 32 g/dl (31.0-36.0); MEAN CORPUSCULAR VOLUME 80 fL (80-96); MONOCYTES # (AUTO) 1.2 K/uL (0.1-1.30); MONOCYTES % (AUTO) 9.3 % (2.0-12.0); NEUTROPHILS # (AUTO) 10.1 K/uL (1.8-8.9); NEUTROPHILS % (AUTO) 75.5 % (43.0-81.0); PLATELET COUNT (AUTO) 339 K/uL (150-450); RED BLOOD CELL COUNT(AUTO) 3.92 MIL/uL (4.5-6.0); RED CELL DISTRIBUTION WIDTH 19.1 % (11.5-15.0); WHITE BLOOD COUNT (AUTO) 13.4 K/uL (4.3-11.0)
[2023-12-26 08:25] LABS: CREATININE 0.8 mg/dL (0.6-1.3); MAGNESIUM 2.4 mg/dL (1.8-2.4); PHOSPHORUS 3.3 mg/dL (2.5-4.9); POTASSIUM 3.9 mmol/L (3.5-5.1)
[2023-12-27] VITALS (8 sets, daily range): BP systolic 94–132; BP diastolic 45–78; TEMP 97–98.6; O2SAT 92–100
[2023-12-27 07:37] LABS: BASOPHILS # (AUTO) 0.2 K/uL (0.0-0.2); BASOPHILS % (AUTO) 1.5 % (0.0-2.0); EOSINOPHILS # (AUTO) 0.3 K/uL (0.0-0.7); EOSINOPHILS % (AUTO) 2.8 % (0.0-6.0); HEMATOCRIT 25 % (39-51); HEMOGLOBIN 8.2 g/dL (13.5-17.5); LYMPHOCYTES # (AUTO) 2.4 K/uL (0.8-4.8); LYMPHOCYTES % (AUTO) 19.9 % (20.0-44.0); MEAN CORPUSCULAR HEMOGLOBIN 27 PG (26.0-33.0); MEAN CORPUSCULAR HGB CONC 33 g/dl (31.0-36.0); MEAN CORPUSCULAR VOLUME 82 fL (80-96); MONOCYTES # (AUTO) 1.4 K/uL (0.1-1.30); MONOCYTES % (AUTO) 12.1 % (2.0-12.0); NEUTROPHILS # (AUTO) 7.6 K/uL (1.8-8.9); NEUTROPHILS % (AUTO) 63.7 % (43.0-81.0); PLATELET COUNT (AUTO) 349 K/uL (150-450); RED BLOOD CELL COUNT(AUTO) 3.02 MIL/uL (4.5-6.0); RED CELL DISTRIBUTION WIDTH 18.8 % (11.5-15.0)
[2023-12-27 08:01] LABS: CALCIUM, SERUM 8.3 mg/dL (8.5-10.1); CREATININE 0.9 mg/dL (0.6-1.3); MAGNESIUM 2.4 mg/dL (1.8-2.4); PHOSPHORUS 3.4 mg/dL (2.5-4.9); POTASSIUM 4.4 mmol/L (3.5-5.1)
[2023-12-28] VITALS: BP 112/76; TEMP 97.7; O2SAT 98
[2023-12-28 04:00] VITALS: BP 122/68; TEMP 98; O2SAT 97
[2023-12-28 06:46] LABS: BASOPHILS % (AUTO) 0.5 % (0.0-2.0); EOSINOPHILS # (AUTO) 0.3 K/uL (0.0-0.7); EOSINOPHILS % (AUTO) 2.8 % (0.0-6.0); HEMATOCRIT 31 % (39-51); HEMOGLOBIN 9.6 g/dL (13.5-17.5); LYMPHOCYTES # (AUTO) 1.9 K/uL (0.8-4.8); LYMPHOCYTES % (AUTO) 20.1 % (20.0-44.0); MEAN CORPUSCULAR HEMOGLOBIN 25 PG (26.0-33.0); MEAN CORPUSCULAR HGB CONC 31 g/dl (31.0-36.0); MEAN CORPUSCULAR VOLUME 80 fL (80-96); MONOCYTES # (AUTO) 1.2 K/uL (0.1-1.30); MONOCYTES % (AUTO) 13.3 % (2.0-12.0); NEUTROPHILS # (AUTO) 5.9 K/uL (1.8-8.9); NEUTROPHILS % (AUTO) 63.3 % (43.0-81.0); PLATELET COUNT (AUTO) 343 K/uL (150-450); RED BLOOD CELL COUNT(AUTO) 3.89 MIL/uL (4.5-6.0); RED CELL DISTRIBUTION WIDTH 18.8 % (11.5-15.0); WHITE BLOOD COUNT (AUTO) 9.3 K/uL (4.3-11.0)
[2023-12-28 08:00] VITALS: BP 114/67; TEMP 98.6; O2SAT 100
[2023-12-28 12:00] VITALS: BP 112/62; TEMP 98.8; O2SAT 99
[2023-12-28 16:00] VITALS: BP 122/60; TEMP 98.6; O2SAT 100
[2023-12-28 20:00] VITALS: BP 114/70; TEMP 97.3; O2SAT 100
[2023-12-29] VITALS: BP 122/69; TEMP 98; O2SAT 100
[2023-12-29 04:00] VITALS: BP 127/72; TEMP 98; O2SAT 97
[2023-12-29 08:00] VITALS: BP 123/66; TEMP 98.3; O2SAT 97
[2023-12-29] MEDS: QUETIAPINE FUMARATE 25 MG TABLET PO SCH (11:25)
[2023-12-29 12:00] VITALS: BP 113/75; TEMP 97.6; O2SAT 98
== END 2023-12-29 13:28 | DRG 870 ==
LOC: ER 10:35 → TELE 13:24 → TELE-TD 18:33 → MEDSG1 12-18 12:02 → TELE1 12-18 23:19
PROVIDERS: ATTEND Nurse Practitioner Family
PROC: 5A1955Z Respiratory Ventilation, Greater than 96 Consecutive Hours (ICD-10-PCS; principal; 2023-12-17)
DX: A41.9 Sepsis, unspecified organism (principal); J96.21 Acute and chronic respiratory failure with hypoxia; J69.0 Pneumonitis due to inhalation of food and vomit; J95.851 Ventilator associated pneumonia; D68.59 Other primary thrombophilia; E44.0 Moderate protein-calorie malnutrition; E87.0 Hyperosmolality and hypernatremia; I48.20 Chronic atrial fibrillation, unspecified; K56.7 Ileus, unspecified; N17.9 Acute kidney failure, unspecified; J98.19 Other pulmonary collapse; Z99.11 Dependence on respirator [ventilator] status; J98.11 Atelectasis; G93.49 Other encephalopathy; T17.590A Other foreign object in bronchus causing asphyxiation, initial encounter; N39.0 Urinary tract infection, site not specified; K92.0 Hematemesis; Z16.21 Resistance to vancomycin; J44.0 Chronic obstructive pulmonary disease with (acute) lower respiratory infection; J98.09 Other diseases of bronchus, not elsewhere classified; E78.5 Hyperlipidemia, unspecified; E87.6 Hypokalemia; E88.09 Other disorders of plasma-protein metabolism, not elsewhere classified; F20.9 Schizophrenia, unspecified; K21.9 Gastro-esophageal reflux disease without esophagitis; N18.9 Chronic kidney disease, unspecified; R13.10 Dysphagia, unspecified; Z93.1 Gastrostomy status; Z93.0 Tracheostomy status; Z20.822 Contact with and (suspected) exposure to COVID-19; I25.10 Atherosclerotic heart disease of native coronary artery without angina pectoris; N40.0 Benign prostatic hyperplasia without lower urinary tract symptoms; Z68.21 Body mass index [BMI] 21.0-21.9, adult; Z79.4 Long term (current) use of insulin; Z79.01 Long term (current) use of anticoagulants; I12.9 Hypertensive chronic kidney disease with stage 1 through stage 4 chronic kidney disease, or unspecified chronic kidney disease; E11.22 Type 2 diabetes mellitus with diabetic chronic kidney disease; E86.0 Dehydration; Z87.440 Personal history of urinary (tract) infections; B96.89 Other specified bacterial agents as the cause of diseases classified elsewhere; M89.8X9 Other specified disorders of bone, unspecified site; D50.9 Iron deficiency anemia, unspecified; Y83.3 Surgical operation with formation of external stoma as the cause of abnormal reaction of the patient, or of later complication, without mention of misadventure at the time of the procedure; Y92.129 Unspecified place in nursing home as the place of occurrence of the external cause
CPT/HCPCS: 31720; 36415; 71045-TC; 71250-TC; 74018; 74250-TC; 80048-TC; 80053-TC; 80076-TC; 80202-TC; 81001; 82570-TC; 82607-TC; 82728-TC; 82962-TC; 83540-TC; 83605-TC; 83735-TC; 84100-TC; 84300-TC; 84484-TC; 85025-TC; 85730-TC; 86850-TC; 87040-TC; 87081-TC; 87086-TC; 94003-TC; 94640-TC; 94668-TC; 94760-TC; 94762-TC; 94799-TC; 99082-TC; A4223; A4623; A6253; A6403; A7526; G0378; J0713; J1650; J2185; J2405; J2543; J2765; J3370; J3371; J3480; J3490; J7030; J7040; J7050; J7060; Q9963

== ENCOUNTER 2024-02-02 04:58 | Inpatient (IN) | payer MEDICARE, OTHER ==
[~2024-02-02] VITALS: Ht 172.7 cm; Wt 63.5 kg
[~2024-02-02 04:58] MED LIST changes: +ACET-2605 PO; -AMIN30LI2 GT; +ASCO-352 GT; -CRAN425C6 GT; -KETO15CR2 TP; +LATA2.5D15 EACHEYE; -LINE600T12 GT; -METO-295 PO; -ONDA4TAB5 GT; -PETR113O TP; +PIME30CR TP; +SILV20CR13 TP; -SIME80TA15 PO
[2024-02-02] MEDS ORDERED: PANTOPRAZOLE 40 MG VIAL ONE (05:42)
[2024-02-02] MEDS ORDERED: PIPERACI/TAZO 3.375GM/D5W 50ML PB IV ONE (05:43)
[2024-02-02] MEDS: IV NS 0.9% 1,000 ML BAG IV ONE ×2 (05:44→06:42)
[2024-02-02] MEDS: PIPERACILLIN /TAZOBACTAM 3.375 G in IV D5W 50 ML IV ONE (05:44)
[2024-02-02] MEDS: PANTOPRAZOLE 80 MG in IV NS 0.9% 500 ML IV ONE (05:44)
[2024-02-02 06:01] LABS: BASOPHILS % (AUTO) 0.3 % (0.0-2.0); EOSINOPHILS # (AUTO) 0.1 K/uL (0.0-0.7); EOSINOPHILS % (AUTO) 0.8 % (0.0-6.0); HEMATOCRIT 37 % (39-51); HEMOGLOBIN 11.5 g/dL (13.5-17.5); LYMPHOCYTES # (AUTO) 2.9 K/uL (0.8-4.8); LYMPHOCYTES % (AUTO) 16.9 % (20.0-44.0); MEAN CORPUSCULAR HEMOGLOBIN 24 PG (26.0-33.0); MEAN CORPUSCULAR HGB CONC 31 g/dl (31.0-36.0); MEAN CORPUSCULAR VOLUME 80 fL (80-96); MONOCYTES # (AUTO) 1.3 K/uL (0.1-1.30); MONOCYTES % (AUTO) 7.7 % (2.0-12.0); NEUTROPHILS # (AUTO) 12.8 K/uL (1.8-8.9); NEUTROPHILS % (AUTO) 74.3 % (43.0-81.0); PLATELET COUNT (AUTO) 373 K/uL (150-450); WHITE BLOOD COUNT (AUTO) 17.2 K/uL (4.3-11.0)
[2024-02-02 06:02] LABS: APPEARANCE,URINE SLIGHTLY CLOUDY (CLEAR); BILIRUBIN,URINE NEGATIVE (NEGATIVE); BLOOD, URINE 2+ Ery/uL (NEGATIVE); COLOR,URINE YELLOW (YELLOW); KETONES,URINE TRACE mg/dL (NEGATIVE); LEUKOCYTE ESTERASE ,URINE 1+ (NEGATIVE); NITRITE, URINE NEGATIVE (NEGATIVE); PROTEIN,URINE 1+ mg/dl (NEGATIVE); UGLUCOSE NEGATIVE (NEGATIVE); UROBILINOGEN,URINE 0.2 EU/dL (0.2)
[2024-02-02 06:05] LABS: ADD URINE CULTURE YES; BACTERIA,URINE Rare /HPF (None Seen); SQUAMOUS EPITHELIAL CELL,UR Rare /HPF (None Seen)
[2024-02-02 06:09] LABS: CALCIUM, SERUM 9.7 mg/dL (8.5-10.1); CARBON DIOXIDE 34 mmol/L (21-32); CHLORIDE 102 mmol/L (98-107); CREATININE 0.9 mg/dL (0.6-1.3); GLUCOSE 139 mg/dL (74-106); POTASSIUM 3.4 mmol/L (3.5-5.1); SODIUM SERUM 144 mmol/L (136-145); UREA NITROGEN, BLOOD 26 mg/dL (7-18)
[2024-02-02 06:12] LABS: INR 1.02 (0.91-1.10); PROTHROMBIN TIME 10.8 SECS (9.2-11.1)
[2024-02-02 06:14] LABS: ALANINE AMINOTRANSFERASE 23 U/L (12-78); ALBUMIN 2.8 g/dL (3.4-5.0); ALKALINE PHOSPHATASE 125 U/L (46-116); ASPARTATE AMINOTRANSFERASE 15 U/L (15-37); BILIRUBIN,DIRECT 0.1 mg/dL (0.0-0.2); BILIRUBIN,TOTAL 0.2 mg/dL (0.2-1.0); LIPASE 27 U/L (16-77); TOTAL PROTEIN, SERUM 9.4 g/dL (6.4-8.2)
[2024-02-02 06:19] LABS: LACTIC ACID 2.7 mmol/L (0.4-2.0)
[2024-02-02] MEDS ORDERED: VANCOMYCIN 1 GM /D5W 250 ML PB IV ONE (06:40)
[2024-02-02] MEDS: VANCOMYCIN 1 GM in IV D5W 250 ML IV ONE (06:42)
[2024-02-02] MEDS ORDERED: NUT.237L30 PO (09:04)
[2024-02-02] MEDS ORDERED: HYDR-4303 GT (09:04)
[2024-02-02] MEDS ORDERED: LACT10SO29 GT (09:04)
[2024-02-02] MEDS ORDERED: AMIN30LI66 GT (09:04)
[2024-02-02] MEDS ORDERED: MAG HYDROX/AL HYDROX/SIMETH 30 ML UDC PO PRN (09:30)
[2024-02-02] MEDS ORDERED: AMIODARONE 150 MG in IV D5W 100 ML IV ONE (09:30)
[2024-02-02] MEDS ORDERED: ONDANSETRON HCL/PF 4 MG/2 ML VIAL IVP PRN (09:30)
[2024-02-02] MEDS ORDERED: Z GUARD REMEDY 4 OZ OINT TP PRN (09:30)
[2024-02-02] MEDS ORDERED: ACETAMINOPHEN 325 MG TABLET PO PRN (09:30)
[2024-02-02] MEDS ORDERED: MAGNESIUM HYDROXIDE 30 ML UDC PO PRN (09:30)
[2024-02-02] MEDS ORDERED: AMIODARONE 450 MG in IV D5W 250 ML IV PRN (09:30)
[2024-02-02 09:55] LABS: IRON, SERUM 29 ug/dl (50-175); MAGNESIUM 2.6 mg/dL (1.8-2.4); PHOSPHORUS 4.1 mg/dL (2.5-4.9); TOTAL IRON BINDING CAPACITY 321 ug/dl (250-450)
[2024-02-02] MEDS ORDERED: AMIODARONE 450 MG in IV D5W 241 ML IV PRN (10:00)
[2024-02-02] MEDS: AMIODARONE 150 MG in IV D5W 100 ML IV ONE (10:23)
[2024-02-02] MEDS: POTASSIUM CHLORIDE 20 MEQ TAB.PRT.SR PO ONE (10:24)
[2024-02-02 10:43] VITALS: BP 125/80; TEMP 96.8; O2SAT 96
[2024-02-02] MEDS: PIPERACILLIN /TAZOBACTAM 3.375 G in IV D5W 100 ML IV SCH (12:08)
[2024-02-02 12:45] LABS: FERRITIN 44 ng/mL (8-388)
[2024-02-02 14:43] VITALS: BP 122/77; TEMP 97; O2SAT 96
[2024-02-02 18:43] VITALS: BP 92/62; TEMP 97.5; O2SAT 96
[2024-02-02 20:00] VITALS: BP 99/70; TEMP 97.3; O2SAT 99
[2024-02-03] VITALS: BP 104/81; TEMP 97.7; O2SAT 98
[2024-02-03 04:00] VITALS: BP 123/68; TEMP 97.9; O2SAT 99
[2024-02-03 08:00] VITALS: BP 120/65; TEMP 97.6; O2SAT 99
[2024-02-03 08:10] LABS: BASOPHILS # (AUTO) 0.1 K/uL (0.0-0.2); BASOPHILS % (AUTO) 0.6 % (0.0-2.0); EOSINOPHILS # (AUTO) 0.4 K/uL (0.0-0.7); EOSINOPHILS % (AUTO) 3.9 % (0.0-6.0); HEMATOCRIT 29 % (39-51); HEMOGLOBIN 9.1 g/dL (13.5-17.5); LYMPHOCYTES # (AUTO) 1.7 K/uL (0.8-4.8); LYMPHOCYTES % (AUTO) 16.7 % (20.0-44.0); MEAN CORPUSCULAR HEMOGLOBIN 25 PG (26.0-33.0); MEAN CORPUSCULAR HGB CONC 31 g/dl (31.0-36.0); MEAN CORPUSCULAR VOLUME 80 fL (80-96); NEUTROPHILS # (AUTO) 7.2 K/uL (1.8-8.9); NEUTROPHILS % (AUTO) 68.8 % (43.0-81.0); PLATELET COUNT (AUTO) 296 K/uL (150-450); RED BLOOD CELL COUNT(AUTO) 3.64 MIL/uL (4.5-6.0); RED CELL DISTRIBUTION WIDTH 17.6 % (11.5-15.0); WHITE BLOOD COUNT (AUTO) 10.4 K/uL (4.3-11.0)
[2024-02-03] MEDS ORDERED: DIATR MEGLU/DIATRIZOATE SODIUM 120 ML BOTTLE (GASTROGRAPHIN) ONE (09:25)
[2024-02-03 09:32] LABS: BILIRUBIN,TOTAL 0.3 mg/dL (0.2-1.0); CALCIUM, SERUM 8.4 mg/dL (8.5-10.1); CREATININE 0.8 mg/dL (0.6-1.3); MAGNESIUM 2.3 mg/dL (1.8-2.4); PHOSPHORUS 1.9 mg/dL (2.5-4.9); POTASSIUM 3.3 mmol/L (3.5-5.1)
[2024-02-03] MEDS: POTASSIUM CL. PREMIX PERIPHER. 50 ML IV SCH (09:57)
[2024-02-03] MEDS: POTASSIUM PHOSPHATE MM 7.5 MMOL in IV NS 0.9% 100 ML IV SCH (10:07)
[2024-02-03 12:00] VITALS: BP 134/60; TEMP 97.6; O2SAT 99
[2024-02-03] MEDS: PANTOPRAZOLE 40 MG VIAL IV SCH (15:46)
[2024-02-03] MEDS: METOCLOPRAMIDE HCL 10 MG/2 ML VIAL IV SCH (15:50)
[2024-02-03 16:00] VITALS: BP 124/62; TEMP 97.8; O2SAT 99
[2024-02-03 20:00] VITALS: BP 119/70; TEMP 98.4; O2SAT 95
[2024-02-03] MEDS: IV NS 0.9% 1,000 ML IV PRN (22:08)
[2024-02-03 22:28] LABS: ABG BASE EXCESS 4.3 mmol/L; ABG OXYGEN SATURATION 97.7 % (92.0-98.5); ABG PH 7.384 (7.350-7.450); ABG PO2 109.6 mmHg (75.0-100.0); ABG TOTAL HEMOGLOBIN 11.6 G/dL (13.5-18.0); AaDO2 115.8 mmHg; COHb 0.3 % (0.5-1.5); MetHb 0.3 % (0.0-1.5); O2Hb 97.1 % (94.0-97.0); PEEP,BG 5 cm H2O; SITE, ABG Left Radial; VENT MODE, BG ac fio2 40; VT, ABG 500 mL
[2024-02-04] VITALS: BP 109/69; TEMP 97.5; O2SAT 96
[2024-02-04] MEDS: ENOXAPARIN SODIUM 80 MG/0.8 ML DISP.SYRIN SQ ONE (01:56)
[2024-02-04] MEDS ORDERED: ENOXAPARIN SODIUM 80 MG/0.8 ML DISP.SYRIN SQ ONE (02:00)
[2024-02-04 04:00] VITALS: BP 109/61; TEMP 97.9; O2SAT 98
[2024-02-04 07:32] LABS: BASOPHILS # (AUTO) 0.1 K/uL (0.0-0.2); BASOPHILS % (AUTO) 0.5 % (0.0-2.0); EOSINOPHILS # (AUTO) 0.3 K/uL (0.0-0.7); EOSINOPHILS % (AUTO) 2.5 % (0.0-6.0); HEMATOCRIT 28 % (39-51); HEMOGLOBIN 8.9 g/dL (13.5-17.5); LYMPHOCYTES % (AUTO) 19.3 % (20.0-44.0); MEAN CORPUSCULAR HEMOGLOBIN 25 PG (26.0-33.0); MEAN CORPUSCULAR HGB CONC 31 g/dl (31.0-36.0); MEAN CORPUSCULAR VOLUME 79 fL (80-96); MONOCYTES # (AUTO) 1.3 K/uL (0.1-1.30); MONOCYTES % (AUTO) 12.3 % (2.0-12.0); NEUTROPHILS # (AUTO) 6.8 K/uL (1.8-8.9); NEUTROPHILS % (AUTO) 65.4 % (43.0-81.0); PLATELET COUNT (AUTO) 283 K/uL (150-450); RED BLOOD CELL COUNT(AUTO) 3.57 MIL/uL (4.5-6.0); RED CELL DISTRIBUTION WIDTH 17.9 % (11.5-15.0); WHITE BLOOD COUNT (AUTO) 10.3 K/uL (4.3-11.0)
[2024-02-04 07:57] LABS: CALCIUM, SERUM 8.5 mg/dL (8.5-10.1); CREATININE 0.8 mg/dL (0.6-1.3); POTASSIUM 3.5 mmol/L (3.5-5.1)
[2024-02-04 08:00] VITALS: BP 123/65; TEMP 97.7; O2SAT 99
[2024-02-04] MEDS: MUPIROCIN OINT 2% 22 GM TUBE NS SCH (08:28)
[2024-02-04] MEDS: ENOXAPARIN SODIUM 40 MG/0.4 ML DISP.SYRIN SQ SCH (08:31)
[2024-02-04 12:00] VITALS: BP 125/78; TEMP 97.5; O2SAT 98
[2024-02-04 16:00] VITALS: BP 136/92; TEMP 97.3; O2SAT 98
[2024-02-04 20:00] VITALS: BP 127/60; TEMP 98.1; O2SAT 97
[2024-02-04] MEDS ORDERED: ENOXAPARIN SODIUM 80 MG/0.8 ML DISP.SYRIN SQ SCH (21:00)
[2024-02-05] VITALS: BP 128/65; TEMP 98.4; O2SAT 99
[2024-02-05 04:00] VITALS: BP 130/74; TEMP 98.1; O2SAT 98
[2024-02-05 06:51] LABS: BASOPHILS % (AUTO) 0.7 % (0.0-2.0); EOSINOPHILS # (AUTO) 0.4 K/uL (0.0-0.7); EOSINOPHILS % (AUTO) 6.8 % (0.0-6.0); HEMATOCRIT 28 % (39-51); HEMOGLOBIN 8.7 g/dL (13.5-17.5); LYMPHOCYTES # (AUTO) 1.6 K/uL (0.8-4.8); MEAN CORPUSCULAR HEMOGLOBIN 25 PG (26.0-33.0); MEAN CORPUSCULAR HGB CONC 32 g/dl (31.0-36.0); MEAN CORPUSCULAR VOLUME 79 fL (80-96); MONOCYTES # (AUTO) 1.1 K/uL (0.1-1.30); MONOCYTES % (AUTO) 16.1 % (2.0-12.0); NEUTROPHILS # (AUTO) 3.4 K/uL (1.8-8.9); NEUTROPHILS % (AUTO) 51.4 % (43.0-81.0); PLATELET COUNT (AUTO) 278 K/uL (150-450); RED BLOOD CELL COUNT(AUTO) 3.49 MIL/uL (4.5-6.0); RED CELL DISTRIBUTION WIDTH 17.4 % (11.5-15.0); WHITE BLOOD COUNT (AUTO) 6.5 K/uL (4.3-11.0)
[2024-02-05 07:02] LABS: CALCIUM, SERUM 8.2 mg/dL (8.5-10.1); CREATININE 0.9 mg/dL (0.6-1.3)
[2024-02-05 08:00] VITALS: BP 118/71; TEMP 98.6; O2SAT 99
[2024-02-05] MEDS ORDERED: MAG HYDROX/AL HYDROX/SIMETH 30 ML UDC GT PRN (10:11)
[2024-02-05] MEDS ORDERED: MAGNESIUM HYDROXIDE 30 ML UDC GT PRN (10:11)
[2024-02-05] MEDS ORDERED: ACETAMINOPHEN 650 MG/20.3 ML UDC GT PRN (10:30)
[2024-02-05] MEDS: POTASSIUM CHLORIDE 20 MEQ POWDER PACKET NG SCH (11:54)
[2024-02-05 12:00] VITALS: BP 143/86; TEMP 98.4; O2SAT 99
[2024-02-05] MEDS: GLUCERNA 1.2 1,000 ML BOTTLE NG PRN (12:38)
== END 2024-02-05 15:50 | DRG 388 ==
LOC: ER 05:07 → TELE-TD 07:48 → TELE1 08:18
PROVIDERS: ADMIT Internal Medicine; ATTEND Internal Medicine
PROC: 5A1945Z Respiratory Ventilation, 24-96 Consecutive Hours (ICD-10-PCS; principal; 2024-02-02)
DX: K56.7 Ileus, unspecified (principal); G93.41 Metabolic encephalopathy; J96.21 Acute and chronic respiratory failure with hypoxia; E44.0 Moderate protein-calorie malnutrition; D68.69 Other thrombophilia; R65.10 Systemic inflammatory response syndrome (SIRS) of non-infectious origin without acute organ dysfunction; R40.3 Persistent vegetative state; Z99.11 Dependence on respirator [ventilator] status; J98.11 Atelectasis; K92.0 Hematemesis; E78.5 Hyperlipidemia, unspecified; N40.0 Benign prostatic hyperplasia without lower urinary tract symptoms; B35.1 Tinea unguium; D64.9 Anemia, unspecified; E87.6 Hypokalemia; E88.09 Other disorders of plasma-protein metabolism, not elsewhere classified; F20.9 Schizophrenia, unspecified; I48.91 Unspecified atrial fibrillation; K21.9 Gastro-esophageal reflux disease without esophagitis; Z79.01 Long term (current) use of anticoagulants; R13.10 Dysphagia, unspecified; G40.909 Epilepsy, unspecified, not intractable, without status epilepticus; Z93.0 Tracheostomy status; Z93.1 Gastrostomy status; I25.10 Atherosclerotic heart disease of native coronary artery without angina pectoris; J44.9 Chronic obstructive pulmonary disease, unspecified; Z87.440 Personal history of urinary (tract) infections; E11.621 Type 2 diabetes mellitus with foot ulcer; L97.511 Non-pressure chronic ulcer of other part of right foot limited to breakdown of skin; I10 Essential (primary) hypertension
CPT/HCPCS: 31720; 36415; 36600; 71045-TC; 74018; 74250-TC; 80048-TC; 80053-TC; 80076-TC; 81001; 82728-TC; 82803-TC; 83540-TC; 83605-TC; 83690-TC; 83735-TC; 84100-TC; 84484-TC; 85025-TC; 85610-TC; 86850-TC; 87040-TC; 87081-TC; 93307-TC; 94003-TC; 94760-TC; 94762-TC; 94799-TC; 99082-TC; A4223; A4623; A7526; C9113; G0378; J0282; J1650; J2543; J2765; J3370; J3480; J3490; J7030; J7040; J7050; J7060; Q9963

== ENCOUNTER 2025-04-07 09:01 | Inpatient (IN) | payer MEDICARE, OTHER ==
[2025-04-07] VITALS (11 sets, daily range): BP systolic 85–126; BP diastolic 52–86; TEMP 99.4–99.8; O2SAT 94–100
[~2025-04-07] VITALS: Ht 170.2 cm; Wt 66.2 kg
[~2025-04-07 09:01] MED LIST changes: +AMIN30LI66 GT; -AMIO200T5 GT; -FERR300L GT; +HYDR-4303 GT; -LACT-209 GT; +LACT10SO29 GT; +NUT.237L30 PO; -PIME30CR TP; -POLY17PO4 GT; -SILV20CR13 TP
[2025-04-07] MEDS ORDERED: ACETAMINOPHEN 325 MG/SUPP.RECT RC ONE (09:19)
[2025-04-07] MEDS: IV NS 0.9% 1,000 ML BAG IV ONE (09:25)
[2025-04-07 09:34] LABS: PLATELET COUNT (AUTO) 205 K/uL (150-450); RED BLOOD CELL COUNT(AUTO) 4.13 MIL/uL (4.5-6.0); RED CELL DISTRIBUTION WIDTH 17.9 % (11.5-15.0); WHITE BLOOD COUNT (AUTO) 20.5 K/uL (4.3-11.0)
[2025-04-07] MEDS: PIPERACILLIN /TAZOBACTAM 3.375 G in IV D5W 50 ML IV ONE (09:35)
[2025-04-07] MEDS ORDERED: MELA3TAB41 GT (09:39)
[2025-04-07] MEDS ORDERED: SENN-261 GT (09:39)
[2025-04-07] MEDS ORDERED: ONDA-97 GT (09:39)
[2025-04-07] MEDS ORDERED: SIME80TA15 GT (09:39)
[2025-04-07] MEDS ORDERED: AMIO100T GT (09:39)
[2025-04-07] MEDS ORDERED: PANT40SU2 GT (09:39)
[2025-04-07] MEDS ORDERED: LACT-209 GT (09:39)
[2025-04-07] MEDS ORDERED: THEO80EL GT (09:39)
[2025-04-07] MEDS ORDERED: MAGN296S72 GT (09:39)
[2025-04-07] MEDS ORDERED: POLY17PO4 GT (09:39)
[2025-04-07 09:41] LABS: CALCIUM, SERUM 8.3 mg/dL (8.5-10.1); CREATININE 1.5 mg/dL (0.6-1.3); SODIUM SERUM 139.0 mmol/L (136-145); UREA NITROGEN, BLOOD 41.0 mg/dL (7-18)
[2025-04-07 09:47] LABS: ASPARTATE AMINOTRANSFERASE 19.0 U/L (15-37); TOTAL PROTEIN, SERUM 7.3 g/dL (6.4-8.2)
[2025-04-07 09:50] LABS: LACTIC ACID 1.5 mmol/L (0.4-2.0)
[2025-04-07 09:55] LABS: INR 1.17 (0.91-1.10)
[2025-04-07] MEDS: ACETAMINOPHEN 650 MG/SUPP.RECT RC ONE (09:56)
[2025-04-07] MEDS: VANCOMYCIN 1 GM in IV D5W 250 ML IV ONE (10:10)
[2025-04-07 10:12] LABS: APPEARANCE,URINE CLEAR (CLEAR); BLOOD, URINE 2+ Ery/uL (NEGATIVE); LEUKOCYTE ESTERASE ,URINE 1+ (NEGATIVE); NITRITE, URINE POSITIVE (NEGATIVE); UGLUCOSE NEGATIVE (NEGATIVE)
[2025-04-07 10:35] LABS: ADD URINE CULTURE YES
[2025-04-07 10:36] LABS: SQUAMOUS EPITHELIAL CELL,UR Few /HPF (None Seen)
[2025-04-07] MEDS ORDERED: ZOLPIDEM TARTRATE 5 MG TABLET PO PRN (11:30)
[2025-04-07] MEDS ORDERED: DOSING PER PHARMACY-ZOSYN IV 1 EA EA XX PRN (11:30)
[2025-04-07] MEDS ORDERED: MAGNESIUM HYDROXIDE 30 ML UDC PO PRN (11:30)
[2025-04-07] MEDS ORDERED: MAG HYDROX/AL HYDROX/SIMETH 30 ML UDC PO PRN (11:30)
[2025-04-07] MEDS ORDERED: Z GUARD REMEDY 4 OZ OINT TP PRN (11:30)
[2025-04-07] MEDS ORDERED: DOSING PER PHARMACY-VANCOMYCIN IV XX PRN (11:30)
[2025-04-07] MEDS ORDERED: ONDANSETRON HCL/PF 4 MG/2 ML VIAL IVP PRN (11:30)
[2025-04-07] MEDS: IV NS 0.9% 1,000 ML IV PRN (13:59)
[2025-04-07] MEDS: ENOXAPARIN SODIUM 40 MG/0.4 ML DISP.SYRIN SQ SCH (14:45)
[2025-04-07] MEDS: PIPERACILLIN /TAZOBACTAM 3.375 G in IV D5W 100 ML IV SCH (17:13)
[2025-04-07] MEDS: IV NS 0.9% 250 ML IV ONE (23:31)
[2025-04-08] VITALS (26 sets, daily range): BP systolic 84–120; BP diastolic 48–81; TEMP 97.4–99.1; O2SAT 95–99
[2025-04-08] MEDS ORDERED: NOREPINEPHRINE 8 MG in IV D5W 242 ML IV PRN (01:30)
[2025-04-08 04:18] LABS: PLATELET COUNT (AUTO) 143 K/uL (150-450); RED BLOOD CELL COUNT(AUTO) 3.52 MIL/uL (4.5-6.0); RED CELL DISTRIBUTION WIDTH 17.6 % (11.5-15.0); WHITE BLOOD COUNT (AUTO) 24.1 K/uL (4.3-11.0)
[2025-04-08 04:32] LABS: CALCIUM, SERUM 7.8 mg/dL (8.5-10.1); CREATININE 1.8 mg/dL (0.6-1.3); PHOSPHORUS 3.0 mg/dL (2.5-4.9); SODIUM SERUM 142 mmol/L (136-145); UREA NITROGEN, BLOOD 41 mg/dL (7-18)
[2025-04-08] MEDS: PANTOPRAZOLE 40 MG TABLET.DR PO SCH (07:30)
[2025-04-08] MEDS: VANCOMYCIN 1 GM in IV D5W 250ml IV SCH (09:10)
[2025-04-08] MEDS ORDERED: DIATR MEGLU/DIATRIZOATE SODIUM 120 ML BOTTLE (GASTROGRAPHIN) ONE (10:17)
[2025-04-08] MEDS ORDERED: DEXTROSE 50%-WATER 50 ML DISP.SYRIN IV PRN (12:30)
[2025-04-08] MEDS: BLOOD SUGAR DIAGNOSTIC 1 EACH STRIP IN SCH (17:37)
[2025-04-09] VITALS (78 sets, daily range): BP systolic 88–152; BP diastolic 45–115; TEMP 97–100.7; O2SAT 93–100
[2025-04-09] MEDS: MORPHINE SULFATE INJ 2 MG/ML DISP.SYRIN IV PRN (02:16)
[2025-04-09] MEDS: AMIODARONE 150 MG in IV D5W 100 ML IV ONE (03:26)
[2025-04-09] MEDS: AMIODARONE 150 MG/3 ML VIAL IV ONE ×2 (03:41)
[2025-04-09] MEDS: AMIODARONE 450 MG in IV D5W 241 ML IV PRN (03:44)
[2025-04-09 04:36] LABS: PLATELET COUNT (AUTO) 133 K/uL (150-450); RED BLOOD CELL COUNT(AUTO) 3.41 MIL/uL (4.5-6.0); RED CELL DISTRIBUTION WIDTH 18.0 % (11.5-15.0); WHITE BLOOD COUNT (AUTO) 22.5 K/uL (4.3-11.0)
[2025-04-09 04:51] LABS: ASPARTATE AMINOTRANSFERASE 26.0 U/L (15-37); CALCIUM, SERUM 7.9 mg/dL (8.5-10.1); CREATININE 1.7 mg/dL (0.6-1.3); PHOSPHORUS 2.3 mg/dL (2.5-4.9); SODIUM SERUM 146.0 mmol/L (136-145); TOTAL PROTEIN, SERUM 6.2 g/dL (6.4-8.2); UREA NITROGEN, BLOOD 50.0 mg/dL (7-18)
[2025-04-09 05:31] LABS: CREATINE KINASE, TOTAL 47.0 U/L (39-308)
[2025-04-09] MEDS: Magnesium 1GM/D5W 100ML PREMIX 100 ML IV ONE (06:03)
[2025-04-09] MEDS: PANTOPRAZOLE 40 MG VIAL IV SCH (08:15)
[2025-04-09] MEDS: IV 1/2NS 1000 ML 1,000 ML IV PRN (09:16)
[2025-04-09] MEDS: POTASSIUM CL. PREMIX PERIPHER. 50 ML IV SCH (10:59)
[2025-04-09] MEDS: NEUTRA PHOS 1 POWD.PACKET PO ONE (17:53)
[2025-04-09] MEDS: METRONIDAZOLE 500MG/ NS 100ML 500 MG in PREMIX 1 EA IV SCH (17:59)
[2025-04-09] MEDS: GLUCERNA 1.2 1,000 ML BOTTLE GT SCH (18:11)
[2025-04-09] MEDS: MEROPENEM 1 G in IV NS 0.9% 100 ML IV SCH (18:42)
[2025-04-09] MEDS: VANCOMYCIN HCL 125 MG/2.5 ML ORAL.SUSP PO SCH (18:43)
[2025-04-10] VITALS (34 sets, daily range): BP systolic 99–166; BP diastolic 61–93; TEMP 97–99.2; O2SAT 90–100
[2025-04-10 04:10] LABS: PLATELET COUNT (AUTO) 116 K/uL (150-450); RED BLOOD CELL COUNT(AUTO) 3.32 MIL/uL (4.5-6.0); RED CELL DISTRIBUTION WIDTH 18.0 % (11.5-15.0); WHITE BLOOD COUNT (AUTO) 20.4 K/uL (4.3-11.0)
[2025-04-10 04:35] LABS: ASPARTATE AMINOTRANSFERASE 43.0 U/L (15-37); CALCIUM, SERUM 7.8 mg/dL (8.5-10.1); CREATININE 1.5 mg/dL (0.6-1.3); PHOSPHORUS 2.8 mg/dL (2.5-4.9); SODIUM SERUM 144.0 mmol/L (136-145); TOTAL PROTEIN, SERUM 5.8 g/dL (6.4-8.2); UREA NITROGEN, BLOOD 45.0 mg/dL (7-18)
[2025-04-10 04:56] LABS: BASOPHILS % (MANUAL) 0 % (0.0-2.0); EOSINOPHILS % (MANUAL) 0 % (0-4); LYMPHOCYTES % (MANUAL) 7 % (16-48); MONOCYTES % (MANUAL) 8 % (0-11.0); NEUTROPHILS % (MANUAL) 85 (42-76); PLATELET ESTIMATE DECREASED
[2025-04-10] MEDS: hydrALAZINE HCL IV 20 MG VIAL IV PRN (06:24)
[2025-04-10 08:07] LABS: PTH, INTACT 88 pg/mL (15-65)
[2025-04-10] MEDS: POTASSIUM CL. PREMIX PERIPHER. 50 ML IV SCH (11:19)
[2025-04-11] VITALS (39 sets, daily range): BP systolic 90–163; BP diastolic 55–115; TEMP 97.7–98.7; O2SAT 90–100
[2025-04-11] MEDS: INSULIN REGULAR, HUMAN 100 UNIT/ML 3 ML VIAL SQ PRN (00:20)
[2025-04-11 04:33] LABS: PLATELET COUNT (AUTO) 122 K/uL (150-450); RED BLOOD CELL COUNT(AUTO) 3.88 MIL/uL (4.5-6.0); RED CELL DISTRIBUTION WIDTH 17.8 % (11.5-15.0); WHITE BLOOD COUNT (AUTO) 21.7 K/uL (4.3-11.0)
[2025-04-11 04:54] LABS: ASPARTATE AMINOTRANSFERASE 26.0 U/L (15-37); CALCIUM, SERUM 8.0 mg/dL (8.5-10.1); CREATININE 1.3 mg/dL (0.6-1.3); PHOSPHORUS 2.7 mg/dL (2.5-4.9); SODIUM SERUM 139.0 mmol/L (136-145); TOTAL PROTEIN, SERUM 6.4 g/dL (6.4-8.2); UREA NITROGEN, BLOOD 41.0 mg/dL (7-18)
[2025-04-11 07:11] LABS: EOSINOPHILS % (MANUAL) 1 % (0-4); LYMPHOCYTES % (MANUAL) 4 % (16-48); MONOCYTES % (MANUAL) 6 % (0-11.0); NEUTROPHILS % (MANUAL) 89 (42-76); PLATELET ESTIMATE DECREASED
[2025-04-11] MEDS: POTASSIUM CL. PREMIX PERIPHER. 50 ML IV SCH (09:26)
[2025-04-11] MEDS: LORAZEPAM INJ 2 MG/ML VIAL IV PRN (12:25)
[2025-04-11] MEDS: LACTULOSE 10 G/15 ML UDC (PYXIS) PO SCH (13:48)
[2025-04-11] MEDS: IV D5/0.45 NACL 1,000 ML IV SCH (17:54)
[2025-04-11] MEDS: METOPROLOL TARTRATE INJ 5 MG/5 ML AMPUL IVP SCH (18:30)
[2025-04-12] VITALS (26 sets, daily range): BP systolic 99–172; BP diastolic 52–107; TEMP 97.3–99.3; O2SAT 90–100
[2025-04-12 04:19] LABS: PLATELET COUNT (AUTO) 116 K/uL (150-450); RED BLOOD CELL COUNT(AUTO) 4.06 MIL/uL (4.5-6.0); RED CELL DISTRIBUTION WIDTH 17.9 % (11.5-15.0); WHITE BLOOD COUNT (AUTO) 22.4 K/uL (4.3-11.0)
[2025-04-12 05:00] LABS: ASPARTATE AMINOTRANSFERASE 20.0 U/L (15-37); CALCIUM, SERUM 7.9 mg/dL (8.5-10.1); CREATININE 1.5 mg/dL (0.6-1.3); PHOSPHORUS 2.2 mg/dL (2.5-4.9); SODIUM SERUM 141.0 mmol/L (136-145); TOTAL PROTEIN, SERUM 6.4 g/dL (6.4-8.2); UREA NITROGEN, BLOOD 33.0 mg/dL (7-18)
[2025-04-12] MEDS: POTASSIUM CL. PREMIX PERIPHER. 50 ML IV SCH (11:05)
[2025-04-12] MEDS: LINEZOLID RTU BAG 600 MG in PREMIX 1 EA IV SCH (17:32)
[2025-04-12] MEDS: Sodium Phosphate 15 MMOL in IV NS 0.9% 245 ML IV SCH (17:32)
[2025-04-13] VITALS: BP 116/70; TEMP 99.9; O2SAT 94
[2025-04-13 05:30] VITALS: BP 102/59; TEMP 98.2; O2SAT 99
[2025-04-13 08:00] VITALS: BP 115/90; TEMP 98.2; O2SAT 97
[2025-04-13 10:42] LABS: PLATELET COUNT (AUTO) 108 K/uL (150-450); RED BLOOD CELL COUNT(AUTO) 3.92 MIL/uL (4.5-6.0); RED CELL DISTRIBUTION WIDTH 17.9 % (11.5-15.0); WHITE BLOOD COUNT (AUTO) 23.4 K/uL (4.3-11.0)
[2025-04-13 11:06] LABS: CALCIUM, SERUM 8.1 mg/dL (8.5-10.1); CREATININE 1.4 mg/dL (0.6-1.3); PHOSPHORUS 2.2 mg/dL (2.5-4.9); SODIUM SERUM 143.0 mmol/L (136-145); UREA NITROGEN, BLOOD 22.0 mg/dL (7-18)
[2025-04-13] MEDS: POTASSIUM CL. PREMIX PERIPHER. 50 ML IV SCH (11:47)
[2025-04-13 12:00] VITALS: BP 148/88; TEMP 98.6; O2SAT 97
[2025-04-13] MEDS: K PHOS NEUTRAL 250 MG TABLET PO ONE (15:16)
[2025-04-13] MEDS: ACETAMINOPHEN 325 MG TABLET PO PRN (15:26)
[2025-04-13 16:11] VITALS: BP 149/88; TEMP 100.2; O2SAT 96
[2025-04-13 20:00] VITALS: BP 94/79; TEMP 97.9; O2SAT 97
[2025-04-14] VITALS: BP 121/70; TEMP 97.7; O2SAT 97
[2025-04-14 04:00] VITALS: BP_SYST 119; BP_SYST 121; BP_DIAS 67; BP_DIAS 70; TEMP 97.7; O2SAT 96; O2SAT 97
[2025-04-14 07:31] LABS: CALCIUM, SERUM 7.8 mg/dL (8.5-10.1); CREATININE 1.4 mg/dL (0.6-1.3); SODIUM SERUM 143.0 mmol/L (136-145); UREA NITROGEN, BLOOD 19.0 mg/dL (7-18)
[2025-04-14 08:00] VITALS: BP 133/69; TEMP 98.2; O2SAT 96
[2025-04-14 12:00] VITALS: BP 146/80; TEMP 98.1; O2SAT 96
[2025-04-14] MEDS: METOPROLOL TARTRATE INJ 5 MG/5 ML AMPUL IVP ONE (15:34)
[2025-04-14 16:00] VITALS: BP 168/84; TEMP 98.8; O2SAT 96
[2025-04-14 20:00] VITALS: BP 110/63; TEMP 98.1; O2SAT 97
[2025-04-15] VITALS: BP 110/55; TEMP 97.8; O2SAT 98
[2025-04-15 04:00] VITALS: BP 101/71; TEMP 97.3; O2SAT 96
[2025-04-15 06:42] LABS: PLATELET COUNT (AUTO) 96 K/uL (150-450); RED BLOOD CELL COUNT(AUTO) 3.54 MIL/uL (4.5-6.0); RED CELL DISTRIBUTION WIDTH 17.4 % (11.5-15.0); WHITE BLOOD COUNT (AUTO) 19.6 K/uL (4.3-11.0)
[2025-04-15 06:48] LABS: ASPARTATE AMINOTRANSFERASE 16.0 U/L (15-37); CALCIUM, SERUM 7.6 mg/dL (8.5-10.1); CREATININE 1.1 mg/dL (0.6-1.3); PHOSPHORUS 2.5 mg/dL (2.5-4.9); SODIUM SERUM 140.0 mmol/L (136-145); TOTAL PROTEIN, SERUM 5.5 g/dL (6.4-8.2); UREA NITROGEN, BLOOD 17.0 mg/dL (7-18)
[2025-04-15 08:00] VITALS: BP 109/63; TEMP 97.5; O2SAT 97
[2025-04-15 08:52] LABS: LYMPHOCYTES % (MANUAL) 8 % (16-48); NEUTROPHILS % (MANUAL) 85 (42-76)
[2025-04-15 08:53] LABS: EOSINOPHILS % (MANUAL) 3 % (0-4); MONOCYTES % (MANUAL) 4 % (0-11.0); PLATELET ESTIMATE GIANT PLATELET SEEN
[2025-04-15] MEDS: POTASSIUM CL. PREMIX PERIPHER. 50 ML IV SCH (11:09)
[2025-04-15 12:00] VITALS: BP 115/59; TEMP 97.7; O2SAT 97
[2025-04-15 16:00] VITALS: BP 135/71; TEMP 98; O2SAT 97
[2025-04-15 20:00] VITALS: BP 145/79; TEMP 97.7; O2SAT 97
[2025-04-15] MEDS: SIMETHICONE 80 MG TAB.CHEW PEG PRN (22:46)
[2025-04-16] VITALS: BP 139/75; TEMP 98.2; O2SAT 97
[2025-04-16 04:00] VITALS: BP 141/70; TEMP 97.9; O2SAT 97
[2025-04-16 07:52] LABS: PLATELET COUNT (AUTO) 111 K/uL (150-450); RED BLOOD CELL COUNT(AUTO) 3.38 MIL/uL (4.5-6.0); RED CELL DISTRIBUTION WIDTH 17.7 % (11.5-15.0); WHITE BLOOD COUNT (AUTO) 13.9 K/uL (4.3-11.0)
[2025-04-16 08:00] VITALS: BP 130/68; TEMP 98.2; O2SAT 97
[2025-04-16 08:25] LABS: CALCIUM, SERUM 7.5 mg/dL (8.5-10.1); CREATININE 1.2 mg/dL (0.6-1.3); PHOSPHORUS 2.3 mg/dL (2.5-4.9); SODIUM SERUM 141.0 mmol/L (136-145); UREA NITROGEN, BLOOD 13.0 mg/dL (7-18)
[2025-04-16] MEDS: POTASSIUM CL. PREMIX PERIPHER. 50 ML IV SCH (09:58)
[2025-04-16] MEDS: ACETYLCYSTEINE 10% SOLN 400 MG/4 ML VIAL NEB SCH (10:00)
[2025-04-16 12:00] VITALS: BP 143/79; TEMP 97.9; O2SAT 97
[2025-04-16] MEDS ORDERED: DOSING PER PHARMACY-CEFEPIME IVPB XX PRN (13:30)
[2025-04-16] MEDS: CEFEPIME 2 GM in IV D5W 100 ML IV SCH (14:04)
[2025-04-16] MEDS: K PHOS NEUTRAL 250 MG TABLET PO ONE (15:22)
[2025-04-16 16:00] VITALS: BP 150/81; TEMP 98.2; O2SAT 97
[2025-04-16] MEDS ORDERED: GLUCERNA 1.2 1,000 ML BOTTLE NG PRN (18:30)
[2025-04-16] MEDS ORDERED: MAG HYDROX/AL HYDROX/SIMETH 30 ML UDC NG PRN (18:35)
[2025-04-16] MEDS ORDERED: MAGNESIUM HYDROXIDE 30 ML UDC NG PRN (18:36)
[2025-04-16] MEDS: IV D5/0.45 NACL 1,000 ML IV PRN (18:38)
[2025-04-16] MEDS ORDERED: ACETAMINOPHEN 650 MG/20.3 ML UDC NG PRN (19:00)
[2025-04-16 20:00] VITALS: BP 142/63; TEMP 97.9; O2SAT 97
[2025-04-17] VITALS: BP 124/84; TEMP 97.9; O2SAT 100
[2025-04-17 04:00] VITALS: BP 136/79; TEMP 98; O2SAT 96
[2025-04-17 07:08] LABS: PLATELET COUNT (AUTO) 122 K/uL (150-450); RED BLOOD CELL COUNT(AUTO) 3.75 MIL/uL (4.5-6.0); RED CELL DISTRIBUTION WIDTH 17.3 % (11.5-15.0); WHITE BLOOD COUNT (AUTO) 16.4 K/uL (4.3-11.0)
[2025-04-17 07:59] LABS: CALCIUM, SERUM 7.8 mg/dL (8.5-10.1); CREATININE 1.1 mg/dL (0.6-1.3); PHOSPHORUS 2.5 mg/dL (2.5-4.9); SODIUM SERUM 143.0 mmol/L (136-145); UREA NITROGEN, BLOOD 11.0 mg/dL (7-18)
[2025-04-17 08:00] VITALS: BP 134/65; TEMP 97.8; O2SAT 96
[2025-04-17] MEDS: PANTOPRAZOLE 40 MG/PACK PACK GT SCH (08:47)
[2025-04-17] MEDS: METOPROLOL TARTRATE 25 MG TABLET GT SCH (10:18)
[2025-04-17 12:00] VITALS: BP 123/69; TEMP 97.8; O2SAT 97
[2025-04-17] MEDS: POTASSIUM CHLORIDE 20 MEQ POWDER PACKET NG SCH (12:17)
[2025-04-17 16:00] VITALS: BP 152/88; TEMP 97.1; O2SAT 97
[2025-04-17] MEDS ORDERED: DOSING PER PHARMACY-ZOSYN IV 1 EA EA XX PRN (16:00)
[2025-04-17] MEDS: PIPERACILLIN /TAZOBACTAM 3.375 G in IV D5W 100 ML IV SCH (17:36)
[2025-04-17 20:00] VITALS: BP 121/55; TEMP 98.7; O2SAT 97
[2025-04-18] VITALS: BP 130/65; TEMP 98.2; O2SAT 96
[2025-04-18 04:00] VITALS: BP 117/56; TEMP 98.2; O2SAT 95
[2025-04-18 07:57] LABS: PLATELET COUNT (AUTO) 120 K/uL (150-450); RED BLOOD CELL COUNT(AUTO) 3.36 MIL/uL (4.5-6.0); RED CELL DISTRIBUTION WIDTH 17.6 % (11.5-15.0); WHITE BLOOD COUNT (AUTO) 12.1 K/uL (4.3-11.0)
[2025-04-18 08:00] VITALS: BP 130/68; TEMP 98.1; O2SAT 97
[2025-04-18 08:10] VITALS: BP 130/68
[2025-04-18 08:55] LABS: CALCIUM, SERUM 7.7 mg/dL (8.5-10.1); CREATININE 1.1 mg/dL (0.6-1.3); PHOSPHORUS 2.7 mg/dL (2.5-4.9); SODIUM SERUM 144.0 mmol/L (136-145); UREA NITROGEN, BLOOD 11.0 mg/dL (7-18)
[2025-04-18] MEDS ORDERED: PIPE3.379 IV (11:00)
[2025-04-18] MEDS ORDERED: VANC1FRO2 IV (11:00)
[2025-04-18] MEDS ORDERED: METO25TA20 GT (11:00)
[2025-04-18] MEDS ORDERED: ACET1OOV6 NEB (11:00)
[2025-04-18 19:06] LABS: *SPE A/G RATIO 0.5 (0.7-1.7); *SPE ALBUMIN 2.0 g/dL (2.9-4.4); *SPE ALPHA-1-GLOBULIN 0.4 g/dL (0.0-0.4); *SPE ALPHA-2-GLOBULIN 0.9 g/dL (0.4-1.0); *SPE BETA GLOBULIN 1.0 g/dL (0.7-1.3); *SPE GLOBULIN, TOTAL 3.7 g/dL (2.2-3.9); *SPE M-SPIKE Not Observed g/dL (Not Observed); *SPE PROTEIN TOTAL 5.7 g/dL (6.0-8.5); *SPEGAMMA GLOBULIN 1.4 g/dL (0.4-1.8)
== END 2025-04-18 11:20 | DRG 870 ==
LOC: ER 09:04 → ICU 11:19 → TELE-TD 04-12 17:54 → TELE1 04-14 09:39
PROVIDERS: ADMIT Student in an Organized Health Care Education/Training Program; ATTEND Nurse Practitioner Acute Care
PROC: 5A1955Z Respiratory Ventilation, Greater than 96 Consecutive Hours (ICD-10-PCS; principal; 2025-04-07)
PROC: 02HV33Z Insertion of Infusion Device into Superior Vena Cava, Percutaneous Approach (ICD-10-PCS; 2025-04-07)
PROC: B548ZZA Ultrasonography of Superior Vena Cava, Guidance (ICD-10-PCS; 2025-04-07)
DX: A41.9 Sepsis, unspecified organism (principal); L89.214 Pressure ulcer of right hip, stage 4; N17.0 Acute kidney failure with tubular necrosis; J18.9 Pneumonia, unspecified organism; J96.11 Chronic respiratory failure with hypoxia; E44.0 Moderate protein-calorie malnutrition; D68.59 Other primary thrombophilia; K56.7 Ileus, unspecified; E87.0 Hyperosmolality and hypernatremia; Z99.11 Dependence on respirator [ventilator] status; G93.49 Other encephalopathy; N13.6 Pyonephrosis; Z16.21 Resistance to vancomycin; J91.8 Pleural effusion in other conditions classified elsewhere; J44.0 Chronic obstructive pulmonary disease with (acute) lower respiratory infection; J98.11 Atelectasis; G40.909 Epilepsy, unspecified, not intractable, without status epilepticus; K21.9 Gastro-esophageal reflux disease without esophagitis; E78.5 Hyperlipidemia, unspecified; E83.41 Hypermagnesemia; E87.6 Hypokalemia; D64.9 Anemia, unspecified; B96.5 Pseudomonas (aeruginosa) (mallei) (pseudomallei) as the cause of diseases classified elsewhere; E27.8 Other specified disorders of adrenal gland; F20.9 Schizophrenia, unspecified; I10 Essential (primary) hypertension; I25.10 Atherosclerotic heart disease of native coronary artery without angina pectoris; I48.0 Paroxysmal atrial fibrillation; R13.10 Dysphagia, unspecified; Z93.1 Gastrostomy status; E86.0 Dehydration; E83.9 Disorder of mineral metabolism, unspecified; N40.1 Benign prostatic hyperplasia with lower urinary tract symptoms; M89.8X9 Other specified disorders of bone, unspecified site; L22 Diaper dermatitis; Z83.3 Family history of diabetes mellitus; Z86.73 Personal history of transient ischemic attack (TIA), and cerebral infarction without residual deficits; L89.156 Pressure-induced deep tissue damage of sacral region; Z68.22 Body mass index [BMI] 22.0-22.9, adult; L98.8 Other specified disorders of the skin and subcutaneous tissue; L89.521 Pressure ulcer of left ankle, stage 1; E11.40 Type 2 diabetes mellitus with diabetic neuropathy, unspecified; L90.5 Scar conditions and fibrosis of skin; B96.89 Other specified bacterial agents as the cause of diseases classified elsewhere; B95.2 Enterococcus as the cause of diseases classified elsewhere; Z82.49 Family history of ischemic heart disease and other diseases of the circulatory system
CPT/HCPCS: 31720; 36415; 71045-TC; 71250-TC; 74018; 74250-TC; 76770-TC; 80048-TC; 80053-TC; 80076-TC; 80202-TC; 81001; 82550-TC; 82962-TC; 83605-TC; 83735-TC; 83880; 83970; 84100-TC; 84155; 84165; 84443-TC; 85025-TC; 85027-TC; 85730-TC; 87040-TC; 87070-TC; 87081-TC; 87086-TC; 87186-TC; 87205-TC; 93307-TC; 94002-TC; 94003-TC; 94760-TC; 94761-TC; 94762-TC; 94799-TC; 97110-TC; 97535-TC; 99082-TC; A4216; A4223; A6213; A6403; A7526; A9563; G0378; J0282; J0360; J0692; J1650; J1815; J2020; J2060; J2185; J2270; J2470; J2543; J3373; J3475; J3480; J3490; J7030; J7050; J7060; Q9963

== ENCOUNTER 2025-05-31 15:11 | Inpatient (IN) | payer MEDICARE, OTHER ==
[~2025-05-31] VITALS: Ht 172.7 cm; Wt 54.9 kg
[~2025-05-31 15:11] MED LIST changes: +ACET1OOV6 NEB; +AMIO100T GT; -APIX5TAB GT; -ASCO-352 GT; -HYDR-4303 GT; +LACT-209 GT; -LACT10SO29 GT; +MAGN296S72 GT; +MELA3TAB41 GT; +METO25TA20 GT; -MULT-447 GT; -NUT.237L30 PO; +ONDA-97 GT; +PANT40SU2 GT; +PIPE3.379 IV; +POLY17PO4 GT; -QUET25TA GT; +SENN-261 GT; +SIME80TA15 GT; +THEO80EL GT; +VANC1FRO2 IV
[2025-05-31] MEDS ORDERED: PANTOPRAZOLE 40 MG VIAL ONE (15:43)
[2025-05-31] MEDS ORDERED: ONDANSETRON HCL/PF 4 MG/2 ML VIAL ONE (15:44)
[2025-05-31] MEDS: ONDANSETRON HCL/PF 4 MG/2 ML VIAL IVP ONE (16:14)
[2025-05-31] MEDS: PANTOPRAZOLE 40 MG VIAL IV ONE (16:19)
[2025-05-31 16:21] LABS: PLATELET COUNT (AUTO) 228 K/uL (150-450); RED BLOOD CELL COUNT(AUTO) 4.41 MIL/uL (4.5-6.0); RED CELL DISTRIBUTION WIDTH 21.6 % (11.5-15.0); WHITE BLOOD COUNT (AUTO) 12.8 K/uL (4.3-11.0)
[2025-05-31] MEDS ORDERED: DOCU100C36 GT (16:21)
[2025-05-31] MEDS ORDERED: CLON0.1T GT (16:21)
[2025-05-31] MEDS ORDERED: DIPH25CA51 GT (16:21)
[2025-05-31] MEDS ORDERED: HEPA50007 SQ (16:21)
[2025-05-31] MEDS ORDERED: OMEP20CA15 GT (16:21)
[2025-05-31] MEDS ORDERED: ASCO500T10 GT (16:21)
[2025-05-31] MEDS ORDERED: COLL30OI TP (16:21)
[2025-05-31] MEDS ORDERED: QUET25TA GT (16:21)
[2025-05-31] MEDS ORDERED: METO25TA6 GT (16:21)
[2025-05-31] MEDS ORDERED: ZINC220C6 GT (16:21)
[2025-05-31] MEDS ORDERED: NITR0.4T48 SL (16:21)
[2025-05-31] MEDS ORDERED: LOSA50TA39 GT (16:21)
[2025-05-31 16:32] LABS: ASPARTATE AMINOTRANSFERASE 20 U/L (15-37); CALCIUM, SERUM 9.3 mg/dL (8.5-10.1); CREATININE 1.1 mg/dL (0.6-1.3); SODIUM SERUM 139 mmol/L (136-145); TOTAL PROTEIN, SERUM 9.1 g/dL (6.4-8.2); UREA NITROGEN, BLOOD 25 mg/dL (7-18)
[2025-05-31 16:35] LABS: INR 1.03 (0.91-1.10)
[2025-05-31 16:38] LABS: LACTIC ACID 4.0 mmol/L (0.4-2.0)
[2025-05-31] MEDS ORDERED: PIPERACI/TAZO 3.375GM/D5W 50ML PB IV ONE (18:27)
[2025-05-31] MEDS: IV NS 0.9% 1,000 ML BAG IV ONE (18:30)
[2025-05-31] MEDS: PIPERACILLIN /TAZOBACTAM 3.375 G in IV D5W 50 ML IV ONE (18:35)
[2025-05-31] MEDS ORDERED: ACETAMINOPHEN 325 MG TABLET PO PRN (20:00)
[2025-05-31] MEDS ORDERED: Z GUARD REMEDY 4 OZ OINT TP PRN (20:00)
[2025-05-31] MEDS ORDERED: MAGNESIUM HYDROXIDE 30 ML UDC PO PRN (20:00)
[2025-05-31] MEDS ORDERED: MAG HYDROX/AL HYDROX/SIMETH 30 ML UDC PO PRN (20:00)
[2025-05-31] MEDS: IV LR 500 ML IV ONE (20:12)
[2025-05-31] MEDS ORDERED: DOSING PER PHARMACY-VANCOMYCIN IV XX PRN (20:30)
[2025-05-31] MEDS: THEOPHYLLINE ANHYDROUS 80 MG/15 ML UDC GT SCH (21:00)
[2025-05-31 22:00] VITALS: BP 113/72; TEMP 97.8; O2SAT 99
[2025-05-31] MEDS: LATANOPROST EYE DROP 0.005% 2.5 ML BOTTLE EACHEYE SCH (22:00)
[2025-05-31] MEDS: TERAZOSIN HCL 1 MG CAPSULE GT SCH (22:00)
[2025-05-31] MEDS ORDERED: VANCOMYCIN 1 GM /D5W 250 ML PB IV ONE (23:10)
[2025-05-31] MEDS: IV LR 1000 ML 1,000 ML IV ONE (23:30)
[2025-05-31] MEDS: VANCOMYCIN 1 GM in IV D5W 250ml IV ONE (23:30)
[2025-06-01] MEDS ORDERED: CHLORHEXIDINE GLUCONATE 15 ML UDC MM ONE
[2025-06-01] MEDS: CHLORHEXIDINE GLUCONATE 15 ML UDC MM SCH (00:09)
[2025-06-01] MEDS: IPRATROPIUM NEB FS 0.5 MG/2.5 ML AMPUL.NEB NEB SCH (01:36)
[2025-06-01] MEDS: ALBUTEROL FS 2.5 MG/0.5 ML VIAL.NEB NEB SCH (01:36)
[2025-06-01 02:00] VITALS: BP 112/52; TEMP 96.8; O2SAT 99
[2025-06-01] MEDS ORDERED: PIPERACILLIN /TAZOBACTAM 3.375 G in IV D5W 50 ML IV SCH (02:30)
[2025-06-01] MEDS ORDERED: PIPERACI/TAZO 3.375GM/D5W 50ML PB IV ONE (03:56)
[2025-06-01] MEDS: PIPERACILLIN /TAZOBACTAM 3.375 G in IV D5W 50 ML IV ONE (04:01)
[2025-06-01 06:00] VITALS: BP_SYST 107; BP_SYST 112; BP_DIAS 52; BP_DIAS 59; TEMP 97.2; O2SAT 98
[2025-06-01 08:30] LABS: PLATELET COUNT (AUTO) 185 K/uL (150-450); RED BLOOD CELL COUNT(AUTO) 3.60 MIL/uL (4.5-6.0); RED CELL DISTRIBUTION WIDTH 21.3 % (11.5-15.0); WHITE BLOOD COUNT (AUTO) 7.8 K/uL (4.3-11.0)
[2025-06-01 08:44] LABS: CALCIUM, SERUM 8.6 mg/dL (8.5-10.1); CREATININE 1.0 mg/dL (0.6-1.3); PHOSPHORUS 2.7 mg/dL (2.5-4.9); SODIUM SERUM 142.0 mmol/L (136-145); UREA NITROGEN, BLOOD 23.0 mg/dL (7-18)
[2025-06-01 08:46] LABS: IRON, SERUM 24.0 ug/dl (50-175)
[2025-06-01] MEDS: TOPIRAMATE 25 MG TABLET GT SCH (08:53)
[2025-06-01] MEDS: PANTOPRAZOLE 40 MG VIAL IV SCH (08:53)
[2025-06-01] MEDS: SIMETHICONE 80 MG TAB.CHEW GT SCH (08:53)
[2025-06-01] MEDS: QUETIAPINE FUMARATE 25 MG TABLET GT SCH (08:54)
[2025-06-01] MEDS: ZOSYN IVPB 3.375 G in IV D5W 50ml IV SCH (09:26)
[2025-06-01 10:00] VITALS: BP 102/67; TEMP 97.7; O2SAT 100
[2025-06-01] MEDS ORDERED: ALBUTEROL FS 2.5 MG/0.5 ML VIAL.NEB NEB PRN (10:00)
[2025-06-01] MEDS: VANCOMYCIN 750 MG in IV D5W 250 ML IV SCH (11:09)
[2025-06-01 14:30] VITALS: BP 102/67; TEMP 97.7; O2SAT 100
[2025-06-01 18:32] VITALS: BP 140/72; TEMP 97.9; O2SAT 100
[2025-06-01 20:00] VITALS: BP 109/55; TEMP 97.5; O2SAT 98
[2025-06-01] MEDS: LATANOPROST EYE DROP 0.005% 2.5 ML BOTTLE EACHEYE SCH (21:42)
[2025-06-02] VITALS (53 sets, daily range): BP systolic 77–148; BP diastolic 23–130; TEMP 97.6–98.6; O2SAT 94–100
[2025-06-02] MEDS: IV D5/0.45 NACL 1,000 ML IV SCH (00:31)
[2025-06-02] MEDS: IV D5/ 0.9% NACL 1,000 ML IV ONE (08:01)
[2025-06-02] MEDS: IV NS 0.9% 500 ML IV ONE (08:02)
[2025-06-02] MEDS ORDERED: AMIODARONE 450 MG in IV D5W 250 ML IV PRN (09:00)
[2025-06-02] MEDS ORDERED: AMIODARONE 450 MG in IV D5W 241 ML IV PRN (09:00)
[2025-06-02] MEDS: AMIODARONE 150 MG in IV D5W 100 ML IV ONE (09:31)
[2025-06-02 09:41] LABS: PLATELET COUNT (AUTO) 190 K/uL (150-450); RED BLOOD CELL COUNT(AUTO) 3.32 MIL/uL (4.5-6.0); RED CELL DISTRIBUTION WIDTH 20.7 % (11.5-15.0); WHITE BLOOD COUNT (AUTO) 6.6 K/uL (4.3-11.0)
[2025-06-02 13:45] LABS: CALCIUM, SERUM 8.0 mg/dL (8.5-10.1); CREATININE 1.0 mg/dL (0.6-1.3); SODIUM SERUM 138.0 mmol/L (136-145); UREA NITROGEN, BLOOD 12.0 mg/dL (7-18)
[2025-06-02] MEDS: NOREPINEPHRINE 8 MG in IV NS 0.9% 242 ML IV PRN (13:50)
[2025-06-02] MEDS: SOD FERRIC GLUC 125 MG in IV NS 0.9% 100 ML IV SCH (16:06)
[2025-06-03] VITALS (26 sets, daily range): BP systolic 101–144; BP diastolic 51–82; TEMP 97.5–98; O2SAT 96–100
[2025-06-03] MEDS: IV NS 0.9% 1,000 ML IV SCH (01:47)
[2025-06-03 05:30] LABS: CALCIUM, SERUM 7.9 mg/dL (8.5-10.1); CREATININE 0.9 mg/dL (0.6-1.3); SODIUM SERUM 141.0 mmol/L (136-145); UREA NITROGEN, BLOOD 10.0 mg/dL (7-18)
[2025-06-03] MEDS: THERAHONEY GEL 1.5 OZ TUBE TP SCH (08:10)
[2025-06-03] MEDS ORDERED: JEVITY 1.2 CAL 1,000 ML BOTTLE GT PRN (09:00)
[2025-06-03] MEDS: POTASSIUM CL. PREMIX PERIPHER. 50 ML IV SCH ×2 (09:27→14:18)
[2025-06-03] MEDS ORDERED: POTASSIUM CHLORIDE 20 MEQ POWDER PACKET GT SCH (09:30)
[2025-06-03 09:49] LABS: PLATELET COUNT (AUTO) 186 K/uL (150-450); RED BLOOD CELL COUNT(AUTO) 2.96 MIL/uL (4.5-6.0); RED CELL DISTRIBUTION WIDTH 20.8 % (11.5-15.0); WHITE BLOOD COUNT (AUTO) 5.3 K/uL (4.3-11.0)
[2025-06-03] MEDS: ARGININE/GLUTAMINE/CALCIUM BMB 1 EACH POWD.PACK PEG SCH (12:23)
[2025-06-03] MEDS: VITAL AF 1.2 1,000 ML BOTTLE GT PRN (12:34)
[2025-06-04] VITALS: BP 150/84; TEMP 97.5; O2SAT 96
[2025-06-04] MEDS: ONDANSETRON HCL/PF 4 MG/2 ML VIAL IVP PRN (03:37)
[2025-06-04 04:00] VITALS: BP 137/74; TEMP 97.5; O2SAT 96
[2025-06-04] MEDS: AMIODARONE 150 MG in IV D5W 100 ML IV ONE (05:40)
[2025-06-04] MEDS: AMIODARONE 150 MG/3 ML VIAL IV ONE ×2 (05:51)
[2025-06-04] MEDS: AMIODARONE 450 MG in IV D5W 241 ML IV PRN (05:56)
[2025-06-04 05:58] LABS: PLATELET COUNT (AUTO) 254 K/uL (150-450); RED BLOOD CELL COUNT(AUTO) 4.29 MIL/uL (4.5-6.0); RED CELL DISTRIBUTION WIDTH 20.9 % (11.5-15.0); WHITE BLOOD COUNT (AUTO) 7.5 K/uL (4.3-11.0)
[2025-06-04 06:09] LABS: CALCIUM, SERUM 9.0 mg/dL (8.5-10.1); CREATININE 1.0 mg/dL (0.6-1.3); SODIUM SERUM 145.0 mmol/L (136-145); UREA NITROGEN, BLOOD 13.0 mg/dL (7-18)
[2025-06-04 08:00] VITALS: BP 105/60; TEMP 97.7; O2SAT 96
[2025-06-04] MEDS: POTASSIUM CHLORIDE 20 MEQ POWDER PACKET GT SCH (08:41)
[2025-06-04] MEDS: AMIODARONE HCL 200 MG TABLET GT SCH (08:42)
[2025-06-04] MEDS ORDERED: AMIO200T7 GT (10:28)
[2025-06-04 12:00] VITALS: BP 114/77; TEMP 98; O2SAT 99
[2025-06-04 13:22] VITALS: BP 114/77
== END 2025-06-04 14:25 | DRG 208 ==
LOC: ER 15:22 → TELE1 20:53 → ICU 06-02 10:07 → TELE1 06-03 17:03 → TELE-TD 06-04 05:32 → TELE1 06-04 10:55
PROVIDERS: ATTEND Internal Medicine
PROC: 5A1945Z Respiratory Ventilation, 24-96 Consecutive Hours (ICD-10-PCS; principal; 2025-05-31)
PROC: 05HB33Z Insertion of Infusion Device into Right Basilic Vein, Percutaneous Approach (ICD-10-PCS; 2025-06-01)
DX: J95.851 Ventilator associated pneumonia (principal); L89.214 Pressure ulcer of right hip, stage 4; D68.59 Other primary thrombophilia; Z99.11 Dependence on respirator [ventilator] status; E87.20 Acidosis, unspecified; G93.49 Other encephalopathy; J98.11 Atelectasis; J90 Pleural effusion, not elsewhere classified; J96.11 Chronic respiratory failure with hypoxia; I48.91 Unspecified atrial fibrillation; E86.0 Dehydration; Z93.0 Tracheostomy status; R13.10 Dysphagia, unspecified; Z93.1 Gastrostomy status; E11.40 Type 2 diabetes mellitus with diabetic neuropathy, unspecified; G40.909 Epilepsy, unspecified, not intractable, without status epilepticus; I10 Essential (primary) hypertension; E78.5 Hyperlipidemia, unspecified; D64.9 Anemia, unspecified; Z91.048 Other nonmedicinal substance allergy status; Z79.01 Long term (current) use of anticoagulants; Z79.51 Long term (current) use of inhaled steroids; Z79.899 Other long term (current) drug therapy; B96.89 Other specified bacterial agents as the cause of diseases classified elsewhere; R79.89 Other specified abnormal findings of blood chemistry; J44.9 Chronic obstructive pulmonary disease, unspecified; I25.2 Old myocardial infarction; L89.156 Pressure-induced deep tissue damage of sacral region; S80.812A Abrasion, left lower leg, initial encounter; S80.811A Abrasion, right lower leg, initial encounter; X58.XXXA Exposure to other specified factors, initial encounter; Y92.9 Unspecified place or not applicable; Z74.01 Bed confinement status; F20.9 Schizophrenia, unspecified; I25.10 Atherosclerotic heart disease of native coronary artery without angina pectoris; F29 Unspecified psychosis not due to a substance or known physiological condition; L89.521 Pressure ulcer of left ankle, stage 1; Z82.49 Family history of ischemic heart disease and other diseases of the circulatory system; K21.9 Gastro-esophageal reflux disease without esophagitis; Z83.3 Family history of diabetes mellitus; N40.0 Benign prostatic hyperplasia without lower urinary tract symptoms; J43.9 Emphysema, unspecified; E87.6 Hypokalemia; D72.829 Elevated white blood cell count, unspecified
CPT/HCPCS: 31720; 36410; 36415; 71045-TC; 80048-TC; 80076-TC; 80202-TC; 82533; 82728-TC; 83540-TC; 83605-TC; 83690-TC; 83735-TC; 84100-TC; 85025-TC; 85730-TC; 86850-TC; 87040-TC; 87081-TC; 94003-TC; 94760-TC; 94799-TC; 99082-TC; A4223; A6403; A7526; G0378; J0282; J2405; J2470; J2543; J2916; J3373; J3374; J3480; J3490; J7030; J7040; J7042; J7050; J7060; J7120

== ENCOUNTER 2025-08-23 05:00 | Inpatient (IN) | payer MEDICARE, OTHER ==
[~2025-08-23] VITALS: Ht 170.2 cm; Wt 54.9 kg
[~2025-08-23 05:00] MED LIST changes: -ACET1OOV6 NEB; -AMIN30LI66 GT; -AMIO100T GT; +AMIO200T7 GT; +ASCO500T10 GT; +CLON0.1T GT; +COLL30OI TP; +DIPH25CA51 GT; +DOCU100C36 GT; -DOCU50LI GT; +HEPA50007 SQ; +LOSA50TA39 GT; -MAGN296S72 GT; -MAGN400O6 GT; -METO25TA20 GT; +METO25TA6 GT; +NITR0.4T48 SL; +OMEP20CA15 GT; -PANT40SU2 GT; -PIPE3.379 IV; +QUET25TA GT; -VANC1FRO2 IV; +ZINC220C6 GT
[2025-08-23] MEDS ORDERED: ONDANSETRON HCL/PF 4 MG/2 ML VIAL ONE (05:18)
[2025-08-23] MEDS ORDERED: PANTOPRAZOLE 40 MG VIAL ONE (05:18)
[2025-08-23] MEDS: PANTOPRAZOLE 80 MG in IV NS 0.9% 100 ML IV ONE (05:27)
[2025-08-23] MEDS: IV NS 0.9% 500 ML BAG IV ONE (05:27)
[2025-08-23] MEDS: ONDANSETRON HCL/PF 4 MG/2 ML VIAL IVP ONE (05:27)
[2025-08-23 06:01] LABS: PLATELET COUNT (AUTO) 172 K/uL (150-450); RED BLOOD CELL COUNT(AUTO) 4.31 MIL/uL (4.5-6.0); RED CELL DISTRIBUTION WIDTH 18.6 % (11.5-15.0); WHITE BLOOD COUNT (AUTO) 17.1 K/uL (4.3-11.0)
[2025-08-23 06:06] LABS: CALCIUM, SERUM 8.7 mg/dL (8.5-10.1); CREATININE 1.1 mg/dL (0.6-1.3); SODIUM SERUM 145 mmol/L (136-145); UREA NITROGEN, BLOOD 33 mg/dL (7-18)
[2025-08-23 06:12] LABS: ASPARTATE AMINOTRANSFERASE 12 U/L (15-37); TOTAL PROTEIN, SERUM 8.7 g/dL (6.4-8.2)
[2025-08-23 06:15] LABS: INR 1.07 (0.91-1.10)
[2025-08-23] MEDS ORDERED: IV NS 0.9% 250 ML IV ONE (06:21)
[2025-08-23] MEDS ORDERED: CT SWABBABLE VALVE TRANS SET 1 EA INFUS.SET MC ONE (06:21)
[2025-08-23] MEDS ORDERED: IOHEXOL-300 100 ML VIAL IV ONE (06:21)
[2025-08-23 06:23] LABS: LACTIC ACID 4.1 mmol/L (0.4-2.0)
[2025-08-23] MEDS ORDERED: CEFTRIAXONE 1GM BAG (ER ONLY) 50 ML IV ONE (06:58)
[2025-08-23] MEDS: IV LR 1000 ML 1,000 ML BAG IV ONE (07:03)
[2025-08-23] MEDS: CEFTRIAXONE 1 G in IV D5W 50 ML IV ONE (07:03)
[2025-08-23] MEDS ORDERED: APIX2.5T GT (08:47)
[2025-08-23] MEDS ORDERED: MAGN400O6 GT (08:47)
[2025-08-23] MEDS ORDERED: IPRA4AER IH (08:47)
[2025-08-23] MEDS ORDERED: PANT40SU2 GT (08:47)
[2025-08-23] MEDS ORDERED: METO-295 GT (08:47)
[2025-08-23] MEDS ORDERED: NALO4SPR NS (08:47)
[2025-08-23] MEDS ORDERED: LINE600T12 GT (08:47)
[2025-08-23] MEDS ORDERED: AMIO200T5 GT (08:47)
[2025-08-23 10:25] LABS: APPEARANCE,URINE CLEAR (CLEAR); BLOOD, URINE 1+ Ery/uL (NEGATIVE); LEUKOCYTE ESTERASE ,URINE NEGATIVE (NEGATIVE); NITRITE, URINE NEGATIVE (NEGATIVE); UGLUCOSE NEGATIVE (NEGATIVE)
[2025-08-23 10:27] LABS: ADD URINE CULTURE NO; SQUAMOUS EPITHELIAL CELL,UR Few /HPF (None Seen)
[2025-08-23 10:45] VITALS: BP 106/54; TEMP 97.8; O2SAT 100
[2025-08-23] MEDS ORDERED: Z GUARD REMEDY 4 OZ OINT TP PRN (11:00)
[2025-08-23] MEDS ORDERED: ONDANSETRON HCL/PF 4 MG/2 ML VIAL IVP PRN (11:00)
[2025-08-23] MEDS ORDERED: MAG HYDROX/AL HYDROX/SIMETH 30 ML UDC PO PRN (11:00)
[2025-08-23] MEDS ORDERED: ACETAMINOPHEN 325 MG TABLET PO PRN (11:00)
[2025-08-23] MEDS: IV NS 0.9% 1,000 ML IV PRN (11:33)
[2025-08-23] MEDS: PANTOPRAZOLE 40 MG VIAL IV SCH (11:33)
[2025-08-23 12:00] VITALS: BP 105/52; TEMP 97.8; O2SAT 100
[2025-08-23] MEDS ORDERED: ALBUTEROL HALF STRENGTH 1.25 MG/3 ML VIAL.NEB NEB PRN (15:30)
[2025-08-23 16:00] VITALS: BP 126/65; TEMP 97.6; O2SAT 100
[2025-08-23 20:00] VITALS: BP 126/60; TEMP 97.7; O2SAT 96
[2025-08-24] VITALS: BP 116/75; TEMP 97.9; O2SAT 99
[2025-08-24 04:00] VITALS: BP 126/84; TEMP 97.8; O2SAT 99
[2025-08-24 07:37] LABS: PLATELET COUNT (AUTO) 151 K/uL (150-450); RED BLOOD CELL COUNT(AUTO) 3.48 MIL/uL (4.5-6.0); RED CELL DISTRIBUTION WIDTH 18.6 % (11.5-15.0); WHITE BLOOD COUNT (AUTO) 8.5 K/uL (4.3-11.0)
[2025-08-24 08:00] VITALS: BP 123/55; TEMP 97.7; O2SAT 97
[2025-08-24 08:33] LABS: CALCIUM, SERUM 8.2 mg/dL (8.5-10.1); CREATININE 0.8 mg/dL (0.6-1.3); PHOSPHORUS 2.3 mg/dL (2.5-4.9); SODIUM SERUM 143.0 mmol/L (136-145); UREA NITROGEN, BLOOD 21.0 mg/dL (7-18)
[2025-08-24 12:00] VITALS: BP 134/55; TEMP 97.1; O2SAT 95
[2025-08-24 16:00] VITALS: BP 137/69; TEMP 97.3; O2SAT 98
[2025-08-24] MEDS: Sodium Phosphate 15 MMOL in IV NS 0.9% 245 ML IV SCH (17:01)
[2025-08-24 20:00] VITALS: BP 123/54; TEMP 98; O2SAT 100
[2025-08-25] VITALS: BP 122/64; TEMP 98.1; O2SAT 100
[2025-08-25] MEDS: IV D5/ 0.9% NACL 1,000 ML IV PRN (00:28)
[2025-08-25 04:00] VITALS: BP 137/65; TEMP 97.7; O2SAT 100
[2025-08-25 07:27] LABS: PLATELET COUNT (AUTO) 156 K/uL (150-450); RED BLOOD CELL COUNT(AUTO) 3.58 MIL/uL (4.5-6.0); RED CELL DISTRIBUTION WIDTH 18.2 % (11.5-15.0); WHITE BLOOD COUNT (AUTO) 6.1 K/uL (4.3-11.0)
[2025-08-25 07:56] LABS: ASPARTATE AMINOTRANSFERASE 13.0 U/L (15-37); CALCIUM, SERUM 8.0 mg/dL (8.5-10.1); CREATININE 0.8 mg/dL (0.6-1.3); PHOSPHORUS 2.6 mg/dL (2.5-4.9); SODIUM SERUM 145.0 mmol/L (136-145); TOTAL PROTEIN, SERUM 7.5 g/dL (6.4-8.2); UREA NITROGEN, BLOOD 18.0 mg/dL (7-18)
[2025-08-25 08:00] VITALS: BP 133/54; TEMP 97.9; O2SAT 100
[2025-08-25] MEDS: THERAHONEY GEL 1.5 OZ TUBE TP SCH (11:29)
[2025-08-25 12:00] VITALS: BP 143/68; TEMP 97.7; O2SAT 100
[2025-08-25 16:00] VITALS: BP 153/61; TEMP 98.1; O2SAT 100
[2025-08-25 20:00] VITALS: BP 127/80; TEMP 97.3; O2SAT 100
[2025-08-26] VITALS (7 sets, daily range): BP systolic 129–158; BP diastolic 62–89; TEMP 97.5–98.1; O2SAT 96–100
[2025-08-26 08:43] LABS: PLATELET COUNT (AUTO) 168 K/uL (150-450); RED BLOOD CELL COUNT(AUTO) 3.84 MIL/uL (4.5-6.0); RED CELL DISTRIBUTION WIDTH 18.0 % (11.5-15.0); WHITE BLOOD COUNT (AUTO) 6.7 K/uL (4.3-11.0)
[2025-08-26 11:28] LABS: ASPARTATE AMINOTRANSFERASE 27 U/L (15-37); CALCIUM, SERUM 8.4 mg/dL (8.5-10.1); CREATININE 0.6 mg/dL (0.6-1.3); PHOSPHORUS 2.4 mg/dL (2.5-4.9); SODIUM SERUM 142 mmol/L (136-145); TOTAL PROTEIN, SERUM 7.8 g/dL (6.4-8.2); UREA NITROGEN, BLOOD 9 mg/dL (7-18)
[2025-08-26] MEDS: IVERMECTIN 3 MG TABLET PO ONE (11:42)
[2025-08-26] MEDS: VITAL AF 1.2 1,000 ML BOTTLE GT PRN (13:52)
[2025-08-26] MEDS: NEUTRA PHOS 1 POWD.PACKET GT ONE (17:14)
[2025-08-26] MEDS: LOSARTAN POTASSIUM 50 MG TABLET GT SCH (17:14)
[2025-08-26] MEDS: QUETIAPINE FUMARATE 25 MG TABLET GT SCH (17:14)
[2025-08-26] MEDS ORDERED: PERMETHRIN 59 ML BOTTLE TP ONE (20:00)
[2025-08-26] MEDS: PERMETHRIN 5% CRM 60 GM TUBE TP ONE (20:07)
[2025-08-27] VITALS: BP 143/81; TEMP 97.7; O2SAT 100
[2025-08-27 04:00] VITALS: BP 146/71; TEMP 98.1; O2SAT 100
[2025-08-27 07:30] LABS: PLATELET COUNT (AUTO) 152 K/uL (150-450); RED BLOOD CELL COUNT(AUTO) 3.56 MIL/uL (4.5-6.0); RED CELL DISTRIBUTION WIDTH 18.9 % (11.5-15.0); WHITE BLOOD COUNT (AUTO) 5.4 K/uL (4.3-11.0)
[2025-08-27 07:33] LABS: CALCIUM, SERUM 8.0 mg/dL (8.5-10.1); CREATININE 0.7 mg/dL (0.6-1.3); PHOSPHORUS 3.0 mg/dL (2.5-4.9); SODIUM SERUM 142.0 mmol/L (136-145); UREA NITROGEN, BLOOD 8.0 mg/dL (7-18)
[2025-08-27 08:00] VITALS: BP 143/63; TEMP 97.9; O2SAT 100
[2025-08-27] MEDS: PANTOPRAZOLE 40 MG/PACK PACK GT SCH (08:56)
[2025-08-27] MEDS: POTASSIUM CHLORIDE 20 MEQ POWDER PACKET GT ONE (10:20)
[2025-08-27 12:00] VITALS: BP 145/61; TEMP 97.5; O2SAT 100
== END 2025-08-27 14:11 | DRG 870 ==
LOC: ER 05:11 → TELE1 08:54
PROVIDERS: ADMIT Internal Medicine
PROC: 5A1955Z Respiratory Ventilation, Greater than 96 Consecutive Hours (ICD-10-PCS; principal; 2025-08-23)
PROC: 05HB33Z Insertion of Infusion Device into Right Basilic Vein, Percutaneous Approach (ICD-10-PCS; 2025-08-23)
DX: A41.9 Sepsis, unspecified organism (principal); K29.71 Gastritis, unspecified, with bleeding; Z99.11 Dependence on respirator [ventilator] status; G93.40 Encephalopathy, unspecified; D68.59 Other primary thrombophilia; A04.9 Bacterial intestinal infection, unspecified; E83.51 Hypocalcemia; E86.0 Dehydration; I48.91 Unspecified atrial fibrillation; J96.10 Chronic respiratory failure, unspecified whether with hypoxia or hypercapnia; N17.9 Acute kidney failure, unspecified; Z79.01 Long term (current) use of anticoagulants; J44.9 Chronic obstructive pulmonary disease, unspecified; D64.9 Anemia, unspecified; F20.9 Schizophrenia, unspecified; G40.909 Epilepsy, unspecified, not intractable, without status epilepticus; I11.9 Hypertensive heart disease without heart failure; E11.9 Type 2 diabetes mellitus without complications; I08.0 Rheumatic disorders of both mitral and aortic valves; E87.20 Acidosis, unspecified; E27.8 Other specified disorders of adrenal gland; Z93.1 Gastrostomy status; N40.0 Benign prostatic hyperplasia without lower urinary tract symptoms; Z74.01 Bed confinement status; E87.6 Hypokalemia; I25.2 Old myocardial infarction; R13.10 Dysphagia, unspecified; N21.0 Calculus in bladder; Z79.899 Other long term (current) drug therapy; Z82.49 Family history of ischemic heart disease and other diseases of the circulatory system; Z83.3 Family history of diabetes mellitus; I25.10 Atherosclerotic heart disease of native coronary artery without angina pectoris; N20.0 Calculus of kidney; E78.5 Hyperlipidemia, unspecified
CPT/HCPCS: 31720; 36415; 71045-TC; 80048-TC; 80053-TC; 80076-TC; 81001; 83605-TC; 83735-TC; 84100-TC; 85025-TC; 85730-TC; 86850-TC; 87040-TC; 87081-TC; 87086-TC; 94003-TC; 94760-TC; 94762-TC; 94799-TC; 99082-TC; A4223; A6213; A6403; A7526; A9563; G0378; J0696; J2405; J2470; J7030; J7040; J7042; J7050; J7060; J7120; Q9967